=== PATIENT | female | born 1960 | race Caucasian/White ===

== ENCOUNTER 2022-04-24 13:48 | Outpatient (CLI) | payer MEDICARE, MEDICAID, SELFPAY | END 2022-04-24 13:49 | disposition home or self-care (01) | LOC: CARDOPNVT 13:48 | PROVIDERS: Visit Provider Nurse Practitioner Family | DX: R00.2 Palpitations (principal) | CPT/HCPCS: 93246 ==

== ENCOUNTER → 2022-05-08 01:17 | Outpatient (CLI) | payer MEDICARE, MEDICAID, SELFPAY ==
--- NOTE | 2022-05-08 | DI.CTLCSR_ITS ---
Exam(s) CT CHEST LUNG CANCER SCREEN EXAM: CT CHEST LUNG CANCER SCREEN CLINICAL HISTORY: RT LUNG NODULE R91.8 EMPHYSEMA J43.9 SMOKER F17.210, SCREENING LUNG CANCER TECHNIQUE: Imaging Protocol: Axial computed tomography images with coronal and sagittal reformatted images were created and reviewed. Low dose screening protocol. COMPARISON: CR CHEST 2 VIEWS PA,LAT from 11/10/[address] CHEST LOW DOSE CA SCREENING from 04/12/[address] CHEST WO CONTRAST from 07/19/2020 FINDINGS: Tracheobronchial tree: No bronchiectasis or mucus plugging.. Mediastinum and Sandra: No dominant adenopathy or fluid collection. Pulmonary parenchyma: No consolidation or dominant measurable mass. 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 Lung Nodules: Marked interval increase in size of previously noted spiculated mass in the right lower lobe now measuring 3 cm by 2.5 cm by 2.1 cm. New 6 millimeter nodule in the superior segment of the left lower lobe. Pleura: No effusion. No pneumothorax. Heart: The heart is not dilated. Mild coronary artery calcifications are seen. Aorta: Thoracic aorta non-dilated.Atherosclerotic changes. Upper abdomen: Moderate size hiatal hernia. Liver cysts. Left renal cyst. Bones: Scoliosis and degenerative changes. Soft Tissues: Unremarkable. IMPRESSION: Significant interval increase in size previously noted spiculated mass in the right lower lobe now me asuring 3 cm. New 6 millimeter left lower lobe nodule is also suspicious. Lung RADS Cat 4X - Findings with additional features which require additional testing and tissue [facility]. Lung-RADS 1.0 CATEGORIES: Category 0 - Prior chest CT exam(s) being located for comparison. Category 1 - Annual screening in 12 months. No nodules or definitely benign nodules. Category 2 - Annual screening in 12 months. Benign appearance. Nodules with low likelihood of becomin g active cancer. Category 3 - 6-month follow-up. Probably benign. Short-term follow-up suggested. Nodules with low lik elihood of becoming active cancer. Category 4A - 3-month follow-up and CT/PET if >8 mm in size. Suspicious finding. Findings which requi re additional testing. Category 4B - Findings which require additional testing and tissue sampling. Category 4X - Category 3 or 4 nodules with additional features or imaging findings that increases the suspicion of malignancy. Modifier S- Potentially clinically significant findings (non lung cancer) RADIATION DOSE DELIVERED: 81.39mGy.cm Total DLP 1.84mGy!Error CTDIvol DATA REPOSITORY: All CT scans at this facility are submitted to the National Radiology Data Registry (NRDR) Dose Index Registry (DIR) with the [employer] (ACR). RADIATION OPTIMIZATION: All CT scans at this facility use at least one of these dose optimization te chniques: automated exposure control; mA and/or kV adjustment per patient size (includes targeted exa ms where dose is matched to clinical indication); or iterative reconstruction.
--- OUTSIDE RECORDS SUMMARY | 2022-05-08 01:19 | XMS_ITS | Encounter Summary ---
:1960 Author Organization [facility] Address [address] [place] [address] Care Team Providers Name Role Phone Unknown, Provider Primary Care Provider Encounter Details Date Type Department Care Team Description 03/14/2010 Results Only [facility] Gurvinder Gonzalez MD Laboratory Services - [address] [place] [address] [address] [facility] [place] [address] [phone] Social History Tobacco Use Types Packs/Day Years Used Date Smoking Tobacco: Never Assessed Sex Assigned at Date Recorded Not on file documented as of this encounter Plan of Treatment Not on filedocumented as of this encounter Procedures Procedure Name Priority Date/Time Associated Diagnosis Comme nts CYTOPATHOLOGY Routine 03/14/2010 0:00 EDT Results for this procedure are i n the results section . documented in this encounter Results CYTOPATHOLOGY (03/14/2010 0:00 EDT) Component Value Ref Test Analysis Performed At [facility] Pathology CYTOPATHOLOGY REPORT ? AYANNA Report: ? [facility] Reports generated via electr onic interface contain original data; ? however they are lacking the format of the original report. ? Caution should be taken when reading/interpreting unformatted reports. ? Name: ? REIL, TERESA L ? Accession #: ? [id number] ? : ? 1960 (Age: 49) ??F ?Collect Date: ? 03/14/2010 ? Location: ? [facility] ? R eceive Date: ? 03/18/2010 ? Provider: BROOKE GONZALEZ MD ? Copy to: ? Final Report ? SPECIMEN ADEQUACY ? Satisfactory for Eval uation ? - transformation zone compon ent present ? GENERAL CATEGORIZATION ? Negative for Intraepi thelial Lesion or Malignancy ? Last Menstural Period: 05/10 ? Previous Gynecologic Patholo gy: LSIL ? Other: HPVDX - HPV testing r equested regardless of diagnosis on current ThinPrep Pap test. ? Specimen/Source: ??Pap Test, Cervix/Endocervix, ThinPrep Imaging System with ? manual evaluation ? Document reviewed and electr onically signed by: ? Alyse Conrad, CT(ASCP) ? Report ??Date: 10/15/ 2010 15:36 ? HPV with Pap Test ? Date Ordered: ? 1 ? Status: ?? Signed Out ?Date Complete: ? 03/26/2010 ? By: ??System Interface ? Date Reported: ? 03/26/2010 ? Interpretation ? RESULT: Negative for HPV typ es 16, 18, 31, 33, 35, 39, 45, 51, 52, ? 56, 58, 59, and 68. ? Comments ? Document reviewed and electr onically signed by: ? System Interface ? Report date: 10/20/20 10 ? By the signature above, the attending physician certifies that he/she has ? personally conducted a gross and/or microscopic examination of the described ? specimens and rendered or co nfirmed the above diagnosis. ? End of Report ? Specimen (Source) Anatomical Location Collection Method / Collectio n Time Received Time / Laterality Volume 03/14/2010 03/18/2010 Brooke Gonzalez MD PATHOLOGY ORDERABLES Performing Organization Address City/State/ZIP Code Phon e Number [facility] [address] [place] [address] SERVICES [facility] [address] [place] [address] documented in this encounter Visit Diagnoses Not on filedocumented in this encounter Care Teams Unbundler Relationship Specialty Start Date End Date Unknown, Provider, PCP - General 04/04/09 documented as of this encounter
--- OUTSIDE RECORDS SUMMARY | 2022-05-08 01:19 | XMS_ITS | Encounter Summary ---
:1960 Author Organization [facility] [place] [address] [place] [address] Care Team Providers Name Role Phone Stewart Tracey MD Primary Care Provider Encounter Details Date Type Department Care Team Description 08/06/2017 Hospital Encounter XRay at [facility] Morgan Garcia Scoliosis, [address] Mikel MD unspecified [place], [place] [facility] scoliosis type, [id number] CENTER unspecified spinal [phone] [place] [address] Social History Tobacco Use Types Packs/Day Years Used Date Smoking Tobacco: Every Day Cigarettes 1 Smokeless Tobacco: Never Sex Assigned at Date Recorded Not on file documented as of this encounter Medications at Time of Discharge Medication Sig Dispensed Refills Start Date End Date traMADol (ULTRAM) 50 mg Take 50 mg by mouth 0 Tablet every 6 hours as needed for Pain. cyanocobalamin 1,000 mcg Take 1,000 mcg by 0 Tablet mouth daily. cholecalciferol, Vitamin D3, Take by mouth. 0 (CHOLECALCIFEROL, VITAMIN D3,) 2,000 unit Capsule multivitamin (THERAGRAN) Take 1 tablet by 0 Tablet mouth daily. cyclobenzaprine (FLEXERIL) Take 10 mg by mouth 0 10 mg Tablet nightly. albuterol 90 mcg/actuation Inhale 2 puffs into 0 HFA Aerosol Inhaler the lungs every 4 hours as needed for Wheezing. Use with spacer EPINEPHrine 0.3 mg/0.3 mL Inject 0.3 mg into 0 Auto-Injector the muscle once. fluticasone (FLONASE) 50 1 spray daily. 0 mcg/actuation [place], Suspension documented as of this encounter Plan of Treatment Not on filedocumented as of this encounter Procedures Procedure Name Priority Date/Time Associated Diagnosis Comme nts XR SCOLIOSIS OR Routine 08/06/2017 1:20 PM Scoliosis, Result s for this TOTAL SPINE 2 VIEW EST unspecified procedure are in scoliosis type, the results unspecified spinal section. region documented in this encounter Results XR Scoliosis or Total Spine 2 view (08/06/2017 1:20 PM EST) Anatomical Region Laterality Modality C-spine, T-spine, L-spine N/A Digital Radiog lupe Specimen (Source) Anatomical Location Collection Method / Collectio n Time Received Time / Laterality Volume Impressions 08/06/2017 2:29 PM EST Marked dextroscoliosis of the lower thoracic and lumbar spine, with its apex at the thoracolumbar junction, measured at approximately 46 degrees. Narrative 08/06/2017 2:29 PM EST EXAMINATION: XR SCOLIOSIS OR TOTAL SPINE 2 VIEW CLINICAL HISTORY: Scoliosis TECHNIQUE: Frontal and lateral radiographs of the t otal spine were obtained COMPARISON: Lumbar spine radiographs dated 03/04/2016 and 08/06/2016. Attention is also directed to the lumbar spine MRI dated 06/16/2016. FINDINGS: There is a marked dextroscoliosis of the lower thoracic and lumbar spine, with its apex at the thoracolumbar junction, which, when measured between the T10 superior endplate and the L3 inferior en dplate, is measured at 46 degrees. There are 12 pairs of ribs and 5 lumbar- type vertebral bodies. No vertebral anomaly is visualized. No significant pe lvic tilt is appreciated. Subjectively, there is diffuse demineral ization of the bones. Dense atherosclerotic calcification of t he abdominal aorta is seen. Procedure Note Arlene Galan MD - 08/06/2017Formatting o f this note might be different from the original. EXAMINATION: XR SCOLIOSIS OR TOTAL SPINE 2 VIEW CLINICAL HISTORY: Scoliosis TECHNIQUE: Frontal and lateral radiographs of the t otal spine were obtained COMPARISON: Lumbar spine radiographs dated 03/04/2016 and 08/06/2016. Attention is also directed to the lumbar spine MRI dated 06/16/2016. FINDINGS: There is a marked dextroscoliosis of the lower thoracic and lumbar spine, with its apex at the thoracolumbar junction, which, when measured between the T10 superior endplate and the L3 inferior en dplate, is measured at 46 degrees. There are 12 pairs of ribs and 5 lumbar- type vertebral bodies. No vertebral anomaly is visualized. No significant pe lvic tilt is appreciated. Subjectively, there is diffuse demineral ization of the bones. Dense atherosclerotic calcification of t he abdominal aorta is seen. IMPRESSION Marked dextroscoliosis of the lower thor acic and lumbar spine, with its apex at the thoracolumbar junction, measured at approximately 46 degrees. Morgan Garcia MD IMG DX ORDERABLES documented in this encounter Visit Diagnoses Diagnosis Scoliosis, unspecified scoliosis type, u nspecified spinal region documented in this encounter Care Teams B Operator Relationship Specialty Start Date End Date Stewart Tracey MD PCP - General Family Medicine 08/06/[address] [place] [phone] documented as of this encounter
--- OUTSIDE RECORDS SUMMARY | 2022-05-08 01:19 | XMS_ITS | Encounter Summary ---
:1960 Author Organization [facility] [place] [address] Care Team Providers Name Role Phone Stewart Tracey MD Primary Care Provider Encounter Details Date Type Department Care Team Description 08/06/2017 Hospital Encounter XRay at [facility] Morgan Garcia Scoliosis, [address] Mikel MD unspecified [place], [place] [facility] scoliosis type, [address] CENTER unspecified spinal [phone] [place] [address] Social History Tobacco Use Types Packs/Day Years Used Date Smoking Tobacco: Every Day Cigarettes 1 Smokeless Tobacco: Never Sex Assigned at Date Recorded Not on file documented as of this encounter Plan of Treatment Not on filedocumented as of this encounter Procedures Procedure Name Priority Date/Time Associated Diagnosis Comme nts XR LUMBAR SPINE 2 Routine 08/06/2017 1:24 PM Scoliosis, Resu lts for this OR 3 VIEWS EST unspecified procedure are i n scoliosis type, the results unspecified spinal section. region documented in this encounter Results XR Lumbar Spine 2 Or 3 Views (Generic) (08/06/2017 1:24 PM EST) Anatomical Region Laterality Modality L-spine N/A Digital Radiography Specimen (Source) Anatomical Location Collection Method / Collectio n Time Received Time / Laterality Volume Impressions 08/06/2017 1:53 PM EST 1. ??Slight scoliosis 2. ??No dynamic instability. Narrative 08/06/2017 1:53 PM EST EXAMINATION: XR LUMBAR SPINE 2 OR 3 VIEWS (GENERIC) CLINICAL HISTORY: Lateral flex/ ext 2 vi ews to eval scoliosis; looking for instability/motion TECHNIQUE: 2 views COMPARISON: February 2016 FINDINGS: Number of non-rib bearing lumbar-type ve rtebrae: 5 Vertebral bodies: Normal vertebral heigh t. No vertebral fracture. Evaluation of bone detail is limited by decreased mine ralization and scoliosis. There is facet arthropathy. Disk spaces: Disc space narrowing at all levels. Soft tissues: ??heavy atherosclerotic ao rtic wall calcifications. there is focal increased diameter the aorta at L2 measu ring 40 mm. Alignment: Scoliosis seen on the previou s examination. No subluxation on the lateral view. Unchanged alignment upon f lexion and extension. Procedure Note Delmy Parsons MD - 08/06/2017Formatt ing of this note might be different from the original. EXAMINATION: XR LUMBAR SPINE 2 OR 3 VIEW S (GENERIC) CLINICAL HISTORY: Lateral flex/ ext 2 vi ews to eval scoliosis; looking for instability/motion TECHNIQUE: 2 views COMPARISON: February 2016 FINDINGS: Number of non-rib bearing lumbar-type ve rtebrae: 5 Vertebral bodies: Normal vertebral heigh t. No vertebral fracture. Evaluation of bone detail is limited by decreased mine ralization and scoliosis. There is facet arthropathy. Disk spaces: Disc space narrowing at all levels. Soft tissues: heavy atherosclerotic aort ic wall calcifications. there is focal increased diameter the aorta at L2 measu ring 40 mm. Alignment: Scoliosis seen on the previou s examination. No subluxation on the lateral view. Unchanged alignment upon f lexion and extension. IMPRESSION 1. Slight scoliosis 2. No dynamic instability. Morgan Garcia MD IMG DX ORDERABLES documented in this encounter Visit Diagnoses Diagnosis Scoliosis, unspecified scoliosis type, u nspecified spinal region documented in this encounter Care Teams Child Development Associate Teacher Relationship Specialty Start Date End Date Stewart Tracey MD PCP - General Family Medicine 08/06/[address] [place] [phone] documented as of this encounter
--- OUTSIDE RECORDS SUMMARY | 2022-05-08 01:19 | XMS_ITS | Encounter Summary ---
:1960 Author Organization [facility] Address [address] [place] [address] Care Team Providers Name Role Phone Unavailable Primary Care Provider Unavailable Encounter Details Date Type Department Care Team Description 03/22/2009 Orders Only [facility] Gurvinder Wiley MD Laboratory Services - [address] [facility] [place] [address] [address] [facility] [place] [address] [phone] Social History Tobacco Use Types Packs/Day Years Used Date Smoking Tobacco: Never Assessed Sex Assigned at Date Recorded Not on file documented as of this encounter Plan of Treatment Not on filedocumented as of this encounter Procedures Procedure Name Priority Date/Time Associated Comments Diagnosis HPV DETECTION, HIGH Routine 03/22/2009 11:10 Resu lts for this RISK TYPES EDT procedure are i n the results section. CYTOPATHOLOGY Routine 03/22/2009 0:00 Results for this EDT procedure are i n the results section. documented in this encounter Results HUMAN PAPILLOMA VIRUS DNA TEST (03/22/2009 11:10 EDT) [facility] Method Time Signature Specimen Cervix, URENA Description ThinPrep [facility] vial Result Negative for URENA HPV types RA [facility] 16, 18, 31, 33, 35, 39, 45, 51, 52, 56, 58, 59, and 68. Report Status Final [place] 04/05/2009 [facility] Specimen Anatomical Collection Method Collection Time Receive d Time (Source) Location / / Volume Laterality 03/22/2009 11:10 04/04/2009 EDT 11:10 EDT Brooke Wiley MD MICROBIOLOGY - GENERAL ORDER TEETEE Performing Organization Address City/State/ZIP Code Phon e Number [facility] [address] [place] [address] SERVICES [facility] [address] [place] [address] CYTOPATHOLOGY (03/22/2009 0:00 EDT) Component Value Ref Test Analysis Performed At [facility] Range Method Time Signature Pathology CYTOPATHOLOGY REPORT ? URENA Report: ? [facility] Reports generated via [employer] interface contain original data; ? however they are lacking the format of the original report. ? Caution should be taken when reading/interpreting unformatted reports. ? Name: ? TERESA DOMÍNGUEZ ? Accession #: ? [id number] ? : ? 1960 (Age: 48) ??F ?Collect Date: ? 03/22/2009 ? Location: ? [facility] ? Receive Date: ? 03/25/2009 ? Provider: ?BROOKE VADIM MAN MD ? Copy to: ? Specimen/Source: ? Pap Test, Endocervix, ThinPrep Imaging System with ? manual evaluation ? Last Menstrual Period: ? 8/13/09 ? Other: ? HPVDX - HPV testing requeste d regardless of diagnosis on current ThinPrep Pap ?? test. ? SPECIMEN ADEQUACY ? Satisfactory for Eval uation ? - transformation zone compon ent present ? GENERAL CATEGORIZATION ? Epithelial Cell Abnor mality ? INTERPRETATION ? Squamous Cell Abnorma lity - Low grade squamous intraepithelial lesion ? (LSIL). ? Shift in nir present sugge stive of bacterial vaginosis. ? EDUCATIONAL NOTES/RECOMMENDA TIONS ? FA recommends john wing the 2006 Consensus Guidelines for the Management of Women with Abnormal Cervi abhishek Cancer Screening Tests (JLGTD, ? 2007;11(4):201-222). ??Conse nsus guidelines are available online at ? www.ASCCP.org. ? Document reviewed and electr onically signed by: ? ABDELMONEM ELHOSSEINY MD ? Report Date: ??10/28/ 2009 13:23 ? End of Report ? Specimen (Source) Anatomical Location Collection Method / Collectio n Time Received Time / Laterality Volume 03/22/2009 03/25/2009 Brooke Wiley MD PATHOLOGY ORDERABLES Performing Organization Address City/State/ZIP Code Phon e Number [facility] [address] [place] [address] SERVICES [facility] [address] [place] [phone] documented in this encounter Visit Diagnoses Not on filedocumented in this encounter
--- OUTSIDE RECORDS SUMMARY | 2022-05-08 01:19 | XMS_ITS | Encounter Summary ---
:1960 Author Organization [facility] Address [address] [place] [address] Care Team Providers Name Role Phone Unknown, Provider Primary Care Provider Encounter Details Date Type Department Care Team Description 10/07/2012 Results Only [facility] Gurvinder Gonzalez MD Laboratory Services - [address] [place] [address] [address] [facility] [place] [address] [phone] Social History Tobacco Use Types Packs/Day Years Used Date Smoking Tobacco: Never Assessed Sex Assigned at Date Recorded Not on file documented as of this encounter Plan of Treatment Not on filedocumented as of this encounter Procedures Procedure Name Priority Date/Time Associated Diagnosis Comme nts PAP TEST- RESULT Routine 10/07/2012 0:00 EDT Resu lts for this ONLY procedure are i n the results section. documented in this encounter Results PAP TEST- RESULT ONLY (10/07/2012 0:00 EDT) Component Value Ref Test Analysis Performed At [facility] Method Time Signature Pathology CYTOPATHOLOGY REPORT AYANNA Report: [facility] Reports generated via electronic interface contain original data; however they are lacking the format of the original report. Caution should be taken when reading/interpreting unformatte d reports. Name: ? TERESA DOMÍNGUEZ ? Accession #: ? [id number] ? : ? 1960 (Age: 52) ??F ?Collect Da te: ? 10/07/2012 ? Location: ? [facility] ? Receive Date: ? 10/10/2012 ? Provider: IDANIA GONZALEZ MD Copy to: ? Final Report SPECIMEN ADEQUACY ? Satisfactory for Evaluation - transformation zone component present - scant squamous epithelial component secondary to excessive inflammation GENERAL CATEGORIZATION ? Negative for Intraepithelial Lesion or Malignancy ?? Last Menstrual Period: 2009 Previous Gynecologic Pathology: LSIL: 2009 Other: Additional clinical information: Repeat pap from 2011. Pap specimen not adequate for evaluation. No Charge pap. Specimen/Source: ??Pap Test, Cervix/Endocervix, ThinPr ep Imaging System with manual evaluation Document reviewed and electronically signed by: ? MEGAN Agrawal(ASCP) ? Report ??Date: 10/14/2012 10:46 HPV with Pap Test ? Date Ordered: ? 10/14/2012 ? Status: ?? Cheryl d Out ?Date Complete: ? 10/18/2012 ? By: ??System Interface ? Date Reported: ? 10/18/2012 ? Interpretation RESULT: Negative for HPV. No E6 or E7 mRNA is detected from HPV types 16,18,31,33,35, 39,45,51,52,56,58,59,66, and 68 by caustic loader mediated amplification. Comments Document reviewed and electronically signed by: ? System Interface ? Report date: 10/18/2012 By the signature above, the attending physician certifies th at he/she has personally conducted a gross and/or microscopic examin ation of the described specimens and rendered or confirmed the above diagnosis. End of Report Specimen (Source) Anatomical Location Collection Method / Collectio n Time Received Time / Laterality Volume 10/07/2012 10/10/2012 Idania Gonzalez MD PATHOLOGY ORDERABLES Performing Organization Address City/State/ZIP Code Phon e Number [facility] [address] [place] [address] SERVICES [facility] [address] [place] [address] documented in this encounter Visit Diagnoses Not on filedocumented in this encounter Care Teams Real Estate Investment Analyst Relationship Specialty Start Date End Date Unknown, Provider, PCP - General 04/04/09 documented as of this encounter
--- OUTSIDE RECORDS SUMMARY | 2022-05-08 01:19 | XMS_ITS | Encounter Summary ---
:1960 Author Organization [facility] Address [address] [place] [address] Care Team Providers Name Role Phone Stewart Tracey MD Primary Care Provider Reason for Visit Reason Comments Low Back Pain left side pain Left Hip Pain Left Leg Pain Consultation (Routine) - Closed Specialty Diagnoses / Procedures Referred By Contact Refer red To Contact Orthopaedics Diagnoses pt declined pain clinic for trial of injections. 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-archachnoid Marcela Burrows, Aakash Houston MD space, C2-3 thinning of thecal sac [address] [place] [address] [place] [address] Phone: Fax: Referral ID Status Reason Start Date Expiration Date Visits V isits Requested Authorized [id number] Closed Consult, 05/19/2017 05/19/2018 1 1 [facility] Encounter Details Date Type Department Care Team Description 08/06/2017 Office Visit [facility] Kya Calvillo is, unspecified Cornell CARO scoliosis type, [facility] uns pecified spinal [address] [place] [facility] [facility] [address] [place] [address] [phone] Social History Tobacco Use Types Packs/Day Years Used Date Smoking Tobacco: Every Day Cigarettes 1 Smokeless Tobacco: Never Sex Assigned at Date Recorded Not on file documented as of this encounter Last Filed Vital Signs Vital Sign Reading Time Taken Comments Blood Pressure 128/56 08/06/2017 1:41 PM EST Pulse - - Temperature - - Respiratory Rate - - Oxygen Saturation - - Inhaled Oxygen Concentration - - Weight 60.8 kg (134 lb) 08/06/2017 1:41 PM EST Height 157.5 cm (5' 2) 08/06/2017 1:41 PM EST Body Mass Index 24.51 08/06/2017 1:41 PM EST documented in this encounter Progress Notes Alexys Goode T - 08/06/2017 1:40 PM EST HPI: Patient is a pleasant 57-year-old female with complex medical history including history of scoliosisas well as long-standing back pain. Patient was referred here by her primary care provider Marcela LEACH. Patient reports that she has had pain in her back and neck for several decades. She believes that this began when she had a accident on a horse when she was a child. She did not find out abouther scoliosis until her adult life, she believes at some point in the mid 90s. She did not undergo any treatment specifically for her scoliosis in the form of bracing and/or surgery. With regards to her back pain she has pursued several different treatment modalities in the past including chiropractors, physical therapy, and medication. She reports that these have provided her temporary relief at times however her pain has overall been consistent and progressive. She reports at this time that the pain is most bothersome in her mid thoracic spine as well as in her neck. Moreover she reports pain andnumbness in the neck with elevation of the bilateral upper extremities left worse than right. Furthermore she reports intermittent numbness/tingling in her feet as well as in her bilateral hands. She reports that her symptoms are worse with activity (including walking and lifting heavy objects). She reports that they do resolve somewhat with rest. She reports her symptoms do awaken her sometimes at night. She does feel that the pain has affected her gait and balance. She denies any other recent changes in her health or constitutional symptoms. She denies any unexplained weight loss. She denies any bowel or bladder symptoms. She has had no prior spine surgery. She has had no injections for her backpain. She reports that the pain is currently keeping her from activities that she would like to engage in work around her house. She is not currently employed, she is on disability and a widows pension. Medications: Tramadol Medical history: pernicious anemia, hyperlipidemia, venous stasis, allergic rhinitis, skin lesions, arthralgia, hip pain, chronic SI joint pain, fibromyalgia Medications: Tramadol,Vitamin B12, cyclobenzaprine, fluticasone, ProAir air Allergies: Gabapentin, doxycycline, meloxicam, pain thinner, shellfish, amoxicillin, Augmentin, simvastatin, niacin, detergent, sulfamethoxazole, mometasone Physical exam: Patient walks with an antalgic gait. She is able to perform normal toe walk and heel walk. She is able to perform straight leg raise with some difficulty (she does not develop balance). She stands with notable pelvic tilt and tilt of her shoulders. Her spine has noted curvature on examand a palpable prominence of the right side posterior ribs. She is able to flex to 60?? and extend to 15?? and lumbar spine she is a reformed cervical flexion 30??, cervical extension 50??, cervical rotation 35?? bilaterally, cervical side bend 15?? bilaterally, (she has diffuse pain with movement of her neck and lumbar spine). Motor examination reveals 4 out of 5 strength diffusely in the left lower extremity 4 out of 5 strength with quality process engineer flexion and extension of the elbow with the left upper extremity. 5 out of 5 strength diffusely in the right lower extremity and right upper extremity. Reflexes are 2+ and symmetric in theupper extremities and lower extremities bilaterally. Straight leg raise is negative in bilateral lower extremities. Spurling's test is negative. Musa's test is negative. Clonus is negative. Babinski is negative. Bilateral DP pulses are 2+. Bilateral radial pulses are 2+. Patient has positive Tinel's bilateral wrist with median nerve distribution numbness, and bilateral elbows with ulnar distribution numbness she is noted to have diffuse. Point tenderness in her back and extremities. Imaging: x-ray demonstrates a right-sided thoracic curvature of 39??, and left sided lumbar curvature 43??. Also noted are diffuse degenerative changes throughout the lumbar and thoracic spine. MRI: demonstrates multilevel degenerative changes in the cervical and lumbar spine, without substantial nerve compression in the lumbar thoracic or cervical spine. Assessment plan: Patient is a 57-year-old female with scoliosis and chronic back pain. Treatment options for her symptoms were discussed with her. Would we discussed with her that surgery for her scoliosis potentially be helpful to limit curve progression, however it would not reliably provide pain relief, and may actually exacerbate pain. Furthermore we advised that this would be a large surgery with a long recoveryperiod. We discussed with her management of back and neck pain it is very often an ongoing issue, they can be addressed with multiple modalities. We recommended that she engage in pool/aquatic therapy for strengthening and conditioning. She should continue to follow-up with her primary care provider. W ith regard to numbness and tingling in her hands, it is felt this was likely related to possible carpal and/or cubital tunnel. The patient reports she has been told in the past that she does have carpal tunnel syndrome, and has undergone injections in her carpal tunnels. We would recommend referral bo upper extremity surgeon for evaluation and treatment of this. It was noted on her current imagingthat her curve does appear to possibly have progressed somewhat from prior imaging. Because of this we would recommend having the patient follow-up again in this clinic in approximately 6 months, with repeat scoliosis x-rays obtained at that time to evaluate for curve progression. If there is progression of the curve, we would revisit discussion of surgery, again with the goal of preventing further curve progression. However, there is no progression of the curve we would continue to recommend nonoperative management. The patient expressed understanding all questions were answered satisfactorily. Morgan Garcia MD - 08/06/2017 1:40 PM EST Images from the original note were not included. Spine Center @ [facility] Morgan Garcia MD, MS. Director HANY Y[address] [place] [address] Stewart Tracey MD [address] [facility] [address] Dear Colleagues, I had the pleasure of seeing this patient at the [facility] for surgical evaluation. Chief complaint: Diffuse pain. Diagnosis: 1. Possible progressive scoliosis. 39?? right-sided thoracic, 42?? left-sided lumbar. Prior imaging showed 26?? on lumbar films. 2. Diffuse pain secondary to multiple diagnoses including SI joint pain arthralgias hip pain fibromyalgia chest wall pain muscle strain. 3. Neurologically intact. Prognostic factors BMI 24.51, every day smoker one pack per day. Nondiabetic. Multiple allergies on tramadol. Imaging:X-rays March 04, 2016 right lumbar curve 26?? approximately. Scoliosis films done 08/06/2017 show 46?? curve from the top of the L4 to the top of T11. Physical examination: Neurologically intact. Obvious scoliosis with a right lumbar thoracolumbar ribhump. Asymmetry of the shoulders. Otherwise coronal and sagittal alignment appears to be within normal limits. Summary and plan: Is a patient with possible progressive scoliosis. For that I like to see her back in 6 months with full length scoliosis films. If there is significant progression surgical intervention should be considered. The extent of the surgical intervention is quite large. I discussed with with her. The goal that surgery would be to prevent further progression and would not necessarily alleviate her pain. Considering her back pain this is to be managed. Aquatic therapy injections comfort care acupuncture physical activity. I do think aquatic therapy would be the best thing for her. We discussed finding her place to do this. They will look into it. Patient was seen in conjunction with chief resident on the service. Please see his clinical notes for details. More than 50% of more than 60 minutes were utilized in counseling around diagnosis, review of films,generator of the pain which is unclear, indications for surgical intervention and importance of follow-up. Films are reviewed together and discussed. Sincerely, Morgan Garcia MD MS Tank Pumper - Orthopedic Spine Surgery / Spine Center Remote Sensing Scientist - Department of Orthopedic Surgery / Academics [employer] [facility] - [facility] Division of Medicine 08/10/2017 Spine Center Response Trends Patient-reported scores: myD-H Spine Questionnaire responses 08/06/2017 Oswestry Disability Index (Range: 0-100) 62.22 (Crippled) Neck Disability Index (Range: 0-100) 64 (Severe disability) PROMIS-10 Physical Health Score 23.5 PROMIS-10 Mental Health Score 28.4 documented in this encounter Plan of Treatment Not on filedocumented as of this encounter Visit Diagnoses Diagnosis Scoliosis, unspecified scoliosis type, u nspecified spinal region documented in this encounter Care Teams Resawyer Relationship Specialty Start Date End Date Stewart Tracey MD PCP - General Family Medicine 08/06/17 [address] [place] [phone] documented as of this encounter
--- OUTSIDE RECORDS SUMMARY | 2022-05-08 01:19 | XMS_ITS | Encounter Summary ---
:1960 Author Organization [facility] Address [address] [place] [address] Care Team Providers Name Role Phone Unknown, Provider Primary Care Provider Encounter Details Date Type Department Care Team Description 03/24/2011 Results Only [facility] Gurvinder Gonzalez MD Laboratory Services - [address] [place] [address] [address] [facility] [place] [address] [phone] Social History Tobacco Use Types Packs/Day Years Used Date Smoking Tobacco: Never Assessed Sex Assigned at Date Recorded Not on file documented as of this encounter Plan of Treatment Not on filedocumented as of this encounter Procedures Procedure Name Priority Date/Time Associated Diagnosis Comme nts PAP TEST- RESULT Routine 03/24/2011 0:00 EDT Resu lts for this ONLY procedure are i n the results section. documented in this encounter Results PAP TEST- RESULT ONLY (03/24/2011 0:00 EDT) Component Value Ref Test Analysis Performed At [facility] Method Time Signature Pathology CYTOPATHOLOGY REPORT AYANNA Report: RA LAB Reports generated via electronic interface contain original data; however they are lacking the format of the original report. Caution should be taken when reading/interpreting unformatte d reports. Name: ? TERESA DOMÍNGUEZ ? Accession #: ? [id number] : ? 1960 (Age: 50) ??F ?Collect Date: ? 03/24/2011 Location: ? [facility] ? Receive Date: ? 03/25/2011 Provider: ?IDANIA GONZALEZ MD Copy to: ? Specimen/Source: ? Pap Test, Cervix/Endocervix, ThinPrep Imaging System with manual evaluation Last Menstrual Period: ? 05/16 Previous Gynecologic Pathology: ? LSIL: 2009 ? SPECIMEN ADEQUACY ? Satisfactory for Evaluation - transformation zone component present GENERAL CATEGORIZATION ? Negative for Intraepithelial Lesion or Malignancy ? Document reviewed and electronically signed by: ? MEGAN Elizalde(ASCP) ? Report Date: ??04/02/2011 10:51 End of Report Specimen (Source) Anatomical Location Collection Method / Collectio n Time Received Time / Laterality Volume 03/24/2011 03/25/2011 Idania Gonzalez MD PATHOLOGY ORDERABLES Performing Organization Address City/State/ZIP Code Phon e Number [facility] [address] [place] [address] SERVICES [facility] [address] [place] [address] documented in this encounter Visit Diagnoses Not on filedocumented in this encounter Care Teams Nitroglycerin Separator Operator Relationship Specialty Start Date End Date Unknown, Provider, PCP - General 04/04/09 documented as of this encounter
--- OUTSIDE RECORDS SUMMARY | 2022-05-08 01:19 | XMS_ITS | Encounter Summary ---
:1960 [place] [address] Care Team Providers Name Role Phone Brooke Wiley MD Primary Care Provider Encounter Details Date Type Department Care Team Description 04/16/2017 Hospital Encounter Radiology Library at [facility] Morgan Morin MD [facility] [place] [address] [place] [address] [phone] (Wo rk) Social History Tobacco Use Types Packs/Day Years Used Date Smoking Tobacco: Never Assessed Sex Assigned at Date Recorded Not on file documented as of this encounter Medications at Time of Discharge Medication Sig Dispensed Refills Start Date End Date rosuvastatin (CRESTOR) 5 mg 0 05/07/20 06 08/06/2017 tablet venlafaxine (EFFEXOR XR) 75 mg 0 05/0208/06/2017 24 hr capsule epiNEPHrine (EPIPEN) 0.3 1 IM, IM, PRN 0 05/02/20 06 08/06/2017 mg/0.3 mL injection Mometasone (NASONEX) 50 0 05/02/2006 0 08/06/2017 mcg/Actuation Somers ibuprofen (ADVIL;MOTRIN) 800 800MG, PO, PRN 0 08/06/2017 mg tablet triamcinolone (KENALOG) 0.1 % 0 200508/06/2017 ointment Cyanocobalamin (VITAMIN B-12) 0 200508/06/2017 1,500 mcg TbSR documented as of this encounter Plan of Treatment Not on filedocumented as of this encounter Procedures Procedure Name Priority Date/Time Associated Diagnosis Comme nts FILM LIBRARY Routine 04/16/2017 12:00 AM Pain Results for this STORAGE ONLY MR EST procedure ar e in SPINE the results section. documented in this encounter Results Film Library- Storage Only MR Spine (04/16/2017 12:00 AM EST) Specimen (Source) Anatomical Location Collection Method / Collectio n Time Received Time / Laterality Volume Narrative RAD - 08/05/2017 7:54 AM EST This result has an attachment that is no t available. This exam is for storage only and is aut o-finalizing. Morgan Garcia MD IMG FILM LIBRARY ORDERABLES Performing Organization Address City/State/ZIP Code Phon e Number [place], [place] documented in this encounter Visit Diagnoses Diagnosis Pain Generalized pain documented in this encounter Care Teams Director Of Event Management Relationship Specialty Start Date End Date Brooke Wiley MD PCP - General 04/29/10 05/17/17 [address] [place] [address] documented as of this encounter
--- OUTSIDE RECORDS SUMMARY | 2022-05-08 01:19 | XMS_ITS | Encounter Summary ---
:1960 Author Organization [facility] Address [address] [place] [address] Care Team Providers Name Role Phone Unknown, Provider Primary Care Provider Encounter Details Date Type Department Care Team Description 07/31/2009 Results Only [facility] Devora Jones MD [phone] [place] [address] Social History Tobacco Use Types Packs/Day Years Used Date Smoking Tobacco: Never Assessed Sex Assigned at Date Recorded Not on file documented as of this encounter Plan of Treatment Not on filedocumented as of this encounter Procedures Procedure Name Priority Date/Time Associated Diagnosis Comme nts SURGICAL PATHOLOGY Routine 07/31/2009 0:00 EST Re sults for this procedure are i n the results section. documented in this encounter Results SURGICAL PATHOLOGY (07/31/2009 0:00 EST) Component Value Ref Test Analysis Performed Pathologis t Range Method Time At [facility] Pathology SURGICAL PATHOLOGY REPORT ? THELMA HER Report: Reports generated via electr [facility] interface contain original data; ? [facility] however they are lacking the format of the original report. ? Caution should be taken when reading/interpreting unformatted reports. ? Name: ? REIL, TERESA L ? Accession #: ? [id number] ? : ? 1960 (Age: 49) ??F ? Collec t Date: ? 07/31/2009 ? Location: ? [facility] ? R eceive Date: ? 07/31/2009 ? Provider: DEVORA S MARTY MD ? Copy to: IDANIA GONZALEZ MD ? Final Pathologic Diagnosis: ? Endometrium, curettag e: ? 1. ?Fragments o f hyperplastic endometrial polyp. ? 2. ? Inactive endometriu m with cystic change and pseudodecidualized stroma, ?? consistent with exogenous ho rmonal effect. ??See comment. ? 3. ?Fragments o f benign endocervix with focal microglandular ? hyperplasia. ? Comment: ? The histologic featur es of the endometrial fragments are suggestive of ? treated disordered prolifera tive endometrium. Selected slides were reviewed at ?? the intradepartmental consul tation conference. ? Document reviewed and electr onically signed by: ? WILMER BATEMAN MD ? Report ??Date: 08/02/2009 15 :07 ? By the signature above, the attending physician certifies that he/she has ? personally conducted a gross and/or microscopic examination of the described ? specimens and rendered or co nfirmed the above diagnosis. ? Specimen(s) Received: ? Endometrial curetting s + EM polyp ? Clinical History: ? EM polyp ? Gross Description: ? Received in formalin labelled Reil, Teresa and endometrial curettings is a 4.0 x 4.0 x 1.5 cm aggrega te of pink-cueto tissue fragments admixed with clotted blood and a small amount of mucus. ??The specimen is filtered and entirely ? submitted in (A1) ??(A5). ?? (Curly Burris)/melania ? End of Report ? Specimen (Source) Anatomical Collection Method Collection Time Re ceived Time Location / / Volume Laterality 07/31/2009 07/31/2009 20:1 4 EST Devora Jones MD PATHOLOGY ORDERABLES Performing Organization Address City/State/ZIP Code Phon e Number [facility] [address] [place] [address] SERVICES [facility] [address] [place] [address] documented in this encounter Visit Diagnoses Not on filedocumented in this encounter Care Teams Film Casting Operator Relationship Specialty Start Date End Date Unknown, Provider, PCP - General 04/04/09 documented as of this encounter
--- OUTSIDE RECORDS SUMMARY | 2022-05-08 01:19 | XMS_ITS | Encounter Summary ---
:1960 Author Organization [facility] Address [address] [place] [address] Care Team Providers Name Role Phone Unknown, Provider Primary Care Provider Encounter Details Date Type Department Care Team Description 03/25/2012 Results Only [facility] Gurvinder Gonzalez MD Laboratory Services - [address] [place] [place] [address] [address] [facility] [place] [address] [phone] Social History Tobacco Use Types Packs/Day Years Used Date Smoking Tobacco: Never Assessed Sex Assigned at Date Recorded Not on file documented as of this encounter Plan of Treatment Not on filedocumented as of this encounter Procedures Procedure Name Priority Date/Time Associated Diagnosis Comme nts PAP TEST- RESULT Routine 03/25/2012 0:00 EDT Resu lts for this ONLY procedure are i n the results section. documented in this encounter Results PAP TEST- RESULT ONLY (03/25/2012 0:00 EDT) Component Value Ref Test Analysis Performed At [facility] Method Time Signature Pathology CYTOPATHOLOGY REPORT AYANNA Report: [facility] LAB Reports generated via electronic interface contain original data; however they are lacking the format of the original report. Caution should be taken when reading/interpreting unformatte d reports. Name: ? TERESA DOMÍNGUEZ ? Accession #: ? [id number] ? : ? 1960 (Age: 51) ??F ?Collect Da te: ? 03/25/2012 ? Location: ? [facility] ? Receive Date: ? 03/29/2012 ? Provider: IDANIA GONZALEZ MD Copy to: ? Final Report SPECIMEN ADEQUACY ? Unsatisfactory for Evaluation, - insufficient numbers of squamous epith elial cells (less than 10% of expected cellularity) - sample preparation compromised by excessive inflammation GENERAL CATEGORIZATION ? Specimen processed and examined, but unsatisfac tory for evaluation of epithelial abnormality. Recommend repeat Pap test or further follow up, as clinicall y indicated. ?? Last Menstural Period: 05/16 Previous Gynecologic Pathology: LSIL: 2009 Specimen/Source: ??Pap Test, Cervix/Endocervix, ThinPr ep Imaging System with manual evaluation Document reviewed and electronically signed by: ? MEGAN Garcia(ASCP) ? Report ??Date: 04/04/2012 11:25 HPV with Pap Test ? Date Ordered: ? 04/01/2012 ? Status: ?? Cheryl d Out ?Date Complete: ? 04/06/2012 ? By: ??System Interface ? Date Reported: ? 04/06/2012 ? Interpretation RESULT: Negative for HPV. No E6 or E7 mRNA is detected from HPV types 16,18,31,33,35, 39,45,51,52,56,58,59,66, and 68 by java spring developer mediated amplification. This specimen had inadequate cells for cytologic interpretation. Negative results of HPV testing should be interpreted with caution. If clinically indicated, please consider submission of an additional specimen. Comments Document reviewed and electronically signed by: ? System Interface ? Report date: 04/06/2012 By the signature above, the attending physician certifies th at he/she has personally conducted a gross and/or microscopic examin ation of the described specimens and rendered or confirmed the above diagnosis. End of Report Specimen (Source) Anatomical Location Collection Method / Collectio n Time Received Time / Laterality Volume 03/25/2012 03/29/2012 Idania Gonzalez MD PATHOLOGY ORDERABLES Performing Organization Address City/State/ZIP Code Phon e Number [facility] [address] [place] [address] SERVICES [facility] [address] [place] [phone] documented in this encounter Visit Diagnoses Not on filedocumented in this encounter Care Teams Grease Maker Relationship Specialty Start Date End Date Unknown, Provider, PCP - General 04/04/09 documented as of this encounter
--- OUTSIDE RECORDS SUMMARY | 2022-05-08 01:19 | XMS_ITS | Encounter Summary ---
:1960 Author Organization [facility] [place] [address] Care Team Providers Name Role Phone Brooke Wiley MD Primary Care Provider Encounter Details Date Type Department Care Team Description 05/17/2017 Hospital Encounter Radiology Library at Tae Loco MD [facility] [place] [address] [place] [address] [phone] (Wo rk) Social History Tobacco Use Types [...] (NASONEX) 50 0 05/02/2006 0 08/06/2017 mcg/Actuation [place] ibuprofen (ADVIL;MOTRIN) 800 800MG, PO, PRN 0 08/06/2017 mg tablet triamcinolone (KENALOG) 0.1 % 0 200508/06/2017 ointment Cyanocobalamin (VITAMIN B-12) 0 200508/06/2017 1,500 mcg TbSR documented as of this encounter Plan of Treatment Not on filedocumented as of this encounter Procedures Procedure Name Priority Date/Time Associated Diagnosis Comme nts FILM LIBRARY Routine 05/17/2017 12:00 AM Results for this STORAGE ONLY MR EST procedure ar e in SPINE the results section. documented in this encounter Results Film Library- Storage Only MR Spine (05/17/2017 12:00 AM EST) Specimen (Source) Anatomical Location Collection Method / Collectio n Time Received Time / Laterality Volume Narrative [facility] - 05/26/2017 2:46 PM EST This exam is for storage only and is aut o-finalizing. Aakash Loco MD IMG FILM LIBRARY ORDERABLES Performing Organization Address City/State/ZIP Code Phon e Number [place], [place] documented in this encounter Visit Diagnoses Not on filedocumented in this encounter Care Teams Imaging Scheduler Relationship Specialty Start Date End Date Brooke Wiley MD PCP - General 04/29/10 05/17/17 [address] [place] [address] documented as of this encounter
--- OUTSIDE RECORDS SUMMARY | 2022-05-08 01:19 | XMS_ITS | Encounter Summary ---
:1960 Author Organization [facility] Address [address] [place] [address] Care Team Providers Name Role Phone Unknown, Provider Primary Care Provider Encounter Details Date Type Department Care Team Description 07/12/2020 Lab Requisition [facility] Mary Kay Russell Encounter for other Pathology & J, CARDBOARD INSERTER general examination Laboratory Medicine [address] [place] [address] [address] [facility] [phone] [place] [address] (Work) [phone] Social History Tobacco Use Types Packs/Day Years Used Date Smoking Tobacco: Never Assessed Sex Assigned at Date Recorded Not on file documented as of this encounter Plan of Treatment Not on filedocumented as of this encounter Procedures Procedure Name Priority Date/Time Associated Comments Diagnosis PAP TEST Today 07/12/2020 16:29 Results for this EST procedure are i n the results section. HUMAN PAPILLOMAVIRUS Today 07/12/2020 16:29 Res ults for this (HPV) DETECTION-HIGH EST procedu re are in RISK TYPES the results section. documented in this encounter Results HUMAN PAPILLOMAVIRUS (HPV) DETECTION-HIGH RISK TYPES (07/12/2020 16:29 EST) [facility] Method Time Signature Human Negative Negative 07/22/2020 [facility] MEDICAL Papillomavirus 15:33 EST CENTER (HPV) LABORATORY Detection-High SERVICES Types Comment: No E6 or E7 mRNA is detected fr om HPV types 16,18,31,33,35,39,45,51,52,56,58,59,66, and 68 by casino floorperson mediated amplification. Specimen Anatomical Collection Method Collection Time Receive d Time (Source) Location / / Volume Laterality Pap Test (Cervix 07/12/2020 16:29 021 and/or EST 11:39 EST Endocervix) Mar yKay [facility]ILLAGOMEZ MICROBIOLOGY - GENERAL ORDER TEETEE Performing Organization Address City/State/ZIP Code Phon e Number [facility] [address] [place] [address] SERVICES PAP TEST (07/12/2020 16:29 EST) Component Value Ref Test Analysis Performed At [facility] Range Method Time Signature Specimens A. Cervix and/or 07/22/2020 [facility] MEDICAL Endocervix , 15:33 [facility] ThinPrep Imaging LABORATORY System with SERVICES Manual Evaluation Specimen Satisfactory for 07/22/2020 [facility] Adequacy Evaluation - 15:33 [facility] assessment of LABORATORY transformation SERVICES zone component not applicable ( e.g. atrophy, vaginal sample, hysterectomy) General Negative for 07/22/2020 [facility] Categorization intraepithelial 15:33 [facility] lesion or LABORATORY malignancy SERVICES Attestation . 07/22/2020 [facility] Elect ronically 15:33 [facility] signed by LABORATORY YUNG Peralta CT(ASCP) o n 07/22/2020 at 1533 Clinical History Clinical History, Signs, Sym ptoms, Chief Complaint, Pertaining to This Order: See below 07/22/2020 [facility] Prior Gynecologic Pathology?: Yes 15:33 [facility] LABORATORY SERVICES HPV The result for the Human Pap illomavirus (HPV) Detection-High Risk Types is Negative. No E6 or E7 mRNA is detected from HPV types 16,18,31,33,35,39,45,51,52,56,58,59,66, and 68 by casino floorperson mediated 07/22/2020 [facility] amplification.Testing was pe rformed on specimen [id number] and was resulted on 07/22/2020 1526 EST by DENISE, LAB INSTRUMENT RESULTS IN 15:33 [facility] LABORATORY SERVICES Performing Lab [facility] 07/22/2020 [facility] MEDIC AL LAB 15:33 [facility] LABORATORY SERVICES Scanned Images 07/22/2020 [facility] MEDICAL 15:33 [facility] LABORATORY SERVICES Specimen Anatomical Collection Method Collection Time Receive d Time (Source) Location / / Volume Laterality Pap Test (Cervix 07/12/2020 16:29 021 and/or EST 11:21 EST Endocervix) Mary Kay J Drew CARDBOARD INSERTER PATHOLOGY ORDERABLES Performing Organization Address City/State/ZIP Code Phon e Number [facility] [address] [place] [address] SERVICES documented in this encounter Visit Diagnoses Diagnosis Encounter for other general examination documented in this encounter Care Teams Report Checker Relationship Specialty Start Date End Date Unknown, Provider, PCP - General 04/04/09 documented as of this encounter
--- OUTSIDE RECORDS SUMMARY | 2022-05-08 01:19 | XMS_ITS | Clinical Summary ---
:1960 Author Organization [facility] [place] [address] Care Team Providers Name Role Phone Stewart Tracey MD Primary Care Provider Allergies Active Allergy Reactions Severity Noted Date Comments Amoxicillin Trihydrate High CIS - Rash Amoxicillin-Pot Clavulanate 08/06/2017 Cis Free Text Allergy Hymeno ptera (Bee) Stings. Doxycycline 08/06/2017 Gabapentin 08/06/2017 Meloxicam 08/06/2017 Mometasone 08/06/2017 Nabumetone 08/06/2017 Niacin Medium CIS - Rash Unclassified Drug Anaphylaxis High 08/06/2017 Chemicals, insect stings, honey bees, ins ect repellent cream , detergent (Tide), orange soda, orange citrus Potassium Clavulanate High CIS - Rash Shellfish Containing Anaphylaxis High 08/06/2017 Products Simvastatin Medium CIS - Nausea/Vo miting Sulfa (Sulfonamide 08/06/2017 Blisters on Feet Antibiotics) Medications Medication Sig Dispensed Refills Start Date End Date Status traMADol (ULTRAM) 50 mg Take 50 mg by 0 Active Tablet mouth every 6 hours as needed for Pain. cyanocobalamin 1,000 mcg Take 1,000 mcg 0 Active Tablet by mouth daily. cholecalciferol, Vitamin Take by mouth. 0 Active D3, (CHOLECALCIFEROL, VITAMIN D3,) 2,000 unit Capsule multivitamin (THERAGRAN) Take 1 tablet 0 Active Tablet by mouth daily. cyclobenzaprine Take 10 mg by 0 Active (FLEXERIL) 10 mg Tablet mouth nightly. albuterol 90 Inhale 2 puffs 0 Ac tive mcg/actuation HFA Aerosol into the lungs Inhaler every 4 hours as needed for Wheezing. Use with spacer EPINEPHrine 0.3 mg/0.3 mL Inject 0.3 mg 0 Active Auto-Injector into the muscle once. fluticasone (FLONASE) 50 1 spray daily. 0 Active mcg/actuation [place], Suspension Immunizations Name Administration Dates Next Due Pneumococcal Polyvalent 23 05/26/2005 Td, adult 06/07/1996 Family History Medical History Relation Comments Coronary Artery Disease Early Onset Father Relation Status Comments Brother 1 Alive Brother 2 Alive Brother 3 Alive Father Mother Alive Sister Alive Son 1 Alive Son 2 Alive Son 3 Alive Social History Tobacco Use Types Packs/Day Years Used Date Smoking Tobacco: Every Day Cigarettes 1 Smokeless Tobacco: Never Sex Assigned at Date Recorded Not on file Last Filed Vital Signs Vital Sign Reading Time Taken Comments Blood Pressure 128/56 08/06/2017 1:41 PM EST Pulse - - Temperature - - Respiratory Rate - - Oxygen Saturation - - Inhaled Oxygen Concentration - - Weight 60.8 kg (134 lb) 08/06/2017 1:41 PM EST Height 157.5 cm (5' 2) 08/06/2017 1:41 PM EST Body Mass Index 24.51 08/06/2017 1:41 PM EST Plan of Treatment Health Maintenance Due Date Last Done Comments Covid-19 Vaccine (#1) 1960 HIV screen 1976 Hepatitis C Screening 1976 Lipid Screening 1976 Tdap adult 1977 HPV test 1988 PAP Smear 1988 Breast Cancer Share Decision Needed 1998 Colonoscopy 2003 Tetanus vaccine 06/07/2006 06/07/1996 Breast Cancer screening 2008 Zoster vaccine (1 of 2) 2008 Advance Directive 2013 Influenza (Flu) vaccine (1 of 1 - Influenza standard 02/05/2022 series) Insurance Payer Benefit Plan / Subscriber ID Effective Dates Phone Addre ss Type Group [place] [id number] 2019-Pressteve [phone] [address] [place] [address] MEDICARE MEDICARE PART [id number] 2017-Elvi [phone] [facility] [place] [address] (Home) [place] [address] Care Teams Pneumatic Tube Fitter Relationship Specialty Start Date End Date Stewart Tracey MD PCP - General Family Medicine 08/06/[address] [place] [phone]
--- OUTSIDE RECORDS SUMMARY | 2022-05-08 01:19 | XMS_ITS | Encounter Summary ---
:1960 [place] [address] Care Team Providers Name Role Phone Brooke Wiley MD Primary Care Provider Encounter Details Date Type Department Care Team Description 03/04/2016 Hospital Encounter Radiology Library at [facility], Morgan Morin MD [facility] [place] [address] [place] [address] [phone] (Wo rk) Social History Tobacco Use Types [...] (NASONEX) 50 0 05/02/2006 0 08/06/2017 mcg/Actuation [place] ibuprofen (ADVIL;MOTRIN) 800 800MG, PO, PRN 0 08/06/2017 mg tablet triamcinolone (KENALOG) 0.1 % 0 200508/06/2017 ointment Cyanocobalamin (VITAMIN B-12) 0 200508/06/2017 1,500 mcg TbSR documented as of this encounter Plan of Treatment Not on filedocumented as of this encounter Procedures Procedure Name Priority Date/Time Associated Diagnosis Comme nts FILM LIBRARY Routine 03/04/2016 12:00 AM Pain Results for this STORAGE ONLY DX EDT procedure ar e in SPINE the results section. documented in this encounter Results Film Library- Storage Only DX Spine (03/04/2016 12:00 AM EDT) Specimen (Source) Anatomical Location Collection Method / Collectio n Time Received Time / Laterality Volume Narrative [facility] - 08/05/2017 7:56 AM EST This result has an attachment that is no t available. This exam is for storage only and is aut o-finalizing. Morgan Garcia MD IMG FILM LIBRARY ORDERABLES Performing Organization Address City/State/ZIP Code Phon e Number [place], [place] documented in this encounter Visit Diagnoses Diagnosis Pain Generalized pain documented in this encounter Care Teams Boiler Coverer Relationship Specialty Start Date End Date Brooke Wiley MD PCP - General 04/29/10 05/17/17 [address] [place] [address] documented as of this encounter
--- OUTSIDE RECORDS SUMMARY | 2022-05-08 01:19 | XMS_ITS | Encounter Summary ---
:1960 Author Organization [facility] Address [address] [place] [address] Care Team Providers Name Role Phone Unknown, Provider Primary Care Provider Encounter Details Date Type Department Care Team Description 05/14/2009 Orders Only [facility] Devora Jones MD [phone] [place] [address] Social History Tobacco Use Types Packs/Day Years Used Date Smoking Tobacco: Never Assessed Sex Assigned at Date Recorded Not on file documented as of this encounter Plan of Treatment Not on filedocumented as of this encounter Procedures Procedure Name Priority Date/Time Associated Diagnosis Comme nts SURGICAL PATHOLOGY Routine 05/14/2009 0:00 EST Re sults for this procedure are i n the results section. documented in this encounter Results SURGICAL PATHOLOGY (05/14/2009 0:00 EST) Component Value Ref Test Analysis Performed At [facility] Range Method Time Signature Pathology SURGICAL PATHOLOGY REPORT ? THELMA HER Report: Reports generated via electr LearnSprout interface contain original data; ? [facility] however they are lacking the format of the original report. ? Caution should be taken when reading/interpreting unformatted reports. ? Name: ? REIL, TERESA L ? Accession #: ? [id number] ? : ? 1960 (Age: 49) ??F ? Collec t Date: ? 05/14/2009 ? Location: ? [facility] ? R eceive Date: ? 05/15/2009 ? Provider: DEVORA S MARTY MD ? Copy to: IDANIA GONZALEZ MD ? Final Pathologic Diagnosis: ? A. ?Cervix, 5 o 'clock, biopsy: ? 1. ?No specific pathologic features. ??See comment. ? 2. ? No transformation z one identified. ? B. ?Endocervix, curettings: ? 1. ?Fragments o f unremarkable endocervical epithelium. ? Comment: ? Deeper levels have be en examined on specimens (A) and (B). ??The previous ?? 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 ??The dysplastic cells seen on the ?? Pap test are not identified in the current case. (Dr. Wei)/harley ? Document reviewed and electr onically signed by: ? Hank Wei MD ? Report ??Date: 05/16/2009 16 :20 ? By the signature above, the attending physician certifies that he/she has ? personally conducted a gross and/or microscopic examination of the described ? specimens and rendered or co nfirmed the above diagnosis. ? Specimen(s) Received: ? A. ?5 o'clock e ctocervical bx ? B. ? ECC ? Clinical History: ? Colposcopy; 03/22/09 Pap LSIL, (-) HPV; LMP: 05/07/09 ? Gross Description: ? Received in formalin labelled Reil, Teresa and ectocervical bx 5 o'clock is a cueto-pink biopsy measuri ng 0.4 x 0.2 x 0.2 cm. ??The specimen is submitted ?? intact as (A). ? Received in formalin osorio d Reil, Teresa and endocervical curettage are ? approximately 3 cc of blood tinged mucus admixed with fragments of cueto-pink ? tissue. ??The specimen is edwards bmitted entirely as (B). ??(BASSEM Fonseca)/tmg ? End of Report ? Specimen (Source) Anatomical Collection Method Collection Time Re ceived Time Location / / Volume Laterality 05/14/2009 05/15/2009 9:10 EST Devora Jones MD PATHOLOGY ORDERABLES Performing Organization Address City/State/[facility] Code Phon e Number [facility] [address] [place] [address] SERVICES [facility] [address] [place] [address] documented in this encounter Visit Diagnoses Not on filedocumented in this encounter Care Teams Wood Sash And Frame Carpenter Relationship Specialty Start Date End Date Unknown, Provider, PCP - General 04/04/09 documented as of this encounter
--- OUTSIDE RECORDS SUMMARY | 2022-05-08 01:19 | XMS_ITS | Encounter Summary ---
:[address] [facility] Address [address] [place] [address] Care Team Providers Name Role Phone Unknown, Provider Primary Care Provider Encounter Details Date Type Department Care Team Description 02/29/2020 Lab Requisition [facility] Outr Resulting Lab, Pathology & Laboratory Provider [facility] [address] [place] [address] Social History Tobacco Use Types Packs/Day Years Used Date Smoking Tobacco: Never Assessed Sex Assigned at Date Recorded Not on file documented as of this encounter Plan of Treatment Not on filedocumented as of this encounter Procedures Procedure Name Priority Date/Time Associated Comments Diagnosis ALPHA 1 ANTITRYPSIN Routine 02/29/2020 15:03 Resu lts for this EDT procedure are i n the results section. documented in this encounter Results ALPHA 1 ANTITRYPSIN (02/29/2020 15:03 EDT) P athologist Signature Alpha 1 157 90 - 200 03/01/2020 [facility] MEDICAL Antitrypsin mg/dL 10:58 EDT CENTER LABORATORY SERVICES Specimen Anatomical Collection Method Collection Time Receive d Time (Source) Location / / Volume Laterality Blood VENOUS BLOOD / 02/29/2020 15:03 0 Unknown EDT 22:25 EDT Provider Outr Resulting Lab CHEMISTRY & BLOOD GAS TRANG ALAS Performing Organization Address City/State/ZIP Code Phon e Number [facility] [address] [place] [address] SERVICES documented in this encounter Visit Diagnoses Not on filedocumented in this encounter Care Teams Purchasing Specialist Relationship Specialty Start Date End Date Unknown, Provider, PCP - General 04/04/09 documented as of this encounter
--- OUTSIDE RECORDS SUMMARY | 2022-05-08 01:19 | XMS_ITS | Clinical Summary ---
:1960 Author Organization [facility] Address [address] [place] [address] Care Team Providers Name Role Phone Unknown, Provider Primary Care Provider Social History Tobacco Use Types Packs/Day Years Used Date Smoking Tobacco: Never Assessed Sex Assigned at Date Recorded Not on file Plan of Treatment Health Maintenance Due Date Last Done Comments Hepatitis C Screen 1960 COVID-19 Vaccine (#1) 1960 Care Teams School Boat Driver Relationship Specialty Start Date End Date Unknown, Provider, PCP - General 04/04/09
--- OUTSIDE RECORDS SUMMARY | 2022-05-08 01:19 | XMS_ITS | Encounter Summary ---
:1960 Author Organization [facility] Address [address] [place] [address] Care Team Providers Name Role Phone Unknown, Provider Primary Care Provider Encounter Details Date Type Department Care Team Description 11/10/2013 Results Only [facility] Gurvinder Gonzalez MD Laboratory Services - [address] [place] [address] [address] [facility] [place] [address] [phone] Social History Tobacco Use Types Packs/Day Years Used Date Smoking Tobacco: Never Assessed Sex Assigned at Date Recorded Not on file documented as of this encounter Plan of Treatment Not on filedocumented as of this encounter Procedures Procedure Name Priority Date/Time Associated Diagnosis Comme nts PAP TEST- RESULT Routine 11/10/2013 0:00 EDT Resu lts for this ONLY procedure are i n the results section. documented in this encounter Results PAP TEST- RESULT ONLY (11/10/2013 0:00 EDT) Component Value Ref Test Analysis Performed At [facility] Method Time Signature Pathology CYTOPATHOLOGY REPORT AYANNA Report: [facility] Reports generated via electronic interface contain original data; however they are lacking the format of the original report. Caution should be taken when reading/interpreting unformatte d reports. Name: ? TERESA DOMÍNGUEZ ? Accession #: ? [id number] ? : ? 1960 (Age: 53) ??F ?Collect Da te: ? 11/10/2013 ? Location: ? [facility] ? Receive Date: ? 11/13/2013 ? Provider: BROOKE GONZALEZ MD Copy to: ? Final Report SPECIMEN ADEQUACY ? Satisfactory for Evaluation - transformation zone component present GENERAL CATEGORIZATION ? Negative for Intraepithelial Lesion or Malignancy INTERPRETATION ? Reactive cellular ata nges associated with inflammation present (includes repair). Last Menstrual Period: 2009 Previous Gynecologic Pathology: SONJA: H/O Specimen/Source: ??Pap Test, Cervix/Endocervix, ThinPr ep Imaging System with manual evaluation Document reviewed and electronically signed by: ? JENNIFER WYNN MD ? Report ??Date: 11/21/2013 10:41 HPV with Pap Test ? Date Ordered: ? 11/21/2013 ? Status: ?? Cheryl d Out ?Date Complete: ? 11/23/2013 ? By: ??System Interface ? Date Reported: ? 11/23/2013 ? Interpretation RESULT: Negative for HPV. No E6 or E7 mRNA is detected from HPV types 16,18,31,33,35, 39,45,51,52,56,58,59,66, and 68 by talent management specialist mediated amplification. Comments Document reviewed and electronically signed by: ? System Interface ? Report date: 11/23/2013 By the signature above, the attending physician certifies th at he/she has personally conducted a gross and/or microscopic examin ation of the described specimens and rendered or confirmed the above diagnosis. End of Report Specimen (Source) Anatomical Location Collection Method / Collectio n Time Received Time / Laterality Volume 11/10/2013 11/13/2013 Brooke Gonzalez MD PATHOLOGY ORDERABLES Performing Organization Address City/State/ZIP Code Phon e Number [facility] [address] [place] [address] SERVICES [facility] [address] [place] [address] documented in this encounter Visit Diagnoses Not on filedocumented in this encounter Care Teams Manager Cable Relationship Specialty Start Date End Date Unknown, Provider, PCP - General 04/04/09 documented as of this encounter
--- OUTSIDE RECORDS SUMMARY | 2022-05-08 01:19 | XMS_ITS | Encounter Summary ---
:1960 Author Organization [facility] Address [address] [place] [address] Care Team Providers Name Role Phone Unknown, Provider Primary Care Provider Encounter Details Date Type Department Care Team Description 11/24/2007 Results Only [facility] - Brooke Omer MD [address] [place] [address] [place], [place] [id number] [phone] Social History Tobacco Use Types Packs/Day Years Used Date Smoking Tobacco: Never Assessed Sex Assigned at Date Recorded Not on file documented as of this encounter Plan of Treatment Not on filedocumented as of this encounter Procedures Procedure Name Priority Date/Time Associated Diagnosis Comme nts CYTOPATHOLOGY Routine 11/24/2007 0:00 EDT Results for this procedure are i n the results section . documented in this encounter Results CYTOPATHOLOGY (11/24/2007 0:00 EDT) Component Value Ref Test Analysis Performed At [facility] Method Time Signature Pathology CYTOPATHOLOGY REPORT AYANNA Report: [facility] Reports generated via electronic interface contain original data; however they are lacking the format of the original report. Caution should be taken when reading/interpreting unformatte d reports. Name: ? TERESA DOMÍNGUEZ ? Accession #: ? [id number] : ? 1960 (Age: 47) ??F ?Collect Date: ? 11/24/2007 Location: ? [facility] ? Receive Date: ? 11/25/2007 Provider: ?BROOKE GONZALEZ MD Copy to: ? Specimen/Source: ? ThinPrep Pap Test, Cervix/Endocervix, processed on [employer] ThinPrep Imaging System, with manual evaluation Last Menstrual Period: ? 11/06/07 Other: ? HPVA - HPV testing requested if ASC-US on the current ThinPr ep Pap test. ? SPECIMEN ADEQUACY ? Satisfactory for Evaluation - transformation zone component present GENERAL CATEGORIZATION ? Negative for Intraepithelial Lesion or Malignancy ? Document reviewed and electronically signed by: ? MEGAN Elizalde(ASCP) ? Report Date: ??11/29/2007 13:20 End of Report Specimen (Source) Anatomical Location Collection Method / Collectio n Time Received Time / Laterality Volume 11/24/2007 11/25/2007 Brooke Gonzalez MD PATHOLOGY ORDERABLES Performing Organization Address City/State/ZIP Code Phon e Number [facility] [address] [place] [address] SERVICES [facility] [address] [place] [address] documented in this encounter Visit Diagnoses Not on filedocumented in this encounter Care Teams Slicing Machine Feeder Relationship Specialty Start Date End Date Unknown, Provider, PCP - General 04/04/09 documented as of this encounter
--- OUTSIDE RECORDS SUMMARY | 2022-05-08 01:19 | XMS_ITS | Encounter Summary ---
:1960 Author Organization [facility] Address [address] [place] [address] Care Team Providers Name Role Phone Unknown, Provider Primary Care Provider Encounter Details Date Type Department Care Team Description 05/03/2009 Orders Only [facility] Erika Macias MD Laboratory Services - [address] [place] [address] [place] [address] [place] [address] [phone] Social History Tobacco Use Types Packs/Day Years Used Date Smoking Tobacco: Never Assessed Sex Assigned at Date Recorded Not on file documented as of this encounter Plan of Treatment Not on filedocumented as of this encounter Procedures Procedure Name Priority Date/Time Associated Diagnosis Comme [facility] SURGICAL PATHOLOGY Routine 05/03/2009 0:00 EST Re sults for this procedure are i n the results section. documented in this encounter Results SURGICAL PATHOLOGY (05/03/2009 0:00 EST) Component Value Ref Test Analysis Performed At [facility] Method Time Signature Pathology SURGICAL PATHOLOGY REPORT ? THELMA HER Report: Reports generated via electr Personal Style Finder interface contain original data; ? RA STOCK however they are lacking the format of the original report. ? Caution should be taken when reading/interpreting unformatted reports. ? Name: ? REIL, TERESA L ? Accession #: ? [id number] ? : ? 1960 (Age: 49) ??F ? Collec t Date: ? 05/03/2009 ? Location: ? [facility] ? R eceive Date: ? 05/06/2009 ? Provider: ERIKA GENE MD ? Copy to: IDANIA GONZALEZ MD ? Final Pathologic Diagnosis: ? Endometrium, biopsy: ? - Disordered proliferative e ndometrium. ??See comment. ? Comment: ? [employer] Fab[employer] Supervisor sectio ns of this case have been reviewed at ? intradepartmental consultati on conference. ??(Dr. Woodson)/kmm ? Document reviewed and electr onically signed by: ? ERMIAS COBIAN MD ? Report ??Date: 05/09/2009 17 :23 ? By the signature above, the attending physician certifies that he/she has ? personally conducted a gross and/or microscopic examination of the described ? specimens and rendered or co nfirmed the above diagnosis. ? Specimen(s) Received: ? Endometrial bx ? Clinical History: ? C/O heavy irregular p eriods; LMP: 11/1/09 ? Gross Description: ? Received in formalin labelled Reil, Teresa and endometrial bx are ? approximately 4 cc of red-br own and light cueto tissue fragments admixed with ? clotted blood and blood ting ed mucus. ??The specimen is submitted entirely as ? (A1) and (A2). ??(BASSEM Tessito re)/ljn ? End of Report ? Specimen (Source) Anatomical Collection Method Collection Time Re ceived Time Location / / Volume Laterality 05/03/2009 05/06/2009 18:0 1 EST Erika Macias MD PATHOLOGY ORDERABLES Performing Organization Address City/State/ZIP Code Phon e Number [facility] [address] [place] [address] SERVICES [facility] [address] [place] [address] documented in this encounter Visit Diagnoses Not on filedocumented in this encounter Care Teams Business Services Officer Relationship Specialty Start Date End Date Unknown, Provider, PCP - General 04/04/09 documented as of this encounter
--- OUTSIDE RECORDS SUMMARY | 2022-05-08 01:19 | XMS_ITS | Encounter Summary ---
:1960 Author Organization [facility] Address [address] [place] [address] Care Team Providers Name Role Phone Unknown, Provider Primary Care Provider Encounter Details Date Type Department Care Team Description 09/15/2005 Results Only [facility] - Mary Ann Macias MD [employer] [address] [place] [address] [place] [address] [phone] Social History Tobacco Use Types Packs/Day Years Used Date Smoking Tobacco: Never Assessed Sex Assigned at Date Recorded Not on file documented as of this encounter Plan of Treatment Not on filedocumented as of this encounter Procedures Procedure Name Priority Date/Time Associated Diagnosis Comme [facility] SURGICAL PATHOLOGY Routine 09/15/2005 0:00 EDT Re sults for this procedure are i n the results section. documented in this encounter Results SURGICAL PATHOLOGY (09/15/2005 0:00 EDT) Component Value Ref Test Analysis Performed At [facility] Method Time Signature Pathology SURGICAL PATHOLOGY REPORT JACKIE MEZA Report: Reports generated via electronic interface contain origina l data; RA STOCK however they are lacking the format of the original report. Caution should be taken when reading/interpreting unformatte d reports. Name: ? TERESA DOMÍNGUEZ ? Accession #: ? [id number] ? : ? 1960 (Age: 45) ??F ? Collect Date: ? 09/15/2005 ? Location: ? [facility] ? Receive Date: ? 09/16/2005 ? Provider: ERIKA MACIAS MD Copy to: IDANIA GONZALEZ MD ? Final Pathologic Diagnosis: ? Endometrium, biopsy: - Disordered weakly proliferative endometrium wi th tubal metaplasia and focal breakdown. Document reviewed and electronically signed by: Quintin Robles MD Report ??Date: 09/17/2005 16:57 By the signature above, the attending physician certifies th at he/she has personally conducted a gross and/or microscopic examin ation of the described specimens and rendered or confirmed the above diagnosis. Specimen(s) Received: ? Endometrial bx Clinical History: ? A.U.B. LMP: 09/08/05 Gross Description: ? Received in formalin labelled Reil and endometrial bx are multiple fragments of cueto-brown soft tissue which measures in aggregate 2.0 x 2.0 x 0.4 cm. ??The specimen is entirely submitted in one cassette aft er filtration. (Dr. Naylor-)/mpl End of Report Specimen (Source) Anatomical Collection Method Collection Time Re ceived Time Location / / Volume Laterality 09/15/2005 09/16/2005 10:1 9 EDT Erika Macias MD PATHOLOGY ORDERABLES Performing Organization Address City/State/ZIP Code Phon e Number [facility] [address] [place] [address] SERVICES [facility] [address] [place] [address] documented in this encounter Visit Diagnoses Not on filedocumented in this encounter Care Teams Finishing Range Supervisor Relationship Specialty Start Date End Date Unknown, Provider, PCP - General 04/04/09 documented as of this encounter
--- OUTSIDE RECORDS SUMMARY | 2022-05-08 01:19 | XMS_ITS | Encounter Summary ---
:1960 Author Organization Address [address] [place] [address] Care Team Providers Name Role Phone Unknown, Provider Primary Care Provider Encounter Details Date Type Department Care Team Description 01/18/2020 Lab Requisition [facility] Outr Resulting Lab, Pathology & Laboratory Provider [facility] [address] [place] [address] Social History Tobacco Use Types Packs/Day Years Used Date Smoking Tobacco: Never Assessed Sex Assigned at Date Recorded Not on file documented as of this encounter Plan of Treatment Not on filedocumented as of this encounter Procedures Procedure Name Priority Date/Time Associated Comments Diagnosis DO NOT ORDER Today 01/18/2020 14:11 Results for this STANDALONE - BROAD EDT procedure are in COVID TEST the results section. COVID-19 TESTING Routine 01/18/2020 14:11 Results for this EDT procedure are i n the results section. documented in this encounter Results DO NOT ORDER STANDALONE - BROAD COVID TEST (01/18/2020 14:11 EDT) [facility] Time Signature COVID-19 NEGATIVE Negative 01/20/2020 BROAD rt-PCR Result 1:27 EDT [facility] Comment: 2019-novel Coronavirus (2019-nCoV) not d etected by the qRT-PCR assay. Consider testing for other respiratory viruses or re-collecting for 2019-nCoV testing. Note: Optimum timing for peak viral levels du ring infections caused by 2019-nCoV have not been determined. Collection of multiple specimens from the same patient may be necessary to detect the virus. Limitations Positive results are indicative of activ e infection with SARS-CoV-2 but do not rule out bacterial infection or co-infection with other viruses. The agent detected may not be the definite cause of diseas e. In addition, detection of viral RNA m ay not indicate the presence of infectious virus or that SARS-CoV-2 is the causative agent for clinical symptoms. Negative results do not preclude SARS-Co V-2 infection and should not be used as the sole basis for patient management decisions. Negative results must be combined with clinical observations, patient his tory, and epidemiological information. F alse negative results may also occur if amplification inhibitors are present in the specimen or if inadequate numbers of organisms are present in the specimen. Op timum specimen types and timing for peak viral levels during infections caused by SARS-CoV-2 have not been fully determined. Collection of multiple specimens (types and time points) from the same patient may be necessary to detect the virus. The test was validated for use with uppe r respiratory specimens obtained via nasopharyngeal or oropharyngeal swabs in VTM, UTM, M4, M5, M6, saline, and MTM media. The performance of this test has not be en established for other specimens. Spec imens collected using other FDA recommended Specimen Collection Materials listed in the FDA COVID-19 [employer] communication (August 31, 2019) are pr ocessed with the caveat that they were n ot all validated for use with this test and the result must be interpreted in this context. Furthermore, a false negative results may occur if a specimen is improperly collected, transported or handled. If the virus mutates in the RT-PCR targe t region, SARS-CoV-2 may not be detected or may be detected less predictably. Inhibitors or other types of interferenc e may produce a false negative result. An interference study evaluating the effect of common cold medications was not performed. This test is not FDA-cleared but its per formance characteristics were established by our CLIA-certified, CAP-accredited, high complexity laboratory in accordance with CLIA regulations, College of [employer] an Pathologists (CAP) guidelines (Aug), and FDA guidance (Aug 05, 2019). This test is only for use under the Food and Drug Administration's Emergency Use Authorization. Specimen Anatomical Location Collection Method Collection Time Received Time (Source) / Laterality / Volume Swab ENTIRE NASOPHARYNX 01/18/2020 14:11 01/17 / Unknown EDT 21:58 EDT Provider Outr Resulting Lab MICROBIOLOGY - GENERAL ORD ERABLES Performing Organization Address City/State/ZIP Code Phon e Number [facility] [place], [place] COVID-19 TESTING (01/18/2020 14:11 EDT) Analysis Performed At [facility] Time Signature COVID-19 NEGATIVE Negative 01/20/2020 BROAD rt-PCR Result 2:35 EDT [facility] Comment: 2019-novel Coronavirus (2019-nCoV) not d etected by the qRT-PCR assay. Consider testing for other respiratory viruses or re-collecting for 2019-nCoV testing. Note: Optimum timing for peak viral levels du ring infections caused by 2019-nCoV have not been determined. Collection of multiple specimens from the same patient may be necessary to detect the virus. Limitations Positive results are indicative of activ e infection with SARS-CoV-2 but do not rule out bacterial infection or co-infection with other viruses. The agent detected may not be the definite cause of diseas e. In addition, detection of viral RNA m ay not indicate the presence of infectious virus or that SARS-CoV-2 is the causative agent for clinical symptoms. Negative results do not preclude SARS-Co V-2 infection and should not be used as the sole basis for patient management decisions. Negative results must be combined with clinical observations, patient his tory, and epidemiological information. F alse negative results may also occur if amplification inhibitors are present in the specimen or if inadequate numbers of organisms are present in the specimen. Op timum specimen types and timing for peak viral levels during infections caused by SARS-CoV-2 have not been fully determined. Collection of multiple specimens (types and time points) from the same patient may be necessary to detect the virus. The test was validated for use with uppe r respiratory specimens obtained via nasopharyngeal or oropharyngeal swabs in VTM, UTM, M4, M5, M6, saline, and MTM media. The performance of this test has not be en established for other specimens. Spec imens collected using other FDA recommended Specimen Collection Materials listed in the FDA COVID-19 [employer] communication (August 31, 2019) are pr ocessed with the caveat that they were n ot all validated for use with this test and the result must be interpreted in this context. Furthermore, a false negative results may occur if a specimen is improperly collected, transported or handled. If the virus mutates in the RT-PCR targe t region, SARS-CoV-2 may not be detected or may be detected less predictably. Inhibitors or other types of interferenc e may produce a false negative result. An interference study evaluating the effect of common cold medications was not performed. This test is not FDA-cleared but its per formance characteristics were established by our CLIA-certified, CAP-accredited, high complexity laboratory in accordance with CLIA regulations, College of [employer] an Pathologists (CAP) guidelines (Aug), and FDA guidance (Aug 05, 2019). This test is only for use under the Food and Drug Administration's Emergency Use Authorization. Performing Lab [employer] 01/20/2020 2:35 EDT [facility] SERVICES Specimen Anatomical Collection Method Collection Time Receive d Time (Source) Location / / Volume Laterality Swab 01/18/2020 14:11 01/18/2020 EDT 21:58 EDT Provider Outr Resulting Lab MICROBIOLOGY - GENERAL ORD ERABLES Performing Organization Address City/State/ZIP Code Phon e Number [facility] [address] [place] [address] SERVICES [facility] [place], [place] documented in this encounter Visit Diagnoses Not on filedocumented in this encounter Care Teams Mash Tub Cooker Relationship Specialty Start Date End Date Unknown, Provider, PCP - General 04/04/09 documented as of this encounter
--- OUTSIDE RECORDS SUMMARY | 2022-05-08 01:19 | XMS_ITS | Encounter Summary ---
:1960 Author Organization [facility] Address [address] [place] [address] Care Team Providers Name Role Phone Unknown, Provider Primary Care Provider Encounter Details Date Type Department Care Team Description 11/17/2006 Results Only [facility] - Brooke Omer MD [address] [place] [address] [place], [place] [id number] [phone] Social History Tobacco Use Types Packs/Day Years Used Date Smoking Tobacco: Never Assessed Sex Assigned at Date Recorded Not on file documented as of this encounter Plan of Treatment Not on filedocumented as of this encounter Procedures Procedure Name Priority Date/Time Associated Diagnosis Comme nts CYTOPATHOLOGY Routine 11/17/2006 0:00 EDT Results for this procedure are i n the results section . documented in this encounter Results CYTOPATHOLOGY (11/17/2006 0:00 EDT) Component Value Ref Test Analysis Performed At [facility] Method Time Signature Pathology CYTOPATHOLOGY REPORT AYANNA Report: [facility] Reports generated via electronic interface contain original data; however they are lacking the format of the original report. Caution should be taken when reading/interpreting unformatte d reports. Name: ? TERESA DOMÍNGUEZ ? Accession #: ? [id number] : ? 1960 (Age: 46) ??F ?Collect Date: ? 11/17/2006 Location: ? [facility] ? Receive Date: ? 11/19/2006 Provider: ?BROOKE GONZALEZ MD Copy to: ? Specimen/Source: ? ThinPrep Pap Test, Cervix/Endocervix, processed on [employer] ThinPrep Imaging System, with manual evaluation Last Menstrual Period: ? 11/05/06 Other: ? HPVA - HPV testing requested if ASC-US on the current ThinPr ep Pap test. ? SPECIMEN ADEQUACY ? Satisfactory for Evaluation - transformation zone component absent GENERAL CATEGORIZATION ? Negative for Intraepithelial Lesion or Malignancy ? Document reviewed and electronically signed by: ? Leonora Su, [facility](ASCP) ? Report Date: ??11/25/2006 10:23 End of Report Specimen (Source) Anatomical Location Collection Method / Collectio n Time Received Time / Laterality Volume 11/17/2006 11/19/2006 Brooke Gonzalez MD PATHOLOGY ORDERABLES Performing Organization Address City/State/ZIP Code Phon e Number [facility] [address] [place] [address] SERVICES [facility] [address] [place] [address] documented in this encounter Visit Diagnoses Not on filedocumented in this encounter Care Teams General Freight Agent Relationship Specialty Start Date End Date Unknown, Provider, PCP - General 04/04/09 documented as of this encounter
== END ==
PROVIDERS: Visit Provider Nurse Practitioner Family
DX: F17.210 Nicotine dependence, cigarettes, uncomplicated (principal); Z12.2 Encounter for screening for malignant neoplasm of respiratory organs; R91.8 Other nonspecific abnormal finding of lung field
CPT/HCPCS: 71271

== ENCOUNTER 2022-05-25 07:42 | Outpatient (CLI) | payer MEDICARE, MEDICAID, SELFPAY ==
--- NOTE | 2022-05-25 13:58 | W.CARDEVENT ---
Date of service: 05/25/22 Time of Service: 13:58 Cardiac Event Recorder Referring Provider:: Rylee Olmos Indications:: Palpitations Cardiac Event Note: This is a 14-day cardiac event monitor reportedly ordered for palpitations Predominant rhythm was sinus with an average heart rate overall of 98. Minimum was 70, maximum 142 There were occasional ventricular ectopic beats There were rare atrial premature beats a total of 6 self-limited atrial runs occurred There was no atrial fibrillation, no high-grade AV block, no pauses greater than 3 seconds Patient symptoms were reported. These generally corresponded to sinus tachycardia, very rarely to isolated PVCs
== END 2022-05-25 07:43 | disposition home or self-care (01) ==
LOC: CARDOPNVT 07:42
PROVIDERS: Visit Provider Internal Medicine Cardiovascular Disease
DX: I49.1 Atrial premature depolarization (principal); R00.0 Tachycardia, unspecified
CPT/HCPCS: 93248

== ENCOUNTER 2022-06-12 03:14 | Outpatient (CLI) | payer MEDICARE, MEDICAID, SELFPAY ==
[2022-06-12] MEDS: Albuterol HFA 18 GM 200 PUFF INH IH (11:37)
[2022-06-12] MEDS: Inhaler, Assist Device 1 EACH MC (11:37)
--- NOTE | 2022-06-12 11:38 | W.PFT ---
Date of service: 06/12/22 Time of Service: 10:10 Pulmonary Function Test Result Requesting Provider Cameron Backer Indications: Lung Mass Interpretation Spirometry: There is no airflow limitation. There is no significant bronchodilator response. Lung Volumes: Normal lung volumes. Diffusion Capacity: Normal diffusion (not corrected for Hb) Airway Pressure: Normal airways resistance. Impression Normal pulmonary function testing. Clinical Correlation therefore is recommended.
== END 2022-06-12 03:15 | disposition home or self-care (01) ==
LOC: RT 03:14
PROVIDERS: Visit Provider Internal Medicine Pulmonary Disease
DX: R91.8 Other nonspecific abnormal finding of lung field (principal); J44.9 Chronic obstructive pulmonary disease, unspecified; R06.09 Other forms of dyspnea; F17.210 Nicotine dependence, cigarettes, uncomplicated
CPT/HCPCS: 94060; 94726; 94729

== ENCOUNTER 2022-07-27 01:35 | Outpatient (CLI) | payer MEDICARE, MEDICAID, SELFPAY ==
--- NOTE | 2022-07-27 08:04 | DI.MRI_ITS ---
Exam(s) MR BRAIN WO/W EXAM: MR BRAIN WO/W CLINICAL HISTORY: Probable lung ca, mass >3cm, mets?,r91.8. TECHNIQUE: Multiplanar multisequence MRI of the brain was performed. CONTRAST MATERIAL: IV Contrast: 11 ML of Dotarem contrast administered. COMPARISON: CT CT CHEST LOW DOSE CA SCREENING from 04/12/[address] CHEST WO CONTRAST from 07/19/2020 FINDINGS: VENTRICLES AND EXTRA AXIAL SPACES: Normal in size and morphology for the patient's age. HEMORRHAGE: None. CEREBRAL PARENCHYMA: Moderate atrophy. White matter changes of microvascular disease. No focus of r estricted diffusion to suggest acute infarct. No space-occupying lesion identified. MIDLINE SHIFT: None. BRAINSTEM/CEREBELLUM: Normal. CALVARIUM: Normal. ENHANCEMENT: No suspicious enhancement identified. VISUALIZED PARANASAL SINUSES/MASTOIDS: Clear. OTHER FINDINGS: None. IMPRESSION: No evidence of metastatic disease. DATA REPOSITORY:
[2022-07-27 14:09] LABS: CREATININE 0.8 mg/dL (0.55-1.02); Estimated GFR 82.23 (mL/min/1.73m2)
[2022-07-27] MEDS: Normal Saline Flush 10 ML SYR IVP (14:44)
[2022-07-27] MEDS: Gadoterate meglumine 20 ML VIAL 11 ML IVP (14:44)
[2022-07-28 14:53] LABS: Albumin, Urine % 36.9 %; Albumin, Urine mg/dL 4 mg/dL; Globulins, Urine % 63.1 %; Globulins, Urine mg/dL 7 mg/dL; Immunotyping, Urine (See Note); Total Protein Urine 11 mg/dL (See Note)
[2022-07-28 17:33] LABS: Rheumatoid Factor <8.6 IU/mL (<12.0)
[2022-07-29 09:37] LABS: Cyclic Citrullinated Peptide <2.5 U/mL (<5.0)
[2022-07-29 12:40] LABS: ANA Interpretation Negative (Negative)
[2022-07-29 12:44] LABS: Albumin 63.3 % (55.8-66.1); Albumin g/dL 4.2 g/dL (3.6-5.2); Total Protein 6.6 g/dL (6.3-8.2)
[2022-07-31 14:11] LABS: SS-A Antibody 0.8 Units (<20.0); SS-B (La) Ab, IgG 2.5 Units (<20.0)
== END 2022-07-27 01:55 ==
LOC: DI 01:35
PROVIDERS: Visit Provider Student in an Organized Health Care Education/Training Program
DX: J84.81 Lymphangioleiomyomatosis (principal); R91.8 Other nonspecific abnormal finding of lung field
CPT/HCPCS: 36415; 70553; 83520; 84156; 84166; 86200; 86335; 82565; 84165; 86038; 86235; 86431

== ENCOUNTER 2022-08-12 02:06 | Outpatient (CLI) | payer MEDICARE, MEDICAID, SELFPAY ==
--- NOTE | 2022-08-12 | DI.RAD_ITS ---
Exam(s) XR SCOLIOSIS T-L SPINE EXAM: XR SCOLIOSIS T-L SPINE CLINICAL HISTORY: Scoliosis evaluation. TECHNIQUE: 2D digital imaging was performed. Standing AP and lateral views. COMPARISON: CR SACRUM COCCYX from 01/14/2010 MR MR LS SPINE W/O CONTRAST from 04/16/[address] CHEST LOW DOSE CA SCREENING from 04/12/[address] CHEST LUNG CANCER SCREEN from 05/08/2022 FINDINGS: Scoliosis: Levo rotoscoliosis, moderate in the thoracic region. Severe scoliosis at the thoracolumba r junction convex toward the right. No significant overall leg length discrepancy. Vertebrae: No compression fractures identified. Remainder of the visualized osseous and soft tissue structures: Right lung mass again noted, present on prior chest CT.. Small hiatal hernia. IMPRESSION: Severe scoliosis. Roughly stable appearance of right lung mass. DATA REPOSITORY: RADIATION DOSE DELIVERED:
== END 2022-08-12 02:26 ==
LOC: DI 02:06
PROVIDERS: PCP Nurse Practitioner Family; Visit Provider Nurse Practitioner Family
DX: M41.9 Scoliosis, unspecified (principal); R91.8 Other nonspecific abnormal finding of lung field
CPT/HCPCS: 72081

== ENCOUNTER 2022-09-09 14:40 | Emergency (ER) | payer MEDICARE, MEDICAID, SELFPAY ==
[2022-09-09 14:45] VITALS: BP 145/99; PULSE 100; RESP 18; TEMP 36.2; O2SAT 98
--- NOTE | 2022-09-09 15:32 | W.ED.GENAD ---
Discharge Plan Disposition Patient Disposition: Home Condition: Stable Discharge Details Clinical Impression: Visual changes Primary Care Provider: JULIANNE REID ED Provider: Yash Figueredo Home Meds and New Rx's Prescriptions: Continued (DME) Aerochamber MV Spacer See Rx Instructions .Route Rx Instructions: As directed epinephrine [EpiPen 2-Shay] 0.3 MG/0.3 ML auto-injector 1 syringe IM PRN Qty: 2 cyclobenzaprine 10 mg tablet 10 mg PO TID albuterol sulfate [Ventolin HFA] 90 mcg/actuation HFA aerosol inhaler 2 puff inhalation Q6H PRN acetaminophen 500 mg tablet 1,000 mg PO BID PRN cyanocobalamin (vitamin B-12) [Vitamin B-12] 1,000 mcg tablet 1,000 mcg PO DAILY Rx Instructions: and 5000mcg twice per week on and Wed cholecalciferol (vitamin D3) 25 mcg (1,000 unit) capsule 25 mcg PO DAILY Theragran-M Premier 50 Plus 400-250-375 mcg tablet 1 tab PO DAILY oxycodone 5 mg Capsule 5 mg PO Q6H PRN Discharge Instructions Additional Instructions: Your ultrasound appears to have a retinal detachment or a vitreous hemorrhage you will need further care with an auto tester. I discussed your case with the [facility] and they want to see you in their clinic tomorrow at 8am. if you develop severe pain, fevers or feel more ill return to the emergency department Medical Decision Making 62 yo female with hx of lung cancer undergoing chemo who comes in with blurringess and sensation of floaters in her right eye since Wednesday. She said on the right side of her vision she's had what is described as a vision of a wave going over her peripheral vision and floaters. Denies any pain. She does have 20/70 vision in the right eye and 20/40 in the left eye. Perrl, eomi, conjunctiva is not red and appears normal as does the pupil. No papilledema on fundoscopic exam. On bedside u/s there is what appears to be a small retinal detachment vs vitreous hemorrhage. iop 18 in both eyes. Will consult optho for further recs. discussed case with Dr. Peterson at [facility] and given symptoms for several days and clinic is closing now will plan to see her in their office in the morning. Discussed with her and her son and they will go to the clinic at 8am at [facility] Differential Diagnosis Differential Diagnosis: vitreous hemorrhage, retinal detachment, optic neuritis HPI General Mode of arrival: ambulatory. Date/Time Provider Initiated Documentation: 09/09/22 14:50. Limitations to Documentation: no limitations. Information obtained by: patient. History of Present Illness 62 year old F presents to the emergency department with the chief complaint of right eye flashes, described as moderate, and it has been constant. No relieving factors improve symptom(s), No exacerbating factors reported . Patient notes no other symptoms.; denies fever/chills. Patient did receive the following treatments prior to arrival, none Related Data Home Medications Medication Instructions Recorded Confirmed epinephrine 0.3 mg/0.3 mL 1 syringe IM PRN #2 SYRGS 10/15/14 09/09/22 injection, auto-injector (EpiPen 2-Shay) albuterol sulfate 90 mcg/actuation 2 puff inhalation Q6H PRN 04/16/22 09/09/22 aerosol inhaler (Ventolin HFA) cyclobenzaprine 10 mg tablet 10 mg PO TID 04/16/22 09/09/22 acetaminophen 500 mg tablet 1,000 mg PO BID PRN 06/15/22 09/09/22 inhalational spacing device 06/24/22 09/09/22 (Aerochamber MV spacer) cholecalciferol (vitamin D3) 25 25 mcg PO DAILY 08/26/22 09/09/22 mcg (1,000 unit) capsule cyanocobalamin (vitamin B-12) 1,000 mcg PO DAILY 08/26/22 09/09/22 1,000 mcg tablet (Vitamin B-12) hvcojywj-jud-zcdst acid 400 1 tab PO DAILY 08/26/22 09/09/22 mcg-coQ10 250 mcg-lycop 375 mcg-lut tablet (Theragran-M Premier 50 Plus) oxycodone 5 mg capsule 5 mg PO Q6H PRN 09/09/22 09/09/22 Allergies Allergy/AdvReac Type Severity Reaction Status Date / Time amoxicillin Allergy Severe RASH Unverified 09/09/22 14:48 naproxen Allergy Severe RASH; Unverified 09/09/22 14:48 STOMACH PAIN venom-honey bee Allergy Severe Anaphylaxsi Unverified 09/09/22 14:48 [bee venom (honey bee)] s doxycycline Allergy Intermediate RASH Unverified 09/09/22 14:48 meloxicam Allergy Intermediate Verified 09/09/22 14:48 atorvastatin calcium Allergy Mild ?rash Unverified 09/09/22 14:48 [From Lipitor] gabapentin Allergy Mild Unverified 09/09/22 14:48 nabumetone Allergy Mild HIVES Unverified 09/09/22 14:48 niacin Allergy Mild SKIN RASH Unverified 09/09/22 14:48 barley Allergy Unknown EXTREME Unverified 09/09/22 14:48 WEAKNESS azithromycin Allergy Unverified 09/09/22 14:48 cefdinir Allergy Verified 09/09/22 14:48 celecoxib [From Celebrex] Allergy Verified 09/09/22 14:48 clavulanic acid Allergy Verified 09/09/22 14:48 [From Augmentin] ethinyl estradiol Allergy Verified 09/09/22 14:48 [From Seasonale ()] levonorgestrel Allergy Verified 09/09/22 14:48 [From Seasonale ()] mometasone furoate Allergy Unverified 09/09/22 14:48 NSAIDS (Non-Steroidal Allergy Verified 09/09/22 14:48 Anti-Inflamma Penicillins Allergy Verified 09/09/22 14:48 Sulfa (Sulfonamide Allergy Unverified 09/09/22 14:48 Antibiotics) pravastatin AdvReac Severe H/, Unverified 09/09/22 14:48 MUSCLE PAIN simvastatin AdvReac Intermediate NAUSEA; Unverified 09/09/22 14:48 VOMITING DUST Allergy Mild ITCHY Uncoded 09/09/22 14:48 EYES; SNEEZING seafood Allergy Uncoded 09/09/22 14:48 General Stated Complaint: EyeProblem ARLET: 3 Review of Systems All systems reviewed & are unremarkable except as noted in HPI and below Constitutional Constitutional: Denies chills, Denies fever(s) and Denies weakness Cardiovascular Cardiovascular: Denies chest pain and Denies dyspnea Respiratory Respiratory: Denies cough and Denies dyspnea Gastrointestinal Gastrointestinal: Denies abdominal pain, Denies nausea and Denies vomiting Integumentary/Breasts Skin/Breast: Denies rash Neurologic Neurologic: Denies weakness PFSH All Active Problems (Updated 09/09/22 @ 15:53 by Yash Figueredo MD) Visual changes (Acute) Large cell carcinoma of right lung (Acute) Nicotine dependence, cigarettes, uncomplicated (Acute) Lymphangioleiomyomatosis (Acute) Lung mass (Acute) Multiple nodules of lung (Acute) Cyst of nasopharynx (Acute) Chest pain (Acute) Acquired chest and rib deformity (Acute) Scoliosis deformity of spine (Acute) Fibromyalgia (Acute) Pain in the coccyx (Acute) Lumbosacral radiculopathy (Acute) Lower back pain (Acute) Cervical radiculopathy (Acute) Joint pain (Acute) Idiopathic osteoarthritis (Acute) GERD (gastroesophageal reflux disease) (Chronic) Allergic rhinitis (Acute) Acute bronchitis (Acute) Phlebosclerosis (Acute) Carpal tunnel syndrome (Acute) Nicotine dependence (Acute) Anxiety (Chronic) Megaloblastic anemia due to B12 deficiency (Acute) Hyperlipidemia (Acute) Medical History (Updated 09/09/22 @ 15:53 by Yash Figueredo MD) COPD (chronic obstructive pulmonary disease) Dermatitis Dizziness Emphysema of lung Endometriosis Palpitations Tachycardia Surgical History (Updated 03/23/18 @ 14:36 by [employer] [place]) Dilation and curettage (~2009) [facility] Ligation of fallopian tube (03/22/91) Family History (Updated 06/16/22 @ 08:33 by Margaret Grimaldo) Father Diabetes Heart disease Hyperlipidemia Myocardial infarction Sister Hyperlipidemia Brother Heart disease Brother Hyperlipidemia Brother Diabetes Grandfather Personal history of malignant neoplasm COLON Pulmonary emphysema Colon cancer Grandfather Heart disease Hyperlipidemia Myocardial infarction Social History (Updated 06/16/22 @ 08:32 by Margaret Grimaldo) Smoking/Tobacco Use Status: Current every day Tobacco Type: cigarettes Smoking packs per day: 0.5 Smoking cigarettes per day: 10.0 Smoking risk assessment performed?: Yes Alcohol Intake: never Substance use type: does not use Do you feel safe at home: Yes Do you feel safe in your relationship?: Yes Exam Const General: no acute distress Orientation: alert [facility] Head: normal to inspection Ears: external ears normal General nose exam: external nose normal Mouth: moist mucous membranes Eyes General: appearance normal, both eyes and all related structures Periorbital: periorbital findings normal Conjunctivae: conjunctivae normal Pupils: PERRL EOM: EOM intact bilaterally Direct ophthalmoscopy: no papilledema Neck Neck: normal visual inspection Resp Effort & Inspection: normal respiratory effort and able to speak in complete sentences Cardio Rate: regular rate Skin General skin exam: no rashes or lesions noted Neuro General: patient alert and patient oriented x3 Extrem General: normal to inspection Psych Mental Status: mental status grossly normal Course Vital Signs Vital signs: Vital Signs Temperature 36.2 C L 09/09/22 14:45 Pulse 100 H 09/09/22 14:45 Respiratory Rate 18 09/09/22 14:45 Blood Pressure 145/99 H 09/09/22 14:45 Pulse Oximetry 98 09/09/22 14:45 Temperature 36.2 C L 09/09/22 14:45 Temperature Source Tympanic 09/09/22 14:45 Pulse 100 H 09/09/22 14:45 Respiratory Rate 18 09/09/22 14:45 Respiratory Effort Normal, Non-Labored 09/09/22 14:47 Blood Pressure 145/99 H 09/09/22 14:45 Pulse Oximetry 98 09/09/22 14:45 Oxygen Delivery Method Room Air 09/09/22 14:45 Oxygen Flow Rate 0 09/09/22 14:45
[2022-09-09 16:03] VITALS: BP 126/80; PULSE 72; RESP 20; TEMP 36.8; O2SAT 98
== END 2022-09-09 16:06 | disposition home or self-care (01) ==
PROVIDERS: Emergency Provider Emergency Medicine; PCP Nurse Practitioner Family
DX: H53.8 Other visual disturbances (principal); J43.9 Emphysema, unspecified
CPT/HCPCS: 99284; 99283

== ENCOUNTER 2022-12-22 13:37 | Emergency (ER) | payer MEDICARE, MEDICAID, SELFPAY ==
[2022-12-22 13:40] VITALS: BP 108/78; PULSE 82; RESP 18; TEMP 36.8; O2SAT 98
--- NOTE | 2022-12-22 13:52 | DI.US_ITS ---
Exam(s) US SOFT TISS EXTREMITY/GROIN EXAM: US SOFT TISS EXTREMITY/GROIN CLINICAL HISTORY: concern for pseudoaneurysm post cath. TECHNIQUE: Ultrasound was performed using standard protocol. COMPARISON: No exams were available for comparison FINDINGS: Sonographic assessment utilizing grayscale and color Doppler imaging was performed and targeted to th e area of clinical concern. There is a hypoechoic 2.6 x 0.9 x 1.8 cm lesion adjacent to the right femoral artery. There does jessenia ear to be a communication with the femoral artery. No internal blood flow is seen. The findings may represent a thrombosed pseudoaneurysm. There are 2 benign-appearing lymph nodes in the right inguinal region. The largest measures 1 x 1.1 x 0.7 cm. There is a normal waveform to the right femoral vein. IMPRESSION: 1. Findings suspicious for thrombosed right femoral artery pseudoaneurysm. 2. Findings were discussed with Susy Dorman at 3:50 p.m. on 12/22/2022. DATA REPOSITORY:
[2022-12-22] MEDS: Acetaminophen 325 MG TAB 1000 MG PO (14:13)
[2022-12-22 14:14] VITALS: RESP 16
--- NOTE | 2022-12-22 15:17 | ED.GENADUL_ITS ---
Discharge Plan Disposition Patient Disposition: Home Discharge Details Clinical Impression: Complication of artery following procedure, not elsewhere classified, Pseudoaneurysm following procedure Primary Care Provider: Rylee Olmos ED Provider: Ronen Campos Home Meds and New Rx's Prescriptions: No Action (DME) Aerochamber MV Spacer See Rx Instructions .Route Rx Instructions: As directed epinephrine [EpiPen 2-Shay] 0.3 MG/0.3 ML auto-injector 1 syringe IM PRN Qty: 2 cyclobenzaprine 10 mg tablet 10 mg PO TID albuterol sulfate [Ventolin HFA] 90 mcg/actuation HFA aerosol inhaler 2 puff inhalation Q6H PRN acetaminophen 500 mg tablet 1,000 mg PO BID PRN cyanocobalamin (vitamin B-12) [Vitamin B-12] 1,000 mcg tablet 1,000 mcg PO DAILY Rx Instructions: and 5000mcg twice per week on and Wed cholecalciferol (vitamin D3) 25 mcg (1,000 unit) capsule 25 mcg PO DAILY Theragran-M Premier 50 Plus 400-250-375 mcg tablet 1 tab PO DAILY oxycodone 5 mg Capsule 5 mg PO Q6H PRN Discharge Instructions Instructions: Pseudoaneurysm (ED) Additional Instructions: At this time we have discussed the case with the [facility] vascular team as well as the interventional radiology team. They feel that the complication has taken care of itself with the thrombosis. They do not have an indication for emergent or urgent follow-up at this time. Please follow-up closely with your primary care provider. If you do have any pain, do not hesitate to reach out to your [facility] vascular and interventional radiology team for follow-up as needed. If you notice any worsening of your symptoms, or any new symptoms such as swelling at the site of injury, change in color for your leg, vomiting, diarrhea, fever, chills, shortness of breath, chest pain, numbness, weakness, or fainting , please return immediately to the emergency department for reevaluation. Please follow up with your primary care provider as soon as possible for reassessment and reevaluation. As always, it was a pleasure participating in your medical care today. Referrals: Rylee Olmos [Primary Care Provider] - Discharge Data Discharge Date/Time-TO BE ENTERED AT DEPARTURE: 12/22/22 17:28 Medical Decision Making 62-year-old female with history of lung carcinoma presenting with concern for pseudoaneurysm right groin, ultrasound ordered to evaluate for pseudoaneurysm Pending ultrasound interpretation at this time Case discussed with Dr. Trejo, ultrasound positive for small pseudoaneurysm, 2.6 cm, thrombosed, [facility] called at 1607, pending vascular consultation Care transition to Dr. Charly Campos pending vascular consultation HPI General Date/Time Provider Initiated Documentation: 12/22/22 13:52 . HPI Narrative: 62-year-old female with history of large cell carcinoma of right lung status post bronchial artery embolization to her right groin secondary to hemoptysis presents with report of pain and swelling to her right groin region which she noticed 2 days ago. Patient denies any current chemotherapy or radiation, completed radiation in September, denies any fever or chills. Denies any abdominal pain. Denies any recurrent hemoptysis. Denies current anticoagulation. Related Data Home Medications Medication Instructions Recorded Confirmed epinephrine 0.3 mg/0.3 mL 1 syringe IM PRN #2 SYRGS 10/15/14 09/09/22 injection, auto-injector (EpiPen 2-Shay) albuterol sulfate 90 mcg/actuation 2 puff inhalation Q6H PRN 04/16/22 09/09/22 aerosol inhaler (Ventolin HFA) cyclobenzaprine 10 mg tablet 10 mg PO TID 04/16/22 09/09/22 acetaminophen 500 mg tablet 1,000 mg PO BID PRN 06/15/22 09/09/22 inhalational spacing device 06/24/22 09/09/22 (Aerochamber MV spacer) cholecalciferol (vitamin D3) 25 25 mcg PO DAILY 08/26/22 09/09/22 mcg (1,000 unit) capsule cyanocobalamin (vitamin B-12) 1,000 mcg PO DAILY 08/26/22 09/09/22 1,000 mcg tablet (Vitamin B-12) hkkrsmlt-gee-gieui acid 400 1 tab PO DAILY 08/26/22 09/09/22 mcg-coQ10 250 mcg-lycop 375 mcg-lut tablet (Theragran-M Premier 50 Plus) oxycodone 5 mg capsule 5 mg PO Q6H PRN 09/09/22 09/09/22 Allergies Allergy/AdvReac Type Severity Reaction Status Date / Time amoxicillin Allergy Severe RASH Unverified 09/09/22 14:48 naproxen Allergy Severe RASH; Unverified 09/09/22 14:48 STOMACH PAIN venom-honey bee Allergy Severe Anaphylaxsi Unverified 09/09/22 14:48 [bee venom (honey bee)] s doxycycline Allergy Intermediate RASH Unverified 09/09/22 14:48 meloxicam Allergy Intermediate Verified 09/09/22 14:48 atorvastatin calcium Allergy Mild ?rash Unverified 09/09/22 14:48 [From Lipitor] gabapentin Allergy Mild Unverified 09/09/22 14:48 nabumetone Allergy Mild HIVES Unverified 09/09/22 14:48 niacin Allergy Mild SKIN RASH Unverified 09/09/22 14:48 barley Allergy Unknown EXTREME Unverified 09/09/22 14:48 WEAKNESS azithromycin Allergy Unverified 09/09/22 14:48 cefdinir Allergy Verified 09/09/22 14:48 celecoxib [From Celebrex] Allergy Verified 09/09/22 14:48 clavulanic acid Allergy Verified 09/09/22 14:48 [From Augmentin] ethinyl estradiol Allergy Verified 09/09/22 14:48 [From Seasonale ()] levonorgestrel Allergy Verified 09/09/22 14:48 [From Seasonal ()] mometasone furoate Allergy Unverified 09/09/22 14:48 NSAIDS (Non-Steroidal Allergy Verified 09/09/22 14:48 Anti-Inflamma Penicillins Allergy Verified 09/09/22 14:48 Sulfa (Sulfonamide Allergy Unverified 09/09/22 14:48 Antibiotics) pravastatin AdvReac Severe H/, Unverified 09/09/22 14:48 MUSCLE PAIN simvastatin AdvReac Intermediate NAUSEA; Unverified 09/09/22 14:48 VOMITING DUST Allergy Mild ITCHY Uncoded 09/09/22 14:48 EYES; SNEEZING seafood Allergy Uncoded 09/09/22 14:48 General Stated Complaint: Vascular ARLET: 3 PFSH All Active Problems (Updated 12/22/22 @ 17:15 by Ronen Campos DO) Complication of artery following procedure, not elsewhere classified (Acute) Pseudoaneurysm following procedure (Acute) Large cell carcinoma of right lung (Acute) Nicotine dependence, cigarettes, uncomplicated (Acute) Lymphangioleiomyomatosis (Acute) Lung mass (Acute) Multiple nodules of lung (Acute) Cyst of nasopharynx (Acute) Chest pain (Acute) Acquired chest and rib deformity (Acute) Scoliosis deformity of spine (Acute) Fibromyalgia (Acute) Pain in the coccyx (Acute) Lumbosacral radiculopathy (Acute) Lower back pain (Acute) Cervical radiculopathy (Acute) Joint pain (Acute) Idiopathic osteoarthritis (Acute) GERD (gastroesophageal reflux disease) (Chronic) Allergic rhinitis (Acute) Acute bronchitis (Acute) Phlebosclerosis (Acute) Carpal tunnel syndrome (Acute) Nicotine dependence (Acute) Anxiety (Chronic) Megaloblastic anemia due to B12 deficiency (Acute) Hyperlipidemia (Acute) Medical History (Updated 12/22/22 @ 17:15 by Ronen Campos DO) COPD (chronic obstructive pulmonary disease) Dermatitis Dizziness Emphysema of lung Endometriosis Palpitations Tachycardia Surgical History (Updated 03/23/18 @ 14:36 by [employer] [place]) Dilation and curettage (~2009) [facility] Ligation of fallopian tube (03/22/91) Family History (Updated 06/16/22 @ 08:33 by Margaret Grimaldo) Father Diabetes Heart disease Hyperlipidemia Myocardial infarction Sister Hyperlipidemia Brother Heart disease Brother Hyperlipidemia Brother Diabetes Grandfather Personal history of malignant neoplasm COLON Pulmonary emphysema Colon cancer Grandfather Heart disease Hyperlipidemia Myocardial infarction Social History (Updated 06/16/22 @ 08:32 by Margaret Grimaldo) Smoking/Tobacco Use Status: Current every day Tobacco Type: cigarettes Smoking packs per day: 0.5 Smoking cigarettes per day: 10.0 Smoking risk assessment performed?: Yes Alcohol Intake: never Substance use type: does not use Do you feel safe at home: Yes Do you feel safe in your relationship?: Yes Exam Narrative Exam Narrative: Alert and oriented 62-year-old female, right groin with small 1.5 cm mass palpated in right catheterization site, no abdominal tenderness, neurovascularly intact distally, no overlying erythema, ecchymosis noted on inner thigh Course Vital Signs Vital signs: Vital Signs Temperature 36.8 C 12/22/22 13:40 Pulse 82 12/22/22 13:40 Respiratory Rate 18 12/22/22 13:40 Blood Pressure 108/78 12/22/22 13:40 Pulse Oximetry 98 12/22/22 13:40 Temperature 36.8 C 12/22/22 13:40 Temperature Source Oral 12/22/22 13:40 Pulse 82 12/22/22 13:40 Respiratory Rate 16 12/22/22 14:14 Respiratory Effort Normal 12/22/22 14:14 Blood Pressure 108/78 12/22/22 13:40 Pulse Oximetry 98 12/22/22 13:40 Oxygen Delivery Method Room Air 12/22/22 13:40 Oxygen Flow Rate 0 12/22/22 13:40 Pain Level 4 12/22/22 13:40 Sign Out Sign Out Data: Sign Out Comment: pending vascular consultation, pseudoaneurysm/thrombosed Last updated by Susy Dorman PA at 12/22/22 16:08
--- NOTE | 2022-12-22 17:13 | W.EDPROG ---
Date of service: 12/22/22 Time of Service: 17:16 Medical Decision Making Patient was signed out to me by my colleague Susy Dorman, please refer to HPI, physical exam, assessment and plan. At time of signout we are waiting on callback from [facility]. Ultrasound showed evidence of a thrombosed pseudoaneurysm that was a postprocedural complication. Patient otherwise looks well. No significant pain. No rapidly swelling lesion in the groin, no evidence of vascular compromise on the distal exam of the extremity. Patient otherwise looks well. Good pulses. Patient stable for discharge. Discussed the case with Dr. Ramirez of vascular surgery and she states that there is no need for further intervention or follow-up. Discussed the case with the interventional radiology team, and they do not see the need for follow-up at this time either. Patient otherwise feels stable. Discussed red flags for which to return. I have extensively reviewed the treatment plan and discharge instructions with the patient. I have addressed all patient concerns at this time. The patient was made aware of what symptoms to monitor for that would warrant a return to the emergency department. Discussed the plan with the patient, they demonstrate verbal understanding and agreement with our assessment and plan at this time. The documentation in this chart was dictated using [employer] dictation software. Please excuse any dictation errors. Sign Out Sign Out Data: Sign Out Comment: pending vascular consultation, pseudoaneurysm/thrombosed Last updated by Susy Dorman PA at 12/22/22 16:08 Discharge Plan Disposition Patient Disposition: Home Discharge Details Chief Complaint: Vascular Clinical Impression: Complication of artery following procedure, not elsewhere classified, Pseudoaneurysm following procedure Primary Care Provider: Rylee Olmos ED Provider: Ronen Campos Home Meds and New Rx's Prescriptions: No Action (DME) Aerochamber MV Spacer See Rx Instructions .Route Rx Instructions: As directed epinephrine [EpiPen 2-Shay] 0.3 MG/0.3 ML auto-injector 1 syringe IM PRN Qty: 2 cyclobenzaprine 10 mg tablet 10 mg PO TID albuterol sulfate [Ventolin HFA] 90 mcg/actuation HFA aerosol inhaler 2 puff inhalation Q6H PRN acetaminophen 500 mg tablet 1,000 mg PO BID PRN cyanocobalamin (vitamin B-12) [Vitamin B-12] 1,000 mcg tablet 1,000 mcg PO DAILY Rx Instructions: and 5000mcg twice per week on and Wed cholecalciferol (vitamin D3) 25 mcg (1,000 unit) capsule 25 mcg PO DAILY Theragran-M Premier 50 Plus 400-250-375 mcg tablet 1 tab PO DAILY oxycodone 5 mg Capsule 5 mg PO Q6H PRN Discharge Instructions Instructions: Pseudoaneurysm (ED) Additional Instructions: At this time we have discussed the case with the [facility] vascular team as well as the interventional radiology team. They feel that the complication has taken care of itself with the thrombosis. They do not have an indication for emergent or urgent follow-up at this time. Please follow-up closely with your primary care provider. If you do have any pain, do not hesitate to reach out to your [facility] vascular and interventional radiology team for follow-up as needed. If you notice any worsening of your symptoms, or any new symptoms such as swelling at the site of injury, change in color for your leg, vomiting, diarrhea, fever, chills, shortness of breath, chest pain, numbness, weakness, or fainting , please return immediately to the emergency department for reevaluation. Please follow up with your primary care provider as soon as possible for reassessment and reevaluation. As always, it was a pleasure participating in your medical care today. Referrals: Rylee Olmos [Primary Care Provider] -
== END 2022-12-22 17:28 | disposition home or self-care (01) ==
PROVIDERS: Emergency Provider Student in an Organized Health Care Education/Training Program; PCP Nurse Practitioner Family
DX: T81.718A Complication of other artery following a procedure, not elsewhere classified, initial encounter (principal); I72.4 Aneurysm of artery of lower extremity; C34.90 Malignant neoplasm of unspecified part of unspecified bronchus or lung; X58.XXXA Exposure to other specified factors, initial encounter
CPT/HCPCS: 76882; 99284; 99283

== ENCOUNTER → 2023-04-14 00:32 | Outpatient (CLI) | payer MEDICARE, MEDICAID, SELFPAY ==
--- NOTE | 2023-04-14 | DI.CT_ITS ---
Exam(s) CT CHEST W EXAM: CT CHEST W CLINICAL HISTORY: F/U SMALL CELL LUNG CA,ASSESS TREATMENT RESPONSE,C34.31 TECHNIQUE: Imaging Protocol: Axial computed tomography images with coronal and sagittal reformatted images were created and reviewed CONTRAST MATERIAL: Intravenous: Omnipaque 350Contrast volume:70 mL. COMPARISON: CT CT CHEST WO CONTRAST from 07/19/[address] CHEST LUNG CANCER SCREEN from 05/08/2022 FINDINGS: Tracheobronchial tree: Patent where visualized. Pulmonary parenchyma: Moderate centrilobular emphysema. The spiculated nodule in the right lower lob e left lower lobe measures 4 mm compared to 6 mm on the prior examination. (Series 5, image 206). T here is a decrease in size of the mass in the right lower lobe which now measures 2.4 cm transverse, compared to 3.2 cm on the prior examination. (Series 5, image 295). No new nodules are seen. Areas of scarring are seen in the lung apices which appears stable. No focal consolidating infiltrates ar e present. Mediastinum and Sandra: No dominant adenopathy or fluid collection. The esophagus is unremarkable. The re is a small hiatal hernia. Thyroid gland: Unremarkable. Pleura: No effusion or pneumothorax. Heart: The heart is not dilated. Coronary artery calcifications are present. No pericardial effusion . Aorta: Thoracic aorta non-dilated. Atherosclerosis. No evidence of dissection. Pulmonary arteries: No large central pulmonary embolus is present. Due to the timing of the bolus, t he peripheral pulmonary arteries are not adequately opacified for evaluation of pulmonary emboli. Upper abdomen: There is a hepatic cyst. Lymph nodes: Within normal limits. Bones: Within normal limits for the patient's age. Soft tissues: Unremarkable. IMPRESSION: 1. Interval decrease in size of both right lower lobe nodule/masses since 05/08/2022. 2. No new pulmonary nodules. RADIATION DOSE DELIVERED: Total DLP DATA REPOSITORY: All CT scans at this facility are submitted to the National Radiology Data Registry (NRDR) Dose Index Registry (DIR) with the [employer] (ACR). RADIATION OPTIMIZATION: All CT scans at this facility use at least one of these dose optimization te chniques: automated exposure control; mA and/or kV adjustment per patient size (includes targeted exa ms where dose is matched to clinical indication); or iterative reconstruction.
[2023-04-14 10:39] LABS: Estimated GFR 62.91 (mL/min/1.73m2)
[2023-04-14] MEDS: Normal Saline Flush 10 ML SYR IVP (10:57)
[2023-04-14] MEDS: Normal Saline - Diluent 50 ML VIAL IJ (10:58)
[2023-04-14] MEDS: Omnipaque 350 MG/ML 500 ML BTL-Imaging package IJ (11:01)
== END ==
PROVIDERS: PCP Nurse Practitioner Family; Visit Provider Preventive Medicine Undersea and Hyperbaric Medicine
DX: C34.31 Malignant neoplasm of lower lobe, right bronchus or lung (principal)
CPT/HCPCS: 71260; 82565

== ENCOUNTER 2023-06-18 15:58 | Outpatient (REF) | payer MEDICARE, MEDICAID, SELFPAY ==
--- OUTSIDE RECORDS SUMMARY | 2023-06-18 16:01 | XMS_ITS | Continuity of Care Document ---
Author Name Unknown Organization [facility] Address [address] [place] [address] Encounter NCTY_[place] Date(s): 12/03/22 - 12/03/[address] [address] Encounter Diagnosis Hemoptysis(Discharge Diagnosis) - 12/04/22 Discharge Disposition: Left Against Medical Advice Attending Physician: Ada Howe MD Admitting Physician: Ada Howe MD Allergies, Adverse Reactions, Alerts Substance Reaction Severity Status BEE VENOM PROTEIN (HONEY BEE) Unknown Active HOUSE DUST Unknown Active BARLEY Unknown Active SHELLFISH DERIVED Urticaria Unknown Active naproxen Unknown Active doxycycline Unknown Active amoxicillin Unknown Active amoxicillin-clavulanate Unknown Acti ve azithromycin Unknown Active nabumetone Unknown Active niacin Unknown Active pravastatin Unknown Active simvastatin Unknown Active gabapentin Unknown Active atorvastatin Unknown Active cefdinir Unknown Active celecoxib Unknown Active meloxicam Red eye Unknown Active penicillins Unknown Active sulfa drugs Unknown Active Mometasone Furoate Unknown Unknown Active Seasonale Unknown Active NSAIDs Unknown Active Assessment and Plan Diagnostic Tests Pending * Urine Culture 12/03/22 Functional Status 12/03/22 Family Member Travel History No recent t ravel Recent Travel History No recent travel Other exposure to Infectious Disease Non e Immunizations Given and Recorded Vaccine Date Status Refusal Reason influenza virus vaccine, live 1 03/08/20 Recorded pneumococcal 23-polyvalent vaccine 11/04/16 Record ed 1Result Comment: verified with AL RN Medications acetaminophen 325 mg oral tablet 650 mg = 2 tab, Oral, BID, PRN other (see comment), as needed Start Date: 02/24/22 Status: Ordered cyclobenzaprine 10 mg oral tablet 10 mg = 1 tab, Oral, TID Start Date: 02/24/22 Status: Ordered EPINEPHrine 0.3 mg injectable kit IM, PRN other (see comment), USE 1 AUTO INJECTOR NEEDED DIRECTED Start Date: 02/24/22 Status: Ordered One A Day Women's Complete 1 tab, Oral, Daily Start Date: 02/24/22 Status: Ordered Tylenol 325 mg oral capsule 650 mg = 2 cap, Oral, BID, PRN other (see comment), as needed for 90 days. Start Date: 02/24/22 Status: Ordered Ventolin HFA 90 mcg/inh inhalation aerosol Start Date: 02/24/22 Status: Ordered Vitamin B12 1000 mcg oral tablet 1,000 mcg = 1 tab, Oral, Daily, for 90 days Start Date: 02/24/22 Status: Ordered Mental Status 12/03/22 Eye Opening Response Dylon Spontaneous ly Best Verbal Response Dylon Oriented Best Motor Response Dylon Obeys comman ds Dylon Coma Score 15 Problem List Condition Confirmation Course Effective Dates Status H ealth Status Informant Acquired chest and rib deformity Confirmed Active Acute bronchitis Confirmed Active Allergic rhinitis Confirmed Active Allergy Confirmed Active Allergy to bee venom Confirmed 03/08/20 Active Anxiety Confirmed 05/27/20 Active Carpal tunnel syndrome Confirmed 05/27/20 Active Cervical radiculopathy Confirmed Active Chest pain Confirmed Active Chronic obstructive lung disease Confirmed 01/26/20 Active Fibromyalgia Confirmed Active Gastroesophageal reflux disease Confirmed 05/27/20 Active History of endometriosis Confirmed 05/27/20 Active History of gynecological disorder Confirmed Active Hyperlipidemia Confirmed Active Idiopathic osteoarthritis Confirmed Active Inflammatory dermatosis Confirmed Active Joint pain Confirmed Active Long-term current use of drug therapy Confirmed Active Low back pain Confirmed Active Lumbosacral radiculopathy Confirmed Active Megaloblastic anemia due to vitamin B>12< deficiency Confirmed Active Nicotine dependence Confirmed Active Pain in coccyx Confirmed Active Pain in right foot Confirmed Active Pain of left hip joint Confirmed Active Phlebosclerosis Confirmed Active Scoliosis deformity of spine Confirmed Active Therapeutic drug monitoring assay Confirmed Active Traumatic dislocation of hip joint Confirmed Active Traumatic or non-traumatic injury Confirmed Active Procedures Procedure Date Related Diagnosis Body Site Status D &C hysteroscopy and polypectomy 1 07/29/09 Completed Tubal ligation 03/21/91 Completed [facility] Results Laboratory List Name Date Urinalysis with Micro if Indicated and C ulture if Indicated 12/03/22 Urinalysis Microscopic 12/03/22 Troponin-I 12/03/22 D-Dimer 12/03/22 CBC w/ Diff 12/03/22 Comprehensive Metabolic Panel (CMP) 12/03 Automated Diff 12/03/22 Most recent to oldest [Reference Range]: 1 WBC [5.0-10.0 x10^3/mcL] 5.4 x10^3/mcL (12/03/22 1:03 PM) RBC [4.1-5.3 x10^6/mcL] 4.4 x10^6/mcL (12/03/22 1:03 PM) Neutro Auto [40.0-75.0 %] 57.1 % (12/03/22 1:03 PM) Lymph Auto [20.0-50.0 %] 32.5 % (12/03/22 1:03 PM) Mower Auto [2.0-15.0 %] 7.7 % (12/03/22 1:03 PM) Basophil Auto [0.0-1.0 %] 0.6 % (12/03/22 1:03 PM) BUN [7-18 mg/dL] 7 mg/dL (12/03/22 1:03 PM) UA Color Yellow (12/03/22 1:35 PM) UA WBC [0-3] 0-3 (12/03/22 1:35 PM) Glucose Level [74-106 mg/dL] 151 mg/dL *HI* (12/03/22 1:03 PM) Potassium Level [3.5-5.1 mmol/L] 3.3 mmo l/L *LOW* (12/03/22 1:03 PM) MCV [80.0-96.0 fL] 92.0 fL (12/03/22 1:03 PM) UA Urobilinogen Normal (12/03/22 1:35 PM) UA Bili [Negative] Negative (12/03/22 1:35 PM) UA Ketones Negative (12/03/22 1:35 PM) AST [15-37 unit/L] 15 unit/L (12/03/22 1:03 PM) ALT [14-59 unit/L] 19 unit/L (12/03/22 1:03 PM) MCHC [31.0-35.0 g/dL] 34.1 g/dL (12/03/22 1:03 PM) Troponin-I [0.0-51.4 pg/mL] <5.0 pg/mL (12/03/22 1:07 PM) Sodium Level [136-145 mmol/L] 137 mmol/L (12/03/22 1:03 PM) UA RBC [0-2] 0-2 (12/03/22 1:35 PM) UA Leuk Est Negative (12/03/22 1:35 PM) UA Nitrite Positive *ABN* (12/03/22 1:35 PM) UA Glucose [Negative] Negative (12/03/22 1:35 PM) Hct [37.0-47.0 %] 40.5 % (12/03/22 1:03 PM) UA Bacteria Moderate /HPF *ABN* (12/03/22 1:35 PM) Calcium Level [8.5-10.1 mg/dL] 8.7 mg/dL (12/03/22 1:03 PM) Albumin Level [3.4-5.0 g/dL] 3.6 g/dL (12/03/22 1:03 PM) Protein Total [6.4-8.2 g/dL] 6.6 g/dL (12/03/22 1:03 PM) UA Protein Negative (12/03/22 1:35 PM) MCH [26.0-32.0 pg] 31.4 pg (12/03/22 1:03 PM) Neutro Absolute 3.1 x10^3/mcL *NA* (12/03/22 1:03 PM) Bilirubin Total [0.2-1.0 mg/dL] 0.5 mg/d L (12/03/22 1:03 PM) Hgb [12.0-16.0 g/dL] 13.8 g/dL (12/03/22 1:03 PM) Alk Phos [46-146 unit/L] 89 unit/L (12/03/22 1:03 PM) UA Blood Trace *ABN* (12/03/22 1:35 PM) UA Mucous None Seen /HPF (12/03/22 1:35 PM) UA Spec Grav <=1.005 *NA* (12/03/22 1:35 PM) Platelets [130-450 x10^3/mcL] 238 x10^3/ mcL (12/03/22 1:03 PM) CO2 [21-32 mmol/L] 26 mmol/L (12/03/22 1:03 PM) UA Squam Epithelial [None Seen] Few *ABN* (12/03/22 1:35 PM) UA pH 7.0 *NA* (12/03/22 1:35 PM) eGFR Non-AA [>=60] 83 (12/03/22 1:03 PM) eGFR AA [>=60] 83 (12/03/22 1:03 PM) UA Appear Clear (12/03/22 1:35 PM) Chloride Level [98-107 mmol/L] 102 mmol/ L (12/03/22 1:03 PM) RDW-CV [11.5-14.5 %] 13.0 % (12/03/22 1:03 PM) Imm Gran Auto [0.0-0.9 %] 0.4 % (12/03/22 1:03 PM) UA Culture Ind?. Indicated (12/03/22 1:35 PM) UA Clue Cells Present (12/03/22 1:35 PM) Creatinine Level [0.55-1.02 mg/dL] 0.79 mg/dL (12/03/22 1:03 PM) D Dimer, (Quant.) [0.00-0.50 mg/L] 0.46 mg/L 1 (12/03/22 1:06 PM) Eos, Auto [1.0-6.0 %] 1.7 % (12/03/22 1:03 PM) 1Interpretive Data: Exclusion of PE: Effective February 24, 2012 a new D-Dimer assay [Restore Flow AllograftsANCE] is being implemented, this test has a new reference range <0.50 mg/L FEU. This assay was evaluated in a multi-center study to validate the exclusion of PE using fresh specimens collected from 701 consecutive patients presenting in the ED with suspected PE. Study patients were evaluated using the Wells' rules to estimate high, moderate or low probability of PE, a D-Dimer result of <0.50 mg/L FEU was considered negative and a D-Dimer result >/= 0.50 was considered positive for PE. Vital Signs Most recent to oldest [Reference Range]: 1 2 3 Temperature Temporal Artery [36-38 Deg C] 36.5 Deg C (12/03/22 12:53 PM) Temperature Temporal Artery (DegF) [97.3-100 Deg F] 97.7 Deg F (12/03/22 12:53 PM) Peripheral Pulse Rate [60-100 bpm] 88 bpm (12/03/22 7:47 PM) 90 bpm (12/03/22 5:51 PM) 98 bpm (12/03/22 3:10 PM) Heart Rate Monitored [60-100 bpm] 100 bpm (12/03/22 1:30 PM) 98 bpm (12/03/22 12:53 PM) 101 bpm *HI* (12/03/22 12:52 PM) Respiratory Rate [12-24 br/min] 18 br/min (12/03/22 7:47 PM) 16 br/min (12/03/22 5:51 PM) 17 br/min (12/03/22 3:10 PM) Blood Pressure [90-140/60-90 mmHg] 160/70mmHg *HI* (12/03/22 5:51 PM) 178/74mmHg *HI* (12/03/22 12:53 PM) 178/74mmHg *HI* (12/03/22 12:52 PM) Weight Dosing 58.79 kg (12/03/22 12:50 PM) Weight Estimated 58.79 kg (12/03/22 12:46 PM) Height/Length Dosing 158.000 cm (12/03/22 12:50 PM) Height/Length Estimated 158.000 cm (12/03/22 12:46 PM) Social History Social History Type Response Tobacco Current everyday tob acco user Tobacco Use:. 1/2 pdd per day. Sex Female Physician Emergency department Note * Carlos Castro MD: PERFORM Event Display: ED Note Physician Authored Date: [id number] GLENN DOMÍNGUEZ :1960 Age:62 years Sex:Female Visit Date:12/03/2022 Basic Information Time Seen: Carlos Castro MD / 12/03/2022 12:59 Chief Complaint PT started coughing up blood on Wednesday. 1 tbsp. Then was okay all week and now has coughed up bloodmultiple times this morning. Bright red blood. Hx of cyst in throat, PT has scoliosis. PT finished lung CA radiation in September. History Of Present Illness: Presenting concern is hemoptysis.?? Patient has had 2 episodes of hemoptysis. ??Context is patient with??lung CA??with prior treatment.?? This had occurred on Wednesday.?? Second??episode occurred today??with approximately 1 cup.?? No other significant new??pulmonary symptoms. Review of Systems: Review of systems??positive for??episodic left lower quadrant pain. Physical Exam Vitals & Measurements T:??36.5?C ??(Temporal Artery)?? HR:??88??(Peripheral)?? RR:??18?? BP:??160/70?? SpO2:??97%?? HT:??158.000??cm?? WT:??58.79??kg??(Estimated)?? O2 Therapy:??Room air?? Patient is in no acute distress. ??She converses normally.?? Respirations are normal. ??Chest??auscultation shows scattered adventitial sounds. ??Heart sounds??demonstrated tachycardia. Medical Decision Making: Discussed with radiation oncology at [facility]. ??Discussed with pulmonary at [facility] [place].?? Problem complexityis life-threatening. ??Data complexity is complex.?? Management risk are??high. ??MDM coding???43623.?? Patient chose to sign out AMA. Procedure No Qualifying Data Assessment/Plan Ordered: Urine Culture, Urine, Stat collect, ST - Stat, 12/03/22 13:35:08 EDT, Once, Nurse collect, Collected, 12/03/22 13:35:08 EDT, Print Label, [id number] Discharge diagnosis is hemoptysis. Medication Reconciliation Unchanged acetaminophen (acetaminophen 325 mg oral tablet)2 tab Oral (given by mouth) 2 times a day as neededother (see comment). as needed. ?? acetaminophen (Tylenol 325 mg oral capsule)2 Capsules Oral (given by mouth) 2 times a day as neededother (see comment). as needed for 90 days.. ?? albuterol (Ventolin HFA 90 mcg/inh inhalation aerosol) ?? cyanocobalamin (Vitamin B12 1000 mcg oral tablet)1 tab Oral (given by mouth) every day. for 90 days. ?? cyclobenzaprine (cyclobenzaprine 10 mg oral tablet)1 tab Oral (given by mouth) 3 times a day. ?? EPINEPHrine (EPINEPHrine 0.3 mg injectable kit)Intramuscular (in a muscle) as needed other (see comment). USE 1 AUTO INJECTOR NEEDED DIRECTED. ?? multivitamin with minerals (One A Day Women's Complete)1 tab Oral (given by mouth) every day. Problem List/Past Medical History Ongoing Acquired chest and rib deformity Acute bronchitis Allergic rhinitis Allergy Allergy to bee venom Anxiety Carpal tunnel syndrome Cervical radiculopathy Chest pain Chronic obstructive lung disease Fibromyalgia Gastroesophageal reflux disease History of endometriosis History of gynecological disorder Hyperlipidemia Idiopathic osteoarthritis Inflammatory dermatosis Joint pain Long-term current use of drug therapy Low back pain Lumbosacral radiculopathy Megaloblastic anemia due to vitamin B>12< deficiency Nicotine dependence Pain in coccyx Pain in right foot Pain of left hip joint Phlebosclerosis Scoliosis deformity of spine Therapeutic drug monitoring assay Traumatic dislocation of hip joint Traumatic or non-traumatic injury Historical No qualifying data Procedure/Surgical History ? ?D &C hysteroscopy and polypectomy (07/30/2009)? ?Tubal ligation (03/22/1991) Allergies BARLEY BEE VENOM PROTEIN (HONEY BEE) HOUSE DUST Mometasone Furoate??(Unknown) NSAIDs SHELLFISH DERIVED??(Urticaria) Seasonale amoxicillin amoxicillin-clavulanate atorvastatin azithromycin cefdinir celecoxib doxycycline gabapentin meloxicam??(Red eye) nabumetone naproxen niacin penicillins pravastatin simvastatin sulfa drugs Social History Alcohol Never Electronic Cigarette/Vaping Electronic Cigarette Use: Never. Substance Use Never Tobacco Current everyday tobacco user Tobacco Use:. 1/2 pdd per day. Family History Dementia: Mother. Diabetes mellitus: Father. Heart disease: Father. Hyperlipidemia: Father and Sister. Osteoarthritis: Mother. Lab Results CBC and Differential?? LATEST RESULTS?? WBC?? 12/03/22 13:03?? 5.4?? RBC?? 12/03/22 13:03?? 4.4?? Hgb?? 12/03/22 13:03?? 13.8?? Hct?? 12/03/22 13:03?? 40.5?? MCV?? 12/03/22 13:03?? 92.0?? MCH?? 12/03/22 13:03?? 31.4?? MCHC?? 12/03/22 13:03?? 34.1?? RDW-CV?? 12/03/22 13:03?? 13.0?? Platelets?? 12/03/22 13:03?? 238?? Neutro Auto?? 12/03/22 13:03?? 57.1?? Lymph Auto?? 12/03/22 13:03?? 32.5?? Mower Auto?? 12/03/22 13:03?? 7.7?? Eos, Auto?? 12/03/22 13:03?? 1.7?? Basophil Auto?? 12/03/22 13:03?? 0.6?? Imm Gran Auto?? 12/03/22 13:03?? 0.4?? Neutro Absolute?? 12/03/22 13:03?? 3.1? Coagulation?? LATEST RESULTS?? D Dimer, (Quant.)?? 12/03/22 13:06?? 0.46? Routine Chemistry?? LATEST RESULTS?? Sodium Level?? 12/03/22 13:03?? 137?? Potassium Level?? 12/03/22 13:03?? 3.3 ??Low?? Chloride Level?? 12/03/22 13:03?? 102?? CO2?? 12/03/22 13:03?? 26?? Alk Phos?? 12/03/22 13:03?? 89?? AST?? 12/03/22 13:03?? 15?? ALT?? 12/03/22 13:03?? 19?? BUN?? 12/03/22 13:03?? 7?? Glucose Level?? 12/03/22 13:03?? 151 ??High?? Creatinine Level?? 12/03/22 13:03?? 0.79?? eGFR AA?? 12/03/22 13:03?? 83?? eGFR Non-AA?? 12/03/22 13:03?? 83?? Calcium Level?? 12/03/22 13:03?? 8.7?? Protein Total?? 12/03/22 13:03?? 6.6?? Albumin Level?? 12/03/22 13:03?? 3.6?? Bilirubin Total?? 12/03/22 13:03?? 0.5? Cardiac Isoenzymes?? LATEST RESULTS?? Troponin-I?? 12/03/22 13:07?? <5.0? UA Macroscopic?? LATEST RESULTS?? UA Color?? 12/03/22 13:35?? Yellow?? UA Appear?? 12/03/22 13:35?? Clear?? UA Glucose?? 12/03/22 13:35?? Negative?? UA Bili?? 12/03/22 13:35?? Negative?? UA Ketones?? 12/03/22 13:35?? Negative?? UA Spec Grav?? 12/03/22 13:35?? <=1.005?? UA Blood?? 12/03/22 13:35?? Trace Abnormal?? UA pH?? 12/03/22 13:35?? 7.0?? UA Protein?? 12/03/22 13:35?? Negative?? UA Urobilinogen?? 12/03/22 13:35?? Normal?? UA Nitrite?? 12/03/22 13:35?? Positive Abnormal?? UA Leuk Est?? 12/03/22 13:35?? Negative?? UA Culture Ind?.?? 12/03/22 13:35?? Indicated? UA Microscopic?? LATEST RESULTS?? UA WBC?? 12/03/22 13:35?? 0-3?? UA RBC?? 12/03/22 13:35?? 0-2?? UA Squam Epithelial?? 12/03/22 13:35?? Few Abnormal?? UA Mucous?? 12/03/22 13:35?? None Seen?? UA Bacteria?? 12/03/22 13:35?? Moderate Abnormal?? UA Clue Cells?? 12/03/22 13:35?? Present? Electronically Signed on 12/03/22 10:48 PM Carlos Castro MD Emergency department Note * Primo Berrios: PERFORM Event Display: ED Notes Authored Date: * Primo Berrios: PERFORM Event Display: ED Notes Authored Date: [id number] Patient Care team information Care Team Personnel Name: Ronen Leonard RN Position: Nurse Member Role: ED Nurse Name: Carlos Castro MD Position: Physician Member Role: ED Physician Address: Address: [address] [place] [id number] [place] Care Team Related Persons Name: CINDY DOMÍNGUEZ Name: SONIA DOMÍNGUEZ Name: TRA GUTIERREZ
--- OUTSIDE RECORDS SUMMARY | 2023-06-18 16:01 | XMS_ITS | Continuity of Care Document ---
Author Name Unknown Organization [facility] Address [address] [place] [address] Encounter NCTY_[place] Date(s): 07/17/22 - 07/17/22 [facility] [address] [place] [address] Discharge Disposition: Home or Self Care Attending Physician: Amber Mcelroy MD Admitting Physician: Amber Mcelroy MD Referring Physician: Amber Mcelroy MD Allergies, Adverse Reactions, Alerts Substance Reaction [...] Active Seasonale Unknown Active NSAIDs Unknown Active Immunizations Given and Recorded Vaccine Date Status [...] 90 days Start Date: 02/24/22 Status: Ordered Problem List Condition Confirmation Course Effective Dates [...] Completed [facility] Results Laboratory List Name Date Glucose POCT 07/17/22 Most recent to oldest [Reference Range]: 1 Glucose POC [74-106 mg/dL] 99 mg/dL (07/17/22 10:12 AM) Social History Social History Type Response Sex Female
[2023-06-18 18:22] LABS: Abs Immature Grans 0.01 10^3/uL (0.0-0.06); Absolute Basophil Count 0.05 10^3/uL (0.0-0.2); Absolute Eosinophil Count 0.06 10^3/uL (0.0-0.7); Absolute Lymphocyte Count 2.26 10^3/uL (1.2-3.4); Absolute Monocyte Count 0.49 10^3/uL (0.1-0.8); Absolute Neutrophil Count 4.21 10^3/uL (1.2-6.7); Basophils % 0.7; Eosinophils % 0.8; HCT 39.4 % (36.0-46.0); HGB 13.6 g/dL (11.2-15.7); Immature Grans % 0.1; Lymphocytes % 31.9; MCH 31.2 pg (27.0-33.0); MCHC 34.5 % (32.0-36.0); MCV 90 fL (80-95); MPV 10.3 fL (8.0-11.0); Monocytes % 6.9; Neutrophils % 59.6; Platelet Count 281 10^3/uL (130-400); RBC 4.36 10^6/uL (3.93-5.22); RDW 13.1 % (11.7-14.6); RDW-SD 43.5 fL; WBC 7.08 10^3/uL (4.4-10.8)
[2023-06-18 18:46] LABS: ALT 19 U/L (14-59); AST 20 U/L (15-37); Albumin 3.9 g/dL (3.4-5.0); Alkaline Phosphatase 88 U/L (46-116); Anion Gap 8.5 mmol/L (3-11); BUN 7 mg/dL (7-18); Bilirubin, Total 0.5 mg/dL (0.2-1.0); CO2 26.5 mmol/L (21.0-32.0); CREATININE 0.7 mg/dL (0.55-1.02); Calcium 9.5 mg/dL (8.5-10.1); Chloride 102 mmol/L (98-107); Estimated GFR 95.92 (mL/min/1.73m2); FREE T4 1.16 ng/dL (0.76-1.46); Glucose 111 mg/dL (74-106); Potassium 3.5 mmol/L (3.5-5.1); Sodium 137 mmol/L (136-145); TSH 0.85 uIU/mL (0.36-3.74); Total Protein 7.1 g/dL (6.4-8.2)
== END 2023-06-18 15:59 | disposition home or self-care (01) ==
LOC: NCHCN 15:58
PROVIDERS: PCP Nurse Practitioner Family; Visit Provider Nurse Practitioner Family
DX: I10 Essential (primary) hypertension (principal); R00.8 Other abnormalities of heart beat; R05.3 Chronic cough
CPT/HCPCS: 80053; 84439; 84443; 85025

== ENCOUNTER → 2023-06-18 17:55 | Outpatient (CLI) | payer MEDICARE, MEDICAID, SELFPAY ==
--- NOTE | 2023-06-18 15:25 | DI.RAD_ITS ---
Exam(s) XR CHEST 2V PA LATERAL EXAM: XR CHEST 2V PA LATERAL CLINICAL HISTORY: COUGH,H/O LUNG CA,?PNEUMONIA TECHNIQUE: 2D digital imaging was performed of the chest. Two images were obtained. PA and lateral views were obtained. COMPARISON: CT CT CHEST W from 04/14/2023 FINDINGS: MEDIASTINUM: Small hiatal hernia. HEART: Normal. PULMONARY VASCULATURE: Normal. LUNGS: There is a persistent area of linear scarring in the right mid lung. No new infiltrates are s een to suggest pneumonia. No findings are seen to suggest congestive heart failure. The lungs are h yperinflated suggesting underlying COPD. PLEURAL SPACE: No pleural effusion or pneumothorax. BONE:Within normal limits for the patient's age. There is a reverse S-type thoracolumbar scoliosis. OTHER FINDINGS:Normal. IMPRESSION: 1. No acute pulmonary findings. 2. Stable area of scarring in the right mid lung. DATA REPOSITORY: RADIATION DOSE DELIVERED:
== END ==
PROVIDERS: PCP Nurse Practitioner Family; Visit Provider Nurse Practitioner Family
DX: R05.3 Chronic cough (principal)
CPT/HCPCS: 71046

== ENCOUNTER 2023-07-09 14:07 | Outpatient (RCR) | payer MEDICARE, MEDICAID, SELFPAY ==
--- NOTE | 2023-07-09 15:30 | HOLTER_ITS ---
APPROVED REPORT Exam Type: HOLTER MONITOR APPLICATION Reason for Test: PALPITATIONS Patient Location: O Conclusion 1. The underlying rhythm is sinus, rate range 74-148 (average 105) bpm 2. Frequent PVCs constituting a 4% burden, no VTACH 3. Few PACs, no SVT 4. No pauces 5. No atrial fibrillation.
== END 2023-08-05 23:59 | disposition home or self-care (01) ==
LOC: CARDOPNVT 14:07
PROVIDERS: PCP Nurse Practitioner Family; Visit Provider Internal Medicine Cardiovascular Disease
DX: R00.8 Other abnormalities of heart beat (principal)
CPT/HCPCS: 93227; 93225; 93226

== ENCOUNTER → 2023-08-06 00:30 | Outpatient (CLI) | payer MEDICARE, MEDICAID, SELFPAY ==
--- NOTE | 2023-08-06 14:45 | DI.CT_ITS ---
Exam(s) CT CHEST WO EXAM: CT CHEST WO CLINICAL HISTORY: PRIMARY LUNG CA,C34.31,S/P TREATMENT,ASSESS FOR RECURRENCE. TECHNIQUE: Imaging protocol: Axial computed tomography images were obtained and coronal and sagittal reformatted images were created and reviewed. COMPARISON: CT CT CHEST LUNG CANCER SCREEN from 05/08/[address] CHEST W from 04/14/2023 FINDINGS: Tracheobronchial tree: Patent where visualized. Pulmonary parenchyma: Moderate centrilobular emphysematous changes are present. There is a stable 7 mm nodule in the left lower lobe (series 3, image 173). There is stable pleural scarring in the late ral aspect of the left upper lobe. Stable small areas of ground-glass nodularity predominantly in th e right upper lobe. The spiculated mass in the right lower lobe measures 2.4 x 2.1 cm. (Series 3, i mage 237). This is unchanged. There has been increased parenchymal thickening in the lateral aspect of the right lower lobe. No new pulmonary nodules. Mediastinum and Sandra: No dominant adenopathy or fluid collection. The esophagus is unremarkable.There is a large hiatal hernia. Thyroid gland: Unremarkable. Pleura: No effusion or pneumothorax. Heart: The heart is not dilated. Coronary artery calcifications are present. No pericardial effusion . Aorta: Thoracic aorta non-dilated. Atherosclerotic calcification of the thoracic aorta is present. Upper abdomen: Unremarkable. Hepatic and renal cysts are present. Lymph nodes: Within normal limits. Soft tissues: Unremarkable. Bones:Within normal limits for the patient's age. Thoracolumbar scoliosis. IMPRESSION: 1. Stable right lower lobe pulmonary mass. 2. Stable right upper and left upper lobe scarring and left lower lobe pulmonary nodule. 3. Mild increased scarring in the right lower lobe. RADIATION DOSE DELIVERED: 371.64mGy.cm Total DLP 371.64mGy.cm Total DLP DATA REPOSITORY: All CT scans at this facility are submitted to the National Radiology Data Registry (NRDR) Dose Index Registry (DIR) with the [employer] (A[employer]). RADIATION OPTIMIZATION: All CT scans at this facility use at least one of these dose optimization te chniques: automated exposure control; mA and/or kV adjustment per patient size (includes targeted exa ms where dose is matched to clinical indication); or iterative reconstruction.
== END ==
PROVIDERS: PCP Nurse Practitioner Family; Visit Provider Preventive Medicine Undersea and Hyperbaric Medicine
DX: C34.31 Malignant neoplasm of lower lobe, right bronchus or lung (principal)
CPT/HCPCS: 71250

== ENCOUNTER 2023-09-24 12:48 | Outpatient (REF) | payer MEDICARE, MEDICAID, SELFPAY ==
[2023-09-24 16:01] LABS: Abs Immature Grans 0.03 10^3/uL (0.0-0.06); Absolute Basophil Count 0.05 10^3/uL (0.0-0.2); Absolute Eosinophil Count 0.07 10^3/uL (0.0-0.7); Absolute Lymphocyte Count 2.07 10^3/uL (1.2-3.4); Absolute Monocyte Count 0.62 10^3/uL (0.1-0.8); Absolute Neutrophil Count 5.04 10^3/uL (1.2-6.7); Basophils % 0.6; Eosinophils % 0.9; HCT 40.1 % (36.0-46.0); HGB 13.5 g/dL (11.2-15.7); Immature Grans % 0.4; Lymphocytes % 26.3; MCH 30.5 pg (27.0-33.0); MCHC 33.7 % (32.0-36.0); MCV 91 fL (80-95); MPV 11.3 fL (8.0-11.0); Monocytes % 7.9; Neutrophils % 63.9; Platelet Count 270 10^3/uL (130-400); RBC 4.43 10^6/uL (3.93-5.22); WBC 7.88 10^3/uL (4.4-10.8)
[2023-09-24 16:32] LABS: ALT 19 U/L (14-59); AST 17 U/L (15-37); Alkaline Phosphatase 95 U/L (46-116); Anion Gap 11.2 mmol/L (3-11); BUN 8 mg/dL (7-18); Bilirubin, Total 0.5 mg/dL (0.2-1.0); CO2 25.8 mmol/L (21.0-32.0); CREATININE 0.8 mg/dL (0.55-1.02); Calcium 9.5 mg/dL (8.5-10.1); Chloride 106 mmol/L (98-107); Estimated GFR 81.72 (mL/min/1.73m2); Glucose 102 mg/dL (74-106); Sodium 143 mmol/L (136-145); Total Protein 6.9 g/dL (6.4-8.2)
== END 2023-09-24 12:49 | disposition home or self-care (01) ==
LOC: NCHCN 12:48
PROVIDERS: PCP Nurse Practitioner Family; Visit Provider Student in an Organized Health Care Education/Training Program
DX: R10.10 Upper abdominal pain, unspecified (principal); R50.9 Fever, unspecified
CPT/HCPCS: 80053; 85025

== ENCOUNTER 2024-04-20 13:22 | Emergency (ER) | payer MEDICARE, MEDICAID, SELFPAY ==
--- NOTE | 2024-04-20 13:15 | RT.EKG_ITS ---
APPROVED REPORT Exam: Resting ECG Reason for Exam: dizziness Patient Location: E HR:101 bpm ECG Measurements Heart Rate 101 AXIS NE 125 P 67 QRSd 75 QRS 71 QT 351 T 62 QTc 456 Conclusion Sinus tachycardia, rate 101 PVCs No interval abnormalities No STEMI
[2024-04-20 13:26] VITALS: BP 163/75; PULSE 112; RESP 20; TEMP 37; O2SAT 98
--- OUTSIDE RECORDS SUMMARY | 2024-04-20 14:25 | XMS_ITS | Encounter Summary ---
Author Organization [facility] [place] [address] Care Team Providers Care Enterprise Software Developer Name Role Phone Rylee Olmos Krystyna FLAHERTY Primary Care Provider [phone] Reason for Referral * Diagnostic Test (Routine) - Authorized Specialty Diagnoses / Procedures Referred By oNa bullock Referred To Contact Radiology Diagnoses Primary malignant neoplasm of right lower lobe of lung Procedures CT Chest wo Contrast (Generic) Johnny Rollins MD [facility] [place] [address] [facility] [place] [address] Referral ID Status Reason Start Date Expiration Date Visits Requested Visits Authorized [id number] Authorized Specialty Service Requested 4 10/17/2025 1 1 Encounter Details Date Type Department Care Team (Latest Contact Info) Description 04/19/2024 1:00 PM EST TH Visit (TeleHealth) Radiation Oncology at [address] [phone] Johnny Rollins MD [facility] [place] [address] Primary malignant neoplasm of right lower lobe of lung Social History Tobacco Use Types Packs/Day Years Used Date Smoking Tobacco: Every Day Cigarettes 0.5 45 Smokeless Tobacco: Never Alcohol Use Standard Drinks/Week Comments Not Currently 0 (1 standard drink = 0.6 oz pur e alcohol) Overall Financial Resource Strain (CARDIA) Answe r Date Recorded How hard is it for you to pa y for the very basics like food, housing, medical care, and heating? Not hard at all 08/12/2022 Hunger Vital Sign Answer Date Recorded Within the past 12 months, y ou worried that your food would run out before you got the money to buy more. Never true 08/13/19 23 Within the past 12 months, t he food you bought just didn't last and you didn't have money to get more. Never true 08/12/2022 PRAPARE - Transportation Answer Date Re corded In the past 12 months, has l ack of transportation kept you from medical appointments or from getting medications? No 01/2023 In the past 12 months, has l ack of transportation kept you from meetings, work, or from getting things needed for daily living? No 08/12/2022 Housing Stability Vital Sign Answer Merrick e Recorded In the last 12 months, was t here a time when you were not able to pay the mortgage or rent on time? No 08/12/2022 In the last 12 months, how many places have you lived? 1 08/12/2022 In the last 12 months, was t here a time when you did not have a steady place to sleep or slept in a jail (including now)? No 08/12/2022 DH IPV Inpatient Questions Answer Date Recorded Does Anyone Try to Keep You From Having Contact with Others or Doing Things Outside Your Home? unable to answer (comment required) 12/14/2022 Feels Threatened by Someone unable to an swer (comment required) 12/14/2022 Feels Unsafe at Home or Work/School unab le to answer (comment required) 12/14/2022 Physical Signs of Abuse Present no 12/14/2022 Sex and Gender Information Value Date Recorded Sex Assigned at Not on file Gender Identity Not on file Sexual Orientation Not on file documented as of this encounter Progress Notes * Johnny Rollins MD - 04/19/2024 1:00 PM EST Images from the original note were not included. 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 female who underwent lung cancer screening at [facility] on 05/08/22. Imaging was compared to CT chest imaging from 2020 and 2020, and interpreted as a LungRADS 4X with reports of significant increase in size of a spiculated RLL mass. A new 6 mm nodule in the LLL was also noted. She was referred to the pulmonary nodule clinic, and an evaluation was performed as noted below. Staging & Therapy PFTs 06/12/22: FEV1 2.08 100%, DLCO 80% CT Chest without contrast 07/07/22: 1. Unchanged 3.4 cm spiculated mass in the superior aspect of the right lower lobe, which remains highly suggestive of primary lung malignancy. 2. Mixed opacities within the right upper and lower lobes and 7 mm lobulated pulmonary nodule in the left upper lobe are unchanged, but remain indeterminate. 3. Diffuse lung cysts are nonspecific but can be seen with lymphangiomyoliomatosis. Flexible bronchoscopy, EBUS-TBNA, Robotic-Assisted Bronchoscopy, Transbronchial forcep biopsies, Transbronchial fine needle aspiration 07/07/22: -Findings: normal bronchial anatomy and no endobronchial lesions. Station 7 with 3 passes obtained with LIANNE absent. Station 11Ri(inferior) with 3 passes obtained with LIANNE absent. Note, Station 11L was not identified, Station 4L was <5 mm, Station 4R was not identified and Station 11Rs(superior) was <5 mm. -Pathology: 1) Lung: right lower lobe (navigation-guided FNA). Non-small cell carcinoma, compatible with an adenocarcinoma of lung origin. Tumor Proportion Score (TPS): % Expression: 50-60% 2) Lymph node: station 7 (EBUS-guided FNA) - Lymphoid tissue present; compatible with lymph node sampling. Negative for metastatic carcinoma. 3) Lymph node: station 11Ri (EBUS-guided FNA) - Lymphoid tissue present; compatible with lymph nodesampling. Negative for metastatic carcinoma. 4) Tissue: Lung, right lower lobe, biopsy: Positive for high grade carcinoma with neuroendocrine IHC, favor Large Cell neuroendocrine carcinoma, (LCNEC). Tumor Proportion Score (TPS): % Expression: 60% PET-CT 07/17/22: MRI Brain +/- contrast 07/27/22: ZEUS TREATMENT DETAILS Treatment Intent Curative Site Treated Primary malignancy Technique VMAT, SBRT Adaptive Plan Required No Concurrent Chemo No Clinical Trial No TECHNICAL DETAILS Total Dose: 50 Gy in 5 fractions @ 10 Gy per fraction PLAN IMAGES Time since completion: ~1 year, 6 months Post Tx Presented to [facility] ED on 12/03/22 with complaints of hemoptysis x 2, described as bright red blood, approximately 1 cup. She had not other symptoms. CT imaging as below, with no clear concerning findings. Bronchoscopy recommended, but unable to be transferred due to absence of beds. She elected discharge with outpatient follow up with Dr. Muñoz. CT Chest, 12/03/2022: Bronchoscopy 12/14/22 No visible source of hemoptysis IR embolization 12/18/22 right 8th intercostal artery and abnormal collateral branches CT Chest 04/14/23 Interval decrease in size of both RLL nodule/masses since 05/08/2022 No new pulmonary nodules. CT Chest 08/06/23: CT Chest 12/15/23: Right 8th rib fracture CT Chest 04/12/24: Other Concerns: Interval History: she has been struggling with a head cold, which she describes as intermittent fevers, upper respiratory symptoms. She notes that her granddaughter, who is in day care, has been bringing home infections that have been afflicting the family. She was seen today as a telehealth visit. Currently, she has the following symptoms: Symptom Description Intervention Pain She notes soreness of the ribs on her right, most in the back, radiating anteriorly. Worse with bending or lifting. Stable. 650 mg tylenol 2-3x per day; Dyspnea Recent URIs, using inhaler regularly. No dyspnea at rest. Dyspnea with exertion. Stable. Pulm Mild cough, productive of mucous. No hemoptysis. Chest wall Denies Cough Occasional cough, improved over last few days Dysphagia Trouble with large pills Voice Changes No recent voice changes Nutrition / Weight Loss No significant changes. Actively Smoking Smoking ~ 1/4 - 1/2 ppd Pack Years Started at age 14, ~ 1/ 2 ppd or less. Distance from [facility] ~ 45 minutes Other I have personally reviewed the imaging studies referenced above. Review of Systems: I reviewed and agree with the nursing review of systems accompanying this encounter. The remainder of the comprehensive review of systems was negative with the exception of the pertinent positives and negatives noted above. Medications and Allergies: Current Outpatient Medications: lj-dfdtlqm-jif-iron fm-FA-vitK (One-A-Day Women's Complete) 18 mg-400 mcg- 25 mcg Tablet, Take 1 tablet by mouth daily., Disp: , Rfl: oxyCODONE (Roxicodone) 5 mg tablet, Take 1 tablet by mouth as needed for Pain (Use a 1/2 hour priorto radiation therapy and as needed)., Disp: 30 tablet, Rfl: 0 cyanocobalamin, vitamin B-12, (VITAMIN B12 ORAL), Take 6,000 Units by mouth twice a week. WEDNESDAY/WEDNESDAY, Disp: , Rfl: acetaminophen (TYLENOL) 650 mg Tablet Sustained Release, Take 650 mg by mouth every 8 hours as needed for Pain. Do not exceed 6 tabs in 24 hours, Disp: , Rfl: cyanocobalamin 1,000 mcg Tablet, Take 1,000 mcg by mouth daily. 6000mcg on Tuesdays and Fridays, 1000mcg the rest of the week, Disp: , Rfl: CHOLECALCIFEROL, VITAMIN D3, ORAL, Take 1,000 Units by mouth daily., Disp: , Rfl: cyclobenzaprine (FLEXERIL) 10 mg Tablet, Take 10 mg by mouth 3 times daily as needed for Muscle spasms., Disp: , Rfl: albuterol 90 mcg/actuation HFA Aerosol Inhaler, Inhale 2 puffs into the lungs every 4 hours as needed for Wheezing. Use with spacer, Disp: , Rfl: EPINEPHrine 0.3 mg/0.3 mL Auto-Injector, Inject 0.3 mg into the muscle once., Disp: , Rfl: Allergies Allergen Reactions Amoxicillin Trihydrate CIS - Rash Other [Unclassified Drug] Anaphylaxis Chemicals, insect stings, honey bees, insect repellent cream, detergent (Tide), orange soda, orangecitrus Potassium Clavulanate CIS - Rash Shellfish Containing Products Anaphylaxis CLAMS CRABS Atorvastatin All statins Celebrex [Celecoxib] House Dust Naproxen Niacin CIS - Rash Nsaids (Non-Steroidal Anti-Inflammatory Drug) Penicillins Seasonale (91) [Levonorgestrel-Ethinyl Estrad] Simvastatin CIS - Nausea/Vomiting Augmentin [Amoxicillin-Pot Clavulanate] Azithromycin Barley Cefdinir Cis Free Text Allergy Hymenoptera (Bee) Stings. Doxycycline Gabapentin Meloxicam Metoprolol Succinate Caused diarrhea Mometasone Nabumetone Sulfa (Sulfonamide Antibiotics) Blisters on Feet Tramadol Exam: Performance Status: KPS 50-60% ECOG 2 Ambulatory and capable of all selfcare but unable to carry out any work activities; up and about more than 50% of waking hours Cancer Staging Primary malignant neoplasm of right lower lobe of lung Staging form: Lung, AJCC 8th Edition - Clinical: Stage IB (cT2a, cN0, cM0) - Signed by Johnny Rollins MD on 08/12/2022 Impression/Plan: -ZEUS on imaging and clinically -No concerning toxicity Follow-up: [address] without contrast. She prefers [place]. Thank you for allowing me to participate in the care of Teresa Guzman. -Johnny Rollins MD, PhD Patient verbally consents to this telephone visit and understands that this visit may be billed, similar to a clinic office visit. I provided care to the patient today via telephone call. The total time associated with this visit was 10 minutes. No orders of the defined types were placed in this encounter. The following information is automatically imported from [facility]. It has been reviewed, and pertinent information is noted above in HPI: PAST HISTORY Patient Active Problem List Diagnosis Date Noted Hemoptysis 12/18/2022 Primary malignant neoplasm of right lower lobe of lung 08/12/2022 Social History Socioeconomic History Marital status: Single Spouse name: Not on file Number of children: Not on file Years of education: Not on file Highest education level: Not on file Occupational History Not on file Tobacco Use Smoking status: Every Day Current packs/day: 0.50 Average packs/day: 0.5 packs/day for 45.0 years (22.5 ttl pk-yrs) Types: Cigarettes Smokeless tobacco: Never Vaping Use Vaping status: Never Used Substance and Sexual Activity Alcohol use: Not Currently Drug use: Not Currently Sexual activity: Not on file Other Topics Concern Not on file Social History Narrative Not on file Social Determinants of Health Financial Resource Strain: Low Risk (08/12/2022) Overall Financial Resource Strain (CARDIA) Difficulty of Paying Living Expenses: Not hard at all Food Insecurity: No Food Insecurity (08/12/2022) Hunger Vital Sign Worried About Running Out of Food in the Last Year: Never true Ran Out of Food in the Last Year: Never true Transportation Needs: No Transportation Needs (08/12/2022) PRAPARE - Transportation Lack of Transportation (Medical): No Lack of Transportation (Non-Medical): No Physical Activity: Not on file Intimate Partner Violence: Patient Unable To Answer (12/14/2022) IPV Inpatient Questions Prevent Contact with Others: unable to answer (comment required) Feels Threatened by Someone: unable to answer (comment required) Feels Unsafe at Home: unable to answer (comment required) Physical Signs of Abuse Present: no Housing Stability: Low Risk (08/12/2022) Housing Stability Vital Sign Unable to Pay for Housing in the Last Year: No Number of Places Lived in the Last Year: 1 Unstable Housing in the Last Year: No Family History Problem Relation Age of Onset Coronary Artery Disease Early Onset Father Amblyopia Sister Strabismus Neg Hx Glaucoma Neg Hx Macular Degeneration Neg Hx [employer] (NCI) Comprehensive Cancer Center [employer] Commission on Cancer (ACS [place]) Accredited Cancer Program [employer] (A[employer]) Accredited Radiation Oncology Program documented in this encounter Plan of Treatment Upcoming Encounters Date Type Department Care Team (Late st Contact Info) Description 08/16/2024 11:30 AM EDT Office Visit Radiation Oncology at [address] [phone] Johnny Rollins MD [facility] [place] [address] Scheduled Orders Name Type Priority Associated Diagnoses Orde r Schedule CT Chest wo Contrast (Generic) Imaging Routine Primary malignant neoplasm of right lower lobe of lung Expected: 08/17/2024 (Approximate), Expires: 02/16/2025 documented as of this encounter Visit Diagnoses Diagnosis Primary malignant neoplasm of right lower lobe of lung Malignant neoplasm of lower lobe, bronchus, or lung documented in this encounter Care Teams Enterprise Software Developer Relationship Specialty Start Date End Date Rylee Olmos, CELLULAR BIOLOGIST [address] [place] [address] PCP - General Family Medicine 05/18/22 documented as of this encounter
--- OUTSIDE RECORDS SUMMARY | 2024-04-20 14:25 | XMS_ITS | Clinical Summary ---
Author Organization [facility] [place] [address] Care Team Providers Care Supervisor Furnace Room Name Role Phone Rylee Olmos APRN Primary Care Provider Allergies Active Allergy Reactions Criticality Noted Date Comments Amoxicillin Trihydrate High CIS - Rash Atorvastatin Medium 06/03/2022 All statins Amoxicillin-Pot Clavulanate 08/07/19 18 Azithromycin 06/03/2022 Barley 08/19/2022 Cefdinir 08/19/2022 Celecoxib Medium 06/03/2022 Cis Free Text Allergy Hymenoptera (Bee) Stings. Doxycycline 08/06/2017 Gabapentin 08/06/2017 House Dust Medium 06/03/2022 Meloxicam 08/06/2017 Metoprolol Succinate 08/18/2023 Caused diarrhea Mometasone 08/06/2017 Nabumetone 08/06/2017 Naproxen Medium 06/03/2022 Niacin Medium CIS - Rash Nsaids (Non-Steroidal Anti-Inflammatory Drug) Medium 06/03/2022 Unclassified Drug Anaphylaxis High 08/06/2017 Chemicals, insect stings, honey bees, insect repellent cream, detergent (Tide), orange soda, orange citrus Penicillins Medium 06/03/2022 Potassium Clavulanate High CIS - Rash Levonorgestrel-Ethinyl Estrad Medium 06/03/2022 Shellfish Containing Products Anaphylaxis High 08/06/2017 CLAMS CRABS Simvastatin Medium CIS - Nausea/Vomiting Sulfa (Sulfonamide Antibiotics) 08/06/2017 Blisters on Feet Tramadol 08/19/2022 Medications Medication Sig Dispensed Refills Start Date End Date Status cyanocobalamin 1,000 mcg Tablet Take 1,000 mcg by mouth daily. 6000mcg on Tuesdays and Fridays, 1000mcg the rest of the week Active CHOLECALCIFEROL, VITAMIN D3, ORAL Take 1,000 Units by mouth daily. Active cyclobenzaprine (FLEXERIL) 10 mg Tablet Take 10 mg by mouth 3 times daily as needed for Muscle spasms. Active albuterol 90 mcg/actuation HFA Aerosol Inhaler Inhale 2 puffs into the lungs every 4 hours as needed for Wheezing. Use with spacer Active EPINEPHrine 0.3 mg/0.3 mL Auto-Injector Inject 0.3 mg into the muscle once. Active acetaminophen (TYLENOL) 650 mg Tablet Sustained Release Take 650 mg by mouth every 8 hours as needed for Pain. Do not exceed 6 tabs in 24 hours Active cyanocobalamin, vitamin B-12, (VITAMIN B12 ORAL) Take 6,000 Units by mouth twice a week. WEDNESDAY/WEDNESDAY Active oxyCODONE (Roxicodone) 5 mg tablet Take 1 tablet by mouth as needed for Pain (Use a 1/2 hour prior to radiation therapy and as needed). 30 tablet 08/19/2022 Active gr-lyhwktz-ryq-iron fm-FA-vitK (One-A-Day Women's Complete) 18 mg-400 mcg- 25 mcg Tablet Take 1 tablet by mouth daily. 02/24/2022 Active Active Problems Problem Noted Date Diagnosed Date Hemoptysis 12/18/2022 Primary malignant neoplasm of right lower lobe o f lung 08/12/2022 Cancer Staging:Clinical:Stage IB(cT2a, cN0, cM0) - Signed by Johnny Rollins MD on 08/12/2022 Encounters Date Type Department Care Team Description 04/19/2024 1:00 PM EST TH Visit (TeleHealth) Radiation Oncology at [address] [phone] Johnny Rollins MD Primary malignant neoplasm of right lower lobe of lung 04/12/2024 11:00 AM EST Ancillary Procedure Radiology Library at [facility] [place] [id number] Unknown 04/12/2024 Interpretation Only Radiology Library at [facility] [place] [phone] Unknown from Last 3 Months Immunizations Name Administration Dates Next Due Pneumococcal 23-Valent Polysaccharide (Pneumovax 23) 05/26/2005 Td Adult (not absorbed) 06/07/1996 Family History Medical History Relation Comments Coronary Artery Disease Early Onset Father Amblyopia Sister Glaucoma Neg Hx Macular Degeneration Neg Hx Strabismus Neg Hx Relation Status Comments Brother 1 Alive Brother 2 Alive Brother 3 Alive Father Mother Alive Sister Alive Son 1 Alive Son 2 Alive Son 3 Alive Social History Tobacco Use Types Packs/Day Years Used Date Smoking Tobacco: Every Day Cigarettes 0.5 45 Smokeless Tobacco: Never Tobacco Cessation:Ready to Q uit: Not Asked; Counseling Given: Not Answered Alcohol Use Standard Drinks/Week Comments Not Currently [...] money to buy more. Never true 08/13/19 Within the past 12 months, t he [...] place to sleep or slept in a correction (including now)? No 08/12/2022 DH IPV Inpatient [...] on file Sexual Orientation Not on file Last Filed Vital Signs Vital Sign Reading Time Taken Comments Blood Pressure 129/92 12/22/2023 1:11 PM EDT Pulse 92 12/22/2023 1:11 PM EDT Temperature 36.9 ??C (98.4 ??F) 12/22/2023 1:11 PM ED T Respiratory Rate 20 12/22/2023 1:11 PM EDT Oxygen Saturation 97% 12/22/2023 1:11 PM EDT Inhaled Oxygen Concentration - - Weight 55.3 kg (122 lb) 12/22/2023 1:11 PM EDT Height 152.4 cm (5') 04/14/2023 1:01 PM EST Body Mass Index 23.83 04/14/2023 1:01 PM EST Plan of Treatment Upcoming Encounters Date Type Department Care Team (Late st Contact Info) Description 08/16/2024 11:30 AM EDT Office Visit Radiation Oncology at [address] [phone] Johnny Rollins MD [facility] [place] [address] Health Maintenance Due Date Last Done Comments CT Colonography 1960 Colonoscopy 1960 Colorectal Cancer Screening 1960 FIT DNA 1960 FIT 1960 Sigmoidoscopy (10 year) with FIT yearly 1960 Sigmoidoscopy 1960 HIV screen 1976 Hepatitis C Screening 1976 Lipid Screening 1976 HPV test 1988 PAP Smear 1988 Tetanus/Diphtheria/Pertussis Vaccines (1 - Tdap) 06/0806/07/1996 Breast Cancer Share Decision Needed 1998 Breast Cancer screening 1998 Pneumoccocal Vaccine: 65+ (2 of 2 - PCV) 05/26/2006 05/26/2005 Zoster vaccine (1 of 2) 2008 Advance Directive 2013 Bone Density Scan 2023 Covid-19 Vaccine (1 - season) 2024 Influenza (Flu) vaccine (1 o f 1 - Influenza standard series) 02/06/2024 Procedures Procedure Name Priority Date/Time Associated Diagnosis Comments FILM LIBRARY STORAGE ONLY CT CHEST Routine 04/12/2024 11:[address] SCAN (SCAN) 04/12/2024 12:00 AM EST from Last 3 Months Results * Film Library- Storage Only CT Chest (04/12/2024 11:00 AM EST) 04/12/2024 1:39 PM EST Narrative [facility] - 04/12/2024 1:39 PM EST This exam is auto-finalizing. It's purpose is for storage only. Unknown IMG FILM LIBRARY ORD ERABLES Performing Organization Address City/State/[facility] Co de Phone Number [place], [place] * Scan Doc: CT Scan (04/12/2024 12:00 AM EST) Anatomical Region Laterality Modality Other Narrative 04/12/2024 12:00 AM EST Ordered by an unspecified provider. Scanning Provider MEDIA MGR SCAN EXT O RDR/RSLT from Last 3 Months Advance Directives * Attempt Cardiopulmonary Resuscitation - Inpatient (Latest Code Status on File) Date Activated Date Inactivated Comments 12/18/2022 2:11 PM 12/19/2022 2:06 PM Question Answer Comments Code Status decision made by: Patient * Attempt Cardiopulmonary Resuscitation - Inpatient Date Activated Date Inactivated Comments 12/18/2022 11:11 AM 12/18/2022 2:11 PM Question Answer Comments Code Status decision made by: Patient Healthcare Agents on File Name Relationship Healthcare Agent Relationship Communication Mike Mckenna Son/Wibcoihl-sj-ymz Health Care Agent Rachel Mckenna Son/Vennxsjy-pm-ndp First Altern ate Health Care Agent Care Teams Supervisor Furnace Room Relationship Specialty Start Date End Date Rylee Olmos, PRINCIPAL ARCHITECT [facility] [place] [address] PCP - General Family Medicine 05/18/22
--- OUTSIDE RECORDS SUMMARY | 2024-04-20 14:25 | XMS_ITS | Encounter Summary ---
Author Organization [facility] Address [facility] [place] [address] Care Team Providers Care Pocket Grinder Operator Name Role Phone Rylee Olmos APRN Primary Care Provider [phone] Encounter Details Date Type Department Care Team (Late st Contact Info) Description 04/12/2024 11:00 AM EST Ancillary Procedure Radiology Library [place] [address] Unknown None Social History Tobacco Use Types Packs/Day Years [...] place to sleep or slept in a longterm (including now)? No 08/12/2022 IPV Inpatient Questions Answer Date Recorded Does [...] as of this encounter Plan of Treatment Upcoming Encounters Date Type Department Care Team (Late st Contact Info) Description 08/16/2024 11:30 AM EDT Office Visit Radiation Oncology at [address] [phone] Johnny Rollins MD [facility] RADIATION [place] [address] documented as of this encounter Procedures Procedure Name Priority Date/Time Associated Diagnosis Comments FILM LIBRARY STORAGE ONLY CT CHEST Routine 04/12/2024 11:00 AM EST documented in this encounter Results * Film Library- Storage Only CT Chest (04/12/2024 11:00 AM EST) 04/12/2024 1:39 PM EST Narrative [facility] - 04/12/2024 1:39 PM EST This exam is auto-finalizing. It's purpose is for storage only. Unknown IMG FILM LIBRARY ORD ERABLES [place], [place] documented in this encounter Visit Diagnoses Not on filedocumented in this encounter Care Teams Pocket Grinder Operator Relationship Specialty Start Date End Date Rylee Olmos, LOSS PREVENTION [place] [address] [place] [address] PCP - General Family Medicine 05/18/22 documented as of this encounter
--- OUTSIDE RECORDS SUMMARY | 2024-04-20 14:25 | XMS_ITS | Continuity of Care Document ---
Author Organization [facility] Address [address] [place] [address] Care Team Providers Care Design Drafter Chief Name Role Phone Sina Cabrera Primary Care Physician [phone] Encounter [place] Date(s): 04/12/24 - 04/12/[address] [address] Discharge Disposition: Home or Self Care Attending Physician: Johnny Rollins MD Admitting Physician: Johnny Rollins MD Referring Physician: Johnny Rollins MD Allergies, Adverse Reactions, Alerts Substance Criticality Severity Reaction Reaction Severity Status BEE VENOM PROTEIN (HONEY BEE) Unable to assess criticality Unknown Active HOUSE DUST Unable to assess criticality Unknown Active BARLEY Unable to assess criticality Unknown Active SHELLFISH DERIVED Unable to assess criticality Unknown Urticaria Active naproxen Unable to assess criticality Unknown Active doxycycline Unable to assess criticality Unknown Active amoxicillin Unable to assess criticality Unknown Active amoxicillin-clavulanat e Unable to assess criticality Unknown Active azithromycin Unable to assess criticality Unknown Active nabumetone Unable to assess criticality Unknown Active niacin Unable to assess criticality Unknown Active pravastatin Unable to assess criticality Unknown Active simvastatin Unable to assess criticality Unknown Active gabapentin Unable to assess criticality Unknown Active atorvastatin Unable to assess criticality Unknown Active cefdinir Unable to assess criticality Unknown Active celecoxib Unable to assess criticality Unknown Active meloxicam Unable to assess criticality Unknown Red eye Active sulfa drugs Unable to assess criticality Unknown Active penicillins Unable to assess criticality Unknown Active NSAIDs Unable to assess criticality Unknown Active Mometasone Furoate Unable to assess criticality Unknown Unknown Active Seasonale Unable to assess criticality Unknown Active Immunizations Given and Recorded Vaccine [...] 07/29/09 Completed Tubal ligation 03/21/91 Completed [facility] Social History Social History Type Response Tobacco Current everyday tob acco user Tobacco Use:. 1/2 pdd per day. Sex Female Sex Representation Female (finding) Patient Care team information Care Team Personnel Name: Sina Cabrera Position: No Access Member Role: Primary Care Physician Address: [address] Care Team Related Persons Name: CINDY DOMÍNGUEZ Name: SONIA DOMÍNGUEZ Name: TRA GUTIERREZ Insurance Providers Guarantor name: GLENN DOMÍNGUEZ Health Plan Information #: 1 Payer: MEDICARE B [employer] Member Number: [id number] Policy Number: NA Health Plan Information #: [address] [facility] MEDICAID Member Number: [id number] Policy Number: NA Health Plan Information #: 3 Payer: SELF EMPLOYED Member Number: NA Policy Number: NA
--- OUTSIDE RECORDS SUMMARY | 2024-04-20 14:25 | XMS_ITS | Continuity of Care Document ---
Author Organization [facility] Address [address] [place] [address] Care Team Providers Care Recep Name Role Phone Rylee Olmos Primary Care Physician Encounter [place] Date(s): 12/15/23 - 12/15/[address] [address] Discharge Disposition: Home or Self Care Attending Physician: Johnny Rollins MD Admitting Physician: Johnny Rollins MD Referring Physician: Johnny Rollins MD Allergies, Adverse Reactions, Alerts Substance Reaction [...] Use:. 1/2 pdd per day. Sex Female Patient Care team information Care Team Personnel Name: Rylee Olmos NP Position: No Access Member Role: Primary Care Physician Address: Address: [address] [place] [address]- [place] Care Team Related Persons Name: CINDY DOMÍNGUEZ Name: CATRACHITA WOODKimberlee Name: TRA GUTIERREZ
--- OUTSIDE RECORDS SUMMARY | 2024-04-20 14:25 | XMS_ITS | Encounter Summary ---
Author Organization [facility] Address [facility] [place] [address] Care Team Providers Care Sign Builder Name Role Phone Rylee Olmos APRN Primary Care Provider Encounter Details Date Type Department Care Team (Late st Contact Info) Description 04/12/2024 Interpretation Only Radiology Library at [facility] [place] [id number] Unknown None Social History Tobacco Use Types [...] place to sleep or slept in a halfway (including now)? No 08/12/2022 IPV Inpatient Questions [...] AM EDT Office Visit Radiation Oncology at [address] [address] Johnny Rollins MD [facility] [place] [address] documented as of this encounter Procedures Procedure [...] only. Unknown IMG FILM LIBRARY ORD ERABLES [place], [place] documented in this encounter Visit Diagnoses Not on filedocumented in this encounter Care Teams Sign Builder Relationship Specialty Start Date End Date Rylee Olmos, TANNERY GUMMER [address] [place] [address] PCP - General Family Medicine 05/18/22 documented as of this encounter
--- OUTSIDE RECORDS SUMMARY | 2024-04-20 14:25 | XMS_ITS | Continuity of Care Document ---
Author Organization [facility] Address [address] [place] [address] Care Team Providers Care Certified Registered Locksmith Name Role Phone Rylee Olmos Primary Care Physician Encounter [place] Date(s): 02/16/24 - 02/16/[address] [address] Discharge Disposition: Home or Self Care Attending Physician: Sina Cabrera Admitting Physician: Sina Cabrera Referring Physician: Sina Cabrera Allergies, Adverse Reactions, Alerts Substance Criticality Severity [...] to assess criticality Unknown Red eye Active penicillins Unable to assess criticality Unknown Active sulfa drugs Unable to assess criticality Unknown Active Mometasone Furoate Unable to assess criticality Unknown Unknown Active Seasonale Unable to assess criticality Unknown Active NSAIDs Unable to assess criticality Unknown Active Immunizations [...] information Care Team Personnel Name: Rylee Olmos HEALTH LEAD Position: No Access Member Role: Primary Care Physician Address: [address] Care Team Related Persons Name: CINDY DOMÍNGUEZ Name: SONIA DOMÍNGUEZ Name: TRA GUTIERREZ Insurance Providers Guarantor name: GLENN DOMÍNGUEZ Health Plan Information #: 1 Payer: MEDICARE B [employer] Member Number: [id number] Policy Number: NA Health Plan Information #: [address] [facility] MEDICAID Member Number: [id number] Policy Number: NA Health Plan Information #: 3 Payer: SELF EMPLOYED Member Number: NA Policy Number: NA
--- OUTSIDE RECORDS SUMMARY | 2024-04-20 14:25 | XMS_ITS | Encounter Summary ---
Author Organization [facility] [place] [address] Care Team Providers Care Gun Striper Name Role Phone Rylee Olmos Krystyna FLAHERTY Primary Care Provider Reason for Referral * Diagnostic Test (Routine) - Authorized Specialty Diagnoses / Procedures Referred By Noa bullock Referred To Contact Radiology Diagnoses Primary malignant neoplasm of right lower lobe of lung Procedures CT Chest wo Contrast (Generic) Johnny Rollins MD [facility] [place] [address] Referral ID Status Reason Start Date Expiration Date Visits Requested Visits Authorized [id number] Authorized Specialty Service Requested 12/22/2023 06/23/2025 1 1 Encounter Details Date Type Department Care Team (Late st Contact Info) Description 12/22/2023 1:00 PM EDT Office Visit Radiation Oncology at [address] [address] Johnny Rollins MD [facility] [place] [address] Primary malignant neoplasm of right lower lobe [...] place to sleep or slept in a chcf (including now)? No 08/12/2022 DH IPV Inpatient [...] (122 lb) 12/22/2023 1:11 PM EDT Height - - Body Mass Index 23.83 04/14/2023 1:01 PM EST documented in this encounter Progress Notes * Johnny Rollins MD - 12/22/2023 1:00 PM EDT Images from the original note were not included. 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 female who underwent lung cancer screening at [facility] on 05/08/22. Imaging was compared to CT [...] per fraction PLAN IMAGES Time since completion: ~11 months Post Tx Presented to [facility] ED on 12/03/22 with complaints of hemoptysis [...] CT Chest 12/15/23: Right 8th rib fracture Other Concerns: Currently, she has the following symptoms: Symptom Description Intervention Pain She notes soreness of the ribs on her right, most in the back, radiating anteriorly. Worse with bending or lifting. 650mg tylenol 2-3x per day; Dyspnea Recent URI, using inhaler regularly. No dyspnea at rest. [...] 1/ 2 ppd or less. Distance from [facility] ~ 45 minutes Other I have personally reviewed the imaging studies referenced above. Review of Systems: I reviewed and agree with the nursing review of systems accompanying this encounter. The remainder of the comprehensive review of systems was negative with the exception of the pertinent positives and negatives noted above. Medications and Allergies: Current Outpatient Medications: aa-[id number]-osy-iron fm-[id number]-[id number] (One-A-Day Women's Complete) 18 mg-400 mcg- [...] (Sulfonamide Antibiotics) Blisters on Feet Tramadol Exam: No data found. Physical Exam Constitutional: Appearance: She is well-developed. Eyes: Extraocular Movements: Extraocular movements intact. Pupils: Pupils are equal, round, and reactive to light. Pulmonary: Effort: Pulmonary effort is normal. No respiratory distress. Breath sounds: No stridor. No wheezing or rales. Skin: Findings: No erythema. Neurological: Mental Status: She is alert and oriented to person, place, and time. Cranial Nerves: No cranial nerve deficit. Psychiatric: Behavior: Behavior normal. Performance Status: KPS 50-60% ECOG 2 Ambulatory and capable of all selfcare but unable to carry out any work activities; up and about more than 50% of waking hours Cancer Staging Primary malignant neoplasm of right lower lobe of lung Staging form: Lung, AJCC 8th Edition - Clinical: Stage IB (cT2a, cN0, cM0) - Signed by Johnny Rollins MD on 08/12/2022 Impression: ZEUS. Her CT scan demonstrates continued response and no new nodules/masses. 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 We discussed supportive measures and expectation of improvement. Otherwise no concerning toxicities. Follow-up: [address] without contrast. She prefers [place]. Thank you for allowing me to participate in the care of Teresa Guzman. -Johnny Rollins MD, PhD No orders of the defined types were placed in this encounter. The following information is automatically imported from [facility]. It has been reviewed, and pertinent information [...] Partner Violence: Patient Unable To Answer (12/14/2022) DH IPV Inpatient Questions Prevent Contact with Others: [...] Hx Macular Degeneration Neg Hx National Cancer [place] (NCI) Comprehensive Cancer [facility] [employer] Commission on Cancer (ACS [place]) Accredited Cancer Program [employer] (ACR) Accredited Radiation Oncology Program documented in this encounter Plan of Treatment Upcoming Encounters Date Type Department Care Team (Late st Contact Info) Description 08/16/2024 11:30 AM EDT Office Visit Radiation Oncology at [address] [address] Johnny Rollins MD [facility] [place] [address] Scheduled Orders Name Type Priority Associated Diagnoses Orde r Schedule CT Chest wo Contrast (Generic) Imaging Routine Primary malignant 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
--- OUTSIDE RECORDS SUMMARY | 2024-04-20 14:25 | XMS_ITS | Encounter Summary ---
Author Organization [facility] [place] [address] Care Team Providers Care Ramp And Cargo Supervisor Name Role Phone Rylee Olmos Krystyna FLAHERTY Primary Care Provider [phone] Encounter Details Date Type Department Care Team (Latest Contact Info) Description 12/22/2023 Travel Social History Tobacco Use Types Packs/Day Years [...] place to sleep or slept in a mcc (including now)? No 08/12/2022 DH IPV Inpatient [...] AM EDT Office Visit Radiation Oncology at [address] [address] Johnny Rollins MD [facility] DR [place] [address] documented as of this encounter Visit Diagnoses Not on filedocumented in this encounter Care Teams Ramp And Cargo Supervisor Relationship Specialty Start Date End Date Rylee [place] [address] [address] PCP - General Family Medicine 05/18/22 documented as of this encounter
--- OUTSIDE RECORDS SUMMARY | 2024-04-20 14:26 | XMS_ITS | Encounter Summary ---
Author Organization [facility] [place] [address] Care Team Providers Care Plastic Parts Designer Name Role Phone NickolasRylee Krystyna FLAHERTY Primary Care Provider [phone] Encounter Details Date Type Department Care Team (Late st Contact Info) Description 12/17/2022 [place] [phone] Zach Graham, RN Social History Tobacco Use Types Packs/Day Years [...] place to sleep or slept in a care home (including now)? No 08/12/2022 DH IPV Inpatient [...] as of this encounter Progress Notes * Zach Graham RN - 12/17/2022 4:26 PM EDT Pt still has open orders for CT Head and CT Abd/Pelvis ordered 06/03/[address] Muñoz, asked provider if orders could be cancelled as pt has had numerous other imaging completed and ordered since, provider response, Sounds good/agree. Orders cancelled. documented in this encounter Plan of Treatment Upcoming Encounters Date Type Department Care Team (Late st Contact Info) Description 08/16/2024 11:30 AM EDT Office Visit Radiation Oncology at [address] [address] Johnny Rollins MD [facility] [place] [address] documented as of this encounter Visit Diagnoses Not on filedocumented in this encounter Care Teams Plastic Parts Designer Relationship Specialty Start Date End Date Rylee Olmos APRN [place] [address] PCP - General Family Medicine 05/18/22 documented as of this encounter
--- OUTSIDE RECORDS SUMMARY | 2024-04-20 14:26 | XMS_ITS | Encounter Summary ---
[place] [address] Care Team Providers Care Medical Technologist Chemistry Name Role Phone Rylee Olmos Krystyna FLAHERTY Primary Care Provider Reason for Referral * Diagnostic Test (Routine) - Closed Specialty Diagnoses / Procedures Referred By Noa bullock Referred To Contact Radiology Diagnoses Primary malignant neoplasm of right lower lobe of lung Procedures CT Chest w Contrast Johnny Rollins MD [facility] [place] [address] [place] [address] Referral ID Status Reason Start Date Expiration Date V isits Requested Visits Authorized [id number] Closed Specialty Service Requested 12/03/2023 06/03/2025 1 1 Encounter Details Date Type Department Care Team (Late st Contact Info) Description 12/03/2023 Orders [place] [address] Johnny Rollins MD [facility] [place] [address] Primary malignant neoplasm of right [...] place to sleep or slept in a fdc (including now)? No 08/12/2022 DH IPV Inpatient [...] AM EDT Office Visit Radiation Oncology at [address] [address] Johnny Rollins MD [facility] [place] [address] Scheduled Orders Name Type Priority Associated Diagnoses Orde r Schedule CT Chest w Contrast Imaging Routine Primary malignant neoplasm of right lower lobe of lung Expected: 01/02/2024 (Approximate), Expires: 07/03/2024 Creatinine Lab Routine Primary malignant neoplasm of right lower lobe of lung Expected: 01/02/2024 (Approximate), Expires: 07/03/2024 documented as of this encounter Visit Diagnoses Diagnosis Primary malignant 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
--- OUTSIDE RECORDS SUMMARY | 2024-04-20 14:26 | XMS_ITS | Encounter Summary ---
Author Organization [facility] Address [facility] [address] [place] [address] Care Team Providers Care Quality Assurance Coordinator Name Role Phone Rylee Olmos Krystyna FLAHERTY Primary Care Provider Encounter Details Date Type Department Care Team (Late st Contact Info) Description 08/06/2023 Ancillary Procedure Radiology Library at [facility] [place] [address] Johnny Rollins MD [facility] [place] [address] Social History Tobacco Use Types Packs/Day Years [...] place to sleep or slept in a skilled nursing (including now)? No 08/12/2022 DH IPV Inpatient [...] AM EDT Office Visit Radiation Oncology at [address] [phone] Johnny Rollins MD [facility] [place] [address] documented as of this encounter Procedures Procedure Name Priority Date/Time Associated Diagnosis Comments FILM LIBRARY STORAGE ONLY CT CHEST Routine 08/06/2023 12:00 AM EST documented in this encounter Results * Film Library- Storage Only CT Chest (08/06/2023 12:00 AM EST) Narrative RAD - 08/11/2023 10:51 AM EST This exam is auto-finalizing. It's purpose is for storage only. Johnny Rollins MD IMG FILM LIBRARY ORD ERABLES [place], [place] documented in this encounter Visit Diagnoses Not on filedocumented in this encounter Care Teams Quality Assurance Coordinator Relationship Specialty Start Date End Date Rylee Olmos, MANAGER OF PHOTOGRAPHY [address] [place] [place] [address] PCP - General Family Medicine 05/18/22 documented as of this encounter
--- OUTSIDE RECORDS SUMMARY | 2024-04-20 14:26 | XMS_ITS | Encounter Summary ---
[place] [address] Care Team Providers Care Director Regulatory Agency Name Role Phone Rylee Olmos APRN Primary Care Provider [phone] Encounter Details Date Type Department Care Team (Late st Contact Info) Description 12/04/2022 [place] [phone] Betsy Saldana RN Social History Tobacco Use Types Packs/Day [...] place to sleep or slept in a fpc (including now)? No 08/12/2022 Sex and Gender Information Value Date Recorded Sex Assigned at Not on file Gender Identity Not on file Sexual Orientation Not on file documented as of this encounter Miscellaneous Notes * Telephone Encounter - Betsy Saldana RN - 12/04/2022 12:54 PM EDT Copied from CRM #[id number]. Topic: Specialty Dept CRMs - Generic Call >> Dec 04, 2022 8:06 AM Dorothy Galvan wrote: Specialist: Cameron Muñoz MD Relationship (if other than patient-full name): Allan. Patients son and emergency contact. Reason for Call: Patients son and emergency contact Allan called this morning and stated that patient was seen in the ER last night. Allan states that the ER advised to call first thing in the morning to reach out to Dr. Muñoz and his team. Please call patients son and emergency contact to discussand advise proper next steps after patients ER visit yesterday. Thank you. documented in this encounter Plan of Treatment Upcoming Encounters Date Type Department Care Team (Late st Contact Info) Description 08/16/2024 11:30 AM EDT Office Visit Radiation Oncology at [address] [phone] Johnny Rollins MD [facility] [address] documented as of this encounter Visit Diagnoses Not on filedocumented in this encounter Care Teams Director Regulatory Agency Relationship Specialty Start Date End Date Rylee Olmos, KRYSTINA [address] [place] [address] PCP - General Family Medicine 05/18/22 documented as of this encounter
--- OUTSIDE RECORDS SUMMARY | 2024-04-20 14:26 | XMS_ITS | Encounter Summary ---
[place] [address] Care Team Providers Care Airfield Manager Name Role Phone Rylee Olmos Krystyna FLAHERTY Primary Care Provider Reason for Referral * Diagnostic Test (Routine) - Authorized Specialty Diagnoses / Procedures Referred By Noa bullock Referred To Contact Radiology Diagnoses Primary malignant neoplasm of right lower lobe of lung Procedures CT Chest wo Contrast (Generic) Johnny Rollins MD [facility] [place] [address] Referral ID Status Reason Start Date Expiration Date Visits Requested Visits Authorized [id number] Authorized Specialty Service Requested 12/06/2023 06/07/2025 1 1 Encounter Details Date Type Department Care Team (Late st Contact Info) Description 12/06/2023 Orders Only [place] [address] Johnny Rollins MD [facility] [place] [address] Primary malignant neoplasm of right [...] place to sleep or slept in a fci (including now)? 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
--- OUTSIDE RECORDS SUMMARY | 2024-04-20 14:26 | XMS_ITS | Encounter Summary ---
Author Organization [facility] [place] [address] Care Team Providers Care Occupational Medicine Officer Name Role Phone Rylee Olmos Krystyna FLAHERTY Primary Care Provider [phone] Encounter Details Date Type Department Care Team (Latest Contact Info) Description 08/18/2023 Travel Social History Tobacco Use Types Packs/Day [...] AM EDT Office Visit Radiation Oncology at [address] [address] Johnny Rollins MD [facility] [place] [address] documented as of this encounter Visit Diagnoses Not on filedocumented in this encounter Care Teams Occupational Medicine Officer Relationship Specialty Start Date End Date Rylee Olmos APR[place] [address] PCP - General Family Medicine 05/18/22 documented as of this encounter
--- OUTSIDE RECORDS SUMMARY | 2024-04-20 14:26 | XMS_ITS | Encounter Summary ---
Author Organization [facility] [place] [address] Care Team Providers Care Central Scheduler Name Role Phone Rylee Olmos APRN Primary Care Provider Encounter Details Date Type Department Care Team (Late st Contact Info) Description 04/14/2023 1:15 PM EST Ancillary Procedure Radiology Library at [facility] [place] [address] Rylee Olmos APRN [address] [place] [address] [id number] Social History Tobacco Use Types Packs/Day Years [...] in a halfway (including now)? No 08/12/2022 DH IPV Inpatient [...] AM EDT Office Visit Radiation Oncology at [address] [phone] Johnny Rollins MD [facility] [place] [address] documented as of this encounter Procedures Procedure Name Priority Date/Time Associated Diagnosis Comments FILM LIBRARY STORAGE ONLY CT CHEST Routine 04/14/2023 1:12 PM EST documented in this encounter Results * Film Library- Storage Only CT Chest (04/14/2023 1:12 PM EST) Narrative [facility]RA[facility]A RAD - 04/14/2023 1:12 PM EST This exam is auto-finalizing. It's purpose is for storage only. Rylee Olmos APRN IMG FILM LIBRARY ORD ERABLES [place], [place] documented in this encounter Visit Diagnoses Not on filedocumented in this encounter Care Teams Central Scheduler Relationship Specialty Start Date End Date Rylee Olmos APRN [address] [place] [address] PCP - General Family Medicine 05/18/22 documented as of this encounter
--- OUTSIDE RECORDS SUMMARY | 2024-04-20 14:26 | XMS_ITS | Encounter Summary ---
Author Organization [facility] Address [facility] [place] [address] Care Team Providers Care Rental Sales Representative Name Role Phone Rylee Olmos Krystyna FLAHERTY Primary Care Provider Encounter Details Date Type Department Care Team (Late st Contact Info) Description 04/14/2023 1:00 PM EST Office Visit Radiation Oncology at [address] [phone] Johnny Rollins MD [facility] [place] [address] Primary malignant neoplasm of right lower lobe [...] Sign Reading Time Taken Comments Blood Pressure 133/76 04/14/2023 1:01 PM EST Pulse 98 04/14/2023 1:01 PM EST Temperature 37.1 ??C (98.8 ??F) 04/14/2023 1:01 PM ES T Respiratory Rate 18 04/14/2023 1:01 PM EST Oxygen Saturation 98% 04/14/2023 1:01 PM EST Inhaled Oxygen Concentration - - Weight 55.2 kg (121 lb 12.8 oz) 04/14/2023 1:01 PM EST Height 152.4 cm (5') 04/14/2023 1:01 PM EST Body Mass Index 23.79 04/14/2023 1:01 PM EST documented in this encounter Progress Notes * Nii Moreno MD - 04/14/2023 1:00 PM EST Images from the original note were not included. 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 female who underwent lung cancer screening at [facility] on 05/08/22. Imaging was compared to CT [...] per fraction PLAN IMAGES Time since completion: ~ 7 months Post Tx Presented to [facility] ED on 12/03/22 with complaints of hemoptysis [...] nodule/masses since 05/08/2022 No new pulmonary nodules. Other Concerns: Currently, she has the following symptoms: Symptom Description Intervention Pain Extreme sharp sternal pain extending along right ribs. Every day multiple times. 650mg tylenol2-3x per day; Dyspnea Not requiring inhaler regularly Pulm Hemoptysis resolved Chest wall Denies Cough Occasional cough, improved over last few days Dysphagia Trouble with large pills Voice Changes No recent voice changes Nutrition / Weight Loss No significant changes. Actively Smoking Smoking ~ 1/2 ppd Pack Years Started at age 14, ~ 1/ 2 ppd or less. Distance from [facility] ~ 45 minutes Other I have personally reviewed the imaging studies referenced above. Review of Systems: I reviewed and agree with the nursing review of systems accompanying this encounter. The remainder of the comprehensive review of systems was negative with the exception of the pertinent positives and negatives noted above. Medications and Allergies: Current Outpatient Medications: sz-zauclrx-spi-iron fm-FA-vitK (One-A-Day Women's Complete) 18 mg-400 mcg- [...] Allergy Hymenoptera (Bee) Stings. Doxycycline Gabapentin Meloxicam Mometasone Nabumetone Sulfa (Sulfonamide Antibiotics) Blisters on Feet Tramadol Exam: Patient Vitals for the past 24 hrs: Temp Pulse Resp BP SpO2 04/14/23 1301 37.1 ??C (98.8 ??F) 98 18 133/76 98 % Physical Exam Constitutional: Appearance: She is well-developed. HENT: Mouth/Throat: Comments: Visual inspection of OC and OP revealed no evidence of suspicious masses or lesions. Moisture good. Pt edentulous. Eyes: Extraocular Movements: Extraocular movements intact. Pupils: Pupils are equal, round, and reactive to light. Neck: Comments: Palpation reveals no adenopathy in cervical, SCLV, ICLV sohan basins. Pulmonary: Effort: Pulmonary effort is normal. No [...] continued response and no new nodules/masses. She may have some nervepain after the IR embolization. Rec Tylenol and additional medical management per PCP (Rylee Olmos) Follow-up: [address] without contrast. She prefers [place]. Thank you for allowing me to participate in the care of Teresa Guzman. Nii Moreno [facility] Radiation oncology [phone] Attending Statement: I saw the patient with Dr. Moreno and agree with the history, physical, assessment, and plan as stated. -Johnny Rollins MD, PhD No orders of the defined types were placed in this encounter. The following information is automatically imported from [facility]. It has been reviewed, and pertinent information is noted above in HPI: PAST HISTORY Patient Active Problem List Diagnosis Date Noted Hemoptysis 12/18/2022 Primary malignant neoplasm of right lower lobe of lung 08/12/2022 Social History Socioeconomic History Marital status: Single Spouse name: None Number of children: None Years of education: None Highest education level: None Occupational History None Tobacco Use Smoking status: Every Day Packs/day: 0.50 Years: 45.00 Additional pack years: 0.00 Total pack years: 22.50 Types: Cigarettes Smokeless tobacco: Never Vaping Use Vaping Use: Never used Substance and Sexual Activity Alcohol use: Not Currently Drug use: Not Currently Sexual activity: None Other Topics Concern None Social History Narrative None Social Determinants of Health Financial Resource Strain: [...] Activity: Not on file Intimate Partner Violence: Not on file Housing Stability: Low Risk (08/12/2022) Housing Stability Vital Sign Unable to Pay for Housing in the Last Year: No Number of Places Lived in the Last Year: 1 Unstable Housing in the Last Year: No Family History Problem Relation Age of Onset Coronary Artery Disease Early Onset Father Amblyopia Sister Strabismus Neg Hx Glaucoma Neg Hx Macular Degeneration Neg Hx National Cancer [place] (NCI) [facility] [employer] Commission on Cancer (ACS Mohit) Accredited Cancer Program [employer] (ACR) Accredited Radiation Oncology Program documented in this encounter Plan of Treatment Upcoming Encounters Date Type Department Care Team (Late st Contact Info) Description 08/16/2024 11:30 AM EDT Office Visit Radiation Oncology at [address] [phone] Johnny Rollins MD [facility] [place] [address] documented as of this encounter Visit Diagnoses Diagnosis Primary malignant neoplasm of right lower lobe of lung Malignant neoplasm of lower lobe, bronchus, or lung documented in this encounter Care Teams Rental Sales Representative Relationship Specialty Start Date End Date Rylee Olmos, KRYSTINA [place] [address] PCP - General Family Medicine 05/18/22 documented as of this encounter
--- OUTSIDE RECORDS SUMMARY | 2024-04-20 14:26 | XMS_ITS | Encounter Summary ---
Author Organization [facility] Address [facility] [place] [address] Care Team Providers Care Customer Servicer Name Role Phone NickolasRylee Krystyna FLAHERTY Primary Care Provider Encounter Details Date Type Department Care Team (Late st Contact Info) Description 12/04/2022 Telephone [place] [phone] Cameron Muñoz MD [facility] [place] [address] Social History Tobacco Use Types Packs/Day Years [...] the money to buy more. Never true 03/08/20 23 Within the past 12 months, t [...] place to sleep or slept in a penitentiary (including now)? No 08/12/2022 Sex and Gender Information Value Date Recorded Sex Assigned at Not on file Gender Identity Not on file Sexual Orientation Not on file documented as of this encounter Miscellaneous Notes * Telephone Encounter - BackerCameron MD - 12/04/2022 9:42 AM EDT Interventional Pulmonology Telephone Encounter: I called Ms. Teresa Guzman on 12/04/2022 at 8:00 AM. I was notified yesterday by the on-call hat model at that he was contacted by the [facility] ED re: this patient who presented with non-life threatening hemoptysis but left AMA by the time we were contacted. She is known to me with a history of cT2aN0 large cell. I called Teresa this morning to discuss her symptoms. Last weekend she developed hemoptysis described as dark red without clots, sometimes admixed with white/yellow sputum as streaks, perhaps several tablespoons through the weekend. This stopped over the course of this week (Wednesday - Wed) and on she had a few more teaspoons to tablespoons of blood tinged sputum. Her breathing has not otherwise changed. No infectious symptoms reported although later wonders if she has a cold. A CT chest was performed which is not substantially different from prior - some ill-defined ground glass changes adjacent to her RLL malignancy. She is stable at this time and does not require urgent evaluation in our ED. We discussed how hemoptysis can quickly become life threatening and to either call us immediately or present to our ED if frequency/volume increases at any time/bleeding resumes. If significant hemoptysis develops then she would require bronchial artery embolization of her peripheral lesion from which I suspect bleeding may originate. For now we agreed upon an empiric course of antibiotics (prescribed) and she declined steroids. She will call immediately if bleeding resumes. Home Phone [phone] Cameron Muñoz MD, 12/04/2022, 9:42 AM Interventional Pulmonology Section of Pulmonary & Critical Care Pager: [phone] documented in this encounter Plan of Treatment Upcoming Encounters Date Type Department Care Team (Late st Contact Info) Description 08/16/2024 11:30 AM EDT Office Visit Radiation Oncology at [address] [address] Johnny Rollins MD [facility] DR [place] [address] documented as of this encounter Visit Diagnoses Not on filedocumented in this encounter Care Teams Customer Servicer Relationship Specialty Start Date End Date Rylee Olmos APRN [address] [place] [address] PCP - General Family Medicine 05/18/22 documented as of this encounter
--- OUTSIDE RECORDS SUMMARY | 2024-04-20 14:26 | XMS_ITS | Encounter Summary ---
[place] [address] Care Team Providers Care Aerologist Name Role Phone NickolasRylee Krystyna FLAHERTY Primary Care Provider [phone] Encounter Details Date Type Department Care Team (Late st Contact Info) Description 12/18/2022 [place] [phone] Sherie Gardiner, RN Social History Tobacco Use Types Packs/Day [...] place to sleep or slept in a [place] (including now)? No 08/12/2022 IPV Inpatient Questions [...] encounter Miscellaneous Notes * Telephone Encounter - Sherie Gardiner RN - 12/18/2022 8:47 AM EDT Copied from [facility] #[id number]. Topic: Specialty Dept CRMs - Generic Call >> Dec 18, 2022 8:25 AM Pita Taylor wrote: Specialist: Cameron Muñoz Relationship (if other than patient-full name): Allan, patient's son Reason for Call: Allan, patient's son calling today to inform that patient is currently at ED today due to coughing up blood. Benji has been having a lot of bleeding after radiation. documented in this encounter Plan of Treatment Upcoming Encounters Date Type Department Care Team (Late st Contact Info) Description 08/16/2024 11:30 AM EDT Office Visit Radiation Oncology at [address] [phone] Johnny Rollins MD [facility] [place] [address] documented as of this encounter Visit Diagnoses Not on filedocumented in this encounter Care Teams Aerologist Relationship Specialty Start Date End Date Rylee Olmos, DINING ROOM [place] [address] [place] [address] PCP - General Family Medicine 05/18/22 documented as of this encounter
--- OUTSIDE RECORDS SUMMARY | 2024-04-20 14:26 | XMS_ITS | Encounter Summary ---
Author Organization [facility] [place] [address] Care Team Providers Care Nursery Worker Name Role Phone Rylee Olmos Krystyna FLAHERTY Primary Care Provider [phone] Encounter Details Date Type Department Care Team (Latest Contact Info) Description 12/09/2022 Travel Social History Tobacco Use Types Packs/Day [...] in a mcc (including now)? No 08/12/2022 Sex and Gender Information Value Date Recorded Sex Assigned at Not on file Gender Identity Not on file Sexual Orientation Not on file documented as of this encounter Plan of Treatment Upcoming Encounters Date Type Department Care Team (Late st Contact Info) Description 08/16/2024 11:30 AM EDT Office Visit Radiation Oncology at [address] [phone] Johnny Rollins MD [facility] [place] [address] documented as of this encounter Visit Diagnoses Not on filedocumented in this encounter Care Teams Nursery Worker Relationship Specialty Start Date End Date Rylee Olmos APR[place] [address] PCP - General Family Medicine 05/18/22 documented as of this encounter
--- OUTSIDE RECORDS SUMMARY | 2024-04-20 14:26 | XMS_ITS | Encounter Summary ---
Author Organization [facility] Address [facility] [place] [address] Care Team Providers Care Bulb Grader Name Role Phone Rylee Olmos Krystyna FLAHERTY Primary Care Provider [phone] Encounter Details Date Type Department Care Team (Late st Contact Info) Description 12/09/2022 1:00 PM EDT Office Visit Radiation Oncology at [address] [phone] Johnny Rollins MD [facility] [place] [address] Primary malignant neoplasm of right lower lobe [...] place to sleep or slept in a retirement (including now)? No 08/12/2022 Sex and Gender Information Value Date Recorded Sex Assigned at Not on file Gender Identity Not on file Sexual Orientation Not on file documented as of this encounter Last Filed Vital Signs Vital Sign Reading Time Taken Comments Blood Pressure 159/78 12/09/2022 1:19 PM EDT Pulse 97 12/09/2022 1:19 PM EDT Temperature 36.8 ??C (98.2 ??F) 12/09/2022 1 :19 PM EDT Respiratory Rate 20 12/09/2022 1:19 PM EDT Oxygen Saturation 99% 12/09/2022 1:1 9 PM EDT Inhaled Oxygen Concentration - - Weight 54.5 kg (120 lb 3.2 oz) 12/10/19 1:19 PM EDT with shoes Height - - Body Mass Index 23.28 07/07/2022 9:13 AM EST documented in this encounter Progress Notes * Ada Echevarria MD - 12/09/2022 1:00 PM EDT Images from the original note were not included. 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 female who underwent lung cancer screening at [facility] on 05/08/22. Imaging was compared to [...] fraction PLAN IMAGES Time since completion: ~ 3 months Post Tx Presented to [facility] ED on 12/03/22 with complaints of hemoptysis x 2, described as bright red blood, approximately 1 cup. She had not other symptoms. CT imaging as below, with no clear concerning findings. Bronchoscopy recommended, but unable to be transferred due to absence of beds. She elected discharge with outpatient follow up with Dr. Muñoz. CT Chest, 12/03/2022: Other Concerns: Currently, she has the following symptoms: Symptom Description Intervention Pain Denies Dyspnea Not requiring inhaler regularly Pulm Hemoptysis Chest wall No issues Cough Occasional cough, improved over last few days Dysphagia Trouble with large pills Voice Changes No recent voice changes Nutrition / Weight Loss No significant changes. Actively Smoking Smoking ~ 1/2 ppd Pack Years Started at age 14, ~ 1/ 2 ppd or less. Distance from [facility] ~ 45 minutes Other She notes continued hemoptysis, smaller volume, last episode yesterday. I have personally reviewed the imaging studies referenced above. Review of Systems: I reviewed and agree with the nursing review of systems accompanying this encounter. The remainder of the comprehensive review of systems was negative with the exception of the pertinent positives and negatives noted above. Medications and Allergies: Current Outpatient Medications: levoFLOXacin (Levaquin) 750 mg tablet, Take 1 tablet by mouth daily for 7 days., Disp: 7 tablet, Rfl: 0 oh-eabhkih-iac-iron fm-FA-vitK (One-A-Day Women's Complete) 18 mg-400 mcg- 25 mcg Tablet, Take by mouth., Disp: , Rfl: emollient combination no.111 (REMEDY PHYTOPLEX MOISTURIZER TOP), Apply topically. Apply to area of radiation twice a day but no less than 2 hours before a treatment., Disp: , Rfl: oxyCODONE (Roxicodone) 5 mg tablet, Take 1 tablet by mouth as needed for Pain (Use a 1/2 hour priorto radiation therapy and as needed)., Disp: 30 tablet, Rfl: 0 cyanocobalamin, vitamin B-12, (VITAMIN B12 ORAL), Take 5,000 mcg by mouth twice a week. WEDNESDAY/WEDNESDAY, Disp: , Rfl: acetaminophen (TYLENOL) 650 mg Tablet Sustained Release, Take 650 mg by mouth every 8 hours as needed for Pain. Do not exceed 6 tabs in 24 hours, Disp: , Rfl: cyanocobalamin 1,000 mcg Tablet, Take 1,000 mcg by mouth daily. 6,000 units two times a week, Disp:, Rfl: CHOLECALCIFEROL, VITAMIN D3, ORAL, Take 1,000 Units by mouth., Disp: , Rfl: multivitamin (THERAGRAN) Tablet, Take 1 tablet by mouth daily., Disp: , Rfl: cyclobenzaprine (FLEXERIL) 10 mg Tablet, Take 10 mg by mouth 3 times daily as needed., Disp: , Rfl: albuterol 90 mcg/actuation HFA [...] by Johnny Rollins MD on 08/12/2022 Impression: Recurrent hemoptysis in the absence of other symptoms, and no concerning findings for progression on CT imaging. We discussed concerns that bleeding could be related to either the cancer or SBRT, andthat seek medical attention urgently for a return of large volume hemoptysis. Bronch scheduled for 12/24 as an outpatient. Further plan pending results of bronch, will discuss with Dr. Muñoz regarding expediting bronchoscopy given potential for serious morbidity. Follow-up: [address] She prefers [place]. Further plans pending bronchoscopy. Thank you for allowing me to participate in the care of Teresa Guzman. Johnny Rollins MD, PhD [facility] Radiation oncology [phone] Attending Statement: I saw the patient with Dr. Echevarria and agree with the history, physical, assessment, and plan as stated. -Johnny Rollins MD, PhD No orders of the defined types were placed in this encounter. The following information is automatically imported from [facility]. It has been reviewed, and pertinent information is noted above in HPI: PAST HISTORY Patient Active Problem List Diagnosis Date Noted Primary malignant neoplasm of right lower lobe of lung 08/12/2022 Social History Socioeconomic History Marital status: Single Spouse name: Not on file Number of children: Not on file Years of education: Not on file Highest education level: Not on file Occupational History Not on file Tobacco Use Smoking status: Every Day Packs/day: 0.50 Years: 45.00 Pack years: 22.50 Types: Cigarettes Smokeless tobacco: Never Vaping Use Vaping Use: Never used Substance and Sexual Activity Alcohol use: Not Currently Drug use: Not Currently Sexual activity: Not on file Other Topics Concern Not on file Social History Narrative Not on file Social Determinants of Health Financial Resource Strain: Low Risk Difficulty of Paying Living Expenses: Not hard at all Food Insecurity: No Food Insecurity Worried About Running Out of Food in the Last Year: Never true Ran Out of Food in the Last Year: Never true Transportation Needs: No Transportation Needs Lack of Transportation (Medical): No Lack of Transportation (Non-Medical): No Physical Activity: Not on file Housing Stability: Low Risk Unable to Pay for Housing in the Last Year: No Number of Places Lived in the Last Year: 1 Unstable Housing in the Last Year: No Family History Problem Relation Age of Onset Coronary Artery Disease Early Onset Father Amblyopia Sister Strabismus Neg Hx Glaucoma Neg Hx Macular Degeneration Neg Hx National Cancer [place] (NCI) Comprehensive Cancer Center [employer] Commission on Cancer (ACS [employer]) Accredited Cancer Program [employer] (ACR) Accredited Radiation Oncology Program documented in this encounter Plan of Treatment Upcoming Encounters Date Type Department Care Team (Late st Contact Info) Description 08/16/2024 11:30 AM EDT Office Visit Radiation Oncology at [address] [phone] Johnny Rollins MD [facility] [place] [address] documented as of this encounter Visit Diagnoses Diagnosis Primary malignant neoplasm of right lower lobe of lung Malignant neoplasm of lower lobe, bronchus, or lung documented in this encounter Care Teams Bulb Grader Relationship Specialty Start Date End Date Rylee Olmos APRN [place] [address] PCP - General Family Medicine 05/18/22 documented as of this encounter
--- OUTSIDE RECORDS SUMMARY | 2024-04-20 14:26 | XMS_ITS | Encounter Summary ---
Author Organization [facility] [place] [address] Care Team Providers Care Webmaster Name Role Phone Rylee Olmos APRN Primary Care Provider [phone] Encounter Details Date Type Department Care Team (Late st Contact Info) Description 12/09/2022 [place] [phone] [place] Social History Tobacco Use Types Packs/Day Years [...] in a jail (including now)? No 08/12/2022 Sex and Gender Information Value Date Recorded Sex Assigned at Not on file Gender Identity Not on file Sexual Orientation Not on file documented as of this encounter Plan of Treatment Upcoming Encounters Date Type Department Care Team (Late st Contact Info) Description 08/16/2024 11:30 AM EDT Office Visit Radiation Oncology at [address] [phone] Johnny Rollins MD [facility] [place] [address] documented as of this encounter Visit Diagnoses Not on filedocumented in this encounter Care Teams Webmaster Relationship Specialty Start Date End Date Rylee Olmos APRN [place] [address] PCP - General Family Medicine 05/18/22 documented as of this encounter
--- OUTSIDE RECORDS SUMMARY | 2024-04-20 14:26 | XMS_ITS | Encounter Summary ---
Author Organization [facility] [place] [address] Care Team Providers Care Hair Colorist Name Role Phone NickolasRylee Krystyna FLAHERTY Primary Care Provider [phone] Encounter Details Date Type Department Care Team (Latest Contact Info) Description 04/14/2023 Travel Social History Tobacco Use Types Packs/Day [...] place to sleep or slept in a snf (including now)? No 08/12/2022 DH IPV Inpatient [...] AM EDT Office Visit Radiation Oncology at [address] [address] Johnny Rollins MD [facility] [place] [address] documented as of this encounter Visit Diagnoses Not on filedocumented in this encounter Care Teams Hair Colorist Relationship Specialty Start Date End Date Rylee Olmos APRN [place] [address] PCP - General Family Medicine 05/18/22 documented as of this encounter
--- OUTSIDE RECORDS SUMMARY | 2024-04-20 14:26 | XMS_ITS | Encounter Summary ---
[place] [address] Care Team Providers Care Tufting Creeler Name Role Phone NickolasRylee Krystyna FLAHERTY Primary Care Provider [phone] Encounter Details Date Type Department Care Team (Late st Contact Info) Description 12/31/2022 Telephone [place] [phone] Sherie Gardiner, RN Social History Tobacco Use [...] place to sleep or slept in a usp (including now)? No 08/12/2022 DH IPV Inpatient [...] Telephone Encounter - Sherie Gardiner RN - 12/31/2022 8:45 AM EDT I have called pt's son, Allan back to further assess. I spoke with Allan and we reviewed that pt was hospitalized here last 12/18/2022 for hemoptysis of about 3- 4 tablespoons, on 12/19 pt underwent bronchial artery embolization. Allan states that right after the procedure, pt still coughed some old blood, then after that the hemoptysis has resolved for about a week. Then few days ago, hemoptysis has recurred but not that much. Between 5 PM yesterday to 6 AM this morning, the pt has coughed up 3x, about a tablespoon each time, of fresh bright red, with some clots. Pt denies increased SOB/ dyspnea, chest pain, fever and chills. Pt not on any blood thinners. S/p radiation-last day was in September 2022; s/p bronch 12/14/2022 I have told pt I will send this message to Dr. Muñoz for plan moving forward. Pt's son aware that if pt's hemoptysis get worse and accompanied by increased SOB/ dyspnea, chest pain, fever and chills to go to their local Ed for further evaluation. Pt's son verbalized understanding and will await RN/ MD callback. SHERIF Rodriguez, RN Department of Pulmonary 5C, [facility] [place] Pager: [phone] Copied from [facility] #[id number]. Topic: Specialty Dept CRMs - Triage >> Dec 31, 2022 8:04 AM Anne Abebe wrote: Triage Message Specialist: Cameron Muñoz Relationship (if other than patient-full name): patricia Lemus Symptom: Patient is coughing up blood still after surgery to stop the bleeding about a week and a half ago. Please call to discuss Has patient experienced symptom before yes If patient has experienced symptom before, when was the last time this occurred after bronchoscopy on 12/14/22 Is patient currently having symptom yes When did symptom begin about the last week Additional Comments: Today the amount of blood increased to about a tablespoon full, please call. documented in this encounter Plan of Treatment Upcoming Encounters Date Type Department Care Team (Late st Contact Info) Description 08/16/2024 11:30 AM EDT Office Visit Radiation Oncology at [address] [phone] Johnny Rollins MD [facility] [place] [address] documented as of this encounter Visit Diagnoses Not on filedocumented in this encounter Care Teams Tufting Creeler Relationship Specialty Start Date End Date Rylee Olmos [place] [address] PCP - General Family Medicine 05/18/22 documented as of this encounter
--- OUTSIDE RECORDS SUMMARY | 2024-04-20 14:26 | XMS_ITS | Encounter Summary ---
Author Organization [facility] [place] [address] Care Team Providers Care Graduate Student Name Role Phone Rylee Olmos APRN Primary Care Provider [phone] Encounter Details Date Type Department Care Team (Late st Contact Info) Description 12/15/2023 10:20 AM EDT Ancillary Procedure Radiology Library [place] [address] Rylee Olmos APRN [address] [place] [id number] Social History Tobacco Use Types Packs/Day Years [...] in a longterm (including now)? No 08/12/2022 DH IPV Inpatient [...] AM EDT Office Visit Radiation Oncology at [address] [phone] Johnny Rollins MD [facility] [place] [address] documented as of this encounter Procedures Procedure Name Priority Date/Time Associated Diagnosis Comments FILM LIBRARY STORAGE ONLY CT CHEST Routine 12/15/2023 10:20 AM EDT documented in this encounter Results * Film Library- Storage Only CT Chest (12/15/2023 10:20 AM EDT) 12/16/2023 3:08 PM EDT Narrative [facility] - 12/16/2023 3:08 PM EDT This exam is auto-finalizing. It's purpose is for storage only. Rylee Olmos APRN IMG FILM LIBRARY ORD ERABLES [place], [place] documented in this encounter Visit Diagnoses Not on filedocumented in this encounter Care Teams Graduate Student Relationship Specialty Start Date End Date Rylee Olmos APRN [facility] [place] [address] PCP - General Family Medicine 05/18/22 documented as of this encounter
--- OUTSIDE RECORDS SUMMARY | 2024-04-20 14:26 | XMS_ITS | Encounter Summary ---
Author Organization [facility] [place] [address] Care Team Providers Care Supervisor Polishing Name Role Phone Nickolas Rylee Greenwood APRN Primary Care Provider Encounter Details Date Type Department Care Team (Late st Contact Info) Description 12/17/2022 Telephone [place] [phone] Alona Munoz, RN Social History Tobacco Use Types Packs/Day [...] encounter Miscellaneous Notes * Telephone Encounter - Alona Munoz RN - 12/17/2022 4:36 PM EDT ----- Message from Cameron Muñoz MD sent at 12/17/2022 4:11 PM EDT ----- Regarding: RE: CT Head and CT Abd/Pelvis ordered 06/03/22 Sounds good/agree ----- Message ----- From: Zach Graham RN Sent: 12/17/2022 3:38 PM EDT To: Cameron Muñoz MD Subject: CT Head and CT Abd/Pelvis ordered 06/03/22 Benjamin Barnes, These orders remain open orders, pt has had many other imaging exams completed and ordered since. Leonard thinking these are no longer needed. If not, just reply back and we can cancel them for you. Thanks, Zach documented in this encounter Plan of Treatment Upcoming Encounters Date Type Department Care Team (Late st Contact Info) Description 08/16/2024 11:30 AM EDT Office Visit Radiation Oncology at [address] [phone] Johnny Rollins MD [facility] [place] [address] documented as of this encounter Visit Diagnoses Not on filedocumented in this encounter Care Teams Supervisor Polishing Relationship Specialty Start Date End Date Rylee Olmos [place] [address] PCP - General Family Medicine 05/18/22 documented as of this encounter
--- OUTSIDE RECORDS SUMMARY | 2024-04-20 14:26 | XMS_ITS | Encounter Summary ---
[place] [address] Care Team Providers Care Water Quality Manager Name Role Phone NickolasRylee Krystyna FLAHERTY Primary Care Provider [phone] Encounter Details Date Type Department Care Team (Late st Contact Info) Description 12/10/2022 Telephone [place] [phone] Sherie Gardiner, RN Social History Tobacco Use [...] in a fci (including now)? No 08/12/2022 Sex and Gender Information Value Date Recorded Sex Assigned at Not on file Gender Identity Not on file Sexual Orientation Not on file documented as of this encounter Miscellaneous Notes * Telephone Encounter - Sherie Gardiner RN - 12/10/2022 1:12 PM EDT I have called pt to review meds prior to bronch on 12/14. Pt confirmed she is not taking any blood thinners. I have also let pt know of Dr. Muñoz's response about her refusing to take the Levaquin. Per Dr. Muñoz, Z - I'm not prescribing additional abx at this time if she doesn't want to take the Levaquin (unless new infectious symptoms developed) Pt also tells me that she was prescribed with Nitrofurantoin at the ED at [facility] for UTI, but due to the side effects, she's also not taking them. I have recommended pt reach out to the prescribing provider for the abx and/or her PCP to let them know and to see if there's any alternative abx they canprescribe for UTI. I have also recommended pt monitor for worsening s/sx of UTI such as fever, pain/burning sensation when urinating, confusion, N/V, dehydration. Recommended pt increase fluid intakeand may try cranberry juice for UTI. I have also asked pt if she is currently using home oxygen. Pt states she is currently NOT on home oxygen. Pt verbalized understanding of our above conversation. I have notified pt that Same Day Program Nurse will call her back on 12/11/2022 for a more detailed instructions on her Bronchoscopy. No other questions/ concerns from pt at this time. SHERIF Rodriguez, RN Department of [place]monary 5[place], [facility] [place]ager: [phone] documented in this encounter Plan of Treatment Upcoming Encounters Date Type Department Care Team (Late st Contact Info) Description 08/16/2024 11:30 AM EDT Office Visit Radiation Oncology at [address] [phone] Johnny Rollins MD [facility] [place] [address] documented as of this encounter Visit Diagnoses Not on filedocumented in this encounter Care Teams Water Quality Manager Relationship Specialty Start Date End Date Rylee Olmos, [place]RY[place] [place] [address] PCP - General Family Medicine 05/18/22 documented as of this encounter
--- OUTSIDE RECORDS SUMMARY | 2024-04-20 14:26 | XMS_ITS | Encounter Summary ---
Author Organization [facility] [place] [address] Care Team Providers Care Certified Marine Mechanic Name Role Phone Rylee Olmos Krystyna FLAHERTY Primary Care Provider Reason for Visit * Reason Onset Date Comments Triage 12/03/2022 Transfer center call Encounter Details Date Type Department Care Team (Late st Contact Info) Description 12/03/2022 [place] [address] Perez Ocampo MD [facility] [address] Triage (Transfer center call) Social History Tobacco Use Types Packs/Day Years [...] in a halfway (including now)? 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 Background of daily ongoing productive cough, no change in usual sputum, continues to smoke. She is getting XRT and chest CT performed this eveningshows spiculated mass similar to study 6 months ago, with increased bronchiectasis around and proximal to the tumor. Large hiatal hernia as well. Discussed with ED physician possible dispositions, noting that she had already left the ED AMA, Edson advised that she be called, prescribed an antibiotic (such as Augmentin), and to call Dr. Muñoz's office in the morning. Communicated with Dr. Muñoz who recalls her as someone who initially refused all recommendations for work-up, eventually acquiesced to bronchoscopic biopsy, and who may opt to decline any intervention (which would likely involve IR embolization for continued episodes of bleeding). Dr. Muñoz will have his nurse contact her in the morning if she does not call in. Poonam Ocampo MD 2273 documented in this encounter Plan of Treatment Upcoming Encounters Date Type Department Care Team (Late st Contact Info) Description 08/16/2024 11:30 AM EDT Office Visit Radiation Oncology at [address] [phone] oJhnny Rollins MD [facility] [place] [address] documented as of this encounter Visit Diagnoses Not on filedocumented in this encounter Care Teams Certified Marine Mechanic Relationship Specialty Start Date End Date Rylee Olmos APR[place] [address] PCP - General Family Medicine 05/18/22 documented as of this encounter
--- OUTSIDE RECORDS SUMMARY | 2024-04-20 14:26 | XMS_ITS | Encounter Summary ---
[place] [address] Care Team Providers Care Filter Operator Name Role Phone NickolasRylee Krystyna FLAHERTY Primary Care Provider [phone] Encounter Details Date Type Department Care Team (Late st Contact Info) Description 12/07/2022 Telephone [place] [phone] Sherie Gardiner, RN Social History Tobacco Use [...] a skilled nursing (including now)? No 08/12/2022 Sex and Gender Information Value Date Recorded Sex Assigned at Not on file Gender Identity Not on file Sexual Orientation Not on file documented as of this encounter Miscellaneous Notes * Telephone Encounter - Sherie Gardiner RN - 12/07/2022 2:23 PM EDT Pls see other phone note. SHERIF Rodriguez, RN Department of Pulmonary 5C, [facility] [place] Pager: [phone] Copied from [facility] #[id number]. Topic: Specialty Dept CRMs - Medication Issues >> Dec 07, 2022 1:24 PM Gilberto Jackson wrote: Medication Issues Specialist BackerCameron MD Relationship (if other than patient-full name): Patient Reason for call: Medication Issue (if symptom based used Triage Subtopic) Message/information for the nurse: Patient states they should not be taking the medication Name of Medication: levoFLOXacin (Levaquin) 750 mg tablet Issue with the medication: Patient states that due to their hardening of arteries, tendonitis, fastheartbeat, high blood pressure, and fibromyalgia, they should not be taking this medication. Pleasecall to advise. documented in this encounter Plan of Treatment Upcoming Encounters Date Type Department Care Team (Late st Contact Info) Description 08/16/2024 11:30 AM EDT Office Visit Radiation Oncology at [address] [phone] Johnny Rollins MD [facility] [place] [address] documented as of this encounter Visit Diagnoses Not on filedocumented in this encounter Care Teams Filter Operator Relationship Specialty Start Date End Date Rylee Olmos, BRANCH SERVICES [place] [address] PCP - General Family Medicine 05/18/22 documented as of this encounter
--- OUTSIDE RECORDS SUMMARY | 2024-04-20 14:26 | XMS_ITS | Encounter Summary ---
Author Organization [place] [address] Care Team Providers Care Lead Systems Analyst Name Role Phone NickolasRylee Krystyna FLAHERTY Primary Care Provider Encounter Details Date Type Department Care Team (Latest Contact Info) Description 12/14/2022 1:01 PM EDT - 12/14/2022 4:14 PM EDT Hospital [place] [address] Cameron Muñoz MD [facility] [place] [address] Discharge Disposition: Home Social History Tobacco Use Types Packs/Day Years [...] place to sleep or slept in a assisted (including now)? No 08/12/2022 DH IPV Inpatient [...] Sign Reading Time Taken Comments Blood Pressure 149/94 12/14/2022 3:30 PM EDT Pulse 94 12/14/2022 2:20 PM EDT Temperature 36.5 ??C (97.7 ??F) 12/14/2022 3:07 PM ED T Respiratory Rate 18 12/14/2022 3:30 PM EDT Oxygen Saturation 97% 12/14/2022 3:30 PM EDT Inhaled Oxygen Concentration - - Weight 54.4 kg (120 lb) 12/14/2022 2:20 PM EDT Height 152.4 cm (5') 12/14/2022 2:20 PM EDT Body Mass Index 23.44 12/14/2022 2:20 PM EDT documented in this encounter Discharge Instructions * Patient Instructions* Cameron Muñoz MD - 12/14/2022 3:28 PM EDT Post-bronchoscopy patient instruction: Your procedure ( bronchoscopy with airway inspection and lavage ) was completed successfully today (12/14/2022) by Dr. Cameron Muñoz. A saline lavage was performed in your right lower lobe to test for any infection - I will call withresults in the next 3-5 business days if any infection is identified warranting antibiotics . You may experience low grade fevers over the next 48 hours. You may have a sore throat, chest discomfort, hoarse voice, or a tickle in your throat or a dry cough for a day or two. This is normal and usually gets better quickly. Using cough drops, gargling with warm salt water, or drinking warm beverages may help. Call our office immediately or present to the nearest emergency room if you develop shortness of breath, pain in your chest, coughing up larger amounts of blood (over 1-2 tablespoons), or fever/chills last longer than [address], operate machinery, or sign legal documents until anesthesia wear off. If you have any questions, please call our office at . There is someone on-call to speak with you 28/12. Cameron Muñoz MD Interventional Pulmonology Section of Pulmonary & Critical Care documented in this encounter Medications at Time of Discharge Medication Sig Dispensed Refills Start Date End Date bn-rxtthfj-wag-iron fm-FA-vitK (One-A-Day Women's Complete) 18 mg-400 mcg- 25 mcg Tablet Take 1 tablet by mouth daily. 02/24/2022 oxyCODONE (Roxicodone) 5 mg tablet Take 1 tablet by mouth as needed for Pain (Use a 1/2 hour prior to radiation therapy and as needed). 30 tablet 08/19/2022 cyanocobalamin, vitamin B-12, (VITAMIN B12 ORAL) Take 6,000 Units by mouth twice a week. WEDNESDAY/WEDNESDAY acetaminophen (TYLENOL) 650 mg Tablet Sustained Release Take 650 mg by mouth every 8 hours as needed for Pain. Do not exceed 6 tabs in 24 hours cyanocobalamin 1,000 mcg Tablet Take 1,000 mcg by mouth daily. 6000mcg on Tuesdays and Fridays, 1000mcg the rest of the week CHOLECALCIFEROL, VITAMIN D3, ORAL Take 1,000 Units by mouth daily. cyclobenzaprine (FLEXERIL) 10 mg Tablet Take 10 mg by mouth 3 times daily as needed for Muscle spasms. albuterol 90 mcg/actuation HFA Aerosol Inhaler Inhale 2 puffs into the lungs every 4 hours as needed for Wheezing. Use with spacer EPINEPHrine 0.3 mg/0.3 mL Auto-Injector Inject 0.3 mg into the muscle once. documented as of this encounter Progress Notes * Lucila Nickerson RN - 12/14/2022 3:59 PM EDT Patient discharge to home. IV removed, site benign. RN discussed pain management with patient, paintolerable. Patient has all belongings and supplies needed. Patient received After Visit Summary andany prescriptions, or was directed to pick them up at pharmacy if applicable. These were reviewed, patient verbalizes understanding of AVS. All questions answered. Patient encouraged to call with questions or concerns. Patient discharged to home with family via wheelchair to east entrance. documented in this encounter H&P Notes * Cameron Muñoz MD - 12/13/2022 5:51 PM EDT Interventional Pulmonology Pre-Procedure History & Physical SECTION OF PULMONARY/CRITICAL CARE MEDICIE Procedure: Bronchoscopy with airway inspection, possible tissue/tumor debulking, localization of bleeding Reason for procedure: Hemoptysis See last note from Dr. Muñoz PHYSICAL EXAM: To be reassessed day of procedure Assessment & Plan: Consent to be signed Proceed with procedure as stated Cameron Muñoz MD, 12/13/2022, 5:51 PM Interventional Pulmonology Section of Pulmonary & Critical Care Pager: [phone] documented in this encounter Miscellaneous Notes * Op Note - Cameron Muñoz MD - 12/14/2022 2:48 PM EDT Images from the original note were not included. INTERVENTIONAL PULMONOLOGY PROCEDURE NOTE SECTION OF PULMONARY & CRITICAL CARE MEDICINE Patient Name: Teresa Guzman Patient Patient : 1960 Procedure Date: 12/14/2022 Procedure(s): A flexible bronchoscopy Airway examination Bronchoalveolar lavage Procedure Location: Operating room Indication: Hemoptysis Attending(s) of Record: Cameron Muñoz MD Others Present: None Medications: General Anesthesia - See anesthesia flowsheet for details Sedation Time: Per anesthesia care provider Time Out: Performed The patient's medical record has been reviewed. The indication for the procedure was reviewed. The necessary history and physical examination was performed and reviewed. The risks, benefits and alternatives of the procedure were discussed with the patient in detail and she had the opportunity to ask questions. I discussed in particular the potential minor and major complications. All questions were answered to the best of my ability. Informed consent was obtained. The proposed procedure and thepatient's identification were verified prior to the procedure by the physician and the nurse. Afterclinical evaluation and reviewing the indication, risks, alternatives, and benefits of the procedure the patient was deemed to be in satisfactory condition to undergo the procedure. Procedure Descriptions: Airway Examination: During intubation with the [facility] scope by anesthesia (see separate note), no stigmata of bleeding was identified in the upper airway. An Olympus P190 and [id number] flexible bronchoscope was used for the procedure. The bronchoscope was inserted through the endotracheal tube and inspection undertaken. A complete airway examination was performed from the distal trachea to the subsegmental level in each lobe of both lungs. Pertinent findings include normal bronchial anatomy and no endobronchial lesions. There is no active bleeding identified, however there is a small streak of blood eminating from the anterior basilar segment of the right lower lobe (RB8). Iced saline lavage meliza BAL was performed in this segment (see below) without any return of blood during creation of a saline window to indicate active hemorrhage. The superior segment of the right lower lobe (RB6) was then interrogated to the sub-segmental level of the P190 bronchoscope and no stigmata of bleeding or endobronchial disease identified. Following this, the bronchoscope was removed from the endotracheal t ube and placed orally. No stigmata of bleeding was identified within the upper airway, at the glottis, or within the proximal trachea adjacent to the endotracheal tube. Bronchoalveolar Lavage ([id number]): The bronchoscope was wedged into the anterior segment of the right lower lobe (RB8). A total of 80 mL of saline was instilled and a total of 20 mL of cloudy/non-bloodyfluid was aspirated (see picture). This was sent for analysis. Any disposable equipment was visually inspected and deemed to be intact immediately post procedure. Estimated Blood Loss: None Complications: None Relevant Pictures Distal BI, RML (left), RLL basilar segments (center), superior segment of RLL (right) Small blood eminating from the anterior basilar segment of the RLL (blue tanacross) No stigmata of bleeding from superior segment of RLL BAL return from RLL Recommendations: Successful flexible bronchoscopy and BAL Await pending results in the next 3-5 business days If bleeding persists/increases, will move forward with bronchial artery embolization with attentionto the anterior basilar distribution of the right lower lobe where small blood was identified (corresponding to the more caudal margins of the tumor) Follow-up with referring provider as previously arranged Cameron Muñoz MD, 12/14/2022, 2:56 PM Interventional Pulmonology Section of Pulmonary & Critical Care Pager: [phone] documented in this encounter Plan of Treatment Upcoming Encounters Date Type Department Care Team (Late st Contact Info) Description 08/16/2024 11:30 AM EDT Office Visit Radiation Oncology at [address] [phone] Johnny Rollins MD [facility] [place] [address] documented as of this encounter Procedures Procedure Name Priority Date/Time Associated Diagnosis Comments LOWER RESPIRATORY CULTURE Routine 12/14/2022 2:45 PM EDT Bronchoscopy, Diagnostic W Lavage (30089) Yes 12/14/2022 2:32 PM EDT Hemoptysis documented in this encounter Results * Lower Respiratory Culture Bronchial Alveolar Lavage (12/14/2022 2:45 PM EDT) Lower Respiratory Culture Rare normal upper respiratory nir [facility] Gram Stain Many Neutrophils seen No squamous epithelial cells seen No microorganisms seen. [facility] Bronchial Alveolar Lavage 12/14/2022 2:45 PM EDT 12/14/2022 3:45 PM EDT Narrative Resulting Agency Comment Spec In Lab Cameron Muñoz MD MICROBIOLOGY - GENER AL ORDERABLES [facility] [place] [address] documented in this encounter Visit Diagnoses Not on filedocumented in this encounter Administered Medications Inactive Administered Medications - up to 3 most recent administrations Medication Order MAR Action Action Date Dose Rate Site ipratropium-albuteroL (Duoneb) 0.5 mg-3 mg(2.5 mg base)/3 mL nebulizer solution 1 dose, Starting on Wed12/14/22 at 1514, Until Wed12/14/22 at 1515, DEX LUND: cabinet override Given 12/14/2022 3:15 PM EDT 3 mLs documented in this encounter Active and Recently Administered Medications Times are shown in EDT. No Frequency Medication Order 12/12/2022 12/13/2022 12/14/2022 ipratropium-albuteroL (Duoneb) 0.5 mg-3 mg(2.5 mg base)/3 mL nebulizer solution (COMPLETED) 1 dose, Starting on Wed12/14/22 at 1514, Until Wed12/14/22 at 1515, DEX LUND: cabinet override 1515 (Given - Provid er: Lucila Nickerson RN) documented in this encounter Care Teams Lead Systems Analyst Relationship Specialty Start Date End Date Rylee Olmos APRN [facility] [place] [address] PCP - General Family Medicine 05/18/22 documented as of this encounter
--- OUTSIDE RECORDS SUMMARY | 2024-04-20 14:26 | XMS_ITS | Encounter Summary ---
[place] [address] Care Team Providers Care Septic Tank Cleaner Name Role Phone NickolasRylee Krystyna FLAHERTY Primary Care Provider [phone] Encounter Details Date Type Department Care Team (Late st Contact Info) Description 12/07/2022 Telephone [place] [phone] Sherie Gardiner, RN Social History Tobacco Use [...] Encounter - Sherie Gardiner RN - 12/07/2022 1:49 PM EDT I have called pt back to get more information. Pt reports that she would like to get scheduled for the bronchoscopy that she and Dr. Muñoz had talked about last Wednesday. Pt states she did not go to [facility] like what Dr. Muñoz had recommended because she wanted to see first if the bleeding will slow down. Pt states at around 11:15 pm on Sat 12/05 she had a bad episode of the hemoptysis, she had coughed up about 5-8 tablespoons of bright red blood with small globs in it, mixed with clear sputum/ bubbles. Then early Wednesday morning, it slowed down to dime size, then eventually this morning she can only notice some small dots or pencil streaks of blood. Pt reports some SOB/ shallow breathing since the episodes of hemoptysis. She also states that she has not taken the Levaquin that Dr. Muñoz had prescribed because due to her hardening of arteries, tendonitis, fast heartbeat, high blood pressure, and fibromyalgia, which can worsen with the Levaquin. I have told pt I will send this message to Dr. Muñoz to see if there is an alternative abx that hecan prescribe and to let him know that she would like to proceed with the bronch. Pt verbalized understanding and will await RN/ MD callback with the plan. SHERIF Rodriguez, RN Department of Pulmonary 5C, [facility] Pager: [phone] Copied from CRM #[id number]. Topic: Specialty Dept CRMs - Triage >> Dec 07, 2022 1:35 PM Gilberto Jackson wrote: Triage Message Specialist: Cameron Muñoz MD Relationship (if other than patient-full name): Patient Symptom: Coughing up blood Has patient experienced symptom before Yes If patient has experienced symptom before, when was the last time this occurred ongoing issue Is patient currently having symptom Yes When did symptom begin 12/05/22 Additional Comments: Patient states that Wednesday they had an issue with coughing up a lot of blood. Patient states the blood slowed down Wednesday night, and is only a few specks today. Patient states they would like to do a bronchoscopy per previous conversation with Dr Muñoz. Please call to advise. documented in this encounter Plan of Treatment Upcoming Encounters Date Type Department Care Team (Late st Contact Info) Description 08/16/2024 11:30 AM EDT Office Visit Radiation Oncology at [address] [phone] Johnny Rollins MD [facility] [place] [address] documented as of this encounter Visit Diagnoses Not on filedocumented in this encounter Care Teams Septic Tank Cleaner Relationship Specialty Start Date End Date Rylee Olmos, ASSISTANT PLANT CONTROLLER [place] [place] [address] PCP - General Family Medicine 05/18/22 documented as of this encounter
--- OUTSIDE RECORDS SUMMARY | 2024-04-20 14:26 | XMS_ITS | Encounter Summary ---
Author Organization [facility] [place] [address] Care Team Providers Care Parking Meter Attendant Name Role Phone Rylee Olmos Krystyna FLAHERTY Primary Care Provider Encounter Details Date Type Department Care Team (Late st Contact Info) Description 12/15/2022 Telephone [place] [address] Johnny Rollins MD [facility] [place] [address] Social History Tobacco Use Types Packs/Day Years [...] encounter Miscellaneous Notes * Telephone Encounter - Johnny Rollins MD - 12/15/2022 1:27 PM EDT I called Ms. Guzman regarding her bronchoscopy, after discussing her case with Dr. Muñoz. Her bronchoscopy revealed no source of bleeding. She note very small volume, streaky blood in her sputum afterthe procedure, but nothing over the past week. She know that if the hemoptysis is increasing in volume/is occurring daily or more regularly then she should call us. Otherwise we will follow per routine. documented in this encounter Plan of Treatment Upcoming Encounters Date Type Department Care Team (Late st Contact Info) Description 08/16/2024 11:30 AM EDT Office Visit Radiation Oncology at [address] [phone] Johnny Rollins MD [facility] [place] [address] documented as of this encounter Visit Diagnoses Not on filedocumented in this encounter Care Teams Parking Meter Attendant Relationship Specialty Start Date End Date Rylee Olmos, KRYSTINA Ar[address] [place] [address] PCP - General Family Medicine 05/18/22 documented as of this encounter
--- OUTSIDE RECORDS SUMMARY | 2024-04-20 14:26 | XMS_ITS | Encounter Summary ---
Author Organization [facility] Address [facility] [place] [address] Care Team Providers Care Territory Account Executive Name Role Phone NickolasRylee Krystyna FLAHERTY Primary Care Provider Encounter Details Date Type Department Care Team (Late st Contact Info) Description 12/04/2022 Tele[place] [phone] Cameron Muñoz MD [facility] [place] [address] Social History Tobacco Use Types Packs/Day Years [...] AM EDT Office Visit Radiation Oncology at [address] [phone] Johnny Rollins MD [facility] [place] [address] documented as of this encounter Visit Diagnoses Not on filedocumented in this encounter Care Teams Territory Account Executive Relationship Specialty Start Date End Date Rylee Olmos APRN [address] [place] [address] PCP - General Family Medicine 05/18/22 documented as of this encounter
--- OUTSIDE RECORDS SUMMARY | 2024-04-20 14:26 | XMS_ITS | Encounter Summary ---
Author Organization [place] [address] Care Team Providers Care Baker Operator Automatic Name Role Phone Rylee Olmos Krystyna FLAHERTY Primary Care Provider [phone] Encounter Details Date Type Department Care Team (Late st Contact Info) Description 12/14/2022 2:45 PM EDT - 12/14/2022 4:30 PM EDT Surgery [place] [phone] BackerCameron MD [facility] [place] [address] BRONCHOSCOPY, RIGID OR FLEXIBLE, WITH BRONCHIAL ALVEOLAR LAVAGE (WRVU 2.63) Social History Tobacco Use Types Packs/Day Years [...] Sig Dispensed Refills Start Date End Date sk-jxtsxsa-dvg-iron fm-FA-vitK (One-A-Day Women's Complete) 18 mg-400 mcg- [...] Section of Pulmonary & Critical Care Pager: [phone] documented in this encounter Miscellaneous Notes * [...] Descriptions: Airway Examination: During intubation with the [facility] scope by anesthesia (see separate note), no stigmata of bleeding was identified in the upper airway. An Olympus P190 and [id number] flexible bronchoscope was used for the procedure. [...] adjacent to the endotracheal tube. Bronchoalveolar Lavage (45808): The bronchoscope was wedged into the anterior [...] anterior basilar segment of the RLL (blue torres martinez) No stigmata of bleeding from superior segment [...] Section of Pulmonary & Critical Care Pager: [phone] documented in this encounter Plan of Treatment Upcoming Encounters Date Type Department Care Team (Late st Contact Info) Description 08/16/2024 11:30 AM EDT Office Visit Radiation Oncology at [address] [phone] Johnny Rollins MD [facility] [place] [address] documented as of this encounter Procedures Procedure Name Priority Date/Time Associated Diagnosis Comments LOWER RESPIRATORY CULTURE Routine 12/14/2022 2:45 PM EDT Bronchoscopy, Diagnostic W Lavage ([id number]) Yes 12/14/2022 2:32 PM EDT Hemoptysis documented in this encounter Results * Lower Respiratory Culture Bronchial Alveolar Lavage (12/14/2022 2:45 PM EDT) Lower Respiratory Culture Rare normal upper respiratory nir [facility] Gram Stain Many Neutrophils seen No squamous epithelial cells seen No microorganisms seen. [facility] Bronchial Alveolar Lavage 12/14/2022 2:45 PM EDT 12/14/2022 3:45 PM EDT Narrative Resulting Agency Comment Spec In Lab Cameron Muñoz MD MICROBIOLOGY - GENER AL ORDERABLES [facility] [place] [address] documented in this encounter Visit Diagnoses Diagnosis Hemoptysis Hemoptysis, unspecified documented in this encounter Administered Medications Inactive Administered [...] RN) documented in this encounter Care Teams Baker Operator Automatic Relationship Specialty Start Date End Date Rylee Olmos APRN [facility] [place] [address] PCP - General Family Medicine 05/18/22 documented as of this encounter
--- OUTSIDE RECORDS SUMMARY | 2024-04-20 14:26 | XMS_ITS | Encounter Summary ---
Author Organization [facility] [address] Care Team Providers Care Disability Counselor Name Role Phone Rylee Olmos APRN Primary Care Provider [phone] Encounter Details Date Type Department Care Team (Late st Contact Info) Description 07/14/2023 Telephone Radiation Oncology at [address] [phone] Jessica Mckay Social History Tobacco Use Types Packs/Day Years [...] place to sleep or slept in a residential (including now)? No 08/12/2022 DH IPV Inpatient [...] encounter Miscellaneous Notes * Telephone Encounter - Jessica Mckay - 07/14/2023 10:48 AM EST Called [facility] to go over the ct questions before I can schedule documented in this encounter Plan of Treatment Upcoming Encounters Date Type Department Care Team (Late st Contact Info) Description 08/16/2024 11:30 AM EDT Office Visit Radiation Oncology at [address] [phone] [facility] [place] [address] documented as of this encounter Visit Diagnoses Not on filedocumented in this encounter Care Teams Disability Counselor Relationship Specialty Start Date End Date Rylee Olmos, KRYSTINA [facility] [place] [address] PCP - General Family Medicine 05/18/22 documented as of this encounter
--- OUTSIDE RECORDS SUMMARY | 2024-04-20 14:26 | XMS_ITS | Encounter Summary ---
Author Organization [facility] Address [facility] [place] [address] Care Team Providers Care Corsage Maker Name Role Phone Rylee Olmos Krystyna FLAHERTY Primary Care Provider Encounter Details Date Type Department Care Team (Late st Contact Info) Description 12/22/2022 4:25 PM EDT Ancillary Procedure Radiology Library at [facility] [place] [phone] Paul Chan MD [facility] [address] Social History Tobacco Use Types Packs/Day Years [...] place to sleep or slept in a nursing home (including now)? No 08/12/2022 DH IPV [...] EDT Office Visit Radiation Oncology at [address] [phone] Johnny Rollins MD [facility] [address] documented as of this encounter Procedures Procedure Name Priority Date/Time Associated Diagnosis Comments FILM LIBRARY STORAGE ONLY ULTRASOUND STUDY Routine 12/22/2022 4:24 PM EDT documented in this encounter Results * Film Library- Storage Only Ultrasound Study (12/22/2022 4:24 PM EDT) Narrative IBRAHIMA NOEL - 12/22/2022 4:24 PM EDT This exam is auto-finalizing. It's purpose is for storage only. Paul Chan MD IMG FILM LIBRARY ORD ERABLES [place], [place] documented in this encounter Visit Diagnoses Not on filedocumented in this encounter Care Teams Corsage Maker Relationship Specialty Start Date End Date Rylee Olmos, DRIED FRUIT WASHER [place] [place] [address] PCP - General Family Medicine 05/18/22 documented as of this encounter
--- OUTSIDE RECORDS SUMMARY | 2024-04-20 14:26 | XMS_ITS | Encounter Summary ---
Author Organization [facility] [place] [address] Care Team Providers Care Marble Cleaner Name Role Phone Rylee Olmos APRN Primary Care Provider Reason for Visit * Reason Comments Hematemesis * Auth/Cert (Routine) Specialty Diagnoses / Procedures Referred By Noa bullock Referred To Contact Diagnoses Hemoptysis [place] [address] [facility] Referral ID Status Reason Start Date Expiration Date Visits Re quested Visits Authorized [id number] 1 1 Encounter Details Date Type Department Care Team (Late st Contact Info) Description 12/18/2022 8:49 AM EDT - 12/19/2022 12:05 PM EDT Hospital Encounter Medical Specialites Unit Level 1 [place] [id number] Primo Guzman MD [facility] [place] [address] [place] [address] [place] [address] Cough with hemoptysis Discharge Disposition: Home Social History Tobacco Use [...] place to sleep or slept in a alf (including now)? No 08/12/2022 DH IPV Inpatient [...] Sign Reading Time Taken Comments Blood Pressure 130/61 12/19/2022 8:59 AM EDT Pulse 81 12/18/2022 1:35 PM EDT Temperature 36.8 ??C (98.2 ??F) 12/19/2022 8:59 AM ED T Respiratory Rate 16 12/19/2022 6:52 AM EDT Oxygen Saturation 98% 12/19/2022 11:00 AM EDT Inhaled Oxygen Concentration - - Weight 54.4 kg (120 lb) 12/18/2022 8:39 AM EDT Height - - Body Mass Index 23.44 12/14/2022 2:20 PM EDT documented in this encounter Discharge Summaries * Shirin Hill MD - 12/19/2022 11:02 AM EDT Images from the original note were not included. Discharge Summary Patient Name: Teresa Guzman Patient Age: 62 y.o. Language: Gabonese Race: White Ethnicity: Not nor Admit date: 12/18/2022 Discharge date and time: 12/19/22 Attending Physician: Shirin Hill MD Discharge Physician: Shirin Hill MD Inpatient Provider Contact Information: For questions regarding this document or issues relating to this hospitalization on the Medical Service, please contact your inpatient physician through the [facility] . Issues afterhours and on weekends will be handled by the Hospitalist staff on-call. Discharge Diagnoses (Hospital Problems) and Secondary Diagnoses (Chronic Problems): Active Hospital Problems Diagnosis Hemoptysis Resolved Hospital Problems No resolved problems to display. Active Non-Hospital Problems Diagnosis Primary malignant neoplasm of right lower lobe of lung Operations/Major Procedures: Operations: Other Major Procedures: right intercostal artery embolization by IR on 12/18 History of Presentation: Teresa Guzman is a 62 y.o. female patient with pmhx of COPD, OA, large cell neuroendocrine carcinomaof RLL, who presents for evaluation of hemoptysis. Teresa states that she was diagnosed with lung cancer at the end of last year/earlier this year. Shereports that she did not really have any symptoms the last 2 years except occasional bouts of pneumonia. She reports that she underwent a bronchoscopy earlier this year and was formally diagnosed with lung cancer. She states that she was initially doing well but on 12/03, she had episode of hemoptysis in which she coughed up more than 1 tablespoon of blood. She has had 3 episodes of hemoptysis since then, endorses approximately 4-8 table spoons of blood at most. Endorses clots with largest size being similar to a golf ball. Teresa did undergo repeat bronchoscopy on 12/14 which did not reveal source of bleed. She denies sick contacts, fever, chills, dyspnea, chest pain. Endorses nausea due to swallowing of blood, endorses cough that is chronic and sometimes productive of clear mucus. Hospital Course: # Hemoptysis: secondary to right lung mass post xrt. Had an outpt bronch earlier this week which was negative. She was admitted after having several episodes of hemoptysis at home. IR was consulted and performed a right intercostal artery embolization. Afterwards she had one episode of scant hemoptysis but overall felt much improved. Her hemoglobin dropped to 12.3 and she did not require any prbc. Given the hemoptysis she was thought on admission require a greater than 2 night hospitalization but she improved more rapidly than anticipated and was able to be discharged home. She has f/u arranged with onc Vital Signs at Discharge: BP: 130/61, Heart Rate: 81, Temp: 36.8 ??C (98.2 ??F), Resp: 16, Weight: 54.4 kg (120 lb) (12/18/22 0839) Functional and Cognitive Status: stable Important Studies and Lab Data: Labs: Last wbc, hgb, hct plt Recent Labs 12/19/22 0312 WBC 7.3 HGB 12.3 HCT 36.3 Last 3 wbc, hgb, hct plt Recent Labs 12/19/2231112/18/22200712/18/22 0930 WBC 7.3 -- 7.0 HGB 12.3 12.8 13.0 HCT 36.3 36.7 37.7 PLATELET 237 -- 243 Last 3 Lytes Recent Labs 12/19/22 0312 12/18/22 0930 07/07/22 0849 NA 139 141 -- K 3.8 3.5 -- CL 103 105 -- CO2 28 26 -- BUN 11 12 -- CREATININE 0.80 0.67* 0.71 Discharge Conditions/Prognosis: stable Discharge to: home Updated Allergies/ADRs: Allergies Allergen Reactions Amoxicillin Trihydrate CIS - [...] Sulfa (Sulfonamide Antibiotics) Blisters on Feet Tramadol Immunizations Given this Hospitalization: Immunization History Administered Date(s) Administered Pneumococcal Polyvalent 23 05/26/2005 Td, adult 06/07/1996 Discharge Medications: Your Medications Continued medications, unchanged Dose Details acetaminophen 650 mg ER tablet Commonly known as: Tylenol Take 650 mg by mouth every 8 hours as needed for Pain. Do not exceed 6 tabs in 24 hours 650 mg Refills: 0 albuteroL 90 mcg/actuation HFA Aerosol Inhaler Inhale 2 puffs into the lungs every 4 hours as needed for Wheezing. Use with spacer 2 puff Refills: 0 CHOLECALCIFEROL (VITAMIN D3) ORAL Take 1,000 Units by mouth daily. 1,000 Units Refills: 0 * cyanocobalamin (Vitamin B-12) 1,000 mcg tablet Commonly known as: Vitamin B-12 Take 1,000 mcg by mouth daily. 6000mcg on Tuesdays and Fridays, 1000mcg the rest of the week 1,000 mcg Refills: 0 * VITAMIN B12 ORAL Take 6,000 Units by mouth twice a week. WEDNESDAY/WEDNESDAY 6,000 Units Refills: 0 cyclobenzaprine 10 mg tablet Commonly known as: Flexeril Take 10 mg by mouth 3 times daily as needed for Muscle spasms. 10 mg Refills: 0 EPINEPHrine 0.3 mg/0.3 mL Auto-Injector Inject 0.3 mg into the muscle once. 0.3 mg Refills: 0 One-A-Day Women's Complete(vK) 18 mg-400 mcg- 25 mcg Tablet Take 1 tablet by mouth daily. Generic drug: nd-abhoxdb-fhz-iron fm-FA-vitK 1 tablet Refills: 0 oxyCODONE 5 mg tablet Commonly known as: Roxicodone Take 1 tablet by mouth as needed for Pain (Use a 1/2 hour prior to radiation therapy and as needed). 5 mg Quantity: 30 tablet Refills: 0 * This list has 2 medication(s) that are the same as other medications prescribed for you. Read thedirections carefully, and ask your doctor or other care provider to review them with you. Smoking Status at Discharge: Social History Tobacco Use Smoking Status Every Day Packs/day: 0.50 Years: 45.00 Pack years: 22.50 Types: Cigarettes Smokeless Tobacco Never Instructions Given to Patient at Discharge: Patient Instructions Instruction after leaving the hospital Why you were hospitalized: coughing up blood Call your doctor or seek medical attention if you develop the following: coughing up more blood, blood in your stool, dizziness, fevers Activity level: as you can tolerate Diet: regular Driving: don't drive while taking narcotics Follow-Up Appointments Date and Time Provider and Specialty Location F/u with your oncologist as planned Your Inpatient Doctor(s) at [facility]: Shirin Hill MD General Instructions [facility] Interventional Radiology Post Angiography Instructions Procedure: Bronchial artery embolization Puncture Site: right groin (femoral artery) December 18, 2022 Physician: Dr Stewart Burk DO 1. At home we advise you to rest quietly in bed or on the couch with your hip straight until the next morning. Until the next morning you may get up only to go to the bathroom. 2. Resume your previous diet. Drink 6-8 ounces of fluid per hour for the next 8 hours. Avoid alcoholic or caffeinated beverages for 24 hours. 3. Avoid strenuous activity for the next 48 hours, particularly in the next 24 hours. Stair climbing should be kept to a minimum. Do not lift objects heavier than 10-15 pounds for the next 48 hours Avoid straining for bowel movements as you can pop open the clot that has formed on the artery. 4. If you develop bulging under the skin or bleeding at the puncture site, put direct pressure on the puncture site for 15 minutes and call your doctor. If the bleeding persists, reapply pressure, and go to your local Emergency Department. 5. If you notice a sudden change in the feeling (numbness, tingling and/or pain) of your leg on theside of the puncture call your doctor. 6. You may develop a bruise at the puncture site. This should go away within a week to 10 days. If a bulge develops after the first three days, call your doctor or the Radiology/Vascular Department here. Report signs of infection (redness, swelling, discharge, soreness, or fever) to your doctor. 7. Leave the bandage on for 24-48 hours. You may shower the following day after the procedure. You should NOT swim or tub bathe for [address] for 24 hours after the procedure. Do not sign any important documents or smoke unattended for 24 hours. You may return to work with the above restrictions on . 9. If you have any questions or concerns, please call Interventional Radiology Department at until 6pm. After 6pm, or on weekends or hoildays, call and ask for the vice president network admissions specialist. OR Vascular Department at until 4:45pm. After 4:45pm call and ask for the Vascular resident admissions specialist. 10. If you are a diabetic and take Metformin or Janumet, Do not take it for 2 days after the procedure. You have received medication during your procedure to help lesson anxiety and keep you comfortable and which affects judgement and reaction time. We recommend that you do not drive, operate equipment, sign any important documents, or smoke unattended for 24 hours following your procedure. Because of the sedation please be careful on stairs, as you may be unsteady on your feet. You may resume your regular diet as tolerated. IV site -- slight redness, or tenderness is normal, you can use a warm compress. If tenderness and redness increases or foul drainage occurs, please contact your M. D. Revised 03/23/19 Future Appointments and Orders Future Appointments and Orders Future Appointments Provider Department Dept Phone 04/14/2023 1:00 PM Johnny Rollins MD Radiation Oncology at [facility] Arrive at: [facility] door at end of hallway [phone] Discharge References/Attachments None documented in this encounter Discharge Instructions * Discharge Instructions* Roque Clemente RN - 12/18/2022 12:06 PM EDT [facility] Interventional Radiology Post Angiography Instructions Procedure: Bronchial artery embolization Puncture Site: right groin (femoral artery) December 18, 2022 Physician: Dr Stewart Burk, DO 1. At home we advise you to rest quietly in bed or on the couch with your hip straight until the next morning. Until the next morning you may get up only to go to the bathroom. 2. Resume your previous diet. Drink 6-8 ounces of fluid per hour for the next 8 hours. Avoid alcoholic or caffeinated beverages for 24 hours. 3. Avoid strenuous activity for the next 48 hours, particularly in the next 24 hours. Stair climbing should be kept to a minimum. Do not lift objects heavier than 10-15 pounds for the next 48 hours Avoid straining for bowel movements as you can pop open the clot that has formed on the artery. 4. If you develop bulging under the skin or bleeding at the puncture site, put direct pressure on the puncture site for 15 minutes and call your doctor. If the bleeding persists, reapply pressure, and go to your local Emergency Department. 5. If you notice a sudden change in the feeling (numbness, tingling and/or pain) of your leg on theside of the puncture call your doctor. 6. You may develop a bruise at the puncture site. This should go away within a week to 10 days. If a bulge develops after the first three days, call your doctor or the Radiology/Vascular Department here. Report signs of infection (redness, swelling, discharge, soreness, or fever) to your doctor. 7. Leave the bandage on for 24-48 hours. You may shower the following day after the procedure. You should NOT swim or tub bathe for [address] for 24 hours after the procedure. Do not sign any important documents or smoke unattended for 24 hours. You may return to work with the above restrictions on . 9. If you have any questions or concerns, please call Interventional Radiology Department at until 6pm. After 6pm, or on weekends or hoildays, call and ask for the vice president network admissions specialist. OR Vascular Department at until 4:45pm. After 4:45pm call [phone] and ask for the Vascular resident admissions specialist. 10. If you are a diabetic and take Metformin or Janumet, Do not take it for 2 days after the procedure. You have received medication during your procedure to help lesson anxiety and keep you comfortable and which affects judgement and reaction time. We recommend that you do not drive, operate equipment, sign any important documents, or smoke unattended for 24 hours following your procedure. Because of the sedation please be careful on stairs, as you may be unsteady on your feet. You may resume your regular diet as tolerated. IV site -- slight redness, or tenderness is normal, you can use a warm compress. If tenderness and redness increases or foul drainage occurs, please contact your M. D. Revised 03/23/19 * Patient Instructions* Shirin Hill MD - 12/19/2022 11:01 AM EDT Instruction after leaving the hospital Why you were hospitalized: coughing up blood Call your doctor or seek medical attention if you develop the following: coughing up more blood, blood in your stool, dizziness, fevers Activity level: as you can tolerate Diet: regular Driving: don't drive while taking narcotics Follow-Up Appointments Date and Time Provider and Specialty Location F/u with your oncologist as planned Your Inpatient Doctor(s) at [facility]: Shirin Hill MD documented in this encounter Medications at Time of Discharge Medication Sig Dispensed Refills Start Date End Date vw-lbcbawt-ves-iron fm-FA-vitK (One-A-Day Women's Complete) 18 mg-400 mcg- [...] as of this encounter Progress Notes * Jn Preciado RN - 12/19/2022 12:05 PM EDT Pt's director of career services called stating the Pt had and small bulge near arterial puncture. This morning the bulge is big 1.5 inch and the there is some bruising noted. Pt help pressure 15 minutes last night. Pt told to go to [facility] ED (MD Burk) or call 911 is the there is any sudden increase in pain or size of the bulge. Pt and family express understanding are headed to ED. * Betsy Reynoso MD - 12/19/2022 12:05 PM EDT INTERVENTIONAL RADIOLOGY TELEPHONE NOTE Patient: Teresa Guzman : 1960 Person Placing Call: Patient Person Receiving Call: Betsy Reynoso MD Call Back Telephone #: [phone] (home) Date of call: 12/23/2022 Time of call: 16:00 Recent Procedure: Bronchial artery embolization Date of Procedure: 12/18/2022 Reason for call: Pt's son called IR today reporting approximately a tablespoon of hemoptysis this afternoon. Pt states this is new since her procedure. Pt's son states this is similar to prior hemoptysis, although less volume. Pt also endorses dizziness. Pt denies shortness of breath or chest pain. Assessment: Teresa Guzman is a 62 y.o female with history of a RML/RLL neuroendocrine mass c/b hemoptysis s/p bronchial artery embolization now with recurrent hemoptysis. Plan/Instructions: - Given recurrent hemoptysis pt's son was advised to go to the local ED. He voiced understanding. Betsy Reynoso MD Diagnostic Radiology, PGY-4 Pager [phone] * Shirin Hill MD - 12/19/2022 11:09 AM EDT Hospital Medicine - Attending Day of Discharge Documentation Discharge diagnosis Active Hospital Problems Diagnosis Hemoptysis Resolved Hospital Problems No resolved problems to display. Secondary Issues Active Non-Hospital Problems Diagnosis Primary malignant neoplasm of right lower lobe of lung I have personally seen and examined the patient and they are ready for discharge. I spent >30 minutes (Day of Discharge Code 87256) involved in the final examination of the patient, discussion of the hospital stay, instructions for continuing care to all relevant caregivers, and preparation of discharge records, prescriptions and referral forms. Plans Discharge to home Follow-up scheduled with oncology Please see the Discharge Summary for complete details of any medication changes and additional plans. * Renay Villanueva MD - 12/19/2022 8:41 AM EDT INTERVENTIONAL RADIOLOGY Inpatient Progress Note Admitted 12/18/2022 Procedure(s): Right intercostal embolization Post-procedure day: #1 Time of patient encounter: 731 24 Hour Events: - Scant amount of blood streaking with cough per nursing note - Pt relays feeling well this morning. Last Value 24 Hour Range Temperature 36.8 ??C (98.2 ??F) Temp: [36 ??C (96.8 ??F)-36.9 ??C (98.4 ??F)] Heart Rate 81 Heart Rate: [79-109] Blood Pressure 131/63 BP: (94-179)/(53-94) Respiratory Rate 16 Resp: [10-19] SpO2 99 % SpO2: [94 %-100 %] Physical Exam GEN No distress, A&O. Standing up, combing her hair CARDS Regular rate LUNGS Breathing comfortably on RA ABD Non tender, nondistended Vasc ACCESS R groin access site C/D/I, soft, no hematoma, mildly tender to palpation Drains/Tubes: N/A Labs: Reviewed Micro: N/A Imaging: No new imaging Assessment: 62 y.o. female POD 1 s/p R intercostal artery embolization. Pt feeling well this am, looking forward to discharge from the hospital. Hgb 12.3 from 13, has not required any blood products. Plan: - IR will continue to follow - If hemoptysis were to recur would consider additional embolization which could be arranged on outpatient basis. Renay Villanueva MD Interventional Radiology, PGY3 IR team pager [phone] * Roque Clemente RN - 12/18/2022 10:34 AM EDT ANGIO NURSING DATABASE Name: Teresa Guzman Date of : 1960 AGE: 62 y.o. Address: [address] [place] [address] (home) Mobile: Telephone Information: Referring Provider: None REASON FOR VISIT: Order Questions Answers Reason for exam and clinical history: hemoptysys, RLL Eileen Ca Is the patient on anticoagulant / antiplatelet therapy ? No Planned procedure: IR Bronchial Arteriogram and Embolization Labs to be performed day of procedure: No labs Sedation: Moderate (Conscious sedation) Prophylactic antibiotic : None Contrast: Omnipaque Additional medications for procedure: Lidocaine Allergies Allergen Reactions Amoxicillin Trihydrate CIS - [...] Sulfa (Sulfonamide Antibiotics) Blisters on Feet Tramadol Pertinent PMH: Patient Active Problem List Diagnosis Code Primary malignant neoplasm of right lower lobe of lung C34.31 Date/Procedure Meds Given/Comments 12.18.22 Bronchial arterial embolization Fentanyl 150 mcg, IV. Midazolam 2.5 mg, IV. Some increased ectopy with midazolam. 1136 to procedure room IR 2 via stretcher. Onto table supine. All monitors, O2, safety strap in place. Meds per protocol. Arterial Puncture Post Procedure Time of Arterial Puncture: 1155 Site: R [employer]ES [employer]OUNT EXECUTIVE Closure device used: Mynx Device Time sheath removed: 1305 Time of hemostasis: Mynx Hematoma present?: Yes / decompressed by provider in IR rm 2 Anticipated up time: 1741 Laboratory Results: Lab Results Component Value Date INR 1.0 12/18/2022 Lab Results Component Value Date CREATININE 0.67 (L) 12/18/2022 Lab Results Component Value Date K 3.5 12/18/2022 Lab Results Component Value Date PLATELET 243 12/18/2022 documented in this encounter H&P Notes * Mehran Ojeda MD - 12/18/2022 2:11 PM EDT Inpatient Hospital Medicine Admission History and Physical Patient Name: TERESA GUZMAN Date of : 1960 Age: 62 y.o. Hospital Admit Date: 12/18/2022 Hospital Day: 0 Inpatient Attending: Hortensia Pavon MD PCP: Rylee Olmos APRN ([phone]) Chief Complaint Patient presents with Hematemesis ID: Teresa Guzman is a 62 y.o. female patient with pmhx of COPD, OA, large cell neuroendocrine carcinoma of RLL, who presents for evaluation of hemoptysis. SUBJECTIVE History of Present Illness: Teresa Guzman is a 62 y.o. female patient with pmhx of COPD, OA, large cell neuroendocrine carcinomaof RLL, who presents for evaluation of hemoptysis. Teresa states that she was diagnosed with lung cancer at the end of last year/earlier this year. Shereports that she did not really have any symptoms the last 2 years except occasional bouts of pneumonia. She reports that she underwent a bronchoscopy earlier this year and was formally diagnosed with lung cancer. She states that she was initially doing well but on 12/03, she had episode of hemoptysis in which she coughed up more than 1 tablespoon of blood. She has had 3 episodes of hemoptysis since then, endorses approximately 4-8 table spoons of blood at most. Endorses clots with largest size being similar to a golf ball. Teresa did undergo repeat bronchoscopy on 12/14 which did not reveal source of bleed. She denies sick contacts, fever, chills, dyspnea, chest pain. Endorses nausea due to swallowing of blood, endorses cough that is chronic and sometimes productive of clear mucus. Review of Systems (Positives in Bold): General: chills, fatigue, fever or night sweats Eye: blurry vision, double vision, loss of vision or photophobia HENT: headaches, sore throat or vertigo Heme/Lymph: Bleeding/bruising, blood clots, jaundice, pallor or swollen lymph nodes Resp: cough, hemoptysis, orthopnea, shortness of breath or wheezing Cardio: chest pain, dyspnea on exertion, edema, loss of consciousness, palpitations, paroxysmal nocturnal dyspnea or shortness of breath Gastro: abdominal pain, blood in stools, constipation, diarrhea, heartburn, hematemesis, melena or nausea/vomiting : dysuria, hematuria or urinary frequency/urgency MSK: joint pain, joint stiffness, joint swelling, muscle pain or muscular weakness Neuro: dizziness, gait disturbance, impaired coordination/balance, memory loss, numbness/tingling, seizures, speech problems, tremors or visual changes Derm: lumps or rash Past Medical History: Past Medical History: Diagnosis Date Allergy Bilateral knee pain Cancer Cataract COPD (chronic obstructive pulmonary disease) Left hip pain Hip slides Neck pain Osteoarthritis Scoliosis Trauma Patient Active Problem List Diagnosis Code Primary malignant neoplasm of right lower lobe of lung C34.31 Hemoptysis R04.2 Past Surgical History: Past Surgical History: Procedure Laterality Date [facility] EB[facility] GUIDED SAMPL 3/> NODE STATION/STRUX N/A 07/07/2022 BRONCH, W ENDOBRONCHIAL ULTRASOUND (EBUS) GUIDED SAMPLING, 3+ NODES (WRVU 5.21) performed by Cameron Muñoz MD at [facility] MAIN OR PRO BRONCHOSCOPY RIGID FLEX W COMPUTER ASSIST IMG NAVIGATION N/A 07/07/2022 BRONCHOSCOPY,RIGID OR FLEX,WITH IMAGE GUIDANCE ( ROBOT / MONARCH ) performed by Cameron Muñoz MD at [facility] MAIN OR PRO BRONCHOSCOPY, DIAGNOSTIC W LAVAGE N/A 12/14/2022 BRONCHOSCOPY, RIGID OR FLEXIBLE, WITH BRONCHIAL ALVEOLAR LAVAGE (WRVU 2.63) performed by Cameron Muñoz MD at [facility] MAIN OR TUBAL LIGATION Also had a DNC Social History: Social History Socioeconomic History Marital status: Single [...] Housing in the Last Year: No Family History: Family History Problem Relation Age of Onset Coronary Artery Disease Early Onset Father Amblyopia Sister Strabismus Neg Hx Glaucoma Neg Hx Macular Degeneration Neg Hx Allergies: Allergies Allergen Reactions Amoxicillin Trihydrate CIS - [...] Sulfa (Sulfonamide Antibiotics) Blisters on Feet Tramadol Prior To Admission Medications: (Not in a hospital admission) Immunizations: Immunization History Administered Date(s) Administered Pneumococcal Polyvalent 23 05/26/2005 Td, adult 06/07/1996 OBJECTIVE: Vitals: Last value Range last 24 hrs Temperature Temp: 36 ??C (96.8 ??F) Temp: [36 ??C (96.8 ??F)-36.1 ??C (97 ??F)] Heart Rate Heart Rate: 81 Heart Rate: [79-109] Blood Pressure BP: 146/89 BP: (133-179)/(53-94) Art Line BP BP (Arterial Line): -- MAP (NBP): [85 mmHg-110 mmHg] Respiratory Rate Resp: 19 Resp: [10-19] SpO2 SpO2: 97 % SpO2: [94 %-100 %] Oxygen Delivery Oxygen Therapy O2 Device: None (Room air) O2 Flow Rate (L/min): 1 L/min No intake or output data in the 24 hours ending 12/18/22 141 No intake/output data recorded. Body mass index is 23.44 kg/m??. Patient Vitals for the past 168 hrs: Weight 12/18/22 0839 54.4 kg (120 lb) Admit wt: 54.43 kg Physical Exam: GENERAL: Awake, alert, no acute distress HEENT: Anicteric, no conjunctival injection; oral mucosa moist but poor dentition CV: RRR, no murmurs/rubs/gallops, 2+ radial/DP pulses PULM: Normal respiratory effort, CTA with good air entry bilaterally in anterior and lateral lung sutton, no rales/rhonchi/wheezes ABDOMEN: Soft, non-tender, non-distended, no masses, no guarding EXTREMITIES: No lower extremity edema. No clubbing or cyanosis. R leg dressing C/D/I. PSYCH/NEURO: Appropriate affect and cognition SKIN: Warm, dry, no rashes LABS: CBC: Recent Labs 12/18/22 0930 WBC 7.0 HGB 13.0 HCT 37.7 PLATELET 243 NEUTROABS 4.79 Chemistry: Recent Labs 12/18/22 0930 07/07/22 0849 NA 141 -- K 3.5 -- CL 105 -- CO2 26 -- BUN 12 -- CREATININE 0.67* 0.71 GLUCOSE 101 -- ANIONGAP 10 -- Recent Labs 12/18/22 0930 CALCIUM 9.2 LFT's: Recent Labs 12/18/22929 BILITOT 0.5 ALBUMIN 4.1 ALKPHOS 77 ALT 10 AST 13 Coags: Recent Labs 12/18/22929 PT 11.1 INR 1.0 Recent Labs 12/18/22929 INR 1.0 Cardiac enzymes: No results for input(s): TROPONINT, CK, PROBNP in the last 7068 hours. Endocrine: No results for input(s): TSH, CORTISOL in the last 7068 hours. Invalid input(s): [id number] No results for input(s): HA1C in the last 7068 hours. Lipids: Heme: No results for input(s): LDH, HAPTOGLOBIN, URICACID in the last 168 hours. ABG (Arterial Blood Gas): No results found for: PHART, PO2ART, COW9RNB, SIN7JWQ VBG (Venous Blood Gas): No results for input(s): PHVEN, AJI1UPM, PO2VEN, TIT7TJQ, BEVEN, RLE8NVS in the last 72 hours. EKG: Lab Results Component Value Date/Time DIAGLINE 12/18/2022 0846 Sinus rhythm with frequent Premature ventricular complexes Otherwise normal ECG No previous ECGs available QTCCALC 440 12/18/2022 0846 Vascular: No results found for: VBTEXTRPT Microbiology: No results found for: URINECULTURE Lab Results Component Value Date/Time GRAMSTAIN 12/14/2022 1445 Many Neutrophils seen No squamous epithelial cells seen No microorganisms seen. LOWERRESPCX Rare normal upper respiratory nir 12/14/2022 1445 No results found for: BLOODCX Imaging/Diagnostics: No results found for this visit on 12/18/22 (from the past 48 hour(s)). Medications: Scheduled: sodium chloride 0.9 % (flush) 5 mL Intravenous BID sodium chloride 0.9 % (flush) 5 mL Intravenous BID Continuous: PRN: sodium chloride 0.9 % (flush), lidocaine, sodium chloride 0.9 % (flush), lidocaine, sodium chloride 0.9 % (flush), fentaNYL (PF), flumazeniL, naloxone, midazolam (PF) ASSESSMENT and PLAN: Teresa Guzman is a 62 y.o. female patient with pmhx of COPD, OA, large cell neuroendocrine carcinomaof RLL, who presents for evaluation of hemoptysis. By time of interview, Teresa was already s/p IR embolization of R eighth intercostal artery and its abnormal collateral branches supplying known tumor. Procedure was complicated by a small compressible R common femoral artery access site hematoma that did not require subsequent intervention. We willadmit Teresa today and monitor symptoms. # Hemoptysis s/p IR embolization (12/18) # large cell neuroendocrine carcinoma of RLL # R common - S/p IR embolization of R eighth intercostal artery - Complicated by small R common femoral artery access site hematoma with normal peripheral pulses - Trend HH this evening and hemoglobin daily - Zofran [id number] prn nausea - Tylenol 1 g q6 hours prn pain - Oxycodone 2.5 mg q6 hours prn pain uncontrolled with tylenol Patient staffed with Dr. Hortensia Pavon. #Housekeeping: DVT PPx: None GI PPx: None Diet: NPO diet (Give Meds) Lines: Peripheral IV Line - Single Lumen 12/18/22 0932 basilic vein (medial side of arm), left 18 gauge (Active) Number of days: 0 D/c planning: Pending medical stabilization Code status: Full code (Teresa would like to discuss intubation with her sons as she only want a short trial of intubation if necessary) Mehran Ojeda MD Internal Medicine PGY2 Medicine Team: [id number] Associated attestation - Hortensia Pavon MD - 12/18/2022 10:41 PM EDT Attending Attestation and Certification Please see Mehran Ojeda MD's note for details of the patient history of presentation and data. I havediscussed, reviewed and agree with the documented History, Physical findings, Assessment and Plan of care. I have examined the patient myself and personally reviewed all studies. In addition, I certify thatI am a [facility]-H credentialed attending provider with admitting privileges and that the patient meets or has met medical necessity to require an inpatient IPI level of care meeting a minimum of two midnights or is on the CMS inpatient only procedure list (status C) due to: concern for hemoptysis Hortensia Pavon MD Hospital Medicine 12/18/2022 10:41 PM * Zi Delgado MD - 12/18/2022 11:17 AM EDT INTERVENTIONAL RADIOLOGY FOCUSED H&P: Procedure: Planned procedure: IR Bronchial Arteriogram and Embolization The patient's history and physical exam have been reviewed and completed. There has been no interval change from that of the pre-operative history and physical exam done within the last 30 days. Physical Exam: Cardiovascular: Regular, Normal Pulmonary: Breath sounds clear to auscultation The planned procedure (and sedation plan if appropriate) , its benefits and risks, and alternativeswere discussed with the patient. The patient consented to the procedure. PRE-SEDATION ASSESSMENT: Sedation Plan: moderate (conscious sedation) ASA: 2: Patient with mild systemic disease Mallampati: II: tonsillar pillars are blocked by the tongue Confirm NPO status: Yes History of anesthetic complications: No Current medications reviewed: Yes Allergies reviewed: Yes Source Note - Zi Delgado MD - 12/18/2022 10:18 AM EDT Images from the original note were not included. INTERVENTIONAL RADIOLOGY FOCUSED H&P and PRE-PROCEDURE NOTE: PCP: Rylee Olmos APRN Referring Provider: Primo Guzman MD Planned Procedure: Planned procedure: IR Bronchial Arteriogram and Embolization Procedure Indication: Hemoptysis 2/2 RML lung mass post XRT and negative bronchoscopy Procedure Request: Interventional Radiology Service contacted by Emergency Department at 1015 regarding the procedure request below. Presenting Diagnosis/ Complaint: Teresa Guzman is a 62 y.o. female with history of large superior RLL/RML cT2aN0 (Stage IB) neuroendocrine mass s/p 5 sessions of XRT with new hemoptysis. Bronchoscopy on 12/14 was negative. Presented to the ED this AM with recurrent hemoptysis, and light headedness, dizziness. Currently HDS, AOx3. GRICELDA has been consulted for bronchial artery embolization. Past Medical/Surgical History: Patient Active Problem List Diagnosis Code Primary malignant neoplasm of right lower lobe of lung C34.31 Past Medical History: Diagnosis Date Allergy Bilateral knee pain Cancer Cataract COPD (chronic obstructive pulmonary disease) Left hip pain Hip slides Neck pain Osteoarthritis Scoliosis Trauma Past Surgical History: Procedure Laterality Date [facility] GUID[facility] SAMPL 3/> NODE STATION/STRUX N/A 07/07/2022 BRONCH, W ENDOBRONCHIAL ULTRASOUND (EBUS) GUIDED SAMPLING, 3+ NODES (WRVU 5.21) performed by Cameron Muñoz MD at [facility] MAIN OR PRO BRONCHOSCOPY RIGID FLEX W COMPUTER ASSIST IMG NAVIGATION N/A 07/07/2022 BRONCHOSCOPY,RIGID OR FLEX,WITH IMAGE GUIDANCE ( ROBOT / MONARCH ) performed by Cameron Muñoz MD at [facility] MAIN OR PRO BRONCHOSCOPY, DIAGNOSTIC W LAVAGE N/A 12/14/2022 BRONCHOSCOPY, RIGID OR FLEXIBLE, WITH BRONCHIAL ALVEOLAR LAVAGE (WRVU 2.63) performed by Cameron Muñoz MD at [facility] MAIN OR TUBAL LIGATION Also had a DNC Medications: No current facility-administered medications on file prior to encounter. Current Outpatient Medications on File Prior to Encounter Medication Sig Dispense Refill wc-lhfedpv-ctv-iron fm-FA-vitK (One-A-Day Women's Complete) 18 mg-400 mcg- 25 mcg Tablet Take by mouth. oxyCODONE (Roxicodone) 5 mg tablet Take 1 tablet by mouth as needed for Pain (Use a 1/2 hour prior to radiation therapy and as needed). 30 tablet 0 cyanocobalamin, vitamin B-12, (VITAMIN B12 ORAL) Take 6,000 Units by mouth twice a week. WEDNESDAY/WEDNESDAY acetaminophen (TYLENOL) 650 mg Tablet Sustained Release Take 650 mg by mouth every 8 hours as needed for Pain. Do not exceed 6 tabs in 24 hours cyanocobalamin 1,000 mcg Tablet Take 1,000 mcg by mouth daily. CHOLECALCIFEROL, VITAMIN D3, ORAL Take 1,000 Units by mouth daily. cyclobenzaprine (FLEXERIL) 10 mg Tablet Take 10 mg by mouth 3 times daily as needed for Muscle spasms. albuterol 90 mcg/actuation HFA Aerosol Inhaler Inhale 2 puffs into the lungs every 4 hours as needed for Wheezing. Use with spacer EPINEPHrine 0.3 mg/0.3 mL Auto-Injector Inject 0.3 mg into the muscle once. Allergies: Amoxicillin trihydrate, Other [unclassified drug], Potassium clavulanate, Shellfish containing products, Atorvastatin, Celebrex [celecoxib], House dust, Naproxen, Niacin, Nsaids (non-steroidal anti-inflammatory drug), Penicillins, Seasonale (91) [levonorgestrel-ethinyl estrad], Simvastatin, Augmentin [amoxicillin-pot clavulanate], Azithromycin, Barley, Cefdinir, Cis free text allergy, Doxycycline, Gabapentin, Meloxicam, Mometasone, Nabumetone, Sulfa (sulfonamide antibiotics), and Tramadol Social History and Habits: Social History Socioeconomic History Marital status: Single [...] Unstable Housing in the Last Year: No Significant Family History: Family History Problem Relation Age of Onset Coronary Artery Disease Early Onset Father Amblyopia Sister Strabismus Neg Hx Glaucoma Neg Hx Macular Degeneration Neg Hx Pertinent ROS: as per HPI Labs: Lab Results Component Value Date WBC 7.0 12/18/2022 HCT 37.7 12/18/2022 PLATELET 243 12/18/2022 INR 1.0 12/18/2022 BUN 12 12/18/2022 CREATININE 0.67 (L) 12/18/2022 ALKPHOS 77 12/18/2022 AST 13 12/18/2022 ALBUMIN 4.1 12/18/2022 BILITOT 0.5 12/18/2022 ALT 10 12/18/2022 PROT 6.3 12/18/2022 K 3.5 12/18/2022 Imagin12/03/22 CT Chest Physical Exam: Pending ASA: Pending Mallampati Class: Pending Assessment: 62 y.o. female with PMH of RLL neuroendocrine mass s/p XRT x5 with new hemoptysis and negative bronchoscopy on 12/14 now in the ED with recurrent hemoptysis presenting to [facility] for bronchial artery embolization. Reviewed with Attending: Dr. Dias Plan: Planned procedure: IR Bronchial Arteriogram and Embolization Labs to be performed day of procedure: No labs Sedation: Moderate (Conscious sedation) Prophylactic antibiotic : None Contrast: Omnipaque Additional medications for procedure: Lidocaine Planned access site: R SALES ACCOUNT EXECUTIVE Position: Supine Consent: Pending Medications to discontinue (and days held): None Case Urgency:: B- Intervention within 2 hrs 12/18/2022 * Zi Delgado MD - 12/18/2022 10:18 AM EDT Images from the original note were not included. INTERVENTIONAL RADIOLOGY FOCUSED H&P and PRE-PROCEDURE NOTE: PCP: Rylee Olmos APRN Referring Provider: Primo Guzman MD Planned Procedure: Planned procedure: IR Bronchial Arteriogram and Embolization Procedure Indication: Hemoptysis 2/2 RML lung mass post XRT and negative bronchoscopy Procedure Request: Interventional Radiology Service contacted by Emergency Department at 1015 regarding the procedure request below. Presenting Diagnosis/ Complaint: Teresa Guzman is a 62 y.o. female with history of large superior RLL/RML cT2aN0 (Stage IB) neuroendocrine mass s/p 5 sessions of XRT with new hemoptysis. Bronchoscopy on 12/14 was negative. Presented to the ED this AM with recurrent hemoptysis, and light headedness, dizziness. Currently HDS, AOx3. GRICELDA has been consulted for bronchial artery embolization. Past Medical/Surgical History: Patient Active Problem List Diagnosis Code Primary malignant neoplasm of right lower lobe of lung C34.31 Past Medical History: Diagnosis Date Allergy Bilateral knee pain Cancer Cataract COPD (chronic obstructive pulmonary disease) Left hip pain Hip slides Neck pain Osteoarthritis Scoliosis Trauma Past Surgical History: Procedure Laterality Date [facility] G[facility]ED SAMPL 3/> NODE STATION/STRUX N/A 07/07/2022 BRONCH, W ENDOBRONCHIAL ULTRASOUND (EBUS) GUIDED SAMPLING, 3+ NODES (WRVU 5.21) performed by Cameron Muñoz MD at [facility] MAIN OR PRO BRONCHOSCOPY RIGID FLEX W COMPUTER ASSIST IMG NAVIGATION N/A 07/07/2022 BRONCHOSCOPY,RIGID OR FLEX,WITH IMAGE GUIDANCE ( ROBOT / MONARCH ) performed by Cameron Muñoz MD at [facility] MAIN OR PRO BRONCHOSCOPY, DIAGNOSTIC W LAVAGE N/A 12/14/2022 BRONCHOSCOPY, RIGID OR FLEXIBLE, WITH BRONCHIAL ALVEOLAR LAVAGE (WRVU 2.63) performed by Cameron Muñoz MD at [facility] MAIN OR TUBAL LIGATION Also had a DNC Medications: No current facility-administered medications on file prior to encounter. Current Outpatient Medications on File Prior to Encounter Medication Sig Dispense Refill cs-qlrigni-swo-iron fm-FA-vitK (One-A-Day Women's Complete) 18 mg-400 mcg- 25 mcg Tablet Take by mouth. oxyCODONE (Roxicodone) 5 mg tablet Take 1 tablet by mouth as needed for Pain (Use a 1/2 hour prior to radiation therapy and as needed). 30 tablet 0 cyanocobalamin, vitamin B-12, (VITAMIN B12 ORAL) Take 6,000 Units by mouth twice a week. WEDNESDAY/WEDNESDAY acetaminophen (TYLENOL) 650 mg Tablet Sustained Release Take 650 mg by mouth every 8 hours as needed for Pain. Do not exceed 6 tabs in 24 hours cyanocobalamin 1,000 mcg Tablet Take 1,000 mcg by mouth daily. CHOLECALCIFEROL, VITAMIN D3, ORAL Take 1,000 Units by mouth daily. cyclobenzaprine (FLEXERIL) 10 mg Tablet Take 10 mg by mouth 3 times daily as needed for Muscle spasms. albuterol 90 mcg/actuation HFA Aerosol Inhaler Inhale 2 puffs into the lungs every 4 hours as needed for Wheezing. Use with spacer EPINEPHrine 0.3 mg/0.3 mL Auto-Injector Inject 0.3 mg into the muscle once. Allergies: Amoxicillin trihydrate, Other [unclassified drug], Potassium clavulanate, Shellfish containing products, Atorvastatin, Celebrex [celecoxib], House dust, Naproxen, Niacin, Nsaids (non-steroidal anti-inflammatory drug), Penicillins, Seasonale (91) [levonorgestrel-ethinyl estrad], Simvastatin, Augmentin [amoxicillin-pot clavulanate], Azithromycin, Barley, Cefdinir, Cis free text allergy, Doxycycline, Gabapentin, Meloxicam, Mometasone, Nabumetone, Sulfa (sulfonamide antibiotics), and Tramadol Social History and Habits: Social History Socioeconomic History Marital status: Single [...] Unstable Housing in the Last Year: No Significant Family History: Family History Problem Relation Age of Onset Coronary Artery Disease Early Onset Father Amblyopia Sister Strabismus Neg Hx Glaucoma Neg Hx Macular Degeneration Neg Hx Pertinent ROS: as per HPI Labs: Lab Results Component Value Date WBC 7.0 12/18/2022 HCT 37.7 12/18/2022 PLATELET 243 12/18/2022 INR 1.0 12/18/2022 BUN 12 12/18/2022 CREATININE 0.67 (L) 12/18/2022 ALKPHOS 77 12/18/2022 AST 13 12/18/2022 ALBUMIN 4.1 12/18/2022 BILITOT 0.5 12/18/2022 ALT 10 12/18/2022 PROT 6.3 12/18/2022 K 3.5 12/18/2022 Imagin12/03/22 CT Chest Physical Exam: Pending ASA: Pending Mallampati Class: Pending Assessment: 62 y.o. female with PMH of RLL neuroendocrine mass s/p XRT x5 with new hemoptysis and negative bronchoscopy on 12/14 now in the ED with recurrent hemoptysis presenting to [facility] for bronchial artery embolization. Reviewed with Attending: Dr. Dias Plan: Planned procedure: IR Bronchial Arteriogram and Embolization Labs to be performed day of procedure: No labs Sedation: Moderate (Conscious sedation) Prophylactic antibiotic : None Contrast: Omnipaque Additional medications for procedure: Lidocaine Planned access site: R SALES ACCOUNT EXECUTIVE Position: Supine Consent: Pending Medications to discontinue (and days held): None Case Urgency:: B- Intervention within 2 hrs 12/18/2022 documented in this encounter ED Notes * Primo Guzman MD - 12/18/2022 9:07 AM EDT ED Attending Note HPI: Teresa Guzman is a 62 y.o. female who presents to the Emergency Department with hemoptysis. Had a bronch last week and no bleeding source could be identified. No blood thinners. Hx Ca and radiation. Per pt pulm believes bleeding coming from R lung. Bronch Wednesday. No bleeding . Scant wed and . 5+ tbsp upon awakening this am. No other bleeding. No SOB or CP No Plap Drank some water this am. Barely smoking at this point Bronch 12/14/22: Recommendations: Successful flexible bronchoscopy and BAL Await pending results in the next 3-5 business days If bleeding persists/increases, will move forward with bronchial artery embolization with attentionto the anterior basilar distribution of the right lower lobe where small blood was identified (corresponding to the more caudal margins of the tumor) Follow-up with referring provider as previously arranged Hx from pt and family ROS as per HPI Vitals: ED Triage Vitals [12/18/22 0839] BP: 134/69 Heart Rate: 90 Resp: 18 Temp: 36.1 ??C (97 ??F) Temp src: Temporal SpO2: 96 % O2 Device: RA O2 Flow Rate (L/min): n/a Physical Exam Vitals and nursing note reviewed. Constitutional: General: She is not in acute distress. Appearance: She is not ill-appearing, toxic-appearing or diaphoretic. Comments: Thin female in NAD No increased WOB HENT: Mouth/Throat: Mouth: Mucous membranes are moist. Pharynx: Oropharynx is clear. Eyes: Extraocular Movements: Extraocular movements intact. Pupils: Pupils are equal, round, and reactive to light. Cardiovascular: Rate and Rhythm: Normal rate and regular rhythm. Pulmonary: Effort: Pulmonary effort is normal. No respiratory distress. Breath sounds: Normal breath sounds. No wheezing. Abdominal: General: Abdomen is flat. Palpations: Abdomen is soft. Musculoskeletal: General: Normal range of motion. Cervical back: Normal range of motion and neck supple. Right lower leg: No edema. Left lower leg: No edema. Skin: General: Skin is warm and dry. Capillary Refill: Capillary refill takes less than 2 seconds. Neurological: General: No focal deficit present. Mental Status: She is alert and oriented to person, place, and time. Psychiatric: Mood and Affect: Mood normal. ED Course: I have reviewed labs and imaging, images and available reports, and they are significant for: Results for orders placed or performed during the hospital encounter of 12/18/22 Comprehensive metabolic panel (non-fasting) Result Value Ref Range Glucose Lvl 101 65 - 199 mg/dL BUN 12 8 - 18 mg/dL Creatinine 0.67 (L) 0.70 - 1.20 mg/dL Sodium 141 135 - 145 mmol/L Potassium 3.5 3.5 - 5.0 mmol/L Chloride 105 98 - 107 mmol/L CO2 26 22 - 31 mmol/L Anion Gap 10 5 - 15 mmol/L Calcium 9.2 8.5 - 10.5 mg/dL Total Protein 6.3 6.1 - 8.0 g/dL Albumin 4.1 3.2 - 5.2 g/dL AST 13 0 - 30 unit/L ALT 10 0 - 30 unit/L Alk Phos 77 35 - 105 unit/L Total Bilirubin 0.5 0.2 - 1.3 mg/dL Estimated GFR 98 >=60 mL/min/1.73 m?? Prothrombin Time Result Value Ref Range PT 11.1 9.4 - 12.5 sec INR 1.0 ABO/Rh Typing Result Value Ref Range ABORh Type O Neg Antibody screen Result Value Ref Range Ab Screen Interp Negative Expires at 2359 on: 12/21/2022 Hemogram Result Value Ref Range WBC 7.0 4.0 - 9.5 x10(3)/mcL RBC 4.16 4.00 - 5.21 x10(6)/mcL Hemoglobin 13.0 11.7 - 15.5 g/dL Hematocrit 37.7 35.7 - 45.8 % MCV 90.6 82.6 - 94.4 fL MCH 31.3 27.1 - 32.0 pg MCHC 34.5 31.7 - 35.0 g/dL Platelets 243 145 - 357 x10(3)/mcL RDWSD 43.1 37.0 - 46.0 fL RDWCV 12.9 11.5 - 14.1 % MPV 9.9 7.6 - 12.9 fL nRBC % Auto 0.0 % nRBC Abs Auto 0.000 0.000 - 0.000 x10(3)/mcL Differential, Automated Result Value Ref Range Neutrophils % 68.3 % Neutr Abs (ANC) 4.79 1.70 - 6.10 x10(3)/mcL Lymphocytes % 22.6 % Lymphocytes Abs 1.6 0.9 - 3.2 x10(3)/mcL Monocytes % 6.7 % Monocyte Abs 0.5 0.3 - 0.9 x10(3)/mcL Eosinophils % 1.7 % Eosinophils Abs 0.1 0.0 - 0.4 x10(3)/mcL Basophils % 0.4 % Basophils Abs 0.0 0.0 - 0.1 x10(3)/mcL Immature Gran % 0.30 % Mary Gran Abs 0.02 0.00 - 0.04 x10(3)/mcL EKG 12 Lead Result Value Ref Range Ventricular rate 79 BPM Atrial Rate 79 BPM P-R Interval 130 ms QRS Duration 72 ms Q-T Interval 384 ms QTC Calculated (Bezet) 440 ms Calculated P Grampian 79 degrees Calculated R Grampian 65 degrees Calculated T Grampian 77 degrees INTERPRETATION Sinus rhythm with frequent Premature ventricular complexes Otherwise normal ECG No previous ECGs available ABORH Recheck Status Result Value Ref Range ABORH Recheck Order Order Placed ABORH Type Recheck Complete Type and Screen Validity Result Value Ref Range T&S only valid at [facility] No orders to display Assessment and Plan: 62 y.o. female with with RLL lung Ca, s/p radiation, now w/ hemoptysis. Bronch Wednesday. HD stable. Comfortable. Discussed w/ Dr. Muñoz. No further pulm bronch intervention indicated. Needs IR to attempt embolization. D/w IR and they april see this am with likely embol today. Update: Pt to IR for embol and then admit to [facility] to follow. Did this case involve critical care? No The visit findings, diagnosis, and care plan were discussed with the patient. Primo Guzman MD 12/18/22 1720 documented in this encounter Miscellaneous Notes * Plan of Care - Melissa Pollard RN - 12/19/2022 11:13 AM EDT OUTCOME EVALUATION NOTE: OUTCOME SUMMARY: Assumed care of pt @ 0700. VSS on RA. Pt w/ chronic back pain that is tolerable this AM. Verbalized3/10 pain. Ambulating in room w/ family presence and FWW. R groin site C/D/I. CSMT's intact. Due for DC this afternoon. IV removed. Education and careplan completed. Family at bedside and reviewed AVS. Pt safely discharged to [facility] with al belongings. PLAN MOVING FORWARD: DC today Pain control INDIVIDUALIZED FALL PREVENTION INTERVENTIONS: Patient-specific fall risk factors per assessment: [current deficits]: Walker, hospital environment, intermittent lines/tubes Assistance [level of assistance required for transfers and ambulation]: Standby with FWW Supervision [direct monitoring required during toileting and ADLs]: Independent Surveillance [continuous indirect monitoring]: Masimo, frequent rounding, refused alarms Patient-specific fall prevention interventions for sensory deficits provided, if applicable: [X] N/A CPG GOAL OUTCOME EVALUATION: Problem: Pain Acute Goal: Acceptable Pain Control and Functional Ability Outcome: Outcome (s) achieved * Plan of Care - Adithya De Jesus RN - 12/19/2022 2:26 AM EDT OUTCOME EVALUATION NOTE: OUTCOME SUMMARY: Pt A&O x4. VSS within baseline on RA except BP. Pt's Bp was 94/55, MD notified and 500 ml bolusof LR administered with good result. Pt c/o pain in her back and leg, PRN oxycodone and tylenol given with good results. Pt refused to have SCDs on. No c/o nausea, chest pain, and SOB. VS done Q4h with pulse checks. Bed alarms on. Safety maintained. 06:30- pt coughed up scant amount of blood streak. notified. PLAN MOVING FORWARD: VS q4h Pulse check Q4h Pain management DC planning INDIVIDUALIZED FALL PREVENTION INTERVENTIONS: Patient-specific fall risk factors per assessment: [current deficits]: weakness, pain Assistance [level of assistance required for transfers and ambulation]: 1 assist with walker Supervision [direct monitoring required during toileting and ADLs]: eyes on Surveillance [continuous indirect monitoring]: [place] Patient-specific fall prevention interventions for sensory deficits provided, if applicable: [X] N/A CPG GOAL OUTCOME EVALUATION: Goal ongoing. * Consult Note - Agustin Harman, [facility] - 12/18/2022 8:24 PM EDT [facility] Home Medication List Update for Medication Reconciliation 12/18/22 8:24 PM Teresa Krystyna Reil 1960 Allergies Allergen Reactions Amoxicillin Trihydrate CIS - [...] Sulfa (Sulfonamide Antibiotics) Blisters on Feet Tramadol Person Interviewed: son Quality of Interview/accuracy of medication list: good Sources used to compile medication list: [x] Epic medication list [x] SureScripts [] PCP/Specialist list [] Retail pharmacy [] Patient list [] MAR [] Other Changes made to home medication list: Additions: none Deletions: none Changes: none Additional Notes: none Recommended changes: none The home medication list is now updated to the best of my knowledge and is ready to be reconciled by the provider. Please contact the TelePharmacy Medication Reconciliation Pharmacist at for any questions. Agustin Harman [facility] ; * Plan of Care - Maren Perez RN - 12/18/2022 6:54 PM EDT Pt admitted to [facility] from IR. Pt admitted for hemoptysis. A&Ox4. Pt had bronch done outpt on Wednesday, 12/14, unable to find bleeding. Pt had bronchial artery embolization via right groin today in IR. Right groin has gauze and tegaderm, clean/dry/intact. No signs of bleeding. Puncture site soft, marked pulses +2. Pt off bed rest at 1800. Pt ambulated to bathroom 1 assist with walker. Pt had been NPO all day. 0 - pt dry heaving. Provider notified, Zofran ordered. Regular diet ordered, pt yet to eat. * ED Triage - Magdalena Mcneil RN - 12/18/2022 8:40 AM EDT Pt brought in for coughing up blood that has been going on. Pt had bronchoscopy last week and they were unable to find where bleed was coming from but believe it is from patients right lung. PT has hx of CA and is done with radiation. Pt MD told her to come in if she were to cough up more than a tbsp. Pt states this AM she threw up a palm size amount of bright red blood with little clots in it. Pt states that was the time, no thinners. PT states is dizzy lightheaded documented in this encounter Plan of Treatment Upcoming Encounters Date Type Department Care Team (Late st Contact Info) Description 08/16/2024 11:30 AM EDT Office Visit Radiation Oncology at [address] [phone] Johnny Rollins MD [facility] [place] [address] documented as of this encounter Procedures Procedure Name Priority Date/Time Associated Diagnosis Comments HEMOGRAM Routine 12/19/2022 3:12 AM EDT DIFFERENTIAL, AUTOMATED Routine 12/19/2022 3:12 AM EDT CBC (WITH DIFF) Routine 12/19/2022 3:12 AM EDT PHOSPHORUS Routine 12/19/2022 3:12 AM EDT MAGNESIUM Routine 12/19/2022 3:12 AM EDT BASIC METABOLIC PANEL Routine 12/19/2022 3:12 AM EDT HEMOGLOBIN AND HEMATOCRIT, BLOOD Routine 12/18/2022 8:08 PM EDT IR ARTERIOGRAM/EMBOLIZATI ON - BRONCHIAL STAT 12/18/2022 1:06 PM EDT TYPE AND SCREEN VALIDITY STAT 12/18/2022 9:38 AM EDT ABORH RECHECK STATUS STAT 12/18/2022 9:38 AM EDT ABO/RH TYPING STAT 12/18/2022 9:38 AM EDT ANTIBODY SCREEN STAT 12/18/2022 9:38 AM EDT TYPE AND SCREEN ([facility]) STAT 12/18/2022 9:38 AM EDT HEMOGRAM STAT 12/18/2022 9:30 AM EDT DIFFERENTIAL, AUTOMATED STAT 12/18/2022 9:30 AM EDT PROTHROMBIN TIME STAT 12/18/2022 9:30 AM EDT CBC (WITH DIFF) STAT 12/18/2022 9:30 AM EDT COMPREHENSIVE METABOLIC PANEL STAT 12/18/2022 9:30 AM EDT EKG 12-LEAD STAT 12/18/2022 8:46 AM EDT documented in this encounter Results * Differential, Automated (12/19/2022 3:12 AM EDT) Neutrophil % 64.9 % [facility] Neutrophil Absolute 4.75 1.70 - 6.10 x10(3)/[facility] Lymph % 25.8 % [facility] Lymphocytes Abs 1.9 0.9 - 3.2 x10(3)/[facility] Monocyte % 7.5 % [facility] Monocyte Abs 0.6 0.3 - 0.9 x10(3)/[facility] Eos % 1.2 % [facility] Eosinophils Abs 0.1 0.0 - 0.4 x10(3)/[facility] Basophil % 0.3 % [facility] Baso Absolute 0.0 0.0 - 0.1 x10(3)/[facility] Immature Gran % 0.30 % [facility] Comment: Immature granulocytes(IG's)percentage and absolute count will include metamyelocytes, myelocytes, and promyelocytes. Blood smears from CBCs yielding IG's will be scanned manually for concordance. If this scan disagrees with the automated IG or if promyelocytes are noted, a manual differential will be performed. Immature Gran Absolute 0.02 0.00 - 0.04 x10(3)/[facility] Blood 12/19/2022 3:12 AM EDT 12/19/2022 3:21 AM EDT Narrative Resulting Agency Comment Spec In Lab Mehran Ojeda MD HEMATOLOGY ORDERABLE S [facility] [place] [address] * (ABNORMAL) Hemogram (12/19/2022 3:12 AM EDT) White Blood Cell 7.3 4.0 - 9.5 x10(3)/mc L [facility] Red Blood Cell 3.97(L) 4.00 - 5.21 x10(6)/mc L [facility] Hemoglobin 12.3 11.7 - 15.5 g/dL [facility] Hematocrit 36.3 35.7 - 45.8 % [facility] Mean Cell Volume 91.4 82.6 - 94.4 fL [facility] Mean Cell Hemoglobin 31.0 27.1 - 32.0 pg [facility] Mean Cell Hemoglobin Concentration 33.9 31.7 - 35.0 g/dL [facility] Platelet 237 145 - 357 x10(3)/mc L [facility] RDW Standard Deviation 43.3 37.0 - 46.0 fL [facility] RDW coefficient of variation 12.8 11.5 - 14.1 % [facility] Mean Platelet Volume 9.7 7.6 - 12.9 fL [facility] NRBC% auto 0.0 % [facility] NRBC Absolute 0.000 0.000 - 0.000 x10(3)/mc L [facility] Blood 12/19/2022 3:12 AM EDT 12/19/2022 3:21 AM EDT Narrative Resulting Agency Comment Spec In Lab Mehran Ojeda MD HEMATOLOGY ORDERABLE S Performing Organization Address City/[facility]/ZIP Co de Phone Number [facility] [place] [address] * Phosphorus (12/19/2022 3:12 AM EDT) Phosphorus 4.0 2.5 - 4.5 mg/dL [facility] Blood 12/19/2022 3:12 AM EDT 12/19/2022 3:21 AM EDT Narrative Resulting Agency Comment Spec In Lab Hortensia Pavon MD CHEMISTRY ORDERABLES [facility] [place] [address] * Magnesium (12/19/2022 3:12 AM EDT) Magnesium 0.89 0.69 - 1.07 mmol/L [facility] Blood 12/19/2022 3:12 AM EDT 12/19/2022 3:21 AM EDT Narrative Resulting Agency Comment Spec In Lab Hortensia Pavon MD CHEMISTRY ORDERABLES [facility] [place] [address] * Basic Metabolic Panel (non-fasting) (12/19/2022 3:12 AM EDT) Glucose 115 65 - 199 mg/dL [facility] Comment:Diabetes: >=200 mg/d L plus symptoms Blood Urea Nitrogen 11 8 - 18 mg/dL [facility] Creatinine 0.80 0.70 - 1.20 mg/dL [facility] Sodium 139 135 - 145 mmol/L [facility] Potassium 3.8 3.5 - 5.0 mmol/L [facility] Comment: Please note: ??Patients with WBC >100,000 may have falsely elevated Potassium levels. ??For accurate Potassium quantification in these patients send serum separator tube (gold top) for subsequent determinations. ??Contact the Clinical Chemistry Laboratory if there are any questions. Chloride 103 98 - 107 mmol/L [facility] Carbon Dioxide 28 22 - 31 mmol/L [facility] Anion Gap 8 5 - 15 mmol/L [facility] Calcium 9.1 8.5 - 10.5 mg/dL [facility] Est Glomerular Filtration Rate 82 >=60 mL/min/1. 73 m?? [facility] Comment: This patient's estimated GFR was calculated using the 2020 CKD-EPI equation. The estimated GFR can vary from the measured GFR by up to 30% in the absence of rapidly changing kidney function. Assessment of the estimated GFR is not appropriate when creatinine concentrations are rapidly changing. For clinical situations in which a more precise estimate of GFR is necessary, consider alternative methods of GFR estimation such as a 24-hour urine creatinine clearance. Assignment of CKD stage 1-5 for patients with an eGFR near the transition point between stages may be based on clinical assessment of muscle mass and symptoms in addition to eGFR. Blood 12/19/2022 3:12 AM EDT 12/19/2022 3:21 AM EDT Narrative Resulting Agency Comment Spec In Lab Hortensia Pavon MD CHEMISTRY ORDERABLES [facility] [place] [address] * Hemoglobin and Hematocrit, blood (12/18/2022 8:08 PM EDT) Hemoglobin 12.8 11.7 - 15.5 g/dL [facility] Hematocrit 36.7 35.7 - 45.8 % [facility] Blood 12/18/2022 8:08 PM EDT 12/18/2022 8:17 PM EDT Narrative Resulting Agency Comment Spec In Lab Hortensia Pavon MD HEMATOLOGY ORDERABLE S Performing Organization Address City/[facility] Co de Phone Number [facility] [place] [address] * IR Arteriogram/Embolization - Bronchial (12/18/2022 1:06 PM EDT) Anatomical Region Laterality Modality X-Ray Angiograph y Narrative 12/18/2022 3:14 PM EDT INTERVENTIONAL RADIOLOGY PROCEDURE NOTE Procedure: Right Intercostal Embolization Indication for Procedure: Hemoptysis. ??Right Lung Mass. ?? Informed Consent: After discussing risks (including infection, trauma / damage to surrounding structures, hemorrhage, non-success, amongst others), and benefits of the procedure, the patient consented to the procedure. Monitoring and Sedation Details: Due to the painful nature of the procedure, patient received split doses of intravenous fentanyl and versed from the IR nurse while pulse, pressure, end tidal CO2 parameters and oxygen saturation were continuously monitored. Procedure Events and Technique: A standard time-out was conducted just before the start of the procedure to verify all rios aspects; including the correct patient and planned procedure, procedure location, informed consent, and all relevant critical information, all of which were correct. The patient was positioned supine on the procedure table. ??The right groin was cleaned and prepped in typical sterile fashion; maximal sterile barrier technique was used throughout. ?? After sterile preparation, localization with ultrasound and fluoroscopy, and 7 cc 1% lidocaine SQ anesthesia, a 21 ga needle was advanced into the right common femoral artery. ??An .018 inch guidewire was placed, and over this a 4 Fr introducer advanced. ??The remainder of the procedure was performed under fluoroscopic guidance. Wire and inner dilator were removed and through this a .035 inch guidewire was advanced. ??A long 5 Fr sheath was placed. ??A 5 Fr Deana catheter was advanced, and fifth, sixth and seventh right intercostal arteries were selected and contrast studies performed. The left bronchial artery was selected ??and a contrast study was performed. A 5 Fr Omni flush catheter was exchanged and advanced over a guidewire to the aortic arch. During contrast injection digital subtraction angiography was performed. The 8th right intercostal artery was selected, and a contrast study was performed. ??Coaxially, a 3 Fr catheter was advanced over a .018 inch guidewire into the mid segment of the eighth right intercostal artery and a contrast study was performed. Embolization was performed to stasis with 500 micron Embozene particles. ??Microcatheter and wire were removed. Contrast study was performed. The 5-Fr catheter was removed. ??A guide wire was advanced into the abdominal aorta. The long 5 Fr sheath was exchanged for a short 5Fr sheath. Roadmap study of the right external iliac and common femoral artery was performed. ??Wire and sheath were removed and hemostasis obtained with twelve minutes of manual compression after failed deployment of a Mynx device. ??There was a small hematoma just distal to the access site which was soft and compressible. Medications: Fentanyl 150 mcg IV, Versed 2.5 mg IV, 1% Lidocaine <10 cc subcutaneous. Antibiotic Prophylaxis: None Contrast: 100 cc Omnipaque 350, intra-arterial. Fluoroscopic Time: 24 minutes, 131 mGray. Estimated Blood Loss: 50 cc. Complications: ??Small compressible right common femoral artery access site hematoma, without need for subsequent intervention. Normal peripheral pulses. No other immediate complications. Findings: Widely patent right [employer] No evidence of active extravasation. Patent and normal appearing left bronchial artery and right fifth, sixth, and seventh intercostal arteries. No right bronchial artery present. Tortuous tumor vascular collaterals arising from the mid-right eighth intercostal artery supplying the known lung tumor. Post-embolization selective right eighth intercostal arteriogram demonstrates no residual flow in the mid and distal artery or abnormal collaterals Impression: Embolization of right eighth intercostal artery and its abnormal collateral branches supplying known tumor. ?? No right bronchial artery. Resident/Fellow: Zi Delgado MD Attending: Dr. Burk I, Dr. Burk, was present throughout the procedure. I was present during the intraservice time as documented by the IR Nurse. ?? Primo Guzman MD IMG IR ORDERABLES * Type and Screen Validity (12/18/2022 9:38 AM EDT) [facility] T&S only valid at [facility] LABORATORY Comment:This Type and Screen result is only valid at the [facility] Blood 12/18/2022 9:38 AM EDT 12/18/2022 9:38 AM EDT Narrative Resulting Agency Comment Spec In Lab Primo Guzman MD BLOOD BANK LAB ORDER TEETEE [facility] [place] [id number] * ABORH Recheck Status (12/18/2022 9:38 AM EDT) [facility] ABORH Recheck Order Order Placed [facility] ABORH Type Recheck Complete [facility] Blood 12/18/2022 9:38 AM EDT 12/18/2022 9:38 AM EDT Narrative Resulting Agency Comment Spec In Lab Primo Guzman MD BLOOD BANK LAB ORDER TEETEE [facility] [place] [address] * Antibody screen (12/18/2022 9:38 AM EDT) [facility] Ab Screen Interp Negative [facility] Expires at [id number] on: 12/21/2022 [facility] Blood 12/18/2022 9:38 AM EDT 12/18/2022 9:38 AM EDT Narrative Resulting Agency Comment Spec In Lab Primo Guzman MD BLOOD BANK LAB ORDER TEETEE Performing Organization Address City/[facility]/ZIP Co de Phone Number [facility] [place] [address] * ABO/Rh Typing (12/18/2022 9:38 AM EDT) ABORH Type O Neg [facility] Blood 12/18/2022 9:38 AM EDT 12/18/2022 9:38 AM EDT Narrative Resulting Agency Comment Spec In Lab Primo Guzman MD BLOOD BANK LAB ORDER TEETEE Performing Organization Address City/[facility] Co de Phone Number [facility] [place] [address] * Differential, Automated (12/18/2022 9:30 AM EDT) Neutrophil % 68.3 % [facility] Neutrophil Absolute 4.79 1.70 - 6.10 x10(3)/[facility] LABORAT[facility] Lymph % 22.6 % [facility] Lymphocytes Abs 1.6 0.9 - 3.2 x10(3)/[facility] Monocyte % 6.7 % [facility] Monocyte Abs 0.5 0.3 - 0.9 x10(3)/[facility] Eos % 1.7 % [facility] Eosinophils Abs 0.1 0.0 - 0.4 x10(3)/[facility] Basophil % 0.4 % [facility] Baso Absolute 0.0 0.0 - 0.1 x10(3)/[facility] Immature Gran % 0.30 % [facility] Comment: Immature granulocytes(IG's)percentage and absolute count will include metamyelocytes, myelocytes, and promyelocytes. Blood smears from CBCs yielding IG's will be scanned manually for concordance. If this scan disagrees with the automated IG or if promyelocytes are noted, a manual differential will be performed. Immature Gran Absolute 0.02 0.00 - 0.04 x10(3)/[facility] Blood 12/18/2022 9:30 AM EDT 12/18/2022 9:39 AM EDT Narrative Resulting Agency Comment Spec In Lab Primo uGzman MD HEMATOLOGY ORDERABLE S Performing Organization Address City/[facility] Co de Phone Number [facility] [place] [address] * Hemogram (12/18/2022 9:30 AM EDT) White Blood Cell 7.0 4.0 - 9.5 x10(3)/[facility] Red Blood Cell 4.16 4.00 - 5.21 x10(6)/[facility] Hemoglobin 13.0 11.7 - 15.5 g/dL [facility] Hematocrit 37.7 35.7 - 45.8 % [facility] Mean Cell Volume 90.6 82.6 - 94.4 fL [facility] Mean Cell Hemoglobin 31.3 27.1 - 32.0 pg [facility] Mean Cell Hemoglobin Concentration 34.5 31.7 - 35.0 g/dL [facility] Platelet 243 145 - 357 x10(3)/[facility] RDW Standard Deviation 43.1 37.0 - 46.0 fL [facility] RDW coefficient of variation 12.9 11.5 - 14.1 % [facility] Mean Platelet Volume 9.9 7.6 - 12.9 fL [facility] NRBC% auto 0.0 % [facility] NRBC Absolute 0.000 0.000 - 0.000 x10(3)/[facility] Blood 12/18/2022 9:30 AM EDT 12/18/2022 9:39 AM EDT Narrative Resulting Agency Comment Spec In Lab Primo Guzman MD HEMATOLOGY ORDERABLE S Performing Organization Address City/[facility]/ZIP Co de Phone Number [facility] [place] [address] * Prothrombin Time (12/18/2022 9:30 AM EDT) Prothrombin Time 11.1 9.4 - 12.5 sec [facility] International Normalization Ratio 1.0 [facility] Comment: An INR <2.0 indicates adequate procoagulant activity for hemostasis in most patients without underlying bleeding disorders, though the INR may not adequately reflect hemostatic capacity in patients with liver disease and synthetic impairment. The recommended target INR range for therapeutic anticoagulation is 2.0 ? 3.0 for most applications, though lower and higher ranges may be appropriate depending on clinical circumstances. Blood 12/18/2022 9:30 AM EDT 12/18/2022 9:39 AM EDT Narrative Resulting Agency Comment Spec In Lab Primo Guzman MD HEMATOLOGY ORDERABLE S [facility] [place] [address] * (ABNORMAL) Comprehensive metabolic panel (non-fasting) (12/18/2022 9:30 AM EDT) Glucose 101 65 - 199 mg/dL [facility] Comment:Diabetes: >=200 mg/d L plus symptoms Blood Urea Nitrogen 12 8 - 18 mg/dL [facility] Creatinine 0.67(L) 0.70 - 1.20 mg/dL [facility] Sodium 141 135 - 145 mmol/L [facility] Potassium 3.5 3.5 - 5.0 mmol/L [facility] Comment: Please note: ??Patients with WBC >100,000 may have falsely elevated Potassium levels. ??For accurate Potassium quantification in these patients send serum separator tube (gold top) for subsequent determinations. ??Contact the Clinical Chemistry Laboratory if there are any questions. Chloride 105 98 - 107 mmol/L [facility] Carbon Dioxide 26 22 - 31 mmol/L [facility] Anion Gap 10 5 - 15 mmol/L [facility] Calcium 9.2 8.5 - 10.5 mg/dL [facility] Protein, Total 6.3 6.1 - 8.0 g/dL [facility] Albumin 4.1 3.2 - 5.2 g/dL [facility] Aspartate Aminotransferase 13 0 - 30 unit/L [facility] Alanine Aminotransferase 10 0 - 30 unit/L [facility] Alkaline Phosphatase 77 35 - 105 unit/L [facility] Bilirubin, Total 0.5 0.2 - 1.3 mg/dL [facility] Est Glomerular Filtration Rate 98 >=60 mL/min/1. 73 m?? [facility] Comment: This patient's estimated GFR was calculated using the 2020 CKD-EPI equation. The estimated GFR can vary from the measured GFR by up to 30% in the absence of rapidly changing kidney function. Assessment of the estimated GFR is not appropriate when creatinine concentrations are rapidly changing. For clinical situations in which a more precise estimate of GFR is necessary, consider alternative methods of GFR estimation such as a 24-hour urine creatinine clearance. Assignment of CKD stage 1-5 for patients with an eGFR near the transition point between stages may be based on clinical assessment of muscle mass and symptoms in addition to eGFR. Blood 12/18/2022 9:30 AM EDT 12/18/2022 9:39 AM EDT Narrative Resulting Agency Comment Spec In Lab Primo Guzman MD CHEMISTRY ORDERABLES Performing Organization Address City/[facility] Co de Phone Number [facility] [place] [address] * EKG 12 Lead (12/18/2022 8:46 AM EDT) Ventricular rate 79 BPM MUSE SYSTEM Atrial Rate 79 BPM MUSE SYSTEM P-R Interval 130 ms MUSE SYSTEM QRS Duration 72 ms MUSE SYSTEM Q-T Interval 384 ms MUSE SYSTEM QTC Calculated (Bezet) 440 ms MUSE SYSTEM Calculated P Grampian 79 degrees MUSE SYSTEM Calculated R Grampian 65 degrees MUSE SYSTEM Calculated T Grampian 77 degrees MUSE SYSTEM INTERPRETATION Sinus rhythm with frequent Premature ventricular complexes Otherwise normal ECG No previous ECGs available Confirmed by fellow Hany Feilz ([id number]) on 12/18/2022 5:06:26 PM Confirmed by MD Rian, Stewart ([id number]) on 12/21/2022 6:31:51 AM MUSE SYSTEM 12/18/2022 8:46 AM EDT 12/21/2022 6:31 AM EDT Primo Guzman MD ECG ORDERABLES Performing Organization Address City/[facility]/ZIP Co de Phone Number MUSE SYSTEM documented in this encounter Visit Diagnoses Diagnosis Hemoptysis- Primary Hemoptysis, unspecified Cough with hemoptysis Other hemoptysis documented in this encounter Admitting Diagnoses Diagnosis Hemoptysis Hemoptysis, unspecified documented in this encounter Administered Medications Inactive Administered Medications - up to 3 most recent administrations Medication Order MAR Action Action Date Dose Rate Site acetaminophen (Tylenol) tablet 975 mg 975 mg, Oral, EVERY 6 HOURS PRN, Starting on Wed12/18/22 at 1453, Until Wed12/19/22 at 1406, Pain, Maximum dose of acetaminophen is 4,000 mg from all sources in 24 hours. When ordered for pain, acetaminophen should be given even when other ordered pain medications are indicated. , Routine Given 12/19/2022 11:25 AM EDT 975 mg Given 12/18/2022 10:55 PM EDT 975 mg fentaNYL (pf) (50 mcg/mL) multi-dose injection 25-50 mcg 25-50 mcg, Intravenous, EVERY 3 MIN PRN, Starting on Wed12/18/22 at 1100, Until Wed12/18/22 at 1532, Pain, per unit protocol, For use in Interventional Radiology (IR) only for procedural sedation with direct provider supervision and verbal order. - Start dose: 50 mcg (reduce dose to 25 mcg if history of sedation sensitivity). - Titration dose: 25-50 mcg IV, (based on patient response) every 3 minutes PRN to maintain procedural pain less than 2 per Pain Scale. Maximum dose: 50 mcg/dose, 250 mcg/hour, Angio/IR (Intra-Procedure), Routine Given 12/18/2022 1:06 PM EDT 25 mcg Given 12/18/2022 12:46 PM EDT 25 mcg Given 12/18/2022 12:30 PM EDT 25 mcg iohexoL (Omnipaque) (350 mg/mL) solution 150 mL 150 mL, Intra-arterial, ONCE PRN, 1 dose, Starting on Wed12/18/22 at 1301, Until Wed12/18/22 at 1301, Per Protocol, Warning Vesicant/Irritant Medication , Angio/IR (Intra-Procedure), Routine Given 12/18/2022 1:01 PM EDT 100 mLs ipratropium-albuteroL (Duoneb) 0.5 mg-3 mg(2.5 mg base)/3 mL nebulizer solution 3 mL 3 mL, Nebulization, EVERY 4 HOURS PRN, Starting on Wed12/18/22 at 2015, Until 12/19/22 at 1406, Wheezing, Routine lactated Ringers 500 mL IV bolus at 500 mL/hr, Intravenous, ONCE, 1 dose, On 12/19/22 at 0045 New Bag 12/19/2022 12:02 AM EDT 5 00 mL/hr lidocaine (Xylocaine) 1% (10 mg/mL) injection 10 mg 10 mg, Subcutaneous, ONCE, 1 dose, On Wed12/18/22 at 1102, For use in Interventional Radiology (IR) only for procedure with direct provider supervision and verbal order., Angio/IR (Intra-Procedure), Routine Given 12/18/2022 11:49 AM EDT 10 mg lidocaine (Xylocaine) 1% (10 mg/mL) injection 3 mg 3 mg (0.3 mL), Subcutaneous, ONCE PRN, 1 dose, Starting on Wed12/18/22 at 0913, Until 12/19/22 at 1406, for discomfort with PIV insertion, Routine midazolam (pf) (Versed) (1 mg/mL) multi-dose injection 0.5-1 mg 0.5-1 mg, Intravenous, EVERY 3 MIN PRN, Starting on Wed12/18/22 at 1100, Until Wed12/18/22 at 1532, Sedation, For use in Interventional Radiology (IR) only for procedural sedation with direct provider supervision and verbal order. - Start dose: 1 mg (Reduce dose to 0.5 mg if history of sedation sensitivity). - Titration dose: 0.5 mg - 1 mg (based on patient response) every 3 minutes PRN to obtain RASS score of -3. Maximum dose: 1 mg/dose, 5 mg/hour., Angio/IR (Intra-Procedure), Routine Given 12/18/2022 12:47 PM EDT 0.5 mg Given 12/18/2022 12:07 PM EDT 0.5 mg Given 12/18/2022 11:58 AM EDT 0.5 mg ondansetron (pf) (Zofran) (2 mg/mL) injection 4 mg 4 mg, Intravenous, EVERY 8 HOURS PRN, Starting on Wed12/18/22 at 1851, Until 12/19/22 at 1406, Nausea, Vomiting, If she can't tolerate PO Given 12/18/2022 7:01 PM EDT 4 mg ondansetron ODT (Zofran-ODT) disintegrating tablet 4 mg 4 mg, Oral, EVERY 8 HOURS PRN, Starting on Wed12/18/22 at 1851, Until 12/19/22 at 1406, Nausea, Routine oxyCODONE (Roxicodone) tablet 2.5 mg 2.5 mg, Oral, EVERY 6 HOURS PRN, Starting on Wed12/18/22 at 1453, Until 12/19/22 at 1406, Pain, for pain uncontrolledc by tylenol, Routine Given 12/18/2022 7:33 PM EDT 2.5 mg sodium chloride 0.9 % (flush) (BD PosiFlush Normal Saline 0.9) flush 5 mL 5 mL, Intravenous, 2 TIMES DAILY, First dose on Wed12/18/22 at 0915, Until Discontinued, Routine Given 12/19/2022 9:08 AM EDT 5 mLs Given 12/18/2022 9:32 AM EDT 5 mLs sodium chloride 0.9 % (flush) (BD PosiFlush Normal Saline 0.9) flush 5 mL 5 mL, Intravenous, 2 TIMES DAILY, First dose on Wed12/18/22 at 2100, Until Discontinued, Routine Given 12/19/2022 9:08 AM EDT 5 mLs Given 12/18/2022 9:18 PM EDT 5 mLs sodium chloride 0.9 % (flush) (BD PosiFlush Normal Saline 0.9) flush 5-20 mL 5-20 mL, Intravenous, EVERY 1 MIN PRN, Starting on Wed12/18/22 at 0913, Until 12/19/22 at 1406, flush, Flush pertains to all indwelling lines. Flush per protocol found in the job aid using the link provided on this medication record., Routine documented in this encounter Active and Recently Administered Medications Times are shown in EDT. Scheduled Medication Order 12/17/2022 12/18/2022 12/19/2022 lactated Ringers 500 mL IV bolus (COMPLETED) at 500 mL/hr, Intravenous, ONCE, 1 dose, On 12/19/22 at 0045 0002 (New Bag - Provider: Adithya De Jesus RN)0102 (Stopped - Provider: Adithya De Jesus RN) lidocaine (Xylocaine) 1% (10 mg/mL) injection 10 mg (COMPLETED) 10 mg, Subcutaneous, ONCE, 1 dose, On Wed12/18/22 at 1102, For use in Interventional Radiology (IR) only for procedure with direct provider supervision and verbal order., Angio/IR (Intra-Procedure), Routine 1149 (Given - Provider: Zi Delgado MD - Comment: right groin 10cc on sterile field for MD ot use at thier discretion) sodium chloride 0.9 % (flush) (BD PosiFlush Normal Saline 0.9) flush 5 mL 5 mL, Intravenous, 2 TIMES DAILY, First dose on Wed12/18/22 at 0915, Until Discontinued, Routine 0932 (Given - Provider: Kayley Osman RN)2100 (Not Given - Provider: Adithya De Jesus RN - Reason: See comment - Comment: only 1 iv) 0908 (Given - Provider: Melissa Pollard RN) sodium chloride 0.9 % (flush) (BD PosiFlush Normal Saline 0.9) flush 5 mL 5 mL, Intravenous, 2 TIMES DAILY, First dose on Wed12/18/22 at 2100, Until Discontinued, Routine 2117 (Given - Provider: Adithya De Jesus RN) 0908 (Given - Provider: Melissa Pollard RN) PRN Medication Order 12/17/2022 12/18/2022 12/19/2022 acetaminophen (Tylenol) tablet 975 mg 975 mg, Oral, EVERY 6 HOURS PRN, Starting on Wed12/18/22 at 1453, Until 12/19/22 at 1406, Pain, Maximum dose of acetaminophen is 4,000 mg from all sources in 24 hours. When ordered for pain, acetaminophen should be given even when other ordered pain medications are indicated. , Routine 1810 (Not Given - Provider: Maren Perez RN - Reason: Patient/family refused - Comment: Pulled to give to pt, pt refused)1932 (Not Given - Provider: Adithya De Jesus RN - Reason: Patient/family refused)2255 (Given - Provider: Adithya De Jesus RN) 1125 (Given - Provider: Melissa A Pollard, RN) fentaNYL (pf) (50 mcg/mL) multi-dose injection 25-50 mcg (CANCELED) 25-50 mcg, Intravenous, EVERY 3 MIN PRN, Starting on Wed12/18/22 at 1100, Until Wed12/18/22 at 1532, Pain, per unit protocol, For use in Interventional Radiology (IR) only for procedural sedation with direct provider supervision and verbal order. - Start dose: 50 mcg (reduce dose to 25 mcg if history of sedation sensitivity). - Titration dose: 25-50 mcg IV, (based on patient response) every 3 minutes PRN to maintain procedural pain less than 2 per Pain Scale. Maximum dose: 50 mcg/dose, 250 mcg/hour, Angio/IR (Intra-Procedure), Routine 1142 (Given - Provider: Roque Clemente RN)1158 (Given - Provider: Roque Clemente RN)1206 (Given - Provider: Roque Clemente, RN)1230 (Given - Provider: Roque Clemente, RN)1246 (Given - Provider: Roque Clemente RN)1306 (Given - Provider: Roque Clemente RN - Comment: resident holding pressure on groin) iohexoL (Omnipaque) (350 mg/mL) solution 150 mL (COMPLETED) 150 mL, Intra-arterial, ONCE PRN, 1 dose, Starting on Wed12/18/22 at 1301, Until Wed12/18/22 at 1301, Per Protocol, Warning Vesicant/Irritant Medication , Angio/IR (Intra-Procedure), Routine 1301 (Given - Provider: Margaret Trejo) ipratropium-albuteroL (Duoneb) 0.5 mg-3 mg(2.5 mg base)/3 mL nebulizer solution 3 mL 3 mL, Nebulization, EVERY 4 HOURS PRN, Starting on Wed12/18/22 at 2015, Until 12/19/22 at 1406, Wheezing, Routine lidocaine (Xylocaine) 1% (10 mg/mL) injection 3 mg 3 mg (0.3 mL), Subcutaneous, ONCE PRN, 1 dose, Starting on Wed12/18/22 at 0913, Until 12/19/22 at 1406, for discomfort with PIV insertion, Routine lidocaine (Xylocaine) 1% (10 mg/mL) injection 3 mg 3 mg (0.3 mL), Subcutaneous, ONCE PRN, 1 dose, Starting on Wed12/18/22 at 1539, Until 12/19/22 at 1406, for discomfort with PIV insertion, Routine midazolam (pf) (Versed) (1 mg/mL) multi-dose injection 0.5-1 mg (CANCELED) 0.5-1 mg, Intravenous, EVERY 3 MIN PRN, Starting on Wed12/18/22 at 1100, Until Wed12/18/22 at 1532, Sedation, For use in Interventional Radiology (IR) only for procedural sedation with direct provider supervision and verbal order. - Start dose: 1 mg (Reduce dose to 0.5 mg if history of sedation sensitivity). - Titration dose: 0.5 mg - 1 mg (based on patient response) every 3 minutes PRN to obtain RASS score of -3. Maximum dose: 1 mg/dose, 5 mg/hour., Angio/IR (Intra-Procedure), Routine 1142 (Given - Provider: Roque Clemente RN)1158 (Given - Provider: Roque Clemente RN)1207 (Given - Provider: Roque Clemente, GREG)1247 (Given - Provider: Roque Clemente, GREG) ondansetron (pf) (Zofran) (2 mg/mL) injection 4 mg(Linked Group 1) 4 mg, Intravenous, EVERY 8 HOURS PRN, Starting on Wed12/18/22 at 1851, Until 12/19/22 at 1406, Nausea, Vomiting, If she can't tolerate PO 1901 (Given - Provider: Maren Perez, GREG) ondansetron ODT (Zofran-ODT) disintegrating tablet 4 mg(Linked Group 1) 4 mg, Oral, EVERY 8 HOURS PRN, Starting on Wed12/18/22 at 1851, Until 12/19/22 at 1406, Nausea, Routine 190 (See Alternative - Provider: Maren Perez, GREG) oxyCODONE (Roxicodone) tablet 2.5 mg 2.5 mg, Oral, EVERY 6 HOURS PRN, Starting on Wed12/18/22 at 1453, Until 12/19/22 at 1406, Pain, for pain uncontrolledc by tylenol, Routine 181 (Not Given - Provider: Maren Perez RN - Reason: Patient/family refused - Comment: Pulled to give to pt, pt refused)1932 (Given - Provider: Adithya De Jesus RN) sodium chloride 0.9 % (flush) (BD PosiFlush Normal Saline 0.9) flush 5-20 mL 5-20 mL, Intravenous, EVERY 1 MIN PRN, Starting on Wed12/18/22 at 0913, Until 12/19/22 at 1406, flush, Flush pertains to all indwelling lines. Flush per protocol found in the job aid using the link provided on this medication record., Routine sodium chloride 0.9 % (flush) (BD PosiFlush Normal Saline 0.9) flush 5-20 mL 5-20 mL, Intravenous, EVERY 1 MIN PRN, Starting on Wed12/18/22 at 1539, Until 12/19/22 at 1406, flush, Flush pertains to all indwelling lines. Flush per protocol found in the job aid using the link provided on this medication record., Routine Linked Groups Order Group 1: ondansetron ODT (Zofran-ODT) disintegrating tablet 4 mgJump to med 4 mg, Oral, EVERY 8 HOURS PRN, Starting on Wed12/18/22 at 1851, Until 12/19/22 at 1406, Nausea, Routine Or ondansetron (pf) (Zofran) (2 mg/mL) injection 4 mgJump to med 4 mg, Intravenous, EVERY 8 HOURS PRN, Starting on Wed12/18/22 at 1851, Until 12/19/22 at 1406, Nausea, Vomiting, If she can't tolerate PO documented in this encounter Care Teams Marble Cleaner Relationship Specialty Start Date End Date Rylee Olmos, BREAKER TABLE WORKER [facility] [place] [address] PCP - General Family Medicine 05/18/22 documented as of this encounter
--- OUTSIDE RECORDS SUMMARY | 2024-04-20 14:26 | XMS_ITS | Encounter Summary ---
Author Organization [facility] Address [facility] [place] [address] Care Team Providers Care Roll Up Helper Name Role Phone Rylee Olmos APRN Primary Care Provider Encounter Details Date Type Department Care Team (Late st Contact Info) Description 12/15/2023 Interpretation Only Radiology Library at [facility] [place] [address] Rylee Olmos APRN [address], [place] [id number] Social History Tobacco Use Types Packs/Day Years [...] AM EDT Office Visit Radiation Oncology at [address] [phone] Johnny Rollins MD [facility] [place] [address] documented as of this encounter Procedures Procedure Name Priority Date/Time Associated Diagnosis Comments FILM LIBRARY STORAGE ONLY CT CHEST Routine 12/15/2023 10:20 AM EDT documented in this encounter Results * Film Library- Storage Only CT Chest (12/15/2023 10:20 AM EDT) 12/16/2023 3:08 PM EDT Narrative RAD - 12/16/2023 3:08 PM EDT This exam is auto-finalizing. It's purpose is for storage only. Rylee Olmos APRN IMG FILM LIBRARY ORD ERABLES [place], [place] documented in this encounter Visit Diagnoses Not on filedocumented in this encounter Care Teams Roll Up Helper Relationship Specialty Start Date End Date Rylee Olmos, [place] [address] PCP - General Family Medicine 05/18/22 documented as of this encounter
--- OUTSIDE RECORDS SUMMARY | 2024-04-20 14:26 | XMS_ITS | Encounter Summary ---
Author Organization [facility] [place] [address] Care Team Providers Care Lawn Mower Operator Name Role Phone Rylee Olmos Krystyna FLAHERTY Primary Care Provider [phone] Encounter Details Date Type Department Care Team (Latest Contact Info) Description 12/18/2022 Travel Social History Tobacco Use Types Packs/Day [...] AM EDT Office Visit Radiation Oncology at [address] [phone] Johnny Rollins MD [facility] [place] [address] documented as of this encounter Visit Diagnoses Not on filedocumented in this encounter Care Teams Lawn Mower Operator Relationship Specialty Start Date End Date Rylee Olmos [place] [address] PCP - General Family Medicine 05/18/22 documented as of this encounter
--- OUTSIDE RECORDS SUMMARY | 2024-04-20 14:26 | XMS_ITS | Encounter Summary ---
Author Organization [facility] [place] [address] Care Team Providers Care Snaker Tractor Driver Name Role Phone Rylee Olmos Krystyna FLAHERTY Primary Care Provider Encounter Details Date Type Department Care Team (Late st Contact Info) Description 07/20/2023 Orders Only [place] [address] Johnny Rollins MD [facility] [place] [address] Primary malignant neoplasm of right lower lobe [...] place to sleep or slept in a group home (including now)? No 08/12/2022 DH IPV [...] EDT Office Visit Radiation Oncology at [address] [phone] Johnny Rollins MD [facility] [place] [address] documented as of this encounter Visit Diagnoses Diagnosis Primary malignant neoplasm of right lower lobe of lung Malignant neoplasm of lower lobe, bronchus, or lung documented in this encounter Care Teams Snaker Tractor Driver Relationship Specialty Start Date End Date Rylee Olmos, PLATEN PRESS OPERATOR [place] [address] PCP - General Family Medicine 05/18/22 documented as of this encounter
--- OUTSIDE RECORDS SUMMARY | 2024-04-20 14:26 | XMS_ITS | Encounter Summary ---
Author Organization [facility] Address [facility] [place] [address] Care Team Providers Care Piano Assembler Name Role Phone NickolasRylee Krystyna FLAHERTY Primary Care Provider Encounter Details Date Type Department Care Team (Late st Contact Info) Description 12/31/2022 Telephone [place] [phone] Cameron Muñoz MD [facility] [place] [address] Social History Tobacco Use Types Packs/Day Years [...] in a fpc (including now)? No 08/12/2022 DH IPV Inpatient [...] encounter Miscellaneous Notes * Telephone Encounter - Cameron Muñoz MD - 12/31/2022 10:23 AM EDT Interventional Pulmonology Telephone Encounter: I called Ms. Teresa Guzman on 12/31/2022 at 10:23 AM. 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 She tells me she coughedup about a teaspoon of bright red blood once yesterday evening and once this morning. The last time she saw blood in her sputum was around 5AM today. She tells me yesterday she had worsening dyspnea which she attributed to air quality from smoke and this dyspnea has persisted into today. She is still expectorating sputum currently which is non-bloody and described as clear (and perhaps intermittent streaks of blood). At this point in time the bleeding is small/stable and she does not need to return for urgent bronchial artery embolization. I told Mr. Guzman that there's a relatively high likelihood she may need repeat MELANIE and it's a matter of timing. She knows to present to our ED immediately if breathing worsensand bleeding increases in frequency/volume. She will call us immediately if she otherwise feels stable but she notices recurrent hemoptysis through today. Assuming hemoptysis does not recur today, I will have our nurse call her tomorrow to check in. Cameron Muñoz MD, 12/31/2022, 10:23 AM Interventional Pulmonology Section of Pulmonary & Critical Care Pager: [phone] documented in this encounter Plan of Treatment Upcoming Encounters Date Type Department Care Team (Late st Contact Info) Description 08/16/2024 11:30 AM EDT Office Visit Radiation Oncology at [address] [phone] Johnny Rollins MD [facility] [place] [address] documented as of this encounter Visit Diagnoses Not on filedocumented in this encounter Care Teams Piano Assembler Relationship Specialty Start Date End Date Rylee Olmos, KRYSTINA [address] [place] [address] PCP - General Family Medicine 05/18/22 documented as of this encounter
--- OUTSIDE RECORDS SUMMARY | 2024-04-20 14:26 | XMS_ITS | Encounter Summary ---
Author Organization [facility] Address [facility] [address] Care Team Providers Care Environmental Journalist Name Role Phone Rylee Olmos Krystyna FLAHERTY Primary Care Provider Reason for Referral * Diagnostic Test (Routine) - Authorized Specialty Diagnoses / Procedures Referred By Noa bullock Referred To Contact Radiology Diagnoses Primary malignant neoplasm of right lower lobe of lung Procedures CT Chest w Contrast Johnny Rollins MD [facility] [place] [address] Referral ID Status Reason Start Date Expiration Date Visits Requested Visits Authorized [id number] Authorized Specialty Service Requested 08/18/2023 02/17/2025 1 1 Encounter Details Date Type Department Care Team (Late st Contact Info) Description 08/18/2023 1:00 PM EDT Office Visit Radiation Oncology at [address] [phone] Johnny Rollins MD [facility] [place] [address] Primary malignant neoplasm of right lower lobe [...] Sign Reading Time Taken Comments Blood Pressure 143/90 08/18/2023 1:18 PM EDT Pulse 111 08/18/2023 1:18 PM EDT Temperature 36.4 ??C (97.5 ??F) 08/18/2023 1 :18 PM EDT Respiratory Rate 18 08/18/2023 1:18 PM EDT Oxygen Saturation 100% 08/18/2023 1:1 8 PM EDT Inhaled Oxygen Concentration - - Weight 55.1 kg (121 lb 6.4 oz) 08/18/19 24 1:18 PM EDT with shoes Height - - Body Mass Index 23.71 04/14/2023 1:01 PM EST documented in this encounter Progress Notes * Johnny Rollins MD - 08/18/2023 1:00 PM EDT Images from the original note were not included. 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 female who underwent lung cancer screening at [facility] on 05/08/22. Imaging was compared to CT [...] completion: ~11 months Post Tx Presented to [facility] ED on 12/03/22 with complaints of hemoptysis [...] No new pulmonary nodules. CT Chest 08/06/23: Other Concerns: Currently, she has the following symptoms: Symptom Description Intervention Pain No chest pain. Lower back is painful, stable. 650mg tylenol 2-3x per day; Dyspnea Recent [...] 1/ 2 ppd or less. Distance from [facility] ~ 45 minutes Other I have personally reviewed the imaging studies referenced above. Review of Systems: I reviewed and agree with the nursing review of systems accompanying this encounter. The remainder of the comprehensive review of systems was negative with the exception of the pertinent positives and negatives noted above. Medications and Allergies: Current Outpatient Medications: nf-[id number]-qum-iron fm-FA-vitK (One-A-Day Women's Complete) 18 mg-400 mcg- 25 mcg Tablet, Take 1 tablet by mouth daily., Disp: , Rfl: cyanocobalamin, vitamin B-12, (VITAMIN B12 ORAL), Take [...] into the muscle once., Disp: , Rfl: oxyCODONE (Roxicodone) 5 mg tablet, Take 1 tablet by mouth as needed for Pain (Use a 1/2 hour priorto radiation therapy and as needed). (Patient not taking: Reported on 08/18/2023), Disp: 30 tablet, Rfl: 0 Allergies Allergen Reactions Amoxicillin Trihydrate CIS - [...] 24 hrs: Temp Pulse Resp BP SpO2 08/18/23 1318 36.4 ??C (97.5 ??F) (!) 111 18 143/90 100 % Physical Exam Constitutional: Appearance: She is [...] demonstrates continued response and no new nodules/masses. Follow-up: [address] without contrast. She prefers [place]. Thank you for allowing me to participate in the care of Teresa Guzman. -Johnny Rollins MD, PhD No orders of the defined types were placed in this encounter. The following information is automatically imported from [facility]. It has been reviewed, and pertinent [...] Hx Macular Degeneration Neg Hx National [facility] [place] (NCI) [facility] [employer] on Cancer ([employer]) Accredited Cancer Program [employer] ([employer]) Accredited Radiation Oncology Program documented in this encounter Plan of Treatment Upcoming Encounters Date Type Department Care Team (Late st Contact Info) Description 08/16/2024 11:30 AM EDT Office Visit Radiation Oncology at [address] [phone] Johnny Rollins MD [facility] [place] [address] Scheduled Orders Name Type Priority Associated Diagnoses Orde r Schedule Creatinine Lab Routine Primary malignant 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
--- OUTSIDE RECORDS SUMMARY | 2024-04-20 14:27 | XMS_ITS | Encounter Summary ---
Author Organization [facility] Address [place] [address] Care Team Providers Care Advocacy Director Name Role Phone Rylee Olmos Krystyna FLAHERTY Primary Care Provider [phone] Reason for Visit * Consultation (Routine) - Closed Specialty Diagnoses / Procedures Referred By Noa bullock Referred To Contact Radiation Oncology Diagnoses Primary malignant neoplasm of right lower lobe of lung Procedures Simulation for Radiation Therapy Planning Johnny Rollins MD [facility] [place] [address] Stj Rad Onc Office [address] [place] [phone] Referral ID Status Reason Start Date Expiration Date V isits Requested Visits Authorized [id number] Closed Consult, Test & Treat 08/12/2022 08/12/2023 1 1 Encounter Details Date Type Department Care Team (Late st Contact Info) Description 08/19/2022 4:00 PM EDT Ancillary Appointment Radiation Oncology at [address] [phone] Johnny Rollins MD [facility] [place] [address] Social History Tobacco Use Types Packs/Day Years [...] place to sleep or slept in a long term (including now)? No 08/12/2022 Sex and Gender Information Value Date Recorded Sex Assigned at Not on file Gender Identity Not on file Sexual Orientation Not on file documented as of this encounter Last Filed Vital Signs Vital Sign Reading Time Taken Comments Blood Pressure 147/71 08/19/2022 4:43 PM EDT Pulse 91 08/19/2022 4:43 PM EDT Temperature 37.1 ??C (98.8 ??F) 08/19/2022 3:33 PM ED T Respiratory Rate 18 08/19/2022 3:33 PM EDT Oxygen Saturation 96% 08/19/2022 3:33 PM EDT Inhaled Oxygen Concentration - - Weight - - Height - - Body Mass Index - - documented in this encounter Patient Instructions * Patient Instructions* Chana Arndt RN - 08/19/2022 4:00 PM EDT General instructions for Radiation therapy Radiation Oncology Team Radiation Oncologist -The doctor who will direct all aspects of your radiation treatments Nurse Practitioner - They assist your doctor in treating your side effects and with follow up appointments. Registered Nurse - They keegan you in learining about you radaiton treatments, , and things you can do to help manage the side effects. Rail Splitter - They take the doctors radiation prescription and customize it into doses (or days of treatments) specific for you. Physicist - They make sure all the machines are operating correctly and double check calculations for your treatment. Radiation Technologists - They operate the machines which deliver your radiation. You see them daily and they schedule your treatments. Simulation CT/ Planning Session- Your first step after deciding to start radiation treatments is done on a special CT scanner in radiation oncolcgy. The images obtained are used to plan your treatments. This may be scheduled the same day you meet your doctor or in a separate visit. This usually takes between 30 minutes to one hour. You may need an IV for contrast. If so our nurse will let you know that day along with any other special instructions. During this visit we may anjali Your skin with a tiny ???tattoos?? , take pictures or make special molds or masks to help us place you in the exact treatment position every day. After this session it takes up to two weeks for your plan to be developed and checked by your doctor, the dosimetrists and the physicist. Skin Care - You will be seen prior to each treatment by nursing and then a doctor to check in to see how you are doing. Your nurse/physician will provide you with the necessary creams and supplies as you need them during your treatments. Please make sure to keep the treatment area clean and dry. Be sure to notice if your clothing rubs or digs into the treatment area and try to wear clothes which are less abrasive, like cotton or loose fitting. Do not use harsh soaps, ointments, deodorants or tapes in the treatment area unless directed by your nurse or doctor. Keep the treatment area out of the sun during treatments. General precautions- DO NOT USE heating pads, hot water bottles, hot poultices, heat lamps, heat in any form, or ice packs to the area of your body being treated. It is common to start feeling fatigue after a few weeks of being treated. You can help minimize this by getting regular exercise or walking and getting plenty of rest. In general a well balanced diet is recommended. The venture capital analyst and nurse will inform you of any special diet requirements. Avoid shaving the treatment area with a razor. If you must shave use an electric razor. Our Contact numbers Section of Radiation Oncology Our normal business hours are: Wednesday - Wednesday: 8:00 AM to 5:00 PM [facility]: [facility]: If you have questions about your radiation appointments please ask to speak to one of our secretarystaff. If you have questions for a nurse/doctor about radiation treatments, radiation side effects or you are not feeling well it is best to call early in the day. This allows a nurse to return your call by5 PM the same day. If you call after 4 PM, a nurse will return your call by 5 PM the following day unless it is emergent. If you experience any of the following you need to seek emergency care immediately by calling 911 1. Sudden and unexpected breathing difficulty without any exertion 2. Sudden onset of chest pain 3. Sudden onset of severe pain or uncontrolled pain 4. Sudden onset of severe weakness and/or unable to ambulate 5. Sudden new onset of a seizure 6. Fall resulting in injury A Radiation Oncology doctor is suppression crew leader after our normal hours and on weekends. To call for urgent medical issues from radiation treatments that can not wait until normal businesshours: Call for either location and have the broach operator page the Radiation Oncologist suppression crew leader. documented in this encounter Plan of Treatment Upcoming Encounters Date Type Department Care Team (Late st Contact Info) Description 08/16/2024 11:30 AM EDT Office Visit Radiation Oncology at [address] [phone] Johnny Rollins MD [facility] [place] [address] documented as of this encounter Visit Diagnoses Not on filedocumented in this encounter Care Teams Advocacy Director Relationship Specialty Start Date End Date Rylee Olmos APRN [address] [place] [address] PCP - General Family Medicine 05/18/22 documented as of this encounter
--- OUTSIDE RECORDS SUMMARY | 2024-04-20 14:27 | XMS_ITS | Encounter Summary ---
Author Organization [facility] [address] Care Team Providers Care Equipment Records Supervisor Name Role Phone Rylee Olmos APRN Primary Care Provider Encounter Details Date Type Department Care Team (Late st Contact Info) Description 07/13/2022 Telephone [place] [phone] Cameron Muñoz MD [facility] [place] [address] Social History Tobacco Use Types Packs/Day Years Used Date Smoking Tobacco: Every Day Cigarettes 0.5 45 Smokeless Tobacco: Never Alcohol Use Standard Drinks/Week Comments Not Currently 0 (1 standard drink = 0.6 oz pur e alcohol) Sex and Gender Information Value Date Recorded Sex Assigned at Not on file Gender Identity Not on file Sexual Orientation Not on file documented as of this encounter Miscellaneous Notes * Telephone Encounter - Cameron Muñoz MD - 07/13/2022 10:38 AM EST Interventional Pulmonology Telephone Encounter: I called Allan Guzman (son of Ms. Teresa Guzman) on 07/13/2022 at 10:38 AM after receiving a [employer] message on behalf of Teresa with questions regarding what testing can be done at [facility], what testing is necessary, and what her treatment options are. Multiple prior appointments and telephone encounters thus far from our office and the office of Dr. Mcelroy with Ms. Guzman regarding the intended work-up. We discussed the reasoning for MR and PET/CT. Her MR is scheduled for [facility] on and her PET/CT has not yet been scheduled due to patient preference. The PET can only be done here at currently. We discussed how her final treatment plans will be determined at tumor board tomorrow and upon completion of radiographic staging. He is going to speak with his mom pierre: the PET and he was provided the direct phone # to our patient scheduler who he will call once he speaks to Teresa (he requested that he call us as opposed to our patient scheduler calling him). All questions were answered and he was appreciative of t he call. Allan Guzman [id number] [phone] Cameron Muñoz MD, 07/13/2022, 10:38 AM Interventional Pulmonology Section of Pulmonary & Critical Care Pager: [phone] documented in this encounter Plan of Treatment Upcoming Encounters Date Type Department Care Team (Late st Contact Info) Description 08/16/2024 11:30 AM EDT Office Visit Radiation Oncology at [address] [phone] Johnny Rollins MD [facility] [place] [address] documented as of this encounter Visit Diagnoses Not on filedocumented in this encounter Care Teams Equipment Records Supervisor Relationship Specialty Start Date End Date Rylee Olmos APRN [place] [place] [address] PCP - General Family Medicine 05/18/22 documented as of this encounter
--- OUTSIDE RECORDS SUMMARY | 2024-04-20 14:27 | XMS_ITS | Encounter Summary ---
Author Organization [facility] [place] [address] Care Team Providers Care Direct Sales Professional Name Role Phone Rylee Olmos Krystyna FLAHERTY Primary Care Provider [phone] Encounter Details Date Type Department Care Team (Latest Contact Info) Description 08/12/2022 Travel Social History Tobacco Use Types Packs/Day [...] a care home (including now)? No 08/12/2022 Sex and Gender Information Value Date Recorded Sex Assigned at Not on file Gender Identity Not on file Sexual Orientation Not on file documented as of this encounter Plan of Treatment Upcoming Encounters Date Type Department Care Team (Late st Contact Info) Description 08/16/2024 11:30 AM EDT Office Visit Radiation Oncology at [address] [phone] Johnny Rollins MD [facility] [place] [address] documented as of this encounter Visit Diagnoses Not on filedocumented in this encounter Care Teams Direct Sales Professional Relationship Specialty Start Date End Date Rylee Olmos [place] [address] [place] [address] PCP - General Family Medicine 05/18/22 documented as of this encounter
--- OUTSIDE RECORDS SUMMARY | 2024-04-20 14:27 | XMS_ITS | Encounter Summary ---
Author Organization [facility] [place] [address] Care Team Providers Care Natural Sciences Department Chair Name Role Phone NickolasRylee Krystyna FLAHERTY Primary Care Provider Encounter Details Date Type Department Care Team (Late st Contact Info) Description 07/10/2022 Telephone [place] [address] Cameron Muñoz MD [facility] [place] [address] Social History Tobacco Use Types Packs/Day Years [...] Telephone Encounter - Cameron Muñoz MD - 07/10/2022 11:06 AM EST Interventional Pulmonology Telephone Encounter: I called Ms. Teresa Guzman on 07/10/2022 at 11:06 AM. 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 The plan is for discussion at [facility] next week. She tells me her MR is now scheduled for up in [facility] and her PET/CT is not yet scheduled - I will have my plant reliability engineer see if we can get this expeditedfor scheduling. She did voice concern/anxiety about being able to travel down here to have it done but we again discussed the importance of the PET and how completion of radiographic staging would benecessary before her treatment plan could be truly finalized. She was provided ample time to ask que stions which were answered to her liking. Cameron Muñoz MD, 07/10/2022, 11:06 AM Interventional Pulmonology Section of Pulmonary & Critical Care Pager: [phone] documented in this encounter Plan of Treatment Upcoming Encounters Date Type Department Care Team (Late st Contact Info) Description 08/16/2024 11:30 AM EDT Office Visit Radiation Oncology at [address] [phone] Johnny Rollins MD [facility] [place] [address] documented as of this encounter Visit Diagnoses Not on filedocumented in this encounter Care Teams Natural Sciences Department Chair Relationship Specialty Start Date End Date Rylee Olmos APRN [address] [facility] [place] [address] PCP - General Family Medicine 05/18/22 documented as of this encounter
--- OUTSIDE RECORDS SUMMARY | 2024-04-20 14:27 | XMS_ITS | Encounter Summary ---
Author Organization [facility] [place] [address] Care Team Providers Care Manager Customer Service Name Role Phone Nickolas Rylee Krystyna FLAHERTY Primary Care Provider [phone] Reason for Referral * Consultation (Routine) - Closed Specialty Diagnoses / Procedures Referred By Noa bullock Referred To Contact Radiation Oncology Diagnoses NSCLC of right lung Cameron Muñoz MD [facility] [place] [address] Stj Rad Onc Treatment [address] [place] [phone] Referral ID Status Reason Start Date Expiration Date V isits Requested Visits Authorized [id number] Closed Consult, Test & Treat 07/20/2022 07/20/2023 1 1 Encounter Details Date Type Department Care Team (Late st Contact Info) Description 07/20/2022 Orders [place] [address] Cameron Muñoz MD [facility] [place] [address] Lung mass; NSCLC of right lung Social History Tobacco Use Types Packs/Day [...] AM EDT Office Visit Radiation Oncology at [address] [phone] Johnny Rollins MD [facility] [place] [address] Scheduled Referrals Name Type Priority Associated Diagnoses Orde r Schedule Referral to Radiation Oncology Outpatient Referral Routine NSCLC of right lung Ordered: 07/20/2022 documented as of this encounter Visit Diagnoses Diagnosis Lung mass Swelling, mass, or lump in chest NSCLC of right lung documented in this encounter Care Teams Manager Customer Service Relationship Specialty Start Date End Date Rylee Olmos, KRYST[place] [address] [place] [address] PCP - General Family Medicine 05/18/22 documented as of this encounter
--- OUTSIDE RECORDS SUMMARY | 2024-04-20 14:27 | XMS_ITS | Encounter Summary ---
Author Organization [facility] [place] [address] Care Team Providers Care Tool Lathe Operator Name Role Phone Rylee Olmos APRN Primary Care Provider [phone] Encounter Details Date Type Department Care Team (Latest Contact Info) Description 07/07/2022 Travel Social History Tobacco Use Types Packs/Day [...] AM EDT Office Visit Radiation Oncology at [address] [phone] Johnny Rollins MD [facility] [place] [address] documented as of this encounter Visit Diagnoses Not on filedocumented in this encounter Care Teams Tool Lathe Operator Relationship Specialty Start Date End Date Rylee Olmos APRN [address] [place] [address] PCP - General Family Medicine 05/18/22 documented as of this encounter
--- OUTSIDE RECORDS SUMMARY | 2024-04-20 14:27 | XMS_ITS | Encounter Summary ---
Author Organization [facility] [place] [address] Care Team Providers Care Cell Tender Name Role Phone Rylee Olmos Krystyna FLAHERTY Primary Care Provider [phone] Encounter Details Date Type Department Care Team (Latest Contact Info) Description 09/11/2022 Travel Social History Tobacco Use Types Packs/Day [...] a group home (including now)? No 08/12/2022 Sex and Gender Information Value Date Recorded Sex Assigned at Not on file Gender Identity Not on file Sexual Orientation Not on file documented as of this encounter Plan of Treatment Upcoming Encounters Date Type Department Care Team (Late st Contact Info) Description 08/16/2024 11:30 AM EDT Office Visit Radiation Oncology at [address] [phone] Johnny Rollins MD [facility] [place] [address] documented as of this encounter Visit Diagnoses Not on filedocumented in this encounter Care Teams Cell Tender Relationship Specialty Start Date End Date Rylee [place] [address] [place] [address] PCP - General Family Medicine 05/18/22 documented as of this encounter
--- OUTSIDE RECORDS SUMMARY | 2024-04-20 14:27 | XMS_ITS | Encounter Summary ---
Author Organization [facility] [place] [address] Care Team Providers Care Fertilizer Applicator Name Role Phone Rylee Olmos Krystyna FLAHERTY Primary Care Provider [phone] Encounter Details Date Type Department Care Team (Latest Contact Info) Description 09/04/2022 Travel Social History Tobacco Use Types Packs/Day [...] EDT Office Visit Radiation Oncology at [address] [address] Johnny Rollins MD [facility] [place] [address] documented as of this encounter Visit Diagnoses Not on filedocumented in this encounter Care Teams Fertilizer Applicator Relationship Specialty Start Date End Date Rylee [place] [address] [place] [address] PCP - General Family Medicine 05/18/22 documented as of this encounter
--- OUTSIDE RECORDS SUMMARY | 2024-04-20 14:27 | XMS_ITS | Encounter Summary ---
[place] [address] Care Team Providers Care Food Mixer Repairer Name Role Phone Rylee Olmos Krystyna FLAHERTY Primary Care Provider Reason for Visit * Reason Onset Date Comments Prior Authorization 07/24/2022 Molecular ca ncer testing CPT 87500 is a covered benefit. Encounter Details Date Type Department Care Team (Late st Contact Info) Description 07/24/2022 Telephone [place] [phone] Triny Xavier Prior Authorization (Molecular cancer testing CPT 85124 is a covered benefit. ) Social History Tobacco Use Types Packs/Day Years [...] encounter Miscellaneous Notes * Telephone Encounter - Triny Xavier - 07/24/2022 1:33 PM ESTSummary: AUTH NOT REQUIRED Molecular cancer testing: CPT 70782 is a covered benefit: I received an e-mail from Renetta in [employer] ([employer] 07/14/2022) requesting coverage review for CPT 21093 which is to be done on the patient???s sample tissue obtained on07/07/2022, and [phone].Ordering provider is Cameron Mñuoz MD. I will e-mail Renetta to let her know of approved coverage. documented in this encounter Plan of Treatment Upcoming Encounters Date Type Department Care Team (Late st Contact Info) Description 08/16/2024 11:30 AM EDT Office Visit Radiation Oncology at [address] [phone] Johnny Rollins MD [facility] [place] [address] documented as of this encounter Visit Diagnoses Not on filedocumented in this encounter Care Teams Food Mixer Repairer Relationship Specialty Start Date End Date Rylee Olmos APRN [address] [place] [address] PCP - General Family Medicine 05/18/22 documented as of this encounter
--- OUTSIDE RECORDS SUMMARY | 2024-04-20 14:27 | XMS_ITS | Encounter Summary ---
Author Organization [facility] [place] [address] Care Team Providers Care Intranet Support Name Role Phone Nickolas Rylee Krystyna FLAHERTY Primary Care Provider Reason for Referral * Diagnostic Test (Routine) - Closed Specialty Diagnoses / Procedures Referred By Noa t Referred To Contact Radiology Diagnoses Lung mass Procedures CT Chest wo Contrast (Generic) Cameron Muñoz MD [facility] [place] [address] [facility] [place] [address] Referral ID Status Reason Start Date Expiration Date V isits Requested Visits Authorized [id number] Closed Specialty Service Requested 06/25/2022 12/24/2023 1 1 Reason for Visit * Diagnostic Test (Routine) - Closed Specialty Diagnoses / Procedures Referred By Noa bullock Referred To Contact Radiology Diagnoses Lung mass Procedures CT Chest wo Contrast (Generic) Cameron Muñoz MD [facility] [place] [address] [facility] [place] [address] Referral ID Status Reason Start Date Expiration Date V isits Requested Visits Authorized [id number] Closed Specialty Service Requested 06/25/2022 12/24/2023 1 1 Encounter Details Date Type Department Care Team (Latest Contact Info) Description 07/07/2022 8:00 AM EST - 07/07/2022 8:29 AM [facility] Hospital [place] [address] BackerCameron MD [facility] [place] [address] Lung mass Discharge Disposition: Home Social History Tobacco Use [...] Sig Dispensed Refills Start Date End Date mb-dxxlzzq-vxe-iron fm-FA-vitK (One-A-Day Women's Complete) 18 mg-400 mcg- 25 mcg Tablet Take 1 tablet by mouth daily. 02/24/2022 cyanocobalamin, vitamin B-12, (VITAMIN B12 ORAL) Take [...] Inject 0.3 mg into the muscle once. albuteroL (Ventolin HFA) 90 mcg/actuation HFA Aerosol Inhaler Ventolin HFA 90 mcg/inh inhalation aerosol Start Date: 02/24/22 Status: Ordered 02/24/2022 09/10/2022 multivitamin (THERAGRAN) Tablet Take 1 tablet by mouth daily. 12/11/2022 documented as of this encounter Plan of Treatment Upcoming Encounters Date Type Department Care Team (Late st Contact Info) Description 08/16/2024 11:30 AM EDT Office Visit Radiation Oncology at [address] [phone] Johnny Rollins MD [facility] [place] [address] documented as of this encounter Procedures Procedure Name Priority Date/Time Associated Diagnosis Comments CT CHEST WO CONTRAST (GENERIC) Routine 07/07/2022 8:23 AM EST Lung mass documented in this encounter Results * CT Chest wo Contrast (Generic) (07/07/2022 8:23 AM EST) Anatomical Region Laterality Modality Chest Computed Tomogra phy Impressions 07/07/2022 9:35 AM EST 1. ??Unchanged 3.4 cm spiculated mass in the superior aspect of the right lower lobe, which remains highly suggestive of primary lung malignancy. 2. ??Mixed opacities within the right upper and lower lobes and 7 mm lobulated pulmonary nodule in the left upper lobe are unchanged, but remain indeterminate. Continued attention imaging follow-up. 3. ??Diffuse lung cysts are nonspecific but can be seen with lymphangiomyoliomatosis. I have personally reviewed the image(s) and the resident's interpretation and agree with the findings, Booker Hernandes MD at 07/07/2022 9:35 AM Thank you for letting us participate in the care of this patient. ??If you are a health care provider and have any questions regarding this report, please contact the number below. ??For patients who have questions please contact the health workforce investment act career manager that requested your imaging first. ? Electronically signed by: Booker Hernandes MD, [facility] ([phone]), at 07/07/2022 9:35 AM Narrative 07/07/2022 9:35 AM EST EXAMINATION: CT CHEST WO CONTRAST (GENERIC) CLINICAL HISTORY: Lung nodule, > 8mm Tarzan robotic bronchoscopy protocl CT chest TECHNIQUE: Helical CT of the chest without intravenous contrast administration. Thin-section reconstructions as well as coronal and sagittal reformatted images were generated. COMPARISON: Chest CT 05/08/2022 FINDINGS: Pulmonary parenchyma: Redemonstrated 3.4 cm spiculated mass in the superior aspect of the right lower lobe (series 4, image 62). There are bronchi adjacent to this mass. Mixed cystic, solid and groundglass opacity in the posterior cranial aspect of the right lower lobe (series 4, image 43) is unchanged dating back to early is available imaging of 07/19/2020. Unchanged hazy mixed cystic, solid and groundglass opacity within the superior aspect of the right upper lobe (series 4, image 29). 7 mm lobulated pulmonary nodule in the superior aspect of the left upper lobe (series 4, image 47) is unchanged dating back to CT of 2021, but not present on prior CT . Again seen are multiple thin-walled cysts scattered throughout the lungs bilaterally, some of which have internal septations. There is no particular apical or basilar predominance. Some are located subpleural. Airways: Patent and normal in caliber. Pleura: No effusion or pneumothorax. Lymph nodes: No pathologically enlarged nodes. Heart and vasculature: Normal pleural effusion. Scant calcifications. Other mediastinal structures: No mass or pneumomediastinum. There is a moderately sized gastric containing hiatal hernia. Lower neck: Normal thyroid gland. Body wall soft tissues: No mass or abnormal fat stranding. Upper abdomen: Small fat-containing right-sided Bochdalek hernia. 2 cm fluid attenuating lesion in the inferior aspect of the right hepatic lobe consistent with a cyst. Left lower pole renal cyst. A moderate sized hiatal hernia is present. Skeletal structures: No suspicious osseous lesions. Procedure Note Booker Hernandes MD - 07/07/2022 EXAMINATION: CT CHEST WO CONTRAST (GENERIC) CLINICAL HISTORY: Lung nodule, > 8mm Tarzan robotic bronchoscopy protocl CT chest TECHNIQUE: Helical CT of the chest without intravenous contrastadministration. Thin-section reconstructions as well as coronal and sagittal reformattedimages were generated. COMPARISON: Chest CT 05/08/2022 FINDINGS: Pulmonary parenchyma: Redemonstrated 3.4 cm spiculated mass in thesuperior aspect of the right lower lobe (series 4, image 62). There are bronchiadjacent to this mass. Mixed cystic, solid and groundglass opacity in the posterior cranialaspect of the right lower lobe (series 4, image 43) is unchanged dating back toearly is available imaging of 07/19/2020. Unchanged hazy mixed cystic, solid and groundglass opacity within thesuperior aspect of the right upper lobe (series 4, image 29). 7 mm lobulated pulmonary nodule in the superior aspect of the left upperlobe (series 4, image 47) is unchanged dating back to CT of 2021, but notpresent on prior CT . Again seen are multiple thin-walled cysts scattered throughout the lungs bilaterally, some of which have internal septations. There is noparticular apical or basilar predominance. Some are located subpleural. Airways: Patent and normal in caliber. Pleura: No effusion or pneumothorax. Lymph nodes: No pathologically enlarged nodes. Heart and vasculature: Normal pleural effusion. Scant calcifications. Other mediastinal structures: No mass or pneumomediastinum. There is a moderately sized gastric containing hiatal hernia. Lower neck: Normal thyroid gland. Body wall soft tissues: No mass or abnormal fat stranding. Upper abdomen: Small fat-containing right-sided Bochdalek hernia. 2 cmfluid attenuating lesion in the inferior aspect of the right hepatic lobeconsistent with a cyst. Left lower pole renal cyst. A moderate sized hiatal herniais present. Skeletal structures: No suspicious osseous lesions. IMPRESSION 1. Unchanged 3.4 cm spiculated mass in the superior aspect of the rightlower lobe, which remains highly suggestive of primary lung malignancy. 2. Mixed opacities within the right upper and lower lobes and 7 mmlobulated pulmonary nodule in the left upper lobe are unchanged, but remainindeterminate. Continued attention imaging follow-up. 3. Diffuse lung cysts are nonspecific but can be seen with lymphangiomyoliomatosis. I have personally reviewed the image(s) and the resident's interpretationand agree with the findings, Booker Hernandes MD at 07/07/2022 9:35 AM Thank you for letting us participate in the care of this patient. If youare a health care provider and have any questions regarding this report,please contact the number below. For patients who have questions please contactthe health workforce investment act career manager that requested your imaging first. Cameron Muñoz MD IMG CT ORDERABLES documented in this encounter Visit Diagnoses Diagnosis Lung mass Swelling, mass, or lump in chest documented in this encounter Care Teams Intranet Support Relationship Specialty Start Date End Date Rylee [place] [address] [place] [address] PCP - General Family Medicine 05/18/22 documented as of this encounter
--- OUTSIDE RECORDS SUMMARY | 2024-04-20 14:27 | XMS_ITS | Encounter Summary ---
Author Organization [facility] [address] Care Team Providers Care Telephone Solicitor Name Role Phone NickolasRylee Krystyna FLAHERTY Primary Care Provider [phone] Reason for Visit * Reason Comments Flashes Of Light Spots and/or Floaters Encounter Details Date Type Department Care Team (Late st Contact Info) Description 09/10/2022 8:00 AM EDT Office [place] [address] Dorothy Soto MD [facility] [place] [address] Posterior vitreous detachment of right eye; Age-related nuclear cataract of both eyes Social History Tobacco Use Types Packs/Day Years [...] as of this encounter Progress Notes * Primo Hull MD - 09/10/2022 8:00 AM EDT Visual Acuity Visual Acuity (Snellen - Linear) Right Left Dist sc 20/20 20/40 Dist ph sc 20/20 -1 Near cc 20/20 20/20 Near with +2.50 otc Tonometry Tonometry (Applanation, 8:37 AM) Right Left Pressure 13 12 Encounter Diagnoses Name Primary? Posterior vitreous detachment of right eye ??? Age-related nuclear cataract of both eyes ??? Meibomian gland disease, unspecified laterality Teresa Guzman is a 62 y.o. with the following ophthalmic problems: PVD OD: -History and exam c/w PVD -No high risk characteristics, no Kelsie's. 360 indirect DFE did not demonstrate any retinal detachments, tears, VH. -Discussed the s/s of retinal detachment and informed the patient that she is in the high-risk period. Adivsed the patient to call us directly should her symptoms change. -Recommend the pt establish care with local foreign language professor for annual care (she lives 2 hours away anddoes not want to make the trip. Age-related cataract OU: -Not visually significant at this time, CTM RTC: - Follow up with a local foreign language professor yearly or as needed - Findings and concerns discussed with Teresa and she expressed understanding. Primo Hull MD PGY-2 Ophthalmology Pager #[phone] I saw the patient with the following level of supervision from the attending: Direct from Dr. Soto * Dorothy Soto MD - 09/10/2022 8:00 AM EDT Encounter Diagnoses Name Primary? Posterior vitreous detachment of right eye ??? Age-related nuclear cataract of both eyes Teresa Guzman, a 62 y.o. female with the following problem(s): 1. Posterior vitreous detachment, right eye: no retinal tears, detachment, or hemorrhage noted. - I discussed the pathophysiology of PVD and the possibility of progression to retinal tears or retinal detachment. - Teresa understands that she is to return to the eye clinic for evaluation promptly if she has increasing flashes or floaters, decreased vision or a dark shadow moving from the periphery to the center of her visual field. - Findings and concerns discussed with Teresa and she expressed understanding. FOLLOW UP - routine eye care I have seen the patient in person and reviewed the resident's above history and I agree with the details as written. The assessment and plan were formulated in discussion with me and I have edited the history, exam, and assessment/plan where appropriate and agree with them as documented. documented in this encounter Plan of Treatment Upcoming Encounters Date Type Department Care Team (Late st Contact Info) Description 08/16/2024 11:30 AM EDT Office Visit Radiation Oncology at [address] [phone] Johnny Rollins MD [facility] [place] [address] documented as of this encounter Visit Diagnoses Diagnosis Posterior vitreous detachment of right eye Vitreous degeneration Age-related nuclear cataract of both eyes Senile nuclear sclerosis documented in this encounter Care Teams Telephone Solicitor Relationship Specialty Start Date End Date Rylee Olmos, LEGAL DEPARTMENT MANAGER [address] [place] [address] PCP - General Family Medicine 05/18/22 documented as of this encounter
--- OUTSIDE RECORDS SUMMARY | 2024-04-20 14:27 | XMS_ITS | Encounter Summary ---
Author Organization [facility] [place] [address] Care Team Providers Care Fish Fryer Name Role Phone Rylee Olmos Krystyna FLAHERTY Primary Care Provider [phone] Encounter Details Date Type Department Care Team (Latest Contact Info) Description 09/02/2022 Travel Social History Tobacco Use Types Packs/Day [...] place to sleep or slept in a detention (including now)? No 08/12/2022 Sex and Gender Information Value Date Recorded Sex Assigned at Not on file Gender Identity Not on file Sexual Orientation Not on file documented as of this encounter Plan of Treatment Upcoming Encounters Date Type Department Care Team (Late st Contact Info) Description 08/16/2024 11:30 AM EDT Office Visit Radiation Oncology at [address] [phone] Johnny Rollins MD [facility] [place] [address] documented as of this encounter Visit Diagnoses Not on filedocumented in this encounter Care Teams Fish Fryer Relationship Specialty Start Date End Date Rylee Olmos [place] [address] PCP - General Family Medicine 05/18/22 documented as of this encounter
--- OUTSIDE RECORDS SUMMARY | 2024-04-20 14:27 | XMS_ITS | Encounter Summary ---
Author Organization [facility] Address [facility] [place] [address] Care Team Providers Care Machinist Outside Name Role Phone Rylee Olmos Krystyna FLAHERTY Primary Care Provider [phone] Encounter Details Date Type Department Care Team (Latest Contact Info) Description 09/02/2022 1:30 PM EDT Procedure visit Radiation Oncology at [address] [phone] Johnny Rollins MD [facility] [place] [address] Primary malignant neoplasm of right lower lobe [...] in a chcf (including now)? No 08/12/2022 Sex and Gender Information Value Date Recorded Sex Assigned at Not on file Gender Identity Not on file Sexual Orientation Not on file documented as of this encounter Last Filed Vital Signs Vital Sign Reading Time Taken Comments Blood Pressure 141/118 09/02/2022 1:46 PM EDT Pulse 104 09/02/2022 1:46 PM EDT Temperature 36.9 ??C (98.4 ??F) 09/02/2022 1 :46 PM EDT Respiratory Rate 18 09/02/2022 1:46 PM EDT Oxygen Saturation 95% 09/02/2022 1:4 6 PM EDT Inhaled Oxygen Concentration - - Weight 54.5 kg (120 lb 3.2 oz) 09/03/19 1:46 PM EDT with shoes Height - - Body Mass Index 23.28 07/07/2022 9:13 AM EST documented in this encounter Progress Notes * Johnny Rollins MD - 09/02/2022 1:30 PM EDT Images from the original note were not included. [facility] Medicine Radiation Oncology Radiation Oncology SBRT Procedure Note Patient Identity: Patient name: Teresa Guzman Date of : 1960 Chief complaint: Lung cancer Oncologic History: Teresa Guzman is a 62 y.o. 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 Treatment: Intent: Curative/definitive Site: Right lung Prescription: 50Gy in 5 fractions (BED(10)=100Gy(10)) Technique: VMAT/IMRT Procedure Detail: Ms. Guzman was in the radiation oncology clinic today for stereotactic body radiation therapy to treat the above diagnosis. she was evaluated pre- treatment in the clinic, and has no contraindications for proceeding with treatment. she was brought to the treatment area and name and were verified as was the site of treatment. she was secured to the treatment table in the stereotactic body frame per usual routine. IGRT was accomplished with CBCT pre- and intra- fraction as needed. she was monitored continuously with the Vision RT system for excessive respiratory motion. Teresa Guzman's 1st of 5 SBRT treatments was successfully delivered. I was personally present/supervising for the critical portions of the procedure. Plan Image: Impression/Plan: Impression: Teresa Guzman tolerated treatment without incident. Plan: ?? Continue radiation therapy as planned. No orders of the defined types were placed in this encounter. ??? [facility] ([facility]) [facility] ??? [employer] Commission on Cancer ([employer]) Accredited Cancer Program ??? [employer] ([employer]) Accredited Radiation Oncology Program documented in this encounter Plan of Treatment Upcoming Encounters Date Type Department Care Team (Late st Contact Info) Description 08/16/2024 11:30 AM EDT Office Visit Radiation Oncology at [address] [phone] Johnny Rollins MD [facility] [place] [address] documented as of this encounter Visit Diagnoses Diagnosis Primary malignant neoplasm of right lower lobe of lung Malignant neoplasm of lower lobe, bronchus, or lung documented in this encounter Care Teams Machinist Outside Relationship Specialty Start Date End Date Rylee Olmos, SCHOOL PSYCHOMETRIST [place] [address] PCP - General Family Medicine 05/18/22 documented as of this encounter
--- OUTSIDE RECORDS SUMMARY | 2024-04-20 14:27 | XMS_ITS | Encounter Summary ---
[place] [address] Care Team Providers Care Teletypesetter Operator Name Role Phone Rylee Olmos APRN Primary Care Provider Encounter Details Date Type Department Care Team (Late st Contact Info) Description 07/31/2022 Tele[place] [address] Misty Caballero APRN [facility] [place] [address] Social History Tobacco Use Types Packs/Day Years [...] encounter Miscellaneous Notes * Telephone Encounter - Misty Caballero APRN - 07/31/2022 3:56 PM EST Interventional Pulmonology Telephone Encounter: I received a call from Ms. Teresa Parks Megan's son on 07/31/2022 at 3:58 PM. We discussed the results from her recent brain MRI and PET scan pertinent for FDG avid right lung and mildly avid left lung nodule, no brain mets. The plan is for Ms. Guzman is scheduled in radiation oncology on 08/12/22. He was provided ample time to ask questions which were answered to his liking. Misty Caballero APRN, 07/31/2022, 3:58 PM Interventional Pulmonology Section of Pulmonary & Critical Care Pager: [phone] * Telephone Encounter - Misty Caballero APRN - 07/31/2022 1:12 PM EST Interventional Pulmonology Telephone Encounter: I called Ms. Teresa Guzman's daughter in law, [place], back on 07/31/2022 at 1:13 PM. No answer and avoice mail was left to call back to discuss PET scan and brain MRI results. Misty Caballero APRN, 07/31/2022, 1:13 PM Interventional Pulmonology Section of Pulmonary & Critical Care Pager: [phone] documented in this encounter Plan of Treatment Upcoming Encounters Date Type Department Care Team (Late st Contact Info) Description 08/16/2024 11:30 AM EDT Office Visit Radiation Oncology at [address] [phone] Johnny Rollins MD [facility] [place] [address] documented as of this encounter Visit Diagnoses Not on filedocumented in this encounter Care Teams Teletypesetter Operator Relationship Specialty Start Date End Date Rylee Olmos [place] [address] PCP - General Family Medicine 05/18/22 documented as of this encounter
--- OUTSIDE RECORDS SUMMARY | 2024-04-20 14:27 | XMS_ITS | Encounter Summary ---
Author Organization [facility] Address [facility] [place] [address] Care Team Providers Care Senior Director Marketing Name Role Phone Rylee Olmos Krystyna FLAHERTY Primary Care Provider Encounter Details Date Type Department Care Team (Late st Contact Info) Description 09/11/2022 Notes Only [place] [address] Johnny Rollins MD [facility] DR [place] [address] Social History Tobacco Use Types Packs/Day Years [...] Progress Notes * Johnny Rollins MD - 09/11/2022 11:59 PM EDT Images from the original note were not included. Radiation Oncology Treatment Summary PATIENT NAME: Teresa Guzman DATE OF : 1960 DIAGNOSIS / TREATMENT OVERVIEW Teresa Guzman is a 62 y.o. 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 TREATMENT DETAILS Treatment Intent Curative Site Treated Primary malignancy Technique VMAT, SBRT Adaptive Plan Required No Concurrent Chemo No Clinical Trial No TECHNICAL DETAILS Total Dose: 50 Gy in 5 fractions @ 10 Gy per fraction PLAN IMAGES CLINICAL COURSE Teresa Guzman had the following toxicities at the end of treatment (CTCAE v4.03): none noted. She did develop an unrelated retinal detachment and was treated by ophthalmology. FOLLOW UP Per [facility] protocol documented in this encounter Plan of Treatment Upcoming Encounters Date Type Department Care Team (Late st Contact Info) Description 08/16/2024 11:30 AM EDT Office Visit Radiation Oncology at [address] [phone] Johnny Rollins MD [facility] DR [place] [address] documented as of this encounter Visit Diagnoses Not on filedocumented in this encounter Care Teams Senior Director Marketing Relationship Specialty Start Date End Date Rylee Olmos, PHARMACY BUYER [facility] [place] [address] PCP - General Family Medicine 05/18/22 documented as of this encounter
--- OUTSIDE RECORDS SUMMARY | 2024-04-20 14:27 | XMS_ITS | Encounter Summary ---
Author Organization [facility] Address [facility] [place] [address] Care Team Providers Care Talent Acquisition Assistant Name Role Phone Rylee Omlos Krystyna FLAHERTY Primary Care Provider [phone] Encounter Details Date Type Department Care Team (Latest Contact Info) Description 09/09/2022 12:30 PM EDT Procedure visit Radiation Oncology at [address] [phone] Johnny Rollins MD [facility] [place] [address] Primary malignant neoplasm of right lower lobe [...] place to sleep or slept in a [facility] (including now)? No 08/12/2022 Sex and Gender Information Value Date Recorded Sex Assigned at Not on file Gender Identity Not on file Sexual Orientation Not on file documented as of this encounter Last Filed Vital Signs Vital Sign Reading Time Taken Comments Blood Pressure 133/82 09/09/2022 12:56 PM EDT Pulse 91 09/09/2022 12:56 PM EDT Temperature 37.2 ??C (99 ??F) 09/09/2022 12: 56 PM EDT Respiratory Rate 18 09/09/2022 12:5 6 PM EDT Oxygen Saturation 100% 09/09/2022 12: 56 PM EDT Inhaled Oxygen Concentration - - Weight 55.2 kg (121 lb 12.8 oz) 023 12:56 PM EDT Height - - Body Mass Index 23.59 07/07/2022 9:13 AM EST documented in this encounter Progress Notes * Johnny Rollins MD - 09/09/2022 12:30 PM EDT Images from the original note were not included. [facility] Medicine Radiation Oncology Radiation Oncology SBRT [...] has no contraindications for proceeding with treatment. She has noted flashing, described as electrical rains associated with her right eye. She also notes a bennett shaped area of darkness present on the right side of her visual field. On exam EOMI and visual sutton appear to be intact. These symptoms are not felt to be related to treatment, and less likely her malignancy. She has an MRI pending, but we discussed concern that may have a retinal detachment and she should seek medical attention at the ED urgently. She was in agreement. As she was fit for SBRT, she was brought to the treatment area and name and were verified as was the site of treatment. she was secured to the treatment table in the stereotactic body frame per usual routine. IGRT was accomplished with CBCT pre- and intra- fraction as needed. she was monitored continuously with the English TV RT system for excessive respiratory motion. Teresa Guzman's 4th of 5 SBRT treatments was successfully delivered. I was personally present/supervising for the critical portions of the procedure. Plan Image: Impression/Plan: Impression: Teresa Guzman tolerated treatment without incident. Plan: ?? Continue radiation therapy as planned. ?? Proceed to ED for evaluation of right eye. No orders of the defined types were placed in this encounter. ??? [facility] ??? [employer] [place] [employer] ([employer]) Accredited Cancer Program ??? Citizen [place] [employer] ([employer]) Accredited Radiation Oncology Program documented in this encounter Plan of Treatment Upcoming Encounters Date Type Department Care Team (Late st Contact Info) Description 08/16/2024 11:30 AM EDT Office Visit Radiation Oncology at [address] [phone] Johnny Rollins MD [facility] [place] [address] documented as of this encounter Visit Diagnoses Diagnosis Primary malignant neoplasm of right lower lobe of lung Malignant neoplasm of lower lobe, bronchus, or lung documented in this encounter Care Teams Talent Acquisition Assistant Relationship Specialty Start Date End Date Rylee Olmos, [employer] [facility] [place] [address] PCP - General Family Medicine 05/18/22 documented as of this encounter
--- OUTSIDE RECORDS SUMMARY | 2024-04-20 14:27 | XMS_ITS | Encounter Summary ---
Author Organization [facility] [place] [address] Care Team Providers Care Business Insurance Agent Name Role Phone Rylee Olmos Krystyna FLAHERTY Primary Care Provider [phone] Encounter Details Date Type Department Care Team (Latest Contact Info) Description 09/07/2022 Travel Social History Tobacco Use Types Packs/Day [...] in a longterm (including now)? No 08/12/2022 Sex and Gender Information Value Date Recorded Sex Assigned at Not on file Gender Identity Not on file Sexual Orientation Not on file documented as of this encounter Plan of Treatment Upcoming Encounters Date Type Department Care Team (Late st Contact Info) Description 08/16/2024 11:30 AM EDT Office Visit Radiation Oncology at [address] [phone] Johnny Rollins MD [facility] [place] [address] documented as of this encounter Visit Diagnoses Not on filedocumented in this encounter Care Teams Business Insurance Agent Relationship Specialty Start Date End Date Rylee Olmos [place] [address] PCP - General Family Medicine 05/18/22 documented as of this encounter
--- OUTSIDE RECORDS SUMMARY | 2024-04-20 14:27 | XMS_ITS | Encounter Summary ---
[place] [address] Care Team Providers Care Wellness Program Administrator Name Role Phone Rylee Olmos Krystyna FLAHERTY Primary Care Provider [phone] Encounter Details Date Type Department Care Team (Latest Contact Info) Description 07/07/2022 8:30 AM EST - 07/07/2022 12:19 PM [facility] Hospital Encounter Same Day [place] [address] Cameron Muñoz MD [facility] [place] [address] Lung mass Discharge Disposition: Home Social History [...] Sign Reading Time Taken Comments Blood Pressure 139/100 07/07/2022 11:45 AM EST Pulse 102 07/07/2022 9:13 AM EST Temperature 36.4 ??C (97.5 ??F) 07/07/2022 11:[address] Respiratory Rate 16 07/07/2022 11:45 AM EST Oxygen Saturation 96% 07/07/2022 11:55 AM EST Inhaled Oxygen Concentration - - Weight 55.8 kg (123 lb) 07/07/2022 9:13 AM EST Height 153 cm (5' 0.25) 07/07/2022 9:13 AM EST Body Mass Index 23.82 07/07/2022 9:13 AM EST documented in this encounter Discharge Instructions * Discharge Instructions* Adam Mccullough RN - 07/07/2022 11:28 AM EST POST ANESTHESIA INSTRUCTIONS Go home, rest, use caution on stairs. Change positions slowly. Do not smoke if you are alone. Diet light to regular as tolerated today. If nausea occurs start with clear liquids and progress slowly. No driving, operating machinery, alcoholic beverages and no important decisions for 24 hours. Monitor IV site for signs and symptoms of infection: increasing redness, swelling, foul drainage, if occurs contact M.D. Patients who have had endotrachial tubes (this tube, used by anesthesia department, is passed down your throat after you are asleep, to ensure safe air passage during your operation). A sore throat is normal due to the tube. Cold liquids or soothing lozenges will help ease the discomfort. The generalized muscle aches are due to the medication given to you just before the tube is inserted. As the medication wears off, you may develop muscle soreness, which usually goes away in 12-24 hours. * Patient Instructions* Cameron Muñoz MD - 07/07/2022 10:55 AM EST Post-bronchoscopy patient instruction: Your procedure (Bronchoscopy with lymph node and lung biopsies) was completed successfully today (07/07/2022) by Dr. Cameron Muñoz. You will be contacted to discuss your results as they return over the coming 3-5 business days. You may experience low grade fevers over the next 48 hours. You may cough up a small amount of blood. This is normal. You may have a sore throat, chest discomfort, hoarse voice, or have a tickle in your throat or a dry cough for a day or two. This is normal and usually gets better quickly. Using cough drops or gargling with warm salt water may help. Call our office immediately or present to the nearest emergency room if you develop shortness of breath, pain in your chest, coughing up larger amounts of blood (over 1-2 tablespoons), or fever/chills last longer than [address], operate machinery, or sign legal documents until medications wear off. If you have any questions, please call our office at . There is someone on-call to speak with 28/12. Cameron Muñoz MD, 07/07/2022, 10:55 AM Interventional Pulmonology Section of Pulmonary & Critical Care documented in this encounter Medications at Time of Discharge Medication Sig Dispensed Refills Start Date End Date ef-nxbbled-omh-iron fm-FA-[id number] (One-A-Day Women's Complete) 18 mg-400 mcg- [...] daily. 12/11/2022 documented as of this encounter Progress Notes * Adam Mccullough RN - 07/07/2022 12:19 PM EST Patient alert and oriented, vital signs stable. Reviewed discharge instructions; patient and her son Allan verbalized understanding. Copy of instruction sheet with contact numbers for questions/concerns provided. Pain assessment documented. Patient escorted out of department via wheelchair with LeeLNA. documented in this encounter H&P Notes * Cameron Muñoz MD - 07/06/2022 12:17 PM EST Interventional Pulmonology Pre-Procedure History & Physical SECTION OF PULMONARY/CRITICAL CARE MEDICIE Procedure: Robotic-assisted bronchoscopy, transbronchial lung biopsies, endobronchial ultrasound (EBUS) Reason for procedure: Lung mass See last note from Dr. Muñoz PHYSICAL EXAM: Mental Status: Alert and oriented x3 Airway examination: Feasible Pulmonary: Clear to ausculation bilaterally CV: RRR, no murmurs or gallops ASA Grade: ASA III (Patient has severe systemic disease that is not incapacitating) Assessment & Plan: ?? Consent to be signed ?? Proceed with procedure as stated Cameron Muñoz MD, 07/06/2022, 12:17 PM Interventional Pulmonology Section of Pulmonary & Critical Care Pager: [phone] documented in this encounter Miscellaneous Notes * Op Note - Cameron Muñoz MD - 07/07/2022 10:15 AM EST Images from the original note were not included. INTERVENTIONAL PULMONOLOGY PROCEDURE NOTE SECTION OF PULMONARY & CRITICAL CARE MEDICINE Patient Name: Teresa Guzman Patient Patient : 1960 Procedure Date: 07/07/2022 Procedure(s): A flexible bronchoscopy Airway examination EBUS-TBNA (2 sites(s)) Robotic-Assisted Bronchoscopy ([place]) (1 lobe(s)) Transbronchial forcep biopsies (1 lobe(s)) Transbronchial fine needle aspiration (1 lobe(s)) Radial EBUS navigation Fluoroscopic guidance Therapeutic suctioning Procedure Location: Operating room Indication: Lung mass Attending(s) of Record: Cameron Muñoz MD Others [...] in particular the potential minor and major complications including fever, cough, hoarseness, chest discomfort, hemoptysis, infection, minor or life-threatening bleeding, respiratory failure, hemodynamic instability, pneumothorax, or . Sedation risks were also discussed. All questions were answered to the best of my ability. Informed consent was obtained. The proposed procedure and the patient's identification were verified prior to the procedure by the physician and the nurse. After clinical evaluation and reviewing the indication, risks, alternatives, and benefits of the procedure the patient was deemed to be in satisfactory condition to undergo the procedure. Procedure Descriptions: Airway Examination: An Olympus P190 flexible bronchoscope was used for the procedure. The bronchoscope was inserted through the endotracheal tube and inspection undertaken. A complete airway examination was performed from the distal trachea to the subsegmental level in each lobe of both lungs. Pertinent findings include normal bronchial anatomy and no endobronchial lesions. Robotic-Assisted Bronchoscopy ([place]) (number of lobes: 1): Navigation planning utilizing the [place] system was first performed. The CT scan was used for planning purposes only. A virtual bronchoscopic image was generated using the planning software. The target was marked and a pathway created. The robotic system was docked appropriately. The bronchoscope was advanced and appropriate registration and verification of equipment performed. Navigation was next performed to the lesion in the right lower lobe and proper alignment ensured. The Olympus 1.8mm 20MHz radial probe was used. The lesionwas concentric by ultrasound. Fluoroscopy was used. Augmented Fluoroscopy was not used. Tissue sampling was obtained using the [employer] 22 gauge cytology needle and [employer] biopsy forceps. Abundant material was collected for cell block in 10% neutral buffered formalin and sent for cytology review and pathology. Samples obtained with LIANNE present. Lesional cells identified. Bleeding was minimaland the patient tolerated the procedure well. Of note, the combination of various biopsy tools in amultimodal fashion may have been implemented for this procedure as per the standard of care to increase diagnostic yield, obtain adequate tissue for mutation analysis, and/or if evaluation by LIANNE was inadequate intra-procedure with a single tool approach (Nanette et al. JOBIP 28.3 (2020): 174). EBUS-TBNA (2 sites): The [employer] EBUS ([id number]) scope was inserted, lymph node inspection undertaken and transbronchial needle aspiration obtained from the following sites using the [employer] 22 gauge TBNA needle: 1) Station 7 with 3 passes obtained with LIANNE absent. 2) Station 11Ri(inferior) with 3 passes obtained with LIANNE absent. Abundant material was collected in 10% neutral buffered formalin and sent for cytology review. Note, all mediastinal, hilar, lobar and segmental stations are evaluated during the procedure and those not listed were not biopsied due to small lymph node diameter, positive LIANNE on higher sohan staging, alternative diagnosis or inability to continuewith the procedure. Specifically, Station 11L was not identified, Station 4L was <5 mm, Station 4R was not identified and Station 11Rs(superior) was <5 mm. Therapeutic Suctioning (99338): A significant portion of operative time was spent clearing out the airway of debris, blood and/or secretions prior to or during the intervention. Any disposable equipment was visually inspected and deemed to be intact immediately post procedure. Estimated Blood Loss: <5 mL Complications: None Relevant Pictures Concentric image of RLL mass on radial EBUS Robotic assisted bronchoscopy RLL mass Fluoroscopy, RLL transbronchial biopsies Recommendations: ??? Successful robotic-assisted bronchoscopy, transbronchial biopsies (1 lobe(s)) and EBUS-TBNA (2 site(s)) ??? A post-procedural chest radiograph has been ordered ??? Await pending results in the next 3-5 business days ??? Case to be discussed at tumor board next Wednesday ??? Follow-up with referring provider as previously arranged Cameron Muñoz MD, 07/07/2022, 10:55 AM Interventional Pulmonology Section of Pulmonary & Critical Care Pager: [phone] documented in this encounter Plan of Treatment Upcoming Encounters Date Type Department Care Team (Late st Contact Info) Description 08/16/2024 11:30 AM EDT Office Visit Radiation Oncology at [address] [phone] Johnny Rollins MD [facility] [place] [address] documented as of this encounter Procedures Procedure Name Priority Date/Time Associated Diagnosis Comments XR FLUORO NO RAD <1HR - OR USE Routine 07/07/2022 4:51 PM EST XR CHEST ONE VIEW STAT 07/07/2022 11: 34 AM EST NON-MOLD MAKING PLASTICS SHEETS SUPERVISOR FINAL REPORT Routine 07/07/2022 10:47 AM EST CYTOPATHOLOGY NON-GYNECOLOGICAL Routine 07/07/2022 10:47 AM EST NON-MOLD MAKING PLASTICS SHEETS SUPERVISOR FINAL REPORT Routine 07/07/2022 10:44 AM EST CYTOPATHOLOGY NON-GYNECOLOGICAL Routine 07/07/2022 10:44 AM EST SOLID TUMOR NGS PANEL Routine 07/07/2022 10:31 AM EST SURGICAL PATHOLOGY REPORT Routine 07/07/2022 10:31 AM EST SPECIMEN TO PATHOLOGY Routine 07/07/2022 10:31 AM EST SOLID TUMOR NGS PANEL Routine 07/07/2022 10:21 AM EST NON-MOLD MAKING PLASTICS SHEETS SUPERVISOR FINAL REPORT Routine 07/07/2022 10:21 AM EST CYTOPATHOLOGY NON-GYNECOLOGICAL Routine 07/07/2022 10:21 AM EST [facility] Guided Sampl 3/> Node Station/Strux (29702) 07/07/2022 9:50 AM EST Lung mass Bronchoscopy Rigid Flex W Computer Assist Img Navigation (69934) 07/07/2022 9:50 AM EST Lung mass CREATININE Routine 07/07/2022 8:49 AM EST Lung mass documented in this encounter Results * XR Fluoro No Rad <1Hr - OR Use (07/07/2022 4:51 PM EST) Narrative Dicom, Auditing User - 07/07/2022 4:51 PM EST This exam is auto-finalizing. No interpretation was done. Cameron Muñoz MD IMG FLUORO ORDERABLE S * XR Chest One View (07/07/2022 11:34 AM EST) Anatomical Region Laterality Modality Chest N/A Digital Radiogra phy Impressions 07/07/2022 11:40 AM EST No pneumothorax status post right lung biopsy. Haziness around the target lesion likely reflects perilesional edema and/or perilesional hemorrhage. Thank you for letting us participate in the care of this patient. ??If you are a health care provider and have any questions regarding this report, please contact the number below. ??For patients who have questions please contact the health health care marketing manager that requested your imaging first. ? Electronically signed by: Booker Hernandes MD, [facility] ([phone]), at 07/07/2022 11:40 AM Narrative 07/07/2022 11:40 AM EST EXAMINATION: XR CHEST ONE VIEW CLINICAL HISTORY: s/p RLL transbronchial biopsies; rule out pneumothorax TECHNIQUE: 1 view of the chest COMPARISON: Chest CT from earlier today FINDINGS: Hazy opacity in the right lower lung zone. The left hemithorax is clear. The cardiomediastinal silhouette is within normal limits. No pleural effusion. No pneumothorax. Procedure Note Booker Hernandes MD - 07/07/2022 EXAMINATION: XR CHEST ONE VIEW CLINICAL HISTORY: s/p RLL transbronchial biopsies; rule out pneumothorax TECHNIQUE: 1 view of the chest COMPARISON: Chest CT from earlier today FINDINGS: Hazy opacity in the right lower lung zone. The left hemithorax is clear.The cardiomediastinal silhouette is within normal limits. No pleural effusion.No pneumothorax. IMPRESSION No pneumothorax status post right lung biopsy. Haziness around the targetlesion likely reflects perilesional edema and/or perilesional hemorrhage. Thank you for letting us participate in the care of this patient. If youare a health care provider and have any questions regarding this report,please contact the number below. For patients who have questions please contactthe health health care marketing manager that requested your imaging first. Electronically signed by: Booker Hernandes MD, [facility]([phone]), at 07/07/2022 11:40 AM Cameron Muñoz MD IMG DX ORDERABLES * Non-Digital Recruiter Final Report (07/07/2022 10:47 AM EST) Diagnosis Discussion [id number] ? Location: [facility]; [facility]; A The signing pathologist has (i) examined the relevant preparation(s) for the specimen(s) and (ii) rendered or confirmed the diagnosis(es). . ? Non-Digital Recruiter Final DIAGNOSIS Negative for Malignancy Electronically signed by: ?Demian Lindsey MD Verified: ??07/08/2022 12:08 ??Cytopathologis t Performed at: ??-[facility] Dept. of [place]ology, [place] [address] Practice Managers: Malu Angeles MD, AP, ??CLIA Certificate: [id number] DISCUSSION Lymph node: station 11Ri (EBUS-guided FNA) - Lymphoid tissue present; compatible with lymph node sampling. Negative for metastatic carcinoma. (Cell block was examined.) CLINICAL INFORMATION Specimen Source : Lymph node: station 11Ri (EBUS-guided FNA) Pertinent Clinical Data and Significant Therapy: Right lower lobe mass Clinical Impression : Possible cancer Pertinent Radiologic Findings ??: (not provided) Gross Description: Received ??in Formalin approximately 50 mL total volume of ?? cloudy, bloody fluid, with clots. Total Preparation: Cell Block 1. 07/08/2022 12:08 PM EST [facility] LYMPH NODE SPECIMEN / Unknown 07/07/2022 10:47 AM EST 07/07/2022 10:47 AM EST Cameron Muñoz MD PATHOLOGY/CYTOLOGY O [facility] [address] [place] [address] * Cytopathology Non-Gynecological (07/07/2022 10:47 AM EST) AP Specimen 07/07/2022 10:4 7 AM EST 07/07/2022 10:47 AM EST Narrative [facility] - 07/07/2022 10:47 AM EST Specimen requisition ordered. ??Separate Pathology report to follow Cameron Muñoz MD PATHOLOGY/CYTOLOGY O [facility] [place] [address] * Non-Digital Recruiter Final Report (07/07/2022 10:44 AM EST) Diagnosis Discussion [id number] ? Location: [place]; [facility]; A The signing pathologist has (i) examined the relevant preparation(s) for the specimen(s) and (ii) rendered or confirmed the diagnosis(es). . ? Non-Digital Recruiter Final DIAGNOSIS Negative for Malignancy Electronically signed by: ?Rosalia CARO, Demian Morin Verified: ??07/08/2022 12:10 ??Cytopathologis t Performed at: ??-[facility] Dept. of [place]ology, [place] [address] Practice Managers: Malu Angeles MD, FCAP, ??CLIA Certificate: [id number] DISCUSSION Lymph node: station 7 (EBUS-guided FNA) - Lymphoid tissue present; compatible with lymph node sampling. Negative for metastatic carcinoma. (Cell block was examined.) CLINICAL INFORMATION Specimen Source : Lymph node: station 7 (EBUS-guided FNA) Pertinent Clinical Data and Significant Therapy: Right lower lobe mass Clinical Impression : Possible cancer Pertinent Radiologic Findings ??: (not provided) Gross Description: Received ??in Formalin approximately 40 mL total volume of ?? cloudy, bloody fluid, with clots. Total Preparation: Cell Block 1. 07/08/2022 12:10 PM EST [facility] LYMPH NODE SPECIMEN / Unknown 07/07/2022 10:44 AM EST 07/07/2022 10:44 AM EST Cameron Muñoz MD PATHOLOGY/CYTOLOGY O [facility] [address] [place] [address] * Cytopathology Non-Gynecological (07/07/2022 10:44 AM EST) AP Specimen 07/07/2022 10:4 4 AM EST 07/07/2022 10:[address] [facility] - 07/07/2022 10:44 AM EST Specimen requisition ordered. ??Separate Pathology report to follow Cameron Muñoz MD PATHOLOGY/CYTOLOGY O [facility] [place] [address] * Surgical Pathology Report (07/07/2022 10:31 AM EST) Final Diagnosis [id number] ? Location: [facility]; [facility]; The signing pathologist has (i) examined the relevant preparation(s) for the specimen(s) and (ii) rendered or confirmed the diagnosis(es). . ? Addendum ADDENDUM DISCUSSION Tissue: ??Lung, right lower lobe, biopsy - Positive for high grade carcinoma with neuroendocrine IHC, favor Large Cell neuroendocrine carcinoma, (LCNEC) Tumor Proportion Score (TPS): ?% Expression: 60% Interpretation Table: PD-L1 assay (22C3 pharmDX) for [employer] Tumor Proportion Score (TPS): ? <1% ?PD-L1 Negative ? >=1% ? PD-L1 Expression Immunohistochemical assay was performed on paraffin-embedded tissue sections fixed in 10% neutral buffered formalin for 6-72 hours using the polymer system technique with appropriate controls. The assay was performed according to the airborne mission systems superintendent's instructions using Anti-PD-L1 (22C3, pharmDX) antibody. Electronically signed by: ?Gretchen Brower MD Verified: ??07/10/2022 10:51 ??Pathologist Performed at: ??-[facility] Dept. of [place]ology, [place] [address] Practice Managers: Malu Angeles MD, FCAP, ??CLIA Certificate: [id number] ?Surgical Pathology DIAGNOSIS Lung, right lower lobe, biopsy - - Positive for high grade carcinoma with neuroendocrine IHC, favor Large Cell neuroendocrine carcinoma, (LCNEC), ??(see Discussion.) Electronically signed by: ?Christen Aceves DO Verified: ??07/10/2022 9:44 ?? Pathologist Performed at: ??-[facility] Dept. of Pathology, [place] [address] Practice Managers: Malu Angeles MD, FCAP, ??CLIA Certificate: [id number] DISCUSSION The tumor cells show positive synaptophysin and INMS1 IHC. ??On H&E, the cells show scattered cells with distinct nucleoli and a few glandular structures. Rare cells show more smudgy chromatin. Brisk mitoses and karyorrhectic debris are not seen. 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 ??The Concurrent cytology biopsy [id number] is also reviewed and shows similar features. Note - this biopsy is a small sample of a larger tumor and a small cell component, or other non-neuroendocrine component can not be excluded in the larger tumor. PDL1 and Molecular studies have been ordered. ADDITIONAL STUDIES Immunohistochemistry Studies: . ADDITIONAL STUDIES Formalin-fixed, paraffin-embedded tissue sections are studied using the polymer technique with appropriate positive and negative controls. ?These IHC studies provide the pathologist with adjunctive diagnostic information. Antibody specificity has been verified by testing antibodies on a series of in-house tissues with known immunohistochemical performance characteristics. The clinical interpretation of any antibody positive staining or its absence is evaluated within the context of clinical presentation, morphology, histopathological criteria and other diagnostic tests. Block ? Antibody ?Result (Positive/Negative) A1 ? [id number] ? Positive in lesional cells. A1 ? Synaptophysin ?Positive in lesional cells. A1 ? P40 ?Negative in lesional cells. A1 ? RB1 ?Positive in lesional cells. A1 ? INSM1 ?Positive in lesional cells. SPECIMEN(S) SUBMITTED A - FORCEPS BIOPSY RIGHT LOWER LOBE LUNG, biopsy (Multiple) CLINICAL INFORMATION Right lower lobe mass. Possible cancer SPECIMEN PROCESSING A - Labeled/Fixative: Forceps biopsy right lower lobe lung, formalin. Quantity/Size: Multiple, averaging 0.2 cm. Tissue Description: Soft, red-brown tissues. Sections/Processing: Submitted en toto ??in 1 cassette labeled A1. ??shb 07/10/2022 10:51 AM EST [facility] LUNG STRUCTURE / Unknown 07/07/2022 10:31 AM EST 07/07/2022 10:31 AM EST Cameron Muñoz MD PATHOLOGY/CYTOLOGY O [facility] [address] [place] [address] * Solid Tumor NGS Panel (07/07/2022 10:31 AM EST) Tissue 07/07/2022 10:3 1 AM EST 07/10/2022 8:01 AM EST Narrative Resulting Agency Comment Spec In Lab Cameron Muñoz MD PATHOLOGY/CYTOLOGY O [facility] [place] [address] * Specimen to Pathology (07/07/2022 10:31 AM EST) AP Specimen 07/07/2022 10:3 1 AM EST 07/07/2022 10:[address] [facility] - 07/07/2022 10:31 AM EST Specimen requisition ordered. ??Separate Pathology report to follow Cameron Muñoz MD PATHOLOGY/CYTOLOGY O [facility] [place] [phone] * (ABNORMAL) Non-Digital Recruiter Final Report (07/07/2022 10:21 AM EST) Diagnosis Discussion [id number] ? Location: [facility]; [facility]; A The signing pathologist has (i) examined the relevant preparation(s) for the specimen(s) and (ii) rendered or confirmed the diagnosis(es). . ? 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 Tumor Proportion Score (TPS): ?% Expression: 50-60% Interpretation Table: PD-L1 assay (22C3 pharmDX) for [employer] Tumor Proportion Score (TPS): ? <1% ?PD-L1 Negative ? >=1% ? PD-L1 Expression Immunohistochemical assay was performed on paraffin-embedded tissue sections fixed in 10% neutral buffered formalin for 6-72 hours using the polymer system technique with appropriate controls. The assay was performed according to the airborne mission systems superintendent's instructions using Anti-PD-L1 (22C3, pharmDX) antibody. Electronically signed by: ?Sarina CARO, PhD, [facility] Verified: ??07/14/2022 12:22 ??Pathologist Performed at: ??-[facility] Dept. of Pathology, [place] [address] Practice Managers: Malu Angeles MD, FCAP, ??CLIA Certificate: [id number] ? Addendum ADDENDUM DISCUSSION Prompted by the finding of positive immunohistochemical staining for neuroendocrine markers on the concurrent lung surgical biopsy ([id number]), a synaptophysin stain was performed on this FNA. Positive staining for synaptophysin is seen, indicating neuroendocrine differentiation. --- Immunohistochemistry Studies --- Interpretation: ? Immunohistochemical assays were performed (on paraffin-embedded cell block sections fixed in 10% neutral buffered formalin for 6-72 hours) using the polymer technique with appropriate controls. The sections are studied for synaptophysin. The lesional cells are immunoreactive for synaptophysin. These immunohistochemical studies provide ancillary information and are used only in conjunction with standard diagnostic procedures. Electronically signed by: ?Demian Lindsey MD Verified: ??07/10/2022 16:10 ??Cytopathologist Performed at: ??-[facility] Dept. of [place]ology, [place] [address] Practice Managers: Malu Angeles MD, HUMBLE, ??CLIA Certificate: [id number] . ? Non-Digital Recruiter Final DIAGNOSIS Positive for Malignancy Electronically signed by: ?Demian Lindsey MD Verified: ??07/09/2022 10:25 ??Cytopathologist Performed at: ??-[facility] Dept. of [place]ology, [place] [address] Practice Managers: Malu Angeles MD, HUMBLE, ??CLIA Certificate: [id number] DISCUSSION Lung: right lower lobe (navigation-guided FNA) - Non-small cell carcinoma, compatible with an adenocarcinoma of lung origin. An immunostain for PDL1 is being ordered; results will be issued when available. Molecular studies are being ordered; results will be issued in a molecular pathology report. --- Immunohistochemistry Studies --- Interpretation: ? Immunohistochemical assays were performed (on paraffin-embedded cell block sections fixed in 10% neutral buffered formalin for 6-72 hours) using the polymer technique with appropriate controls. The sections are studied for TTF-1 and p40. The lesional cells are immunoreactive for TTF-1 and negative for p40. These immunohistochemical studies provide ancillary information and are used only in conjunction with standard diagnostic procedures. THIS RESULT REQUIRES PHYSICIAN/A.P.P. FOLLOW UP CLINICAL INFORMATION Specimen Source : Lung: right lower lobe (navigation-guided FNA - assisted) Pertinent Clinical Data and Significant Therapy: Right lower lobe mass Clinical Impression : Possible cancer Pertinent Radiologic Findings ??: (not provided) Gross Description: Received in Formalin approximately 45 mL total volume of cloudy, bloody fluid, with clots. Total Preparation: Diff-Quik 1; Pap Stain 1; Cell Block 1. Fine Needle Aspiration Immediate Assessment: Evaluation Episode #1 (1 slide): Adequate for final diagnosis. Clusters of highly atypical epithelial cells present. Immediate Assessment by: Daphnie Lindsey MD. Note: The above attending cytopathologist personally examined the Immediate Assessment slides and rendered the Immediate Assessment. Such assessments are preliminary; see Diagnosis and Discussion for final interpretation.(A) 07/14/2022 12:22 PM EST [facility] RIGHT LUNG STRUCTURE / Unknown 07/07/2022 10:21 AM EST 07/07/2022 10:21 AM EST Cameron Muñoz MD PATHOLOGY/CYTOLOGY O CORRY Performing Organization Address City/[facility] Co de Phone Number [facility] [address] [place] [address] * Solid Tumor NGS Panel (07/07/2022 10:21 AM EST) Tissue 07/07/2022 10:2 1 AM EST 07/13/2022 3:51 PM EST Narrative Resulting Agency Comment Spec In Lab Cameron Muñoz MD PATHOLOGY/CYTOLOGY O CORRY Performing Organization Address City/[facility]/ZIP Co de Phone Number [facility] [place] [address] * Cytopathology Non-Gynecological (07/07/2022 10:21 AM EST) AP Specimen 07/07/2022 10:2 1 AM EST 07/07/2022 10:[address] [facility] - 07/07/2022 10:21 AM EST Specimen requisition ordered. ??Separate Pathology report to follow Cameron Muñoz MD PATHOLOGY/CYTOLOGY O RDERABLES Performing Organization Address City/[facility]/[place] [address] * Creatinine (07/07/2022 8:49 AM EST) Creatinine 0.71 0.70 - 1.20 mg/dL [facility] Est Glomerular Filtration Rate 95 >=60 mL/min/1. 73 m?? [facility] Comment: This patient's estimated GFR was [...] and symptoms in addition to eGFR. Blood 07/07/2022 8:49 AM EST 07/07/2022 8:57 AM EST Narrative Resulting Agency Comment Spec In Lab Misty Caballero APRN CHEMISTRY ORDERABL ES Performing Organization Address [facility] Co de Phone Number [facility] [place] [address] documented in this encounter Visit Diagnoses Diagnosis Lung mass Swelling, mass, or lump in chest documented in this encounter Administered Medications Inactive Administered Medications - up to 3 most recent administrations Medication Order MAR Action Action Date Dose Rate Site acetaminophen (Tylenol) tablet 1,000 mg 1,000 mg, Oral, ONCE, 1 dose, On Wed07/07/22 at 0930, Administer with SIP of H2O only. Maximum dose of acetaminophen is 4,000 mg from all sources in 24 hours., Day of Surgery (Day of Procedure), Routine Given 07/07/2022 9:44 AM EST 1,000 mg documented in this encounter Active and Recently Administered Medications Times are shown in EST. Scheduled Medication Order 07/05/2022 07/06/2022 07/07/2022 acetaminophen (Tylenol) tablet 1,000 mg (COMPLETED) 1,000 mg, Oral, ONCE, 1 dose, On Wed07/07/22 at 0930, Administer with SIP of H2O only. Maximum dose of acetaminophen is 4,000 mg from all sources in 24 hours., Day of Surgery (Day of Procedure), Routine 0944 (Given - Provid er: Bertha Mayberry RN) documented in this encounter Care Teams Wellness Program Administrator Relationship Specialty Start Date End Date Rylee Olmos APRN [address] [facility] [place] [address] PCP - General Family Medicine 05/18/22 documented as of this encounter
--- OUTSIDE RECORDS SUMMARY | 2024-04-20 14:27 | XMS_ITS | Encounter Summary ---
Author Organization [facility] [place] [address] Care Team Providers Care Boxcar Weigher Name Role Phone Rylee Olmos Krystyna FLAHERTY Primary Care Provider Encounter Details Date Type Department Care Team (Late Contact Info) Description 07/30/2022 Telephone [place] [address] [place] Social History Tobacco Use Types [...] Encounters Date Type Department Care Team (Late Contact Info) Description 08/16/2024 11:30 AM EDT Office Visit Radiation Oncology at [address] [phone] Johnny Rollins MD [facility] [place] [address] documented as of this encounter Visit Diagnoses Not on filedocumented in this encounter Care Teams Boxcar Weigher Relationship Specialty Start Date End Date Rylee Olmos, CAD OPERATOR [facility] [place] [address] PCP - General Family Medicine 05/18/22 documented as of this encounter
--- OUTSIDE RECORDS SUMMARY | 2024-04-20 14:27 | XMS_ITS | Encounter Summary ---
Author Organization [facility] Address [facility] [place] [address] Care Team Providers Care Cold Header Operator Name Role Phone Rylee Olmos APRN Primary Care Provider [phone] Reason for Visit * Reason Comments IV Access IV for SIM Encounter Details Date Type Department Care Team (Late st Contact Info) Description 08/19/2022 3:00 PM EDT Infusion Hematology Oncology at [address] [phone] Primary malignant neoplasm of right lower lobe [...] as of this encounter Progress Notes * Arlene Kenney RN - 08/19/2022 3:00 PM EDT Patient ready for IV start in office room. #20g PIV placed without difficulty in right arm. Positive blood return noted. Stat-Lock appliance applied. Alcohol impregnated cap applied. Report given to Radiaiton Oncology. documented in this encounter Plan of Treatment Upcoming Encounters Date Type Department Care Team (Late st Contact Info) Description 08/16/2024 11:30 AM EDT Office Visit Radiation Oncology at [address] [phone] Johnny Rollins MD [facility] [place] [address] documented as of this encounter Visit Diagnoses Diagnosis Primary malignant neoplasm of right lower lobe of lung Malignant neoplasm of lower lobe, bronchus, or lung documented in this encounter Care Teams Cold Header Operator Relationship Specialty Start Date End Date Rylee Olmos [place] [address] PCP - General Family Medicine 05/18/22 documented as of this encounter
--- OUTSIDE RECORDS SUMMARY | 2024-04-20 14:27 | XMS_ITS | Encounter Summary ---
Author Organization [facility] [place] [address] Care Team Providers Care Route Returner Name Role Phone Rylee Olmos KRYSTINA Primary Care Provider Encounter Details Date Type Department Care Team (Late st Contact Info) Description 07/27/2022 Ancillary Procedure Radiology Library at [facility] [place] [place] [address] Johnny Rollins MD [facility] [address] Social History Tobacco Use Types Packs/Day Years [...] EDT Office Visit Radiation Oncology at [address] [phone] Johnny Rollins MD [facility] [address] documented as of this encounter Procedures Procedure Name Priority Date/Time Associated Diagnosis Comments FILM LIBRARY STORAGE ONLY MR HEAD Routine 07/27/2022 12:00 AM EST documented in this encounter Results * Film Library- Storage Only MR Head (07/27/2022 12:00 AM EST) Narrative [facility] - 07/30/2022 8:25 PM EST This exam is auto-finalizing. It's purpose is for storage only. Johnny Rollins MD G FILM LIBRARY ORD ERABLES Performing Organization Address City/State/[facility] Co de Phone Number [place], [place] documented in this encounter Visit Diagnoses Not on filedocumented in this encounter Care Teams Route Returner Relationship Specialty Start Date End Date Rylee Olmos, RECHECK[place] [place] [address] PCP - General Family Medicine 05/18/22 documented as of this encounter
--- OUTSIDE RECORDS SUMMARY | 2024-04-20 14:27 | XMS_ITS | Encounter Summary ---
[place] [address] Care Team Providers Care Tray Drier Operator Name Role Phone Rylee Olmos Krystyna FLAHERTY Primary Care Provider [phone] Encounter Details Date Type Department Care Team (Late st Contact Info) Description 07/20/2022 [place] [phone] Sherie Gardiner RN Social History Tobacco Use Types Packs/Day [...] Telephone Encounter - Sherie Gardiner RN - 07/20/2022 4:27 PM EST I have called pt's son, Allan at the request of Armen Long - can you call Allan and ask if they've made a decision regarding next steps for his mom Teresa? We recommended referral to thoracic surgery and he said he'd get back to us after he spoke toher but never did. If they ask, the PET scan didn't show any evidence of cancer outside of the lungs (which is good) so the recommendation is still to refer to thoracic if she's ready to meet with the mPedro Barnes I spoke with Allan, pt's son, Allan, he tells me that because pt is still smoking and is unable to quit, surgery won't be an option, as you have discussed from your previous conversation. However, they are leaning towards pt having a radiation tx if possible, and hopefully pt can have it done at the Cancer center in [facility]. Pt is scheduled for her MRI at [facility] on 07/27/2022. Allan asked if we can determine the stage at this time. I have told him that per Misty's tumor board note, PET scan and brain MRI pending for completed staging. Will await and follow up results of the MRI and will message sent to Dr. Muñoz for next steps. SHERIF Rodriguez, RN Department of Pulmonary 5C, [facility] Pager: [phone] documented in this encounter Plan of Treatment Upcoming Encounters Date Type Department Care Team (Late st Contact Info) Description 08/16/2024 11:30 AM EDT Office Visit Radiation Oncology at [address] [phone] Johnny Rollins MD [facility] [address] documented as of this encounter Visit Diagnoses Not on filedocumented in this encounter Care Teams Tray Drier Operator Relationship Specialty Start Date End Date Rylee Olmos, KRYSTINA [address] [facility] [place] [address] PCP - General Family Medicine 05/18/22 documented as of this encounter
--- OUTSIDE RECORDS SUMMARY | 2024-04-20 14:27 | XMS_ITS | Encounter Summary ---
Author Organization [facility] Address [facility] [address] [place] [address] Care Team Providers Care Wildlife Policy Professional Name Role Phone Rylee Olmos Krystyna FLAHERTY Primary Care Provider Encounter Details Date Type Department Care Team (Late st Contact Info) Description 12/03/2022 6:15 PM EDT Ancillary Procedure Radiology Library at [facility] [place] [phone] Tay Ramos MD [facility] [place] [address] Social History Tobacco Use Types Packs/Day Years [...] EDT Office Visit Radiation Oncology at [address] [phone] Johnny Rollins MD [facility] [place] [address] documented as of this encounter Procedures Procedure Name Priority Date/Time Associated Diagnosis Comments FILM LIBRARY STORAGE ONLY CT CHEST Routine 12/03/2022 6:13 PM EDT documented in this encounter Results * Film Library- Storage Only CT Chest (12/03/2022 6:13 PM EDT) Narrative [facility] - 12/03/2022 6:13 PM EDT This exam is auto-finalizing. It's purpose is for storage only. Tay Ramos MD G FILM LIBRARY ORD ERABLES [place], [place] documented in this encounter Visit Diagnoses Not on filedocumented in this encounter Care Teams Wildlife Policy Professional Relationship Specialty Start Date End Date Rylee Olmos, KRYSTINA [address] [place] [address] PCP - General Family Medicine 05/18/22 documented as of this encounter
--- OUTSIDE RECORDS SUMMARY | 2024-04-20 14:27 | XMS_ITS | Encounter Summary ---
Author Organization [facility] Address [facility] [place] [id number] Care Team Providers Care Experimental Mechanic [employer] Name Role Phone Rylee Olmos Krystyna FLAHERTY Primary Care Provider Reason for Referral * Consultation (Routine) - Closed Specialty Diagnoses / Procedures Referred By Noa bullock Referred To Contact Radiation Oncology Diagnoses Primary malignant neoplasm of right lower lobe of lung Procedures Simulation for Radiation Therapy Planning Johnny Rollins MD [facility] [place] [address] [facility] Rad Onc Office [address] [place] [phone] Referral ID Status Reason Start Date Expiration Date V isits Requested Visits Authorized [id number] Closed Consult, Test & Treat 08/12/2022 08/12/2023 1 1 Reason for Visit * Consultation (Routine) - Closed Specialty Diagnoses / Procedures Referred By Noa bullock Referred To Contact Radiation Oncology Diagnoses NSCLC of right lung Cameron Muñoz MD [facility] [address] [facility] Rad Onc Treatment [address] [place] [phone] Referral ID Status Reason Start Date Expiration Date V isits Requested Visits Authorized [id number] Closed Consult, Test & Treat 07/20/2022 07/20/2023 1 1 Encounter Details Date Type Department Care Team (Late st Contact Info) Description 08/12/2022 10:00 AM EST Office Visit Radiation Oncology at [address] [phone] Johnny Rollins MD [facility] [place] [address] Primary malignant neoplasm of right lower lobe [...] in a snf (including now)? No 08/12/2022 Sex and Gender Information Value Date Recorded Sex Assigned at Not on file Gender Identity Not on file Sexual Orientation Not on file documented as of this encounter Last Filed Vital Signs Vital Sign Reading Time Taken Comments Blood Pressure 166/86 08/12/2022 10:14 AM EST Pulse 61 08/12/2022 10:14 AM EST Temperature 37 ??C (98.6 ??F) 08/12/2022 10: 14 AM EST Respiratory Rate 20 08/12/2022 10:1 4 AM EST Oxygen Saturation - - Inhaled Oxygen Concentration - - Weight 54.8 kg (120 lb 12.8 oz) 023 10:14 AM EST Height - - Body Mass Index 23.4 07/07/2022 9:13 AM EST documented in this encounter Progress Notes * Johnny Rollins MD - 08/12/2022 10:00 AM EST Images from the original note were not included. 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 female who underwent lung cancer screening at [facility] on 05/08/22. Imaging was compared to [...] Station 11Rs(superior) was <5 mm. -Pathology: 1) ??Lung: right lower lobe (navigation-guided FNA). Non-small cell carcinoma, compatible with an adenocarcinoma of lung origin. Tumor Proportion Score (TPS): % Expression: 50-60% 2) Lymph node: station 7 (EBUS-guided FNA) - Lymphoid tissue present; compatible with lymph node sampling. Negative for metastatic carcinoma. 3) Lymph node: station 11Ri (EBUS-guided FNA) - Lymphoid tissue present; compatible with lymph nodesampling. Negative for metastatic carcinoma. 4) Tissue: ??Lung, right lower lobe, biopsy: Positive for high grade carcinoma with neuroendocrine IHC, favor Large Cell neuroendocrine carcinoma, (LCNEC). Tumor Proportion Score (TPS): % Expression:60% PET-CT 07/17/22: MRI Brain +/- contrast 07/27/22: ZEUS Post Tx Other Concerns: Currently, she has the following symptoms: Symptom Description Intervention Pain Denies Dyspnea No dyspnea with mild exertion, no dyspnea at rest excepting associated with a throat issue. Cough Coughing in the morning, at times throughout the day. Productive of phlegm. Dysphagia No Issues Voice Changes No recent voice changes Nutrition / Weight Loss No significant changes. Actively Smoking Smoking ~ 1/2 ppd Pack Years Started at age 14, ~ 1/ 2 ppd or less. Distance from [facility] ~ 45 minutes Other No issues I have personally reviewed the imaging studies referenced above. Review of Systems: I reviewed and agree with the nursing review of systems accompanying this encounter. The remainder of the comprehensive review of systems was negative with the exception of the pertinent positives and negatives noted above. Medications and Allergies: Current Outpatient Medications: ??? cyanocobalamin, vitamin B-12, (VITAMIN B12 ORAL), Take 5,000 mcg by mouth twice a week. WEDNESDAY/WEDNESDAY, Disp: , Rfl: ??? acetaminophen (TYLENOL) 650 mg Tablet Sustained Release, Take 650 mg by mouth every 8 hours as needed for Pain. Do not exceed 6 tabs in 24 hours, Disp: , Rfl: ??? cyanocobalamin 1,000 mcg Tablet, Take 1,000 mcg by mouth daily. 6,000 units two times a week, Disp: , Rfl: ??? CHOLECALCIFEROL, VITAMIN D3, ORAL, Take 1,000 Units by mouth., Disp: , Rfl: ??? multivitamin (THERAGRAN) Tablet, Take 1 tablet by mouth daily., Disp: , Rfl: ??? albuterol 90 mcg/actuation HFA Aerosol Inhaler, Inhale 2 puffs into the lungs every 4 hours as needed for Wheezing. Use with spacer, Disp: , Rfl: ??? EPINEPHrine 0.3 mg/0.3 mL Auto-Injector, Inject 0.3 mg into the muscle once., Disp: , Rfl: ??? cyclobenzaprine (FLEXERIL) 10 mg Tablet, Take 10 mg by mouth 3 times daily as needed., Disp: , Rfl: Allergies Allergen Reactions ??? Amoxicillin Trihydrate CIS - Rash ??? Other [Unclassified Drug] Anaphylaxis Chemicals, insect stings, honey bees, insect repellent cream, detergent (Tide), orange soda, orangecitrus ??? Potassium Clavulanate CIS - Rash ??? Shellfish Containing Products Anaphylaxis CLAMS CRABS ??? Atorvastatin ??? Celebrex [Celecoxib] ??? House Dust ??? Naproxen ??? Niacin CIS - Rash ??? Nsaids (Non-Steroidal Anti-Inflammatory Drug) ??? Penicillins ??? Seasonale (91) [Levonorgestrel-Ethinyl Estrad] ??? Simvastatin CIS - Nausea/Vomiting ??? Augmentin [Amoxicillin-Pot Clavulanate] ??? Azithromycin ??? Cis Free Text Allergy Hymenoptera (Bee) Stings. ??? Doxycycline ??? Gabapentin ??? Meloxicam ??? Mometasone ??? Nabumetone ??? Sulfa (Sulfonamide Antibiotics) Blisters on Feet Exam: Patient Vitals for the past 24 hrs: Temp Pulse Resp BP 08/12/22 1014 37 ??C (98.6 ??F) 61 20 166/86 Physical Exam Constitutional: Appearance: She is well-developed. HENT: Mouth/Throat: Comments: Visual inspection of OC and OP revealed no evidence of suspicious masses or lesions. Palpation revealed no suspicious masses and no induration along the posterior tongue. Moisture good. Pt edentulous. Eyes: Pupils: Pupils are equal, round, and reactive to light. Neck: Comments: Palpation reveals no adenopathy in cervical, SCLV, ICLV sohan basins. Cardiovascular: Rate and Rhythm: Normal rate. Pulmonary: Effort: Pulmonary effort is normal. No [...] about more than 50% of waking hours Contraindications to Radiotherapy NO YES: Date, site, dose (women only) X Prior Radiotherapy X Collagen-Vascular dz X Summary/Recommendations: Cancer Staging: CT Chest PET-CT Pathologic Evaluation: Bronchoscopy / Biopsy Primary PFTs MRI Brain Further Staging None Required Cancer Staging Primary malignant neoplasm of right lower lobe of lung Staging form: Lung, AJCC 8th Edition - Clinical: Stage IB (cT2a, cN0, cM0) - Signed by Johnny Rollins MD on 08/12/2022 Impression: Teresa Guzman has been referred to discuss radiotherapy in her care. she has an early stage large cell neuroendocrine cancer. She is not interested in surgical therapy, and continues to smoke. We discussed the relative benefit of SBRT relative to conventional therapy, ie PMID: [id number]. These recommendations are in line with NCCN recommendations. We discussed the rationale and logistics (including simulation, planning, and treatment) of definitive radiotherapy. We discussed the risks of therapy, including but not limited to short term sequelae (fatigue, esophagitis, skin erythema, cough) and marine oil terminal superintendent sequelae (radiation pneumonitis, the potential for increased dyspnea resulting in oxygen dependence, esophageal stricture, and the possibility of significant damage to soft tissue, bone or skin requiring surgical or medical intervention). Ms. Guzman expressed an understanding of these risks. The patient had a number of questions regardingoptimal therapy and potential side effects. These questions were answered to her satisfaction. Plan: 1. Proceed with SBRT 2. Supportive Care: Referrals Holiday Detector Operator 3. Smoking: we discussed the need to quit smoking and that regardless of treatment decisions both the efficacy of therapy would be decreased and the toxicity increased if she were to continue smoking through treatment. she expressed an understanding of these recommendations. Greater than five minutes were spent discussing smoking cessation. Thank you for allowing me to participate in the care of Teresa Guzman. Johnny Rollins MD, PhD [facility] Radiation oncology [phone] No orders of the defined types were placed in this encounter. The following information is automatically imported from [facility]. It has been reviewed, and pertinent information is noted above in HPI: PAST HISTORY Patient Active Problem List Diagnosis Date Noted ??? Primary malignant neoplasm of right lower lobe of lung 08/12/2022 Social History Socioeconomic History ??? Marital status: Single Spouse name: None ??? Number of children: None ??? Years of education: None ??? Highest education level: None Occupational History ??? None Tobacco Use ??? Smoking status: Every Day Packs/day: 0.50 Years: 45.00 Pack years: 22.50 Types: Cigarettes ??? Smokeless tobacco: Never Vaping Use ??? Vaping Use: Never used Substance and Sexual Activity ??? Alcohol use: Not Currently ??? Drug use: Not Currently ??? Sexual activity: None Other Topics Concern ??? None Social History Narrative ??? None Social Determinants of Health Financial Resource Strain: Low Risk ??? Difficulty of Paying Living Expenses: Not hard at all Food Insecurity: No Food Insecurity ??? Worried About Running Out of Food in the Last Year: Never true ??? Ran Out of Food in the Last Year: Never true Transportation Needs: No Transportation Needs ??? Lack of Transportation (Medical): No ??? Lack of Transportation (Non-Medical): No Physical Activity: Not on file Housing Stability: Low Risk ??? Unable to Pay for Housing in the Last Year: No ??? Number of Places Lived in the Last Year: 1 ??? Unstable Housing in the Last Year: No Family History Problem Relation Age of Onset ??? Coronary Artery Disease Early Onset Father ??? National [facility] [place] (NCI) [facility] ??? [employer] Commission on Cancer (ACS Mohit) Accredited Cancer Program ??? [employer] (ACR) Accredited Radiation Oncology Program ??? * Chana Arndt RN - 08/12/2022 10:00 AM EST RADIATION ONCOLOGY NURSING INITIAL NURSING ASSESSMENT IDENTIFICATION: Teresa Guzman is a 62 y.o. year-old female with lung cancer PRESENTING SYMPTOMS/CHIEF COMPLAINT: Here today for NPW REVIEW OF SYSTEMS: Review of Systems - Oncology Please see ROS filed by patient IN THE PAST 12 MONTHS HAVE YOU: Fallen more than one time? No Injured yourself as result of the fall? Experienced difficulty with walking/problems with balance? Yes. Endurance. Do you use any assistive devices? Yes. Cane Any history of collagen vascular diseases: No Any Implanted Devices/Hardware: If yes please put alert in ARIA patient summary Prior Radiotherapy: No Prior Chemotherapy: No Prior Hormone Therapy: No LEARNING ASSESSMENT REVIEWED: Yes ADVANCED DIRECTIVE: PAIN ASSESSMENT: 6 out of 10 *eD-H Adult PCS Flow Sheet if 4 or above SOCIAL ASSESSMENT: See ED social assessment information entered. Support Systems: Lives alone. Much support from 3 sons who live nearby. Barriers to treatment: None identified Referrals/Interventions: COUNTERINTELLIGENCE ANALYST per routine RADIATION SPECIFIC TEACHING: NCI Radiation Therapy and You Site specific teaching : To be done by nursing on day of simulation. Other: PLAN: Per Dr. Rollins Answers for HPI/ROS submitted by the patient on 08/12/2022 Distress: 5 Not interested in COUNTERINTELLIGENCE ANALYST today Plan for RD during xrt documented in this encounter Plan of Treatment Upcoming Encounters Date Type Department Care Team (Radha Contact Info) Description 08/16/2024 11:30 AM EDT Office Visit Radiation Oncology at [address] [phone] Johnny Rollins MD [facility] [place] [address] Scheduled Orders Name Type Priority Associated Diagnoses Orde r Schedule Simulation for Radiation Therapy Planning Procedures Routine Primary malignant neoplasm of right lower lobe of lung Ordered: 08/12/2022 documented as of this encounter Visit Diagnoses Diagnosis Primary malignant neoplasm of right lower lobe of lung Malignant neoplasm of lower lobe, bronchus, or lung documented in this encounter Care Teams Experimental Mechanic [employer] Relationship Specialty Start Date End Date Rylee Olmos, [place] [address] [place] [address] PCP - General Family Medicine 05/18/22 documented as of this encounter
--- OUTSIDE RECORDS SUMMARY | 2024-04-20 14:27 | XMS_ITS | Encounter Summary ---
Author Organization [facility] Address [facility] [place] [address] Care Team Providers Care Practice Director Name Role Phone NickolasRylee Krystyna FLAHERTY Primary Care Provider [phone] Reason for Visit * Reason Comments Follow-up Encounter Details Date Type Department Care Team (Late st Contact Info) Description 09/07/2022 1:00 PM EDT Procedure visit Radiation Oncology at [address] [phone] Nereida Boyd MD [facility] DR [place] [address] Change in vision Social History Tobacco Use Types Packs/Day Years [...] in a fdc (including now)? No 08/12/2022 Sex and Gender Information Value Date Recorded Sex Assigned at Not on file Gender Identity Not on file Sexual Orientation Not on file documented as of this encounter Last Filed Vital Signs Vital Sign Reading Time Taken Comments Blood Pressure 147/61 09/07/2022 1:06 PM EDT Pulse 65 09/07/2022 1:06 PM EDT Temperature 36.7 ??C (98.1 ??F) 09/07/2022 1:06 PM ED T Respiratory Rate 18 09/07/2022 1:06 PM EDT Oxygen Saturation 97% 09/07/2022 1:06 PM EDT Inhaled Oxygen Concentration - - Weight 54.4 kg (120 lb) 09/07/2022 1:06 PM EDT w ith shoes Height - - Body Mass Index 23.24 07/07/2022 9:13 AM EST documented in this encounter Progress Notes * Nereida Boyd MD - 09/07/2022 1:00 PM EDT Images from the original note were not included. [facility] Medicine Radiation Oncology Radiation Oncology SBRT Procedure Note Patient Identity: Patient name: Teresa Guzman Date of : 1960 Chief complaint: Lung cancer Oncologic History: Teresa Guzman is a 62 y.o. 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 Interval History: New squiggly lines R visual field when eye closed. No diplopia. Exam shows conjunctiva clear, EOMI, peripheral visual sutton intact, no neuro deficit. Imagin07/27/22 MRI brain: No met dz. Treatment: Intent: Curative/definitive Site: Right lung Prescription: 50Gy in 5 fractions (BED(10)=100Gy(10)) Technique: VMAT/IMRT Current Dose: 20Gy in 2 fraction Procedure Detail: Ms. Guzman was in the [...] needed. she was monitored continuously with the [employer] RT system for excessive respiratory motion. Teresa Guzman's 3rd of 5 SBRT treatments was successfully delivered. I was personally present/supervising for the critical portions of the procedure. Plan Image: Impression/Plan: Impression: Teresa Guzman tolerated treatment without incident. Plan: ?? Continue radiation therapy as planned. Repeat MRI brain due to symptoms related to R eye. She will make appt w/charcoal unloader, Dr. Stewart Cantrell. Update PCP, Manpreet Olmos APRN. No orders of the defined types were placed in this encounter. ??? National [facility] [place] (NCI) Comprehensive Cancer [facility] ??? [employer] Commission on Cancer (ACS Mohit) Accredited Cancer Program ??? [employer] (ACR) Accredited Radiation Oncology Program documented in this encounter Plan of Treatment Upcoming Encounters Date Type Department Care Team (Late st Contact Info) Description 08/16/2024 11:30 AM EDT Office Visit Radiation Oncology at [address] [phone] Johnny Rollins MD [facility] [place] [address] documented as of this encounter Visit Diagnoses Diagnosis Change in vision Unspecified visual disturbance documented in this encounter Care Teams Practice Director Relationship Specialty Start Date End Date Rylee [place] [address] PCP - General Family Medicine 05/18/22 documented as of this encounter
--- OUTSIDE RECORDS SUMMARY | 2024-04-20 14:27 | XMS_ITS | Encounter Summary ---
[place] [address] Care Team Providers Care User Interface Developer Name Role Phone Rylee Olmos APRN Primary Care Provider Reason for Referral * Consultation (Routine) - Closed Specialty Diagnoses / Procedures Referred By Noa bullock Referred To Contact [facility] Diagnoses Scoliosis, unspecified scoliosis type, unspecified spinal region Spinal stenosis of lumbosacral region with radiculopathy Spine- scoli/ radicular sx/ ? updated Imaging ( XR 2018 in eDH) Rylee Olmos APRN [facility] [place] [place] [address] [facility] [place] [address] Referral ID Status Reason Start Date Expiration Date V isits Requested Visits Authorized [id number] Closed Consult, Test & Treat PCP Updated and/or Approved 08/12/2022 08/12/2023 1 1 Encounter Details Date Type Department Care Team (Latest Contact Info) Description 08/12/2022 Transcribe Orders eDH Incoming Referrals [phone] Rylee Olmos, COAT JOINER LOCKSTITCH [address] [place] [address] Scoliosis, unspecified scoliosis type, unspecified spinal region; Spinal stenosis of lumbosacral region with radiculopathy Social History Tobacco Use Types Packs/Day Years [...] EDT Office Visit Radiation Oncology at [address] [phone] Johnny Rollins MD [facility] [place] [place] [address] Scheduled Referrals Name Type Priority Associated Diagnoses Orde r Schedule Referral to Spine Center Outpatient Referral Routine Scoliosis, unspecified scoliosis type, unspecified spinal region Spinal stenosis of lumbosacral region with radiculopathy Ordered: 08/12/2022 documented as of this encounter Visit Diagnoses Diagnosis Scoliosis, unspecified scoliosis type, unspecified spinal region Spinal stenosis of lumbosacral region with radiculopathy documented in this encounter Care Teams User Interface Developer Relationship Specialty Start Date End Date Rylee Olmos, COAT JOINER [place]OCK[place] [address] [place] [address] PCP - General Family Medicine 05/18/22 documented as of this encounter
--- OUTSIDE RECORDS SUMMARY | 2024-04-20 14:27 | XMS_ITS | Encounter Summary ---
Author Organization [facility] [place] [address] Care Team Providers Care Claims Clerk Name Role Phone NickolasRylee Krystyna FLAHERTY Primary Care Provider [phone] Encounter Details Date Type Department Care Team (Late st Contact Info) Description 08/19/2022 Telephone Radiation Oncology at [address] [phone] Cayla Salcido, [facility] Social History Tobacco Use Types Packs/Day Years Used Date Smoking Tobacco: Every Day Cigarettes 0.5 45 Smokeless Tobacco: Never Alcohol Use Standard Drinks/Week Comments Not Currently 0 (1 standard drink = 0.6 oz pur e alcohol) Overall Financial Resource Strain (CARDIA) Willeme r Date Recorded How hard is it [...] encounter Miscellaneous Notes * Telephone Encounter - MannyandersCayla, CONSUMER SAFETY OFFICER - 08/19/2022 10:06 AM EDT Reason for Referral: Brief assessment of social and emotional needs. TC with Teresa prior to her simthis afternoon to introduce myself and role of social science manager to assess/address barriers to getting to and through treatments; address support needs and connect with community services and resources as needed. Family/Social Supports: Teresa identified her 3 sons and their partners as her primary supports. They all live around her. Living Situation/Daily Activities/Transportation: Teresa manages her daily chores and activities as best she can. She indicated she has some orthopedic issues that limits the number of things she can do without causing more pain and discomfort. Her son will be transporting her to her RT treatments. She is expecting 5 treatments total. Work/Finances/Insurance: Teresa does not work. She has income from [employer]. She is able to manageher financial obligations. She has Medicare and Medicaid for insurance. Utilization of Community Resources: Food assistance; fuel assistance Adjustment to Illness/Mental Health Concerns: Teresa expressed a number of concerns about her comfort during her sim given her transfer and mobility issues. Explained the sim staff will work with her on the best set up for her sim. Encouraged her to let them know what her needs are. Identified Needs: Teresa did not identify any specific needs at this time. Referrals: None at this time. Social Work Interventions: Brief assessment Supportive Counseling Plan: Informed pt of CONSUMER SAFETY OFFICER availability and contact information. Will follow to assess/address psychosocial needs. SANDRA Cardona, DIRECT RESPONSE CONSULTANT, OSW-C Filter Changer [facility] documented in this encounter Plan of Treatment Upcoming Encounters Date Type Department Care Team (Late st Contact Info) Description 08/16/2024 11:30 AM EDT Office Visit Radiation Oncology at [address] [phone] Johnny Rollins MD [facility] [place] [address] documented as of this encounter Visit Diagnoses Not on filedocumented in this encounter Care Teams Claims Clerk Relationship Specialty Start Date End Date Rylee Olmos APRN [address] [place] [address] PCP - General Family Medicine 05/18/22 documented as of this encounter
--- OUTSIDE RECORDS SUMMARY | 2024-04-20 14:27 | XMS_ITS | Encounter Summary ---
Author Organization [facility] [place] [address] Care Team Providers Care Asset Protection Lead Name Role Phone Rylee Olmos APRN Primary Care Provider Encounter Details Date Type Department Care Team (Late st Contact Info) Description 07/14/2022 Telephone [place] [address] Cameron Muñoz MD [facility] [place] [address] Social History Tobacco Use Types Packs/Day Years [...] Telephone Encounter - Cameron Muñoz MD - 07/14/2022 10:25 AM EST Interventional Pulmonology Telephone Encounter: I called Allan (son of Ms. Teresa Guzman) on 07/14/2022 at 10:27 AM. We discussed the results from herrecent tumor board discussion with plan for referral to thoracic surgery. He understands surgery would only be offered assuming her pending MR brain ([facility]) and PET/CT ([facility]) do not show extrathoracic sites of disease. Furthermore, she may still be smoking and he understands surgery will not be offered if she can not quit (he tells me she didn't smoke at least in the several days following her biopsies but isn't sure about now). If she can't quit smoking or does not want surgery, then the next step would be referral to radiation oncology (again assuming no evidence of stage IV disease). I offered to place a referral to thoracic surgery now but Allan requested that I hold off on placing any referrals until he's had a chance to speak to Teresa about all this so as not to overwhelm her. He will message us back this week with their decision. Allan Guzman Son/[id number] [phone] Cameron Muñoz MD, 07/14/2022, 10:27 AM Interventional Pulmonology Section of Pulmonary & Critical Care Pager: [phone] documented in this encounter Plan of Treatment Upcoming Encounters Date Type Department Care Team (Late st Contact Info) Description 08/16/2024 11:30 AM EDT Office Visit Radiation Oncology at [address] [phone] Johnny Rollins MD [facility] [place] [address] documented as of this encounter Visit Diagnoses Not on filedocumented in this encounter Care Teams Asset Protection Lead Relationship Specialty Start Date End Date Rylee Olmos APRN [address] [place] [address] PCP - General Family Medicine 05/18/22 documented as of this encounter
--- OUTSIDE RECORDS SUMMARY | 2024-04-20 14:27 | XMS_ITS | Encounter Summary ---
Author Organization [facility] Address [facility] [place] [address] Care Team Providers Care Day Care Assistant Name Role Phone Rylee Olmos KRYSTINA Primary Care Provider Encounter Details Date Type Department Care Team (Late st Contact Info) Description 07/17/2022 Ancillary Procedure Radiology Library at [facility] [place] [address] BackerCameron MD [facility] [place] [address] Social History Tobacco Use Types Packs/Day Years [...] EDT Office Visit Radiation Oncology at [address] [phone] Johnny Rollins MD [facility] [place] [address] documented as of this encounter Procedures Procedure Name Priority Date/Time Associated Diagnosis Comments FILM LIBRARY STORAGE ONLY NM PET/CT Routine 07/17/2022 12:00 AM EST documented in this encounter Results * Film Library- Storage Only NM Pet / CT (07/17/2022 12:00 AM EST) Narrative [facility] - 07/21/2022 9:25 AM EST This exam is auto-finalizing. It's purpose is for storage only. Cameron Muñoz MD IMG FILM LIBRARY ORD ERABLES [place], [place] documented in this encounter Visit Diagnoses Not on filedocumented in this encounter Care Teams Day Care Assistant Relationship Specialty Start Date End Date Rylee Olmos, BRUSH OR BROOM [place] [address] [place] [address] PCP - General Family Medicine 05/18/22 documented as of this encounter
--- OUTSIDE RECORDS SUMMARY | 2024-04-20 14:27 | XMS_ITS | Encounter Summary ---
Author Organization [facility] [address] Care Team Providers Care Vacuum Tank Tender Name Role Phone Rylee Olmos Krystyna FLAHERTY Primary Care Provider [phone] Encounter Details Date Type Department Care Team (Latest Contact Info) Description 08/19/2022 Travel Social History Tobacco Use Types Packs/Day [...] place to sleep or slept in a prison (including now)? No 08/12/2022 Sex and Gender Information Value Date Recorded Sex Assigned at Not on file Gender Identity Not on file Sexual Orientation Not on file documented as of this encounter Plan of Treatment Upcoming Encounters Date Type Department Care Team (Late st Contact Info) Description 08/16/2024 11:30 AM EDT Office Visit Radiation Oncology at [address] [phone] Johnny Rollins MD [facility] [place] [address] documented as of this encounter Visit Diagnoses Not on filedocumented in this encounter Care Teams Vacuum Tank Tender Relationship Specialty Start Date End Date Rylee Olmos [place] [address] [place] [address] PCP - General Family Medicine 05/18/22 documented as of this encounter
--- OUTSIDE RECORDS SUMMARY | 2024-04-20 14:27 | XMS_ITS | Encounter Summary ---
Author Organization [facility] Address [facility] [place] [address] Care Team Providers Care Electronic Coils Supervisor Name Role Phone Rylee Olmos Krystyna FLAHERTY Primary Care Provider [phone] Encounter Details Date Type Department Care Team (Latest Contact Info) Description 09/11/2022 12:30 PM EDT Procedure visit Radiation Oncology at [address] [phone] Delvis Dior MD [facility] [place] [address] Primary malignant neoplasm of right lower lobe [...] Sign Reading Time Taken Comments Blood Pressure 147/72 09/11/2022 12:41 PM EDT Pulse 94 09/11/2022 12:41 PM EDT Temperature 37.1 ??C (98.8 ??F) 09/11/2022 12:41 PM E DT Respiratory Rate 18 09/11/2022 12:41 PM EDT Oxygen Saturation 100% 09/11/2022 12:41 PM EDT Inhaled Oxygen Concentration - - Weight 54.5 kg (120 lb 3.2 oz) 09/11/2022 12:41 PM EDT Height - - Body Mass Index 23.28 07/07/2022 9:13 AM EST documented in this encounter Progress Notes * Delvis Dior MD - 09/11/2022 12:30 PM EDT Images from the original note were not included. [facility] Medicine Radiation Oncology Radiation Oncology SBRT Procedure [...] has no contraindications for proceeding with treatment. As she was fit for SBRT, she was brought to the treatment area and name and were verified as was the site of treatment. she was secured to the treatment table in thestereotactic body frame per usual routine. IGRT was accomplished with CBCT pre- and intra- fractionas needed. she was monitored continuously with the Vision RT system for excessive respiratory motion. Teresa Guzman's 5th of 5 SBRT treatments was successfully delivered. I was personally present/supervising for the critical portions of the procedure. Plan Image: Impression/Plan: Impression: Teresa Guzman tolerated treatment without incident. Plan: ?? Stop radiation therapy as planned. ?? Follow up in 6-8 weeks No orders of the defined types were placed in this encounter. ??? [facility] [place] ([facility] ??? [employer] Commission on Cancer ([employer]) Accredited Cancer Program ??? [employer] (A[employer]) Accredited Radiation Oncology Program documented in this encounter Plan of Treatment Upcoming Encounters Date Type Department Care Team (Late st Contact Info) Description 08/16/2024 11:30 AM EDT Office Visit Radiation Oncology at [address] [phone] Johnny Rollins MD [facility] [place] [address] documented as of this encounter Visit Diagnoses Diagnosis Primary malignant neoplasm of right lower lobe of lung Malignant neoplasm of lower lobe, bronchus, or lung documented in this encounter Care Teams Electronic Coils Supervisor Relationship Specialty Start Date End Date Rylee Olmos, PATCH WASHER [address] [place] [address] PCP - General Family Medicine 05/18/22 documented as of this encounter
--- OUTSIDE RECORDS SUMMARY | 2024-04-20 14:27 | XMS_ITS | Encounter Summary ---
Author Organization [facility] Address [facility] [place] [address] Care Team Providers Care Carpenter General Name Role Phone Rylee Olmos Krystyna FLAHERTY Primary Care Provider Encounter Details Date Type Department Care Team (Late st Contact Info) Description 08/19/2022 3:30 PM EDT Office Visit Radiation Oncology at [address] [phone] Johnny Rollins MD [facility] [place] [address] Primary malignant neoplasm of right lower lobe [...] Progress Notes * Johnny Rollins MD - 08/19/2022 3:30 PM EDT Images from the original note were not included. 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 CT simulation was performed withthe following parameters: Simulation for radiation therapy planning was performed in the radiation oncology department. The technical details of the simulation are available in the radiation oncology EMR ([employer]) upon request. IV Contrast Yes Adaptive No Notes: Start date TBD I was personally present/supervising for the critical portions of the procedure. JOHNNY ROLLINS MD ??? National Cancer [place] ([facility]) [facility] ??? [employer] Commission on Cancer ([employer]) Accredited Cancer Program ??? [employer] (ACR) Accredited Radiation Oncology Program documented in this encounter Plan of Treatment Upcoming Encounters Date Type Department Care Team (Late st Contact Info) Description 08/16/2024 11:30 AM EDT Office Visit Radiation Oncology at [address] [address] Johnny Rollins MD [facility] [place] [address] documented as of this encounter Visit Diagnoses Diagnosis Primary malignant neoplasm of right lower lobe of lung Malignant neoplasm of lower lobe, bronchus, or lung documented in this encounter Care Teams Carpenter General Relationship Specialty Start Date End Date Rylee Olmos, ACCOUNTING PROFESSOR [address] [place] [address] PCP - General Family Medicine 05/18/22 documented as of this encounter
--- OUTSIDE RECORDS SUMMARY | 2024-04-20 14:27 | XMS_ITS | Encounter Summary ---
Author Organization [facility] [place] [address] Care Team Providers Care Electric Shipyard Operator Name Role Phone Rylee Olmos Krystyna FLAHERTY Primary Care Provider Encounter Details Date Type Department Care Team (Late st Contact Info) Description 09/29/2022 Telephone [place] [address] Johnny Rollins MD [facility] [place] [address] Social History Tobacco Use Types Packs/Day Years [...] place to sleep or slept in a senior living (including now)? No 08/12/2022 Sex and Gender Information Value Date Recorded Sex Assigned at Not on file Gender Identity Not on file Sexual Orientation Not on file documented as of this encounter Miscellaneous Notes * Telephone Encounter - Johnny Rollins MD - 09/29/2022 11:08 AM EDT I called Ms. Guzman regarding her post-SBRT recovery. She notes that she has developed a mild URI, without significant changes in breathing. She notes continued back pain, that is is improving. We willsee her in routine follow up. documented in this encounter Plan of Treatment Upcoming Encounters Date Type Department Care Team (Late st Contact Info) Description 08/16/2024 11:30 AM EDT Office Visit Radiation Oncology at [address] [phone] Johnny Rollins MD [facility] [place] [address] documented as of this encounter Visit Diagnoses Diagnosis Primary malignant neoplasm of right lower lobe of lung Malignant neoplasm of lower lobe, bronchus, or lung documented in this encounter Care Teams Electric Shipyard Operator Relationship Specialty Start Date End Date Rylee Olmos, KRYSTINA Arel[place] [address] PCP - General Family Medicine 05/18/22 documented as of this encounter
--- OUTSIDE RECORDS SUMMARY | 2024-04-20 14:27 | XMS_ITS | Encounter Summary ---
[place] [address] Care Team Providers Care Finished Cigar Maker Name Role Phone Rylee Olmos Krystyna FLAHERTY Primary Care Provider Encounter Details Date Type Department Care Team (Late st Contact Info) Description 07/07/2022 10:01 AM EST - 07/07/2022 12:32 PM EST Surgery [place] [address] Cameron Muñoz MD [facility] [place] [address] BRONCHOSCOPY,RIGID OR FLEX,WITH IMAGE GUIDANCE ( ROBOT / MONARCH ) (WRVU 2) Social History Tobacco Use Types Packs/Day Years [...] Sig Dispensed Refills Start Date End Date rc-[id number]-has-iron fm-FA-vitK (One-A-Day Women's Complete) 18 mg-400 mcg- [...] Section of Pulmonary & Critical Care Pager: [phone] documented in this encounter Miscellaneous Notes * Op Note - Cameron Muñoz MD - 07/07/2022 10:15 AM EST Images from the original note were not included. INTERVENTIONAL PULMONOLOGY PROCEDURE NOTE SECTION OF PULMONARY & CRITICAL CARE MEDICINE Patient Name: Teresa Guzman Patient Patient : [id number] Procedure Date: 07/07/2022 Procedure(s): A flexible bronchoscopy Airway examination EBUS-TBNA (2 sites(s)) Robotic-Assisted Bronchoscopy ([place]) (1 lobe(s)) Transbronchial forcep biopsies (1 lobe(s)) [...] anatomy and no endobronchial lesions. Robotic-Assisted Bronchoscopy ([place]) (number of lobes: 1): Navigation planning utilizing the [place] system was first performed. The CT scan [...] used. Tissue sampling was obtained using the CloudPassage 22 gauge cytology needle and [employer] biopsy forceps. Abundant material was collected for [...] 28.3 (2020): 174). EBUS-TBNA (2 sites): The Olympus EBUS ([id number]) scope was inserted, lymph node inspection undertaken and transbronchial needle aspiration obtained from the following sites using the Preventsys 22 gauge TBNA needle: 1) Station 7 [...] Station 11Rs(superior) was <5 mm. Therapeutic Suctioning (39936): A significant portion of operative time was [...] Section of Pulmonary & Critical Care Pager: [phone] documented in this encounter Plan of Treatment Upcoming Encounters Date Type Department Care Team (Late st Contact Info) Description 08/16/2024 11:30 AM EDT Office Visit Radiation Oncology at [address] [phone] Johnny Rollins MD [facility] [place] [address] documented as of this encounter Procedures Procedure Name Priority Date/Time Associated Diagnosis Comments XR FLUORO NO RAD <1HR - OR USE Routine 07/07/2022 4:51 PM EST XR CHEST ONE VIEW STAT 07/07/2022 11: 34 AM EST NON-ENTREPRENEURIAL FINANCE PROFESSOR FINAL REPORT Routine 07/07/2022 10:47 AM EST CYTOPATHOLOGY NON-GYNECOLOGICAL Routine 07/07/2022 10:47 AM EST NON-ENTREPRENEURIAL FINANCE PROFESSOR FINAL REPORT Routine 07/07/2022 10:44 AM EST CYTOPATHOLOGY NON-GYNECOLOGICAL Routine 07/07/2022 10:44 AM EST SOLID TUMOR NGS PANEL Routine 07/07/2022 10:31 AM EST SURGICAL PATHOLOGY REPORT Routine 07/07/2022 10:31 AM EST SPECIMEN TO PATHOLOGY Routine 07/07/2022 10:31 AM EST SOLID TUMOR NGS PANEL Routine 07/07/2022 10:21 AM EST NON-ENTREPRENEURIAL FINANCE PROFESSOR FINAL REPORT Routine 07/07/2022 10:21 AM EST CYTOPATHOLOGY NON-GYNECOLOGICAL Routine 07/07/2022 10:21 AM EST [facility] Ebus Guided Sampl 3/> Node Station/Strux (09658) 07/07/2022 9:50 AM EST Lung mass Bronchoscopy Rigid Flex W Computer Assist Img Navigation (84501) 07/07/2022 9:50 AM EST Lung mass CREATININE [...] who have questions please contact the health career services coordinator that requested your imaging first. ? Electronically signed by: Booker Hernandes MD, [facility] ([phone]), at 07/07/2022 11:40 AM Narrative 07/07/2022 11:40 [...] patients who have questions please contactthe health career services coordinator that requested your imaging first. Electronically signed by: Booker Hernandes MD, [facility]([phone]), at 07/07/2022 11:40 AM Cameron Muñoz MD IMG DX ORDERABLES * Non-Lance Crewmember Final Report (07/07/2022 10:47 AM EST) Diagnosis Discussion [id number] ? Location: [facility]; [facility]; A The signing pathologist has (i) examined the relevant preparation(s) for the specimen(s) and (ii) rendered or confirmed the diagnosis(es). . ? Non-Lance Crewmember Final DIAGNOSIS Negative for Malignancy Electronically signed by: ?Demian Lindsey MD Verified: ??07/08/2022 12:08 ??Cytopathologis t Performed at: ??-[facility] Dept. of Pathology, [place] [address] Passenger Service Representative: Malu Angeles MD, FCAP, ??CLIA Certificate: [id number] DISCUSSION Lymph node: station 11Ri (EBUS-guided FNA) [...] Cell Block 1. 07/08/2022 12:08 PM EST [facility] LYMPH NODE SPECIMEN / Unknown 07/07/2022 10:47 AM EST 07/07/2022 10:47 AM EST Cameron Muñoz MD PATHOLOGY/CYTOLOGY O CORRY [facility] [address] [place] [address] * Cytopathology Non-Gynecological (07/07/2022 10:47 AM EST) AP Specimen 07/07/2022 10:4 7 AM EST 07/07/2022 10:47 AM EST Narrative [facility] - 07/07/2022 10:47 AM EST Specimen requisition ordered. ??Separate Pathology report to follow Cameron Muñoz MD PATHOLOGY/CYTOLOGY O CORRY [facility] [place] [address] * Non-Lance Crewmember Final Report (07/07/2022 10:44 AM EST) Diagnosis Discussion [id number] ? Location: [facility]; [facility]; A The signing pathologist has (i) examined the relevant preparation(s) for the specimen(s) and (ii) rendered or confirmed the diagnosis(es). . ? Non-Lance Crewmember Final DIAGNOSIS Negative for Malignancy Electronically signed by: ?Rosalia CARO, Demian Morin Verified: ??07/08/2022 12:10 ??Cytopathologis t Performed at: ??-[facility] Dept. of Pathology, [place] [address] Passenger Service Representative: Malu Angeles MD, FCAP, ??CLIA Certificate: [id number] DISCUSSION Lymph node: station 7 (EBUS-guided FNA) [...] Cell Block 1. 07/08/2022 12:10 PM EST [facility] LYMPH NODE SPECIMEN / Unknown 07/07/2022 10:44 AM EST 07/07/2022 10:44 AM EST Cameron Muñoz MD PATHOLOGY/CYTOLOGY O RDERABLES [facility] [address] [place] [address] * Cytopathology Non-Gynecological (07/07/2022 10:44 AM EST) AP Specimen 07/07/2022 10:4 4 AM EST 07/07/2022 10:44 AM EST Narrative [facility] - 07/07/2022 10:44 AM EST Specimen requisition ordered. ??Separate Pathology report to follow Cameron Muñoz MD PATHOLOGY/CYTOLOGY O RDERABLES [facility] [place] [address] * Surgical Pathology Report (07/07/2022 10:31 AM EST) Final Diagnosis [id number] ? Location: [facility]; The signing pathologist has (i) examined the [...] The assay was performed according to the marketing sales supervisor's instructions using Anti-PD-L1 (22C3, pharmDX) antibody. Electronically signed by: ?Gretchen Brower MD Verified: ??07/10/2022 10:51 ??Pathologist Performed at: ??-[facility] Dept. of Pathology, [place] [id number] Passenger Service Representative: Malu Angeles MD, FCAP, ??CLIA Certificate: [id number] ?Surgical Pathology DIAGNOSIS Lung, right lower lobe, biopsy - - Positive for high grade carcinoma with neuroendocrine IHC, favor Large Cell neuroendocrine carcinoma, (LCNEC), ??(see Discussion.) Electronically signed by: ?Christen Aceves DO Verified: ??07/10/2022 9:44 ?? Pathologist Performed at: ??-[facility] Dept. of Pathology, [place] [address] Passenger Service Representative: Malu Angeles MD, FCAP, ??CLIA Certificate: [id number] DISCUSSION The tumor cells show positive synaptophysin [...] Block ? Antibody ?Result (Positive/Negative) A1 ? [id number] ? Positive in lesional cells. A1 ? [...] labeled A1. ??shb 07/10/2022 10:51 AM EST [facility] LUNG STRUCTURE / Unknown 07/07/2022 10:31 AM EST 07/07/2022 10:31 AM EST Cameron Muñoz MD PATHOLOGY/CYTOLOGY O CORRY Performing Organization Address City/[facility] Co de Phone Number [facility] [address] [place] [address] * Solid Tumor NGS Panel (07/07/2022 10:31 AM EST) Tissue 07/07/2022 10:3 1 AM EST 07/10/2022 8:01 AM EST Narrative Resulting Agency Comment Spec In Lab Cameron Muñoz MD PATHOLOGY/CYTOLOGY O RDERAILDA Performing Organization Address City/[facility]/ZIP Co de Phone Number [facility] [place] [address] * Specimen to Pathology (07/07/2022 10:31 AM EST) AP Specimen 07/07/2022 10:3 1 AM EST 07/07/2022 10:31 AM EST Narrative [facility] - 07/07/2022 10:31 AM EST Specimen requisition ordered. ??Separate Pathology report to follow Cameron Muñoz MD PATHOLOGY/CYTOLOGY Teena WHEATLEY [facility] [place] [address] * (ABNORMAL) Non-Lance Crewmember Final Report (07/07/2022 10:21 AM EST) Diagnosis Discussion [id number] ? Location: [facility]; A The signing pathologist has (i) examined [...] The assay was performed according to the marketing sales supervisor's instructions using Anti-PD-L1 (22C3, pharmDX) antibody. Electronically signed by: ?Sarina CARO, PhD, [facility] Verified: ??07/14/2022 12:22 ??Pathologist Performed at: ??-[facility] Dept. of Pathology, [place] [address] Passenger Service Representative: Malu Angeles MD, FCAP, ??CLIA Certificate: [id number] ? Addendum ADDENDUM DISCUSSION Prompted by the finding of positive immunohistochemical staining for neuroendocrine markers on the concurrent lung surgical biopsy ([id number]), a synaptophysin stain was performed on this [...] MD Verified: ??07/10/2022 16:10 ??Cytopathologist Performed at: ??-[facility] Dept. of Pathology, [place] [address] Passenger Service Representative: Malu Angeles MD, HUMBLE, ??CLIA Certificate: [id number] . ? Non-Lance Crewmember Final DIAGNOSIS Positive for Malignancy Electronically signed by: ?Demian Lindsey MD Verified: ??07/09/2022 10:25 ??Cytopathologist Performed at: ??-[facility] Dept. of Pathology, [place] [address] Passenger Service Representative: Malu Angeles MD, HUM[place], ??CLIA Certificate: [id number] DISCUSSION Lung: right lower lobe (navigation-guided FNA) [...] for final interpretation.(A) 07/14/2022 12:22 PM EST [facility] RIGHT LUNG STRUCTURE / Unknown 07/07/2022 10:21 AM EST 07/07/2022 10:21 AM EST Cameron Muñoz MD PATHOLOGY/CYTOLOGY O CORRY Performing Organization Address City/[facility] Co de Phone Number [facility] [address] [place] [address] * Solid Tumor NGS Panel (07/07/2022 10:21 AM EST) Tissue 07/07/2022 10:2 1 AM EST 07/13/2022 3:51 PM EST Narrative Resulting Agency Comment Spec In Lab Cameron Muñoz MD PATHOLOGY/CYTOLOGY O CORRY [facility] [place] [address] * Cytopathology Non-Gynecological (07/07/2022 10:21 AM EST) AP Specimen 07/07/2022 10:2 1 AM EST 07/07/2022 10:21 AM EST Narrative [facility] - 07/07/2022 10:21 AM EST Specimen requisition ordered. ??Separate Pathology report to follow Cameron Muñoz MD PATHOLOGY/CYTOLOGY O RDERABLES Performing Organization Address [facility] Co de Phone Number [facility] [place] [address] * Creatinine (07/07/2022 8:49 AM EST) Creatinine 0.71 0.70 - 1.20 mg/dL [facility] Est Glomerular Filtration Rate 95 >=60 mL/min/1. 73 m?? [facility] Comment: This patient's estimated GFR was [...] APRN CHEMISTRY ORDERABL ES Performing Organization Address [facility] Co de Phone Number [facility] [place] [address] documented in this encounter Visit Diagnoses Diagnosis Lung mass Swelling, mass, or lump in chest Lung mass Swelling, mass, or lump in [...] RN) documented in this encounter Care Teams Finished Cigar Maker Relationship Specialty Start Date End Date Rylee Olmos, KRYSTINA [address] [place] [address] PCP - General Family Medicine 05/18/22 documented as of this encounter
--- OUTSIDE RECORDS SUMMARY | 2024-04-20 14:27 | XMS_ITS | Encounter Summary ---
[place] [address] Care Team Providers Care Plate Glass Polisher Name Role Phone Rylee Olmos KRYSTINA Primary Care Provider Encounter Details Date Type Department Care Team (Latest Contact Info) Description 07/14/2022 Multidisciplinary Ca re [place] [address] Misty Caballero APRN [facility] [place] [address] Social History Tobacco Use Types Packs/Day Years [...] as of this encounter Progress Notes * Misty Caballero APRN - 07/14/2022 9:55 AM EST Thoracic - Tumor Board Note Date Presented: 07/14/2022 Presenting Physician: Misty Caballero APRN Diagnosis/Tumor Site:RLL lung mass Is this Metastatic Disease: No Synopsis of History/HPI: Ms. Guzman presented with a RLL lung mass. She has a history of smoking and is currently smoking 1/2 pack/day. Bronchoscopy on with findings of lymphs from stations 11Ri and 7 and RLL lung mass with high grade carcinoma w/ neuroendocrine IHC, favor Large Cell neuroendocrine carcinoma. PFTs from Jun 2022 with FEV1 104% pred and DLCO 80% pred. PET scan and brain MRI pending Imaging: CT chest 07/07/2022 Pathology/Histology: RLL lung mass with high grade carcinoma w/ neuroendocrine IHC, favor Large Cell neuroendocrine carcinoma Stage: [id number] (IIA), PET scan and brain MRI pending for completed staging Clinical Data (Exams, Labs, etc.): PFTs 06/2022 DLCO 80% pred and FEV1 104% pred Molecular Pathology Results: pending Clinical Trial Availability: not discussed Options Discussed: Plan for a RLL lobectomy and if she is unable to quit smoking then SBRT (radiation therapy) could be considered. Recommendations: Referral to Thoracic Surgery DISCLAIMER: The patient was discussed and the tumor board made recommendations but it is ultimatelyup to the treatment provider(s) and the patient to determine the patient???s care. documented in this encounter Plan of Treatment Upcoming Encounters Date Type Department Care Team (Late st Contact Info) Description 08/16/2024 11:30 AM EDT Office Visit Radiation Oncology at [address] [phone] Johnny Rollins MD [facility] [place] [address] documented as of this encounter Visit Diagnoses Not on filedocumented in this encounter Care Teams Plate Glass Polisher Relationship Specialty Start Date End Date Rylee [place] [address] [place] [address] PCP - General Family Medicine 05/18/22 documented as of this encounter
--- OUTSIDE RECORDS SUMMARY | 2024-04-20 14:27 | XMS_ITS | Encounter Summary ---
[place] [address] Care Team Providers Care Antichecking Iron Worker Name Role Phone Rylee Olmos KRYSTINA Primary Care Provider Encounter Details Date Type Department Care Team (Late st Contact Info) Description 07/07/2022 9:51 AM EST Anesthesia Event [place] [address] Beckie Cavanaugh MD [facility] DR [place] [address] Abdulkadir Villarreal MD [facility] DR [place] [address] Anesthesia Record Procedure Summary Procedure Name Responsible Anesthesiologist Anesthesia Start Time Anesthesia Stop Time BRONCHOSCOPY,RIGID OR FLEX,WITH IMAGE GUIDANCE ( ROBOT / MONARCH ) (WRVU 2) (Bronchus) Beckie Cavanaugh MD 07/07/22 0951 07/07/22 1111 Events Date Time Event Comment 07/07/2022 0923 0951 AN Verify 0951 Start 0951 An Start Data 0957 An Induction 1003 An Intubation 1005 Anesthesia Ready 1010 An Data Art External pressu re on BP cuff while positioning/tucking arms 1102 Extubation/LMA Out 1111 an stop data 1111 Recovery or ICU Handoff [place] ent care was transferred to the destination unit staff after review of the patient's medical history, current anesthetic/surgical status and plan, according to the Provider Handoff Checklist. 1111 Stop Meds Name Total Midazolam 2 mg fentaNYL 100 mcg IV Lidocaine 30 mg Propofol 100 mg Propofol INF 320.29 mg Rocuronium 50 mg Ondansetron 8 mg Dexamethasone 8 mg REMIfentanil INF 0.79 mg PHENYLephrine INF 2,890 mcg Sugammadex 200 mg Lactated Ringers 400 mL * Agents Name O2 Air N2O * Blood No blood administrations on file. Lines, Drains, and Airways Type Details Placement Removal (RETIRED) Peripheral IV Line - Single Lumen 07/07/22; 0941; 22 gauge; distraction, appears comfortable, tolerated well; D/C by Ambrocio FLORES; no longer indicated, removed per policy/procedure, catheter/device intact; 07/07/22; 1210 07/07/22 0941 by Bertha Mayberry RN 07/07/22 1210 by Adam Mccullough, RN ETT Mask Ventilation: Ea sy (1); ETT Type: Cuffed; ETT Size: 8.5 mm; Mac Blade: 3; Attempts: 1; Laryngoscopy Grade: 1; ETT Placement Verified By: Visual, Other (comments); Secured at Teeth: 19 cm; Inserted by: Abdulkadir Villarreal MD; Removal Date: 07/07/22; Removal Time: 1103 07/07/22 1003 by Beckie Cavanaugh MD 07/07/22 1103 by Abdulkadir Villarreal MD documented in this encounter Social History Tobacco Use Types Packs/Day Years [...] on file documented as of this encounter OR Notes * Anesthesia Postprocedure Evaluation - Abdulkadir Villarreal MD - 07/07/2022 11:11 AM EST Department of Anesthesiology Post-procedure Note Patient: Teresa Guzman Procedure Summary Date: 07/07/22 Room / Location: [address] MAIN OR Anesthesia Start: 950 Anesthesia Stop: 1111 Procedures: BRONCHOSCOPY,RIGID OR FLEX,WITH IMAGE GUIDANCE ( ROBOT / MONARCH ) (Bronchus) BRONCH, W ENDOBRONCHIAL ULTRASOUND (EBUS) GUIDED SAMPLING, 3+ NODES (WRVU 5.21) (Bronchus) Diagnosis: Lung mass (Lung mass/ Robotic bronch with EBUS/ GA/ Aloker) Surgeons: Cameron Muñoz MD Responsible Provider: Beckie Cavanaugh MD Anesthesia Type: general ASA Status: 3 All Anesthesia Providers: Anesthesiologist: Beckie Cavanaugh MD Steel Chipper: Abdulkadir Villarreal MD Vitals Value Taken Time BP 135/67 07/07/22 1107 Temp Pulse Resp SpO2 100 % 07/07/22 1110 Pain Level Vitals shown include unvalidated device data. Patient Location: PACU/[facility] Level of Consciousness: Awake and Alert Pain Management: Satisfactory Analgesia PONV: None Cardiovascular Status: At Baseline and Hemodynamically Stable Respiratory Status: At Baseline and Supplemental O2 (NC or FM) Postoperative Fluid Status: Possible Anesthetic Complications: NONE apparent at time of evaluation Final Primary Anesthesia Type: General (The anesthetic type performed was the same as planned.) Comments: Abdulkadir Villarreal MD * Anesthesia Preprocedure Evaluation - Beckie Cavanaugh MD - 07/06/2022 5:36 PM EST Images from the original note were not included. Pre-Anesthesia Evaluation for: Teresa Guzman a 62 y.o. female. Procedure(s): BRONCHOSCOPY,RIGID OR FLEX,WITH IMAGE GUIDANCE ( ROBOT / MONARCH ) BRONCH, W ENDOBRONCHIAL ULTRASOUND (EBUS) GUIDED SAMPLING, 3+ NODES (WRVU 5.21) There are no problems to display for this patient. Past Medical History: Diagnosis Date ??? Bilateral knee pain ??? COPD (chronic obstructive pulmonary disease) ??? Left hip pain Hip slides ??? Neck pain ??? Osteoarthritis ??? Scoliosis Past Surgical History: Procedure Laterality Date ??? TUBAL LIGATION Also had a DNC Social History Tobacco Use ??? Smoking status: Every Day Packs/day: 0.50 Years: 45.00 Pack years: 22.50 Types: Cigarettes ??? Smokeless tobacco: Never Substance Use Topics ??? Alcohol use: Not Currently Social History Substance and Sexual Activity Drug Use Not Currently Allergies Allergen Reactions ??? Amoxicillin Trihydrate CIS [...] ??? Sulfa (Sulfonamide Antibiotics) Blisters on Feet Medications: MAR and/or home medications have been reviewed. Physical Exam: Preprocedure Vitals Current as of 07/06/22 1736 No BP, pulse, respiration, SpO2, or temperature recorded. Height: Weight: BMI: IBW: Airway Assessment: Mallampati: I TM distance: <3 FB Neck ROM: limited Cardiovascular Assessment: Rhythm: regular Rate: abnormal Pulmonary Assessment: breath sounds clear to auscultation (-) wheezes Dental Assessment: Misc Assessment: Last Filed Perioperative Cognitive Screening None Anesthesia Plan: ASA 3 general, with a(n) intravenous induction 62 y.o. female every day smoker with a history of lung mass who presents for [place] EBUS. PMH: - COPD, neck pain, Scoliosis, chronic exertional dyspnea Past Anesthesia History: - Airway history: none Medications: albuterol Allergies Allergen Reactions ??? Amoxicillin Trihydrate CIS - Rash ??? Other (Unclassified Drug) Anaphylaxis Chemicals, insect stings, honey bees, insect repellent cream, detergent (Tide), orange soda, orangecitrus ??? Potassium Clavulanate CIS - Rash ??? Shellfish Containing Products Anaphylaxis CLAMS CRABS ??? Atorvastatin ??? Celebrex (Celecoxib) ??? House Dust ??? Naproxen ??? Niacin CIS - Rash ??? Nsaids (Non-Steroidal Anti-Inflammatory Drug) ??? Penicillins ??? Seasonale (91) (Levonorgestrel-Ethinyl Estrad) ??? Simvastatin CIS - Nausea/Vomiting ??? Augmentin (Amoxicillin-Pot Clavulanate) ??? Azithromycin ??? Cis Free Text Allergy Hymenoptera (Bee) Stings. ??? Doxycycline ??? Gabapentin ??? Meloxicam ??? Mometasone ??? Nabumetone ??? Sulfa (Sulfonamide Antibiotics) Blisters on Feet PLAN GA with ETT, standard ASA monitors, PIVx1-2 Region - Intrathoracic Non-Cardiac Informed Consent: Anesthetic plan and risks discussed with patient and daughter/son. Plan discussed with resident and attending. Anesthesia Screening documented in this encounter Plan of Treatment Upcoming Encounters Date Type Department Care Team (Late st Contact Info) Description 08/16/2024 11:30 AM EDT Office Visit Radiation Oncology at [address] [phone] Johnny Rollins MD [facility] [place] [address] documented as of this encounter Visit Diagnoses Not on filedocumented in this encounter Administered Medications Inactive Administered Medications - up to 3 most recent administrations Medication Order MAR Action Action Date Dose Rate Site dexAMETHasone (Decadron) injection Intravenous, PRN, Starting on Wed07/07/22 at 1010, Until Wed07/07/22 at 1111, Anesthesia Intra-op, Routine Given 07/07/2022 10:10 AM EST 8 mg fentaNYL (pf) (50 mcg/mL) multi-dose injection Intravenous, PRN, Starting on Wed07/07/22 at 1002, Until Wed07/07/22 at 1111, Anesthesia Intra-op, Routine Given 07/07/2022 9:57 AM EST 100 mcg lactated ringers infusion Intravenous, CONTINUOUS PRN, Starting on Wed07/07/22 at 0951, Until Wed07/07/22 at 1111, Anesthesia Intra-op New Bag 07/07/2022 9:51 AM EST lidocaine (pf) (Xylocaine) (20 mg/mL) 2% injection syringe Intravenous, PRN, Starting on Wed07/07/22 at 1002, Until Wed07/07/22 at 1111, Anesthesia Intra-op, Routine Given 07/07/2022 10:00 AM EST 30 mg midazolam (pf) (Versed) (1 mg/mL) multi-dose injection Intravenous, PRN, Starting on Wed07/07/22 at 0949, Until Wed07/07/22 at 1111, Anesthesia Intra-op, Routine Given 07/07/2022 9:49 AM EST 2 mg ondansetron (pf) (Zofran) (2 mg/mL) injection Intravenous, PRN, Starting on Wed07/07/22 at 1048, Until Wed07/07/22 at 1111, Anesthesia Intra-op, Routine Given 07/07/2022 10:48 AM EST 8 mg PHENYLephrine (Casa-Synephrine) (80 mcg/mL) in sodium chloride 0.9% 250 mL infusion Intravenous, CONTINUOUS PRN, Starting on Wed07/07/22 at 0957, Until Wed07/07/22 at 1111, Anesthesia Intra-op, Routine Rate/Dose Change 07/07/2022 10:41 AM EST 30 mcg/min 22.5 mL/hr Rate/Dose Change 07/07/2022 10:18 AM EST 50 mcg/min 37.5 m L/hr New Bag 07/07/2022 9:57 AM EST 40 mcg/min 30 mL/hr propofoL (Diprivan) (10 mg/mL) infusion Intravenous, CONTINUOUS PRN, Starting on Wed07/07/22 at 0952, Until Wed07/07/22 at 1111, Anesthesia Intra-op, Routine Rate/Dose Change 07/07/2022 10:30 AM EST 90 mcg/kg/min 30.132 mL/hr Rate/Dose Change 07/07/2022 10:16 AM EST 100 mcg/kg/min 33 .48 mL/hr Rate/Dose Change 07/07/2022 10:06 AM EST 90 mcg/kg/min 30. 132 mL/hr propofoL (Diprivan) 10 mg/mL bolus injection (Anesthesia) Intravenous, PRN, Starting on Wed07/07/22 at 1000, Until Wed07/07/22 at 1111, Anesthesia Intra-op Given 07/07/2022 10:00 AM EST 100 mg remifentaniL (Ultiva) (0.02 mg/mL) infusion (Anesthesia) Intravenous, CONTINUOUS PRN, Starting on Wed07/07/22 at 1000, Until Wed07/07/22 at 1111, Anesthesia Intra-op New Bag 07/07/2022 10:00 AM EST 0.2 mcg/kg/min 33.48 mL/hr rocuronium (Zemuron) (10 mg/mL) multi-dose injection Intravenous, PRN, Starting on Wed07/07/22 at 1001, Until Wed07/07/22 at 1111, Anesthesia Intra-op, Routine Given 07/07/2022 10:01 AM EST 50 mg sugammadex (Bridion) 100 mg/mL injection Intravenous, PRN, Starting on Wed07/07/22 at 1048, Until Wed07/07/22 at 1111, Anesthesia Intra-op, Routine Given 07/07/2022 10:48 AM EST 200 mg documented in this encounter Care Teams Antichecking Iron Worker Relationship Specialty Start Date End Date Rylee Olmos, LABEL SEWER [facility] [place] [address] PCP - General Family Medicine 05/18/22 documented as of this encounter
--- OUTSIDE RECORDS SUMMARY | 2024-04-20 14:27 | XMS_ITS | Encounter Summary ---
Author Organization [facility] [place] [address] Care Team Providers Care Catheterization Laboratory Technician Name Role Phone Rylee Olmos Krystyna FLAHERTY Primary Care Provider [phone] Encounter Details Date Type Department Care Team (Latest Contact Info) Description 09/09/2022 Travel Social History Tobacco Use Types Packs/Day [...] EDT Office Visit Radiation Oncology at [address] [phone] Johnny Rollins MD [facility] [place] [address] documented as of this encounter Visit Diagnoses Not on filedocumented in this encounter Care Teams Catheterization Laboratory Technician Relationship Specialty Start Date End Date Rylee Olmos [place] [address] PCP - General Family Medicine 05/18/22 documented as of this encounter
--- OUTSIDE RECORDS SUMMARY | 2024-04-20 14:27 | XMS_ITS | Encounter Summary ---
Author Organization [facility] [place] [address] Care Team Providers Care Spa Associate Name Role Phone Rylee Olmos APRN Primary Care Provider Encounter Details Date Type Department Care Team (Latest Contact Info) Description 07/17/2022 6:09 AM EST - 07/17/2022 11:59 PM [facility] Hospital Encounter [place] [address] Discharge Disposition: Home Social History Tobacco Use [...] Sig Dispensed Refills Start Date End Date ia-ashfclq-zqf-iron fm-FA-vitK (One-A-Day Women's Complete) 18 mg-400 mcg- [...] AM EDT Office Visit Radiation Oncology at [address] [phone] Johnny Rollins MD [facility] DR [place] [address] documented as of this encounter Visit Diagnoses Not on filedocumented in this encounter Care Teams Spa Associate Relationship Specialty Start Date End Date Rylee Olmos [place] [address] PCP - General Family Medicine 05/18/22 documented as of this encounter
--- OUTSIDE RECORDS SUMMARY | 2024-04-20 14:27 | XMS_ITS | Encounter Summary ---
Author Organization [facility] [place] [address] Care Team Providers Care Professional System Administrator Name Role Phone NickolasRylee Krystyna FLAHERTY Primary Care Provider [phone] Encounter Details Date Type Department Care Team (Late st Contact Info) Description 09/07/2022 Telephone Radiation Oncology at [address] [phone] Chana Arndt, RN Social History Tobacco Use Types Packs/Day [...] encounter Miscellaneous Notes * Telephone Encounter - Chana Arndt RN - 09/07/2022 3:29 PM EDT Telephone call to patient PCP office with update from Dr. Boyd that patient reports squiggly lines when closes right eye. Teresa is contacting her [facility] home health and Dr. Boyd is ordering brain MRI. Ajayjimchanning left our clinic contact information and request for call back if PCP has any questions. * Telephone Encounter - Chana Arndt RN - 09/07/2022 3:27 PM EDT ----- Message from Nereida Boyd MD sent at 09/07/2022 2:33 PM EDT ----- Chana, will you please call PCP, Manpreet Olmos APRN & report squiggly lines seen when closes R eye & that she is making appt w/[facility] home health & I'm ordering MRI brain? [facility], will you please fax my note to Manpreet Olmos APRN? Nereida documented in this encounter Plan of Treatment Upcoming Encounters Date Type Department Care Team (Late st Contact Info) Description 08/16/2024 11:30 AM EDT Office Visit Radiation Oncology at [address] [phone] Johnny Rollins MD [facility] [place] [address] documented as of this encounter Visit Diagnoses Not on filedocumented in this encounter Care Teams Professional System Administrator Relationship Specialty Start Date End Date Rylee Olmos APRN [address] [place] [address] PCP - General Family Medicine 05/18/22 documented as of this encounter
--- OUTSIDE RECORDS SUMMARY | 2024-04-20 14:27 | XMS_ITS | Encounter Summary ---
[place] [address] Care Team Providers Care Deboning Team Leader Name Role Phone NickolasRylee Krystyna FLAHERTY Primary Care Provider Encounter Details Date Type Department Care Team (Late st Contact Info) Description 09/04/2022 1:30 PM EDT Procedure visit Radiation Oncology at [address] [phone] Sumeet Finn MD [address] [place] [address] [place] [address] Primary malignant neoplasm of right lower lobe [...] Reading Time Taken Comments Blood Pressure 143/90 09/04/2022 1:39 PM EDT Pulse 91 09/04/2022 1:39 PM EDT Temperature 36.2 ??C (97.2 ??F) 09/04/2022 1 :39 PM EDT Respiratory Rate 20 09/04/2022 1:39 PM EDT Oxygen Saturation 100% 09/04/2022 1:3 9 PM EDT Inhaled Oxygen Concentration - - Weight 54.3 kg (119 lb 12.8 oz) 023 1:39 PM EDT with boots Height - - Body Mass Index 23.2 07/07/2022 9:13 AM EST documented in this encounter Progress Notes * Sumeet Finn MD - 09/04/2022 1:30 PM EDT Images from the original note were not included. [facility] Medicine Radiation Oncology Radiation Oncology SBRT Procedure Note Patient Identity: Patient name: Teresa Guzman Date of : 1960 Chief complaint: Lung cancer Oncologic History: Teresa Guzman is a 62 y.o. 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 Interval History: Very tired after treatment Weds. No new respiratory sx. Ongoing back pain - chronic. Treatment: Intent: Curative/definitive Site: Right lung Prescription: 50Gy in 5 fractions (BED(10)=100Gy(10)) Technique: VMAT/IMRT Current Dose: 10Gy in 1 fraction Procedure Detail: Ms. Guzman was in [...] system for excessive respiratory motion. Teresa Guzman's 2nd of 5 SBRT treatments was successfully delivered. I was personally present/supervising for the critical portions of the procedure. Plan Image: Impression/Plan: Impression: Teresa Guzman tolerated treatment without incident. Plan: ?? Continue radiation therapy as planned. No orders of the defined types were placed in this encounter. ??? [facility] [place] (NCI) [facility] Cancer [facility] ??? [employer] Commission on Cancer (ACS [place]) Accredited Cancer Program ??? [employer] (ACR) Accredited Radiation Oncology Program documented in this encounter Plan of Treatment Upcoming Encounters Date Type Department Care Team (Late st Contact Info) Description 08/16/2024 11:30 AM EDT Office Visit Radiation Oncology at [address] [phone] Johnny Rollins MD [facility] [place] [address] documented as of this encounter Visit Diagnoses Diagnosis Primary malignant neoplasm of right lower lobe of lung Malignant neoplasm of lower lobe, bronchus, or lung documented in this encounter Care Teams Deboning Team Leader Relationship Specialty Start Date End Date Rylee Olmos, COLLECTION AGENT [address] [place] [address] PCP - General Family Medicine 05/18/22 documented as of this encounter
--- OUTSIDE RECORDS SUMMARY | 2024-04-20 14:28 | XMS_ITS | Encounter Summary ---
Author Organization [facility] [place] [address] Care Team Providers Care Supervisor Esters And Emulsifiers Name Role Phone Rylee Olmos KRYSTINA Primary Care Provider Encounter Details Date Type Department Care Team (Late st Contact Info) Description 06/25/2022 Notes [place] [address] Cameron Muñoz MD [facility] [place] [address] Social History Tobacco Use Types Packs/Day Years Used Date Smoking Tobacco: Every Day Cigarettes Smokeless Tobacco: Never Sex and Gender Information Value Date Recorded Sex Assigned at Not on file Gender Identity Not on file Sexual Orientation Not on file documented as of this encounter Progress Notes * Cameron Muñoz MD - 06/25/2022 2:45 PM EST Interventional Pulmonology Update: Received message from patient's outside instructor tap dancing Dr. Mckoy that this patient is now agreeable to moving forward with biopsy of her lung nodule(s). Previously cancelled her scheduled robotic assisted bronchoscopy after meeting with me in clinic on 06/03/22. Her PET/CT and MR brain are being arranged by Dr. Mcelroy closer to home. We will work on re-scheduling her bronchoscopy with biopsy. Addendum: Our medical appointment scheduler called Ms. Guzman who refuses scheduling her bronchoscopy. We will contact Dr. Mcelroy's office to make them aware. Cameron Muñoz MD, 06/25/2022, 2:45 PM Interventional Pulmonology Section of Pulmonary & Critical Care Pager: [phone] documented in this encounter Plan of Treatment Upcoming Encounters Date Type Department Care Team (Late st Contact Info) Description 08/16/2024 11:30 AM EDT Office Visit Radiation Oncology at [address] [phone] Johnny Rollins MD [facility] [place] [address] documented as of this encounter Visit Diagnoses Not on filedocumented in this encounter Care Teams Supervisor Esters And Emulsifiers Relationship Specialty Start Date End Date Rylee [place] [address] [place] [address] PCP - General Family Medicine 05/18/22 documented as of this encounter
--- OUTSIDE RECORDS SUMMARY | 2024-04-20 14:28 | XMS_ITS | Encounter Summary ---
Author Organization [facility] Address [address] [place] [address] Care Team Providers Care Hog Man Name Role Phone Unknown, Provider Primary Care Provider Unava ilable Encounter Details Date Type Department Care Team (Late st Contact Info) Description 03/25/2012 Results Only [facility] Laboratory Services - [facility] ([facility] [address] [place], [place] [id number] Brooke Gonzalez MD [address] [place] [address] [place] [address] Social History Tobacco Use Types Packs/Day Years Used Date Smoking Tobacco: Never Assessed Comments Unknown Sex and Gender Information Value Date Recorded Sex Assigned at Not on file Legal Sex Female 17:38 EST Gender Identity Not on file Sexual Orientation Not on file documented as of this encounter Plan of Treatment Not on file documented as of this encounter Procedures Procedure Name Priority Date/Time Associated Diagnosis Comments PAP TEST- RESULT ONLY Routine 03/25/2012 0:00 EDT documented in this encounter Results * PAP TEST- RESULT ONLY (03/25/2012 0:00 EDT) Pathology Report: CYTOPATHOLOGY REPORT Reports generated via electronic interface contain original data; however they are lacking the format of the original report. Caution should be taken when reading/interpreti ng unformatted reports. Name: ? TERESA DOMÍNGUEZ ? Accession #: ? [id number] ? : ? 1960 (Age: 51) ??F ?Collect Date: ? 03/25/2012 ? Location: ? [facility] ? Receive Date: ? 03/29/2012 ? Provider: BROOKE GONZALEZ MD Copy to: ? Final Report SPECIMEN ADEQUACY ? Unsatisfactory for Evaluation, - insufficient numbers of squamous epithelial cells (less than 10% of expected cellularity) - sample preparation compromised by excessive inflammation GENERAL CATEGORIZATION ? Specimen processed and examined, but unsatisfactory for evaluation of epithelial abnormality. Recommend repeat Pap test or further follow up, as clinically indicated. ?? Last Menstural Period: 05/16 Previous Gynecologic Pathology: LSIL: 2009 Specimen/Source: ??Pap Test, Cervix/Endocervix, ThinPrep Imaging System with manual evaluation Document reviewed and electronically signed by: ? MEGAN Garcia(ASCP) ? Report ??Date: 04/04/2012 11:25 HPV with Pap Test ? Date Ordered: ? 04/01/2012 ? Status: ?? Signed Out ?Date Complete: ? 04/06/2012 ? By: ??System Interface ? Date Reported: ? 04/06/2012 ? Interpretation RESULT: Negative for HPV. No E6 or E7 mRNA is detected from HPV types 16,18,31,33,35, 39,45,51,52,56,58, 59,66, and 68 by maintenance department manager mediated amplification. This specimen had inadequate cells for cytologic interpretation. Negative results of HPV testing should be interpreted with caution. If clinically indicated, please consider submission of an additional specimen. Comments Document reviewed and electronically signed by: ? System Interface ? Report date: 04/06/2012 By the signature above, the attending physician certifies that he/she has personally conducted a gross and/or microscopic examination of the described specimens and rendered or confirmed the above diagnosis. End of Report AYANNA STOCK 03/25/2012 03/29/2012 us Brooke Gonzalez MD PATHOLOGY ORDERABLES Final Re sult [facility] [address] [place] [address] documented in this encounter Visit Diagnoses Not on filedocumented in this encounter Care Teams Hog Man Relationship Specialty Start Date End Date Unknown, Provider, PCP - General 04/04/09 documented as of this encounter
--- OUTSIDE RECORDS SUMMARY | 2024-04-20 14:28 | XMS_ITS | Encounter Summary ---
Author Organization [facility], Located Within [facility] [place] [address] Care Team Providers Care Dishwashing Machine Operator Name Role Phone Brooke Wiley MD Primary Care Provider [phone] Encounter Details Date Type Department Care Team (Latest Contact Info) Description 03/04/2016 - 03/04/2016 11:59 PM EDT Hospital Encounter Radiology Library at [facility] [place] [address] Morgan Garcia MD [facility] [place] [address] Pain Discharge Disposition: Home Social History Tobacco Use Types Packs/Day Years Used Date Smoking Tobacco: Never Assessed Sex and Gender Information Value Date Recorded Sex Assigned at Not on file Gender Identity Not on file Sexual Orientation Not on file documented as of this encounter Medications at Time of Discharge Medication Sig Dispensed Refills Start Date End Date rosuvastatin (CRESTOR) 5 mg tablet 05/07/2006 08/06/2017 venlafaxine (EFFEXOR XR) 75 mg 24 hr capsule 05/02/2006 08/06/2017 epiNEPHrine (EPIPEN) 0.3 mg/0.3 mL injection 1 IM, IM, PRN 05/02/2006 018 Mometasone (NASONEX) 50 mcg/Actuation [place] 05/02/2006 8 ibuprofen (ADVIL;MOTRIN) 800 mg tablet 800MG, PO, PRN 05/02/2006 08/06/2017 triamcinolone (KENALOG) 0.1 % ointment 05/02/2006 08/06/2017 Cyanocobalamin (VITAMIN B-12) 1,500 mcg TbSR 05/02/2006 08/06/2017 documented as of this encounter Plan of Treatment Upcoming Encounters Date Type Department Care Team (Late st Contact Info) Description 08/16/2024 11:30 AM EDT Office Visit Radiation Oncology at [address] [phone] Johnny Rollins MD [facility] [place] [address] documented as of this encounter Procedures Procedure Name Priority Date/Time Associated Diagnosis Comments FILM LIBRARY STORAGE ONLY DX SPINE Routine 03/04/2016 12:00 AM EDT Pain documented in this encounter Results * Film Library- Storage Only DX Spine (03/04/2016 12:00 AM EDT) Narrative [facility] - 08/05/2017 7:56 AM EST This exam is for storage only and is auto-finalizing. Morgan Garcia MD IM FILM LIBRARY ORD ERABLES [place], [place] documented in this encounter Visit Diagnoses Diagnosis Pain Generalized pain documented in this encounter Care Teams Dishwashing Machine Operator Relationship Specialty Start Date End Date Brooke Wiley MD [address] [place], [place] [address] PCP - General 04/29/10 05/17/17 documented as of this encounter
--- OUTSIDE RECORDS SUMMARY | 2024-04-20 14:28 | XMS_ITS | Encounter Summary ---
Author Organization [facility] [place] [address] Care Team Providers Care Sound Technician Supervisor Name Role Phone Brooke Wiley MD Primary Care Provider [phone] Encounter Details Date Type Department Care Team (Latest Contact Info) Description 04/16/2017 - 04/16/2017 11:59 PM EST Hospital Encounter Radiology Library at [facility] [place] [address] Morgan Garcia MD [facility] [place] [address] Pain Discharge Disposition: Home Social History Tobacco [...] PRN 05/02/2006 018 Mometasone (NASONEX) 50 mcg/Actuation [place] 05/02/2006 8 ibuprofen (ADVIL;MOTRIN) 800 mg tablet 800MG, PO, PRN 05/02/2006 08/06/2017 triamcinolone (KENALOG) 0.1 % ointment 05/02/2006 08/06/2017 Cyanocobalamin (VITAMIN B-12) 1,500 mcg TbSR 05/02/2006 08/06/2017 documented as of this encounter Plan of Treatment Upcoming Encounters Date Type Department Care Team (Late st Contact Info) Description 08/16/2024 11:30 AM EDT Office Visit Radiation Oncology at [address] [address] Johnny Rollins MD [facility] [place] [address] documented as of this encounter Procedures Procedure Name Priority Date/Time Associated Diagnosis Comments FILM LIBRARY STORAGE ONLY MR SPINE Routine 04/16/2017 12:00 AM EST Pain documented in this encounter Results * Film Library- Storage Only MR Spine (04/16/2017 12:00 AM EST) Narrative [facility] - 08/05/2017 7:54 AM EST This exam is for storage only and is auto-finalizing. Morgan Garcia MD [facility] FILM LIBRARY ORD ERABLES [place], [place] documented in this encounter Visit Diagnoses Diagnosis Pain Generalized pain documented in this encounter Care Teams Sound Technician Supervisor Relationship Specialty Start Date End Date Brooke Wiley MD [address] [place], [place] [address] PCP - General 04/29/10 05/17/17 documented as of this encounter
--- OUTSIDE RECORDS SUMMARY | 2024-04-20 14:28 | XMS_ITS | Encounter Summary ---
Author Organization [facility] Address [address] [place] [address] Care Team Providers Care Sas Programmer Remote Name Role Phone Unknown, Provider Primary Care Provider Unava ilable Encounter Details Date Type Department Care Team (Late st Contact Info) Description 01/18/2020 Lab Requisition [facility] Pathology & Laboratory Medicine - [facility] [address] [place] [address] Outr Resulting Lab, Provider Social History Tobacco Use Types Packs/Day [...] Procedure Name Priority Date/Time Associated Diagnosis Comments DO NOT ORDER STANDALONE - BROAD COVID TEST Today 01/18/2020 14:11 EDT COVID-19 TESTING Routine 01/18/2020 14:1 1 EDT documented in this encounter Results * DO NOT ORDER STANDALONE - BROAD COVID TEST (01/18/2020 14:11 EDT) COVID-19 rt-PCR Result NEGATIVE Negative 01/20/2020 1:27 EDT [facility] Comment: 2019-novel Coronavirus (2019-nCoV) not detected by the qRT-PCR assay. Consider testing for other respiratory viruses or re-collecting for 2019-nCoV testing. Note: Optimum timing for peak viral levels during infections caused by 2019-nCoV have not been determined. Collection of multiple specimens from the same patient may be necessary to detect the virus. Limitations Positive results are indicative of active infection with SARS-CoV-2 but do not rule out bacterial infection or co-infection with other viruses. The agent detected may not be the definite cause of disease. In addition, detection of viral RNA may not indicate the presence of infectious virus or that SARS-CoV-2 is the causative agent for clinical symptoms. Negative results do not preclude SARS-CoV-2 infection and should not be used as the sole basis for patient management decisions. Negative results must be combined with clinical observations, patient history, and epidemiological information. False negative results may also occur if amplification inhibitors are present in the specimen or if inadequate numbers of organisms are present in the specimen. Optimum specimen types and timing for peak viral levels during infections caused by SARS-CoV-2 have not been fully determined. Collection of multiple specimens (types and time points) from the same patient may be necessary to detect the virus. The test was validated for use with upper respiratory specimens obtained via nasopharyngeal or oropharyngeal swabs in VTM, UTM, M4, M5, M6, saline, and MTM media. The performance of this test has not been established for other specimens. Specimens collected using other FDA recommended Specimen Collection Materials listed in the FDA COVID-19 Diagnostic Technologies communication (August 31, 2019) are processed with the caveat that they were not all validated for use with this test and the result must be interpreted in this context. Furthermore, a false negative results may occur if a specimen is improperly collected, transported or handled. If the virus mutates in the RT-PCR target region, SARS-CoV-2 may not be detected or may be detected less predictably. Inhibitors or other types of interference may produce a false negative result. An interference study evaluating the effect of common cold medications was not performed. This test is not FDA-cleared but its performance characteristics were established by our CLIA-certified, CAP-accredited, high complexity laboratory in accordance with CLIA regulations, [employer] [place] [employer] (CAP) guidelines (Aug 24, 2019), and FDA guidance (Aug 05, 2019). This test is only for use under the Food and Drug Administration's Emergency Use Authorization. Swab ENTIRE NASOPHARYNX / Unknown 01/18/2020 14:11 EDT 01/18/2020 21:58 EDT us Provider Outr Resulting Lab MICROBIOLOGY - GENER AL ORDERABLES Final Result [facility] [place], [place] * COVID-19 TESTING (01/18/2020 14:11 EDT) COVID-19 rt-PCR Result NEGATIVE Negative 01/20/2020 2:35 EDT [facility] Comment: 2019-novel Coronavirus (2019-nCoV) not detected by the qRT-PCR assay. Consider testing for other respiratory viruses or re-collecting for 2019-nCoV testing. Note: Optimum timing for peak viral levels during infections caused by 2019-nCoV have not been determined. Collection of multiple specimens from the same patient may be necessary to detect the virus. Limitations Positive results are indicative of active infection with SARS-CoV-2 but do not rule out bacterial infection or co-infection with other viruses. The agent detected may not be the definite cause of disease. In addition, detection of viral RNA may not indicate the presence of infectious virus or that SARS-CoV-2 is the causative agent for clinical symptoms. Negative results do not preclude SARS-CoV-2 infection and should not be used as the sole basis for patient management decisions. Negative results must be combined with clinical observations, patient history, and epidemiological information. False negative results may also occur if amplification inhibitors are present in the specimen or if inadequate numbers of organisms are present in the specimen. Optimum specimen types and timing for peak viral levels during infections caused by SARS-CoV-2 have not been fully determined. Collection of multiple specimens (types and time points) from the same patient may be necessary to detect the virus. The test was validated for use with upper respiratory specimens obtained via nasopharyngeal or oropharyngeal swabs in VTM, UTM, M4, M5, M6, saline, and MTM media. The performance of this test has not been established for other specimens. Specimens collected using other FDA recommended Specimen Collection Materials listed in the FDA COVID-19 [employer] communication (August 31, 2019) are processed with the caveat that they were not all validated for use with this test and the result must be interpreted in this context. Furthermore, a false negative results may occur if a specimen is improperly collected, transported or handled. If the virus mutates in the RT-PCR target region, SARS-CoV-2 may not be detected or may be detected less predictably. Inhibitors or other types of interference may produce a false negative result. An interference study evaluating the effect of common cold medications was not performed. This test is not FDA-cleared but its performance characteristics were established by our CLIA-certified, CAP-accredited, high complexity laboratory in accordance with CLIA regulations, [employer] [place] [employer] (CAP) guidelines (Aug 24, 2019), and FDA guidance (Aug 05, 2019). This test is only for use under the Food and Drug Administration's Emergency Use Authorization. Performing Lab [facility] 01/20/2020 2:35 EDT [facility] Swab 01/18/2020 14:1 1 EDT 01/18/2020 21:58 EDT us Provider Outr Resulting Lab MICROBIOLOGY - GENER AL ORDERABLES Final Result [facility] [address] [place] [address] [facility] [place], [place] documented in this encounter Visit Diagnoses Not on filedocumented in this encounter Care Teams Sas Programmer Remote Relationship Specialty Start Date End Date Unknown, Provider, PCP - General 04/04/09 documented as of this encounter
--- OUTSIDE RECORDS SUMMARY | 2024-04-20 14:28 | XMS_ITS | Encounter Summary ---
Author Organization [facility] Address [address] [place] [address] Care Team Providers Care Superintendent Sales Name Role Phone Unknown, Provider Primary Care Provider Unava ilable Encounter Details Date Type Department Care Team (Late st Contact Info) Description 03/14/2010 Results Only [facility] Laboratory Services - [facility] [address] [place], [place] [id number] Brooke Wiley MD [address] [place] [address] [place] [address] Social History Tobacco Use Types [...] Procedure Name Priority Date/Time Associated Diagnosis Comments CYTOPATHOLOGY Routine 03/14/2010 0:00 EDT documented in this encounter Results * CYTOPATHOLOGY (03/14/2010 0:00 EDT) Pathology Report: CYTOPATHOLOGY REPORT ? Reports generated via electronic interface contain original data; ? however they are lacking the format of the original report. ? Caution should be taken when reading/interpreti ng unformatted reports. ? Name: ? REIL, TERESA L ? Accession #: ? [id number] ? : ? 1960 (Age: 49) ??F ?Collect Date: ? 03/14/2010 ? Location: ? [facility] ? Receive Date: ? 03/18/2010 ? Provider: BROOKE ERISMAN MD ? Copy to: ? Final Report ? SPECIMEN ADEQUACY ? Satisfactory for Evaluation ? - transformation zone component present ? GENERAL CATEGORIZATION ? Negative for Intraepithelial Lesion or Malignancy ? Last Menstural Period: 05/10 ? Previous Gynecologic Pathology: LSIL ? Other: HPVDX - HPV testing requested regardless of diagnosis on current ThinPrep Pap test. ? Specimen/Source: ??Pap Test, Cervix/Endocervix, ThinPrep Imaging System with ? manual evaluation ? Document reviewed and electronically signed by: ? Alyse Conrad, [place](ASCP) ? Report ??Date: 03/21/2010 15:36 ? HPV with Pap Test ? Date Ordered: ? 03/20/2010 ? Status: ?? Signed Out ?Date Complete: ? 03/26/2010 ? By: ??System Interface ? Date Reported: ? 03/26/2010 ? Interpretation ? RESULT: Negative for HPV types 16, 18, 31, 33, 35, 39, 45, 51, 52, ? 56, 58, 59, and 68. ? Comments ? Document reviewed and electronically signed by: ? System Interface ? Report date: 03/26/2010 ? By the signature above, the attending physician certifies that he/she has ? personally conducted a gross and/or microscopic examination of the described ? specimens and rendered or confirmed the above diagnosis. ? End of Report ? [facility] 03/14/2010 03/18/2010 us Brooke Wiley MD PATHOLOGY ORDERABLES Final Re sult [facility] [address] [place] [address] documented in this encounter Visit Diagnoses Not on filedocumented in this encounter Care Teams Superintendent Sales Relationship Specialty Start Date End Date Unknown, Provider, PCP - General 04/04/09 documented as of this encounter
--- OUTSIDE RECORDS SUMMARY | 2024-04-20 14:28 | XMS_ITS | Encounter Summary ---
Author Organization [facility] [place] [address] Care Team Providers Care Nutrient Management Specialist Name Role Phone Rylee Olmos APRN Primary Care Provider [phone] Encounter Details Date Type Department Care Team (Latest Contact Info) Description 06/03/2022 Travel Social History Tobacco Use Types Packs/Day [...] AM EDT Office Visit Radiation Oncology at [address] [phone] Johnny Rollins MD [facility] [place] [address] documented as of this encounter Visit Diagnoses Not on filedocumented in this encounter Care Teams Nutrient Management Specialist Relationship Specialty Start Date End Date Rylee Olmos APRN [facility] [address] [place], [place] [id number] PCP - General Family Medicine 05/18/22 documented as of this encounter
--- OUTSIDE RECORDS SUMMARY | 2024-04-20 14:28 | XMS_ITS | Encounter Summary ---
Author Organization [facility] Address [address] [place] [address] Care Team Providers Care Director Of Sports Medicine Name Role Phone Unknown, Provider Primary Care Provider Unava ilable Encounter Details Date Type Department Care Team (Late st Contact Info) Description 10/07/2012 Results Only [facility] Laboratory Services - [facility] ([facility] [address] [place], [place] [phone] Brooke Gonzalez MD [address] [place] [address] [place] [address] Social History Tobacco Use Types [...] Diagnosis Comments PAP TEST- RESULT ONLY Routine 10/07/2012 0:00 EDT documented in this encounter Results * PAP TEST- RESULT ONLY (10/07/2012 0:00 EDT) Pathology Report: CYTOPATHOLOGY REPORT Reports generated via electronic interface contain original data; however they are lacking the format of the original report. Caution should be taken when reading/interpreti ng unformatted reports. Name: ? TERESA DOMÍNGUEZ ? Accession #: ? [id number] ? : ? 1960 (Age: 52) ??F ?Collect Date: ? 10/07/2012 ? Location: ? [facility] ? Receive Date: ? 10/10/2012 ? Provider: BROOKE GONZALEZ MD Copy to: ? Final Report SPECIMEN ADEQUACY ? Satisfactory for Evaluation - transformation zone component present - scant squamous epithelial component secondary to excessive inflammation GENERAL CATEGORIZATION ? Negative for Intraepithelial Lesion or Malignancy ?? Last Menstrual Period: 2009 Previous Gynecologic Pathology: LSIL: 2009 Other: Additional clinical information: Repeat pap from March 2012. Pap specimen not adequate for evaluation. No Charge pap. Specimen/Source: ??Pap Test, Cervix/Endocervix, ThinPrep Imaging System with manual evaluation Document reviewed and electronically signed by: ? MEGAN Agrawal(ASCP) ? Report ??Date: 10/14/2012 10:46 HPV with Pap Test ? Date Ordered: ? 10/14/2012 ? Status: ?? Signed Out ?Date Complete: ? 10/18/2012 ? By: ??System Interface ? Date Reported: ? 10/18/2012 ? Interpretation RESULT: Negative for HPV. No E6 or E7 mRNA is detected from HPV types 16,18,31,33,35, 39,45,51,52,56,58, 59,66, and 68 by cook pie mediated amplification. Comments Document reviewed and electronically signed by: ? System Interface ? Report date: 10/18/2012 By the signature above, the attending physician certifies that he/she has personally conducted a gross and/or microscopic examination of the described specimens and rendered or confirmed the above diagnosis. End of Report [facility] 10/07/2012 10/10/2012 us Brooke Gonzalez MD PATHOLOGY ORDERABLES Final Re sult Performing Organization Address City/State/[facility] Co de Phone Number [facility] [address] [place] [address] documented in this encounter Visit Diagnoses Not on filedocumented in this encounter Care Teams Director Of Sports Medicine Relationship Specialty Start Date End Date Unknown, Provider, PCP - General 04/04/09 documented as of this encounter
--- OUTSIDE RECORDS SUMMARY | 2024-04-20 14:28 | XMS_ITS | Clinical Summary ---
Author Organization [facility] Address [address] [place] [address] Care Team Providers Care Boxcar Weigher Name Role Phone Unknown, Provider Primary Care Provider Unava ilable Social History Tobacco Use Types Packs/Day Years Used Date Smoking Tobacco: Never Assessed Comments Unknown Sex and Gender Information Value Date Recorded Sex Assigned at Not on file Legal Sex Female 17:38 EST Gender Identity Not on file Sexual Orientation Not on file Plan of Treatment Health Maintenance Due Date Last Done Comments Hepatitis C Screen 1960 Fall Risk Screening 2023 COVID-19 Vaccine ( season) 2024 RSV Immunization ( o r 60+ Years) (1 - 1-dose 75+ series) 2033 Care Teams Boxcar Weigher Relationship Specialty Start Date End Date Unknown, Provider, PCP - General 04/04/09
--- OUTSIDE RECORDS SUMMARY | 2024-04-20 14:28 | XMS_ITS | Encounter Summary ---
Author [facility] [place] [address] Care Team Providers Care General Assistant Name Role Phone Rylee Olmos APRN Primary Care Provider Encounter Details Date Type Department Care Team (Late st Contact Info) Description 06/15/2022 [place] [address] [place] Social History Tobacco Use Types [...] EDT Office Visit Radiation Oncology at [address] [phone] Johnny Rollins MD [facility] [place] [address] documented as of this encounter Visit Diagnoses Not on filedocumented in this encounter Care Teams General Assistant Relationship Specialty Start Date End Date Rylee Olmos, VIDEO NETWORK ENGINEER Arlene HUERT[place] [address] PCP - General Family Medicine 05/18/22 documented as of this encounter
--- OUTSIDE RECORDS SUMMARY | 2024-04-20 14:28 | XMS_ITS | Encounter Summary ---
Author Organization [facility] Address [facility] [place] [address] Care Team Providers Care Geological E Logger Name Role Phone Stewart Tracey MD Primary Care Provider [phone] Encounter Details Date Type Department Care Team (Latest Contact Info) Description 08/06/2017 1:01 PM EST - 08/06/2017 11:59 PM EST Hospital Encounter XRay at [address] [place] [address] Morgan Garcia MD [facility] [place] [address] Scoliosis, unspecified scoliosis type, unspecified spinal region Discharge Disposition: Home Social History Tobacco Use Types Packs/Day Years Used Date Smoking Tobacco: Every Day Cigarettes Smokeless Tobacco: Never Sex and Gender Information Value Date Recorded Sex Assigned at Not on file Gender Identity Not on file Sexual Orientation Not on file documented as of this encounter Medications at Time of Discharge Medication Sig Dispensed Refills Start Date End Date cyanocobalamin 1,000 mcg Tablet Take 1,000 mcg [...] Inject 0.3 mg into the muscle once. traMADol (ULTRAM) 50 mg Tablet Take 50 mg by mouth every 6 hours as needed for Pain. 07/06/2022 multivitamin (THERAGRAN) Tablet Take 1 tablet by mouth daily. 12/11/2022 fluticasone (FLONASE) 50 mcg/actuation [place], Suspension 1 spray by Each Nare route 2 times daily as needed. 07/06/2022 documented as of this encounter Plan of Treatment Upcoming Encounters Date Type Department Care Team (Late st Contact Info) Description 08/16/2024 11:30 AM EDT Office Visit Radiation Oncology at [address] [address] Johnny Rollins MD [facility] [place] [address] documented as of this encounter Procedures Procedure Name Priority Date/Time Associated Diagnosis Comments XR SCOLIOSIS OR TOTAL SPINE 2 VIEW Routine 08/06/2017 1:20 PM EST Scoliosis, unspecified scoliosis type, unspecified spinal region documented in this encounter Results * XR Scoliosis or Total Spine 2 view (08/06/2017 1:20 PM EST) Anatomical Region Laterality Modality C-spine, T-spine, L-spine N/A Digita l Radiography Impressions 08/06/2017 2:29 PM EST Marked dextroscoliosis of the lower thoracic and lumbar spine, with its apex at the thoracolumbar junction, measured at approximately 46 degrees. Narrative 08/06/2017 2:29 PM EST EXAMINATION: XR SCOLIOSIS OR TOTAL SPINE 2 VIEW CLINICAL HISTORY: Scoliosis TECHNIQUE: Frontal and lateral radiographs of the total spine were obtained COMPARISON: Lumbar spine radiographs dated 03/04/2016 and 08/06/2016. Attention is also directed to the lumbar spine MRI dated 04/16/2017. FINDINGS: There is a marked dextroscoliosis of the lower thoracic and lumbar spine, with its apex at the thoracolumbar junction, which, when measured between the T10 superior endplate and the L3 inferior endplate, is measured at 46 degrees. There are 12 pairs of ribs and 5 lumbar-type vertebral bodies. No vertebral anomaly is visualized. No significant pelvic tilt is appreciated. Subjectively, there is diffuse demineralization of the bones. Dense atherosclerotic calcification of the abdominal aorta is seen. Procedure Note Richard Monroe MD - 08/06/2017 EXAMINATION: XR SCOLIOSIS OR TOTAL SPINE 2 VIEW CLINICAL HISTORY: Scoliosis TECHNIQUE: Frontal and lateral radiographs of the total spine were obtained COMPARISON: Lumbar spine radiographs dated 03/04/2016 and 08/06/2016. Attention is also directed to the lumbar spine MRI dated 04/16/2017. FINDINGS: There is a marked dextroscoliosis of the lower thoracic and lumbar spine,with its apex at the thoracolumbar junction, which, when measured between theT10 superior endplate and the L3 inferior endplate, is measured at 46degrees. There are 12 pairs of ribs and 5 lumbar-type vertebral bodies. 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 No significant pelvic tilt is appreciated. Subjectively, there is diffuse demineralization of the bones. Dense atherosclerotic calcification of the abdominal aorta is seen. IMPRESSION Marked dextroscoliosis of the lower thoracic and lumbar spine, with itsapex at the thoracolumbar junction, measured at approximately 46 degrees. Morgan Garcia MD IMG DX ORDERABLES documented in this encounter Visit Diagnoses Diagnosis Scoliosis, unspecified scoliosis type, unspecified spinal region documented in this encounter Care Teams Geological E Logger Relationship Specialty Start Date End Date Stewart Tracey MD [address] [place] [phone] PCP - General Family Medicine 08/06/17 05/17/22 documented as of this encounter
--- OUTSIDE RECORDS SUMMARY | 2024-04-20 14:28 | XMS_ITS | Encounter Summary ---
Author Organization [facility] Address [address] [place] [address] Care Team Providers Care Cable Testers Helper Name Role Phone Unknown, Provider Primary Care Provider Unava ilable Encounter Details Date Type Department Care Team (Late st Contact Info) Description 11/17/2006 Results Only [facility] - [facility] [address] [place] [address] Brooke Gonzalez MD [address] [place] [address] [place] [address] Social History Tobacco Use Types [...] Priority Date/Time Associated Diagnosis Comments CYTOPATHOLOGY Routine 11/17/2006 0:00 EDT documented in this encounter Results * CYTOPATHOLOGY (11/17/2006 0:00 EDT) Pathology Report: CYTOPATHOLOGY REPORT Reports generated via electronic interface contain original data; however they are lacking the format of the original report. Caution should be taken when reading/interpreti ng unformatted reports. Name: ? TERESA DOMÍNGUEZ ? Accession #: ? [id number] : ? 1960 (Age: 46) ??F ?Collect Date: ? 11/17/2006 Location: ? [facility] ? Receive Date: ? 11/19/2006 Provider: ?BROOKE GONZALEZ MD Copy to: ? Specimen/Source: ?ThinPrep Pap Test, Cervix/Endocervix, processed on Finale Desserts ThinPrep Imaging System, with manual evaluation Last Menstrual Period: ? 11/05/06 Other: ? HPVA - HPV testing requested if ASC-US on the current ThinPrep Pap test. ? SPECIMEN ADEQUACY ? Satisfactory for Evaluation - transformation zone component absent GENERAL CATEGORIZATION ? Negative for Intraepithelial Lesion or Malignancy ? Document reviewed and electronically signed by: ? WESLEY Grande(ASCP) ? Report Date: ??11/25/2006 10:23 End of Report [facility] 11/17/2006 11/19/2006 us Brooke Gonzalez MD PATHOLOGY ORDERABLES Final Re sult [facility] [address] [place] [address] documented in this encounter Visit Diagnoses Not on filedocumented in this encounter Care Teams Cable Testers Helper Relationship Specialty Start Date End Date Unknown, Provider, PCP - General 04/04/09 documented as of this encounter
--- OUTSIDE RECORDS SUMMARY | 2024-04-20 14:28 | XMS_ITS | Encounter Summary ---
[place] [address] Care Team Providers Care Project Engineering Manager Name Role Phone Rylee Olmos Krystyna FLAHERTY Primary Care Provider Reason for Visit * Reason Onset Date Comments Other 06/04/2022 PFT order faxed Encounter Details Date Type Department Care Team (Late st Contact Info) Description 06/04/2022 [place] [address] Sherie Gardiner RN Other (PFT order faxed) Social History Tobacco Use Types Packs/Day Years Used Date Smoking Tobacco: Every Day Cigarettes Smokeless Tobacco: Never Sex and Gender Information Value Date Recorded Sex Assigned at Not on file Gender Identity Not on file Sexual Orientation Not on file documented as of this encounter Miscellaneous Notes * Telephone Encounter - Sherie Gardiner RN - 06/04/2022 10:48 AM EST Called pt and confirmed she would like this test done at [facility] in [place], [place]. Order faxed. SHERIF Rodriguez, RN Department of Pulmonary 5C, [facility] Pager: [phone] documented in this encounter Plan of Treatment Upcoming Encounters Date Type Department Care Team (Late st Contact Info) Description 08/16/2024 11:30 AM EDT Office Visit Radiation Oncology at [address] [phone] Johnny Rollins MD [facility] [place] [address] documented as of this encounter Visit Diagnoses Not on filedocumented in this encounter Care Teams Project Engineering Manager Relationship Specialty Start Date End Date Rylee [place] [address] [place] [address] PCP - General Family Medicine 05/18/22 documented as of this encounter
--- OUTSIDE RECORDS SUMMARY | 2024-04-20 14:28 | XMS_ITS | Encounter Summary ---
Author Organization [facility] Address [address] [place] [address] Care Team Providers Care Employment Assistant Name Role Phone Unknown, Provider Primary Care Provider Unava ilable Encounter Details Date Type Department Care Team (Late st Contact Info) Description 07/12/2020 Lab Requisition [facility] Pathology & Laboratory Medicine - [facility] [address] [place] [address] Mary Kay Russell, DIESEL TRUCK CRANE OPERATOR [address] [place], [place] [phone] Encounter for other general examination Social History Tobacco Use Types Packs/Day Years [...] Name Priority Date/Time Associated Diagnosis Comments PAP TEST Today 07/12/2020 16:29 EST HPV DNA DETECTION WITH GENOTYPING, PCR Today 07/12/2020 16:29 EST documented in this encounter Results * HUMAN PAPILLOMAVIRUS (HPV) DETECTION-HIGH RISK TYPES (07/12/2020 16:29 EST) HPV other High Risk types, PCR Negative Negative 07/22/2020 15:[address] [facility] Comment:No E6 or E7 mRNA is detected from HPV types 16,18,31,33,35,39,45,51,52,56,58,59,66, and 68 by business improvement manager mediated amplification. Papanicolaou smear specimen (specimen) CERVIX UTERI STRUCTURE / Unknown 07/12/2020 16:29 EST 07/19/2020 11:39 EST us Mary Kay Russell DIESEL TRUCK CRANE OPERATOR MICROBIOLOGY - GENERAL O RDERABLES Final Result [facility] [address] [place] [address] * PAP TEST (07/12/2020 16:29 EST) Specimens A. Cervix and/or Endocervix , ThinPrep Imaging System with Manual Evaluation 07/22/2020 15:33 [facility] Specimen Adequacy Satisfactory for Evaluation - assessment of transformation zone component not applicable ( e.g. atrophy, vaginal sample, hysterectomy) 07/22/2020 15:33 [facility] General Categorization Negative for intraepithelial lesion or malignancy 07/22/2020 15:33 [facility] Attestation . 07/22/2020 15:33 [facility] at 1533 Clinical History Clinical History, Signs, Symptoms, Chief Complaint, Pertaining to This Order: See below Prior Gynecologic Pathology?: Yes 07/22/2020 15:33 [facility] HPV The result for the Human Papillomavirus (HPV) Detection-High Risk Types is Negative. No E6 or E7 mRNA is detected from HPV types 16,18,31,33,35,39 ,45,51,52,56,58,5 9,66, and 68 by business improvement manager mediated amplification.Rebekah ting was performed on specimen [id number] and was resulted on 07/22/2020 1526 EST by DENISE, LAB INSTRUMENT RESULTS IN 07/22/2020 15:33 [facility] Performing Lab [facility] 07/22/2020 15:33 [facility] Scanned Images 07/22/2020 15:33 [facility] Papanicolaou smear specimen (specimen) CERVIX UTERI STRUCTURE / Unknown 07/12/2020 16:29 EST 07/16/2020 11:21 EST us Mary Kay Russell DIESEL TRUCK CRANE OPERATOR PATHOLOGY ORDERABLES Evert ledbetter Result [facility] [address] [place] [address] documented in this encounter Visit Diagnoses Diagnosis Encounter for other general examination documented in this encounter Care Teams Employment Assistant Relationship Specialty Start Date End Date Unknown, Provider, PCP - General 04/04/09 documented as of this encounter
--- OUTSIDE RECORDS SUMMARY | 2024-04-20 14:28 | XMS_ITS | Encounter Summary ---
Author Organization [facility] [place] [address] Care Team Providers Care Compliance Intern Name Role Phone Rylee Olmos Krystyna FLAHERTY Primary Care Provider Reason for Referral * Diagnostic Test (Routine) - Closed Specialty Diagnoses / Procedures Referred By Noa bullock Referred To Contact Radiology Diagnoses Lung mass Procedures CT Chest wo Contrast (Generic) Cameron Muñoz MD [facility] [place] [address] [facility] [place] [address] Referral ID Status Reason Start Date Expiration Date V isits Requested Visits Authorized [id number] Closed Specialty Service Requested 06/25/2022 12/24/2023 1 1 Encounter Details Date Type Department Care Team (Late st Contact Info) Description 06/25/2022 Orders [place] [address] Cameron Muñoz MD [facility] [place] [address] Lung mass Social History Tobacco Use Types Packs/Day Years [...] AM EDT Office Visit Radiation Oncology at [address] [phone] Johnny Rollins MD [facility] [place] [address] documented as of this encounter Results * CT Chest wo [...] who have questions please contact the health care coordination manager that requested your imaging first. ? Electronically signed by: Booker Hernandes MD, [facility] ([phone]), at 07/07/2022 9:35 AM Narrative 07/07/2022 9:35 AM EST EXAMINATION: CT CHEST WO CONTRAST (GENERIC) CLINICAL HISTORY: Lung nodule, > 8mm [place] robotic bronchoscopy protocl CT chest TECHNIQUE: Helical [...] (GENERIC) CLINICAL HISTORY: Lung nodule, > 8mm [place] robotic bronchoscopy protocl CT chest TECHNIQUE: Helical [...] patients who have questions please contactthe health care coordination manager that requested your imaging first. Electronically signed by: Booker Hernandes MD, [facility]([phone]), at 07/07/2022 9:35 AM Cameron Muñoz MD IMG CT ORDERABLES documented in this encounter Visit Diagnoses Diagnosis Lung mass Swelling, mass, or lump in chest Lung mass Swelling, mass, or lump in chest documented in this encounter Care Teams Compliance Intern Relationship Specialty Start Date End Date Rylee Olmos, [place] [address] [place] [address] PCP - General Family Medicine 05/18/22 documented as of this encounter
--- OUTSIDE RECORDS SUMMARY | 2024-04-20 14:28 | XMS_ITS | Encounter Summary ---
Author Organization [facility] Address [facility] [place] [address] Care Team Providers Care Oven Builder Name Role Phone Stewart Tracey MD Primary Care Provider [phone] Encounter Details Date Type Department Care Team (Latest Contact Info) Description 08/06/2017 1:00 PM EST Hospital Encounter XRay at [address] [place] [address] Morgan Garcia MD [facility] [place] [address] Scoliosis, unspecified scoliosis type, unspecified spinal region [...] EDT Office Visit Radiation Oncology at [address] [address] Johnny Rollins MD [facility] [place] [address] documented as of this encounter Procedures Procedure Name Priority Date/Time Associated Diagnosis Comments XR LUMBAR SPINE 2 OR 3 VIEWS Routine 08/06/2017 1:24 PM EST Scoliosis, unspecified scoliosis type, unspecified spinal region documented in this encounter Results * XR Lumbar Spine 2 Or 3 Views (Generic) (08/06/2017 1:24 PM EST) Anatomical Region Laterality Modality L-spine N/A Digital Radiogra phy Impressions 08/06/2017 1:53 PM EST 1. ??Slight scoliosis 2. ??No dynamic instability. Narrative 08/06/2017 1:53 PM EST EXAMINATION: XR LUMBAR SPINE 2 OR 3 VIEWS (GENERIC) CLINICAL HISTORY: Lateral flex/ ext 2 views to eval scoliosis; looking for instability/motion TECHNIQUE: 2 views COMPARISON: February 2016 FINDINGS: Number of non-rib bearing lumbar-type vertebrae: 5 Vertebral bodies: Normal vertebral height. No vertebral fracture. Evaluation of bone detail is limited by decreased mineralization and scoliosis. There is facet arthropathy. Disk spaces: Disc space narrowing at all levels. Soft tissues: ??heavy atherosclerotic aortic wall calcifications. there is focal increased diameter the aorta at L2 measuring 40 mm. Alignment: Scoliosis seen on the previous examination. No subluxation on the lateral view. Unchanged alignment upon flexion and extension. Procedure Note Delmy Parsons MD - 08/06/2017 EXAMINATION: XR LUMBAR SPINE 2 OR 3 VIEWS (GENERIC) CLINICAL HISTORY: Lateral flex/ ext 2 views to eval scoliosis; lookingfor instability/motion TECHNIQUE: 2 views COMPARISON: February 2016 FINDINGS: Number of non-rib bearing lumbar-type vertebrae: 5 Vertebral bodies: Normal vertebral height. No vertebral fracture.Evaluation of bone detail is limited by decreased mineralization and scoliosis. There isfacet arthropathy. Disk spaces: Disc space narrowing at all levels. Soft tissues: heavy atherosclerotic aortic wall calcifications. there isfocal increased diameter the aorta at L2 measuring 40 mm. Alignment: Scoliosis seen on the previous examination. No subluxation onthe lateral view. Unchanged alignment upon flexion and extension. IMPRESSION 1. Slight scoliosis 2. No dynamic instability. Morgan Garcia MD IMG DX ORDERABLES documented in this encounter Visit Diagnoses Diagnosis Scoliosis, unspecified scoliosis type, unspecified spinal region documented in this encounter Care Teams Oven Builder Relationship Specialty Start Date End Date Stewart Tracey MD [address] [place] [phone] PCP - General Family Medicine 08/06/17 05/17/22 documented as of this encounter
--- OUTSIDE RECORDS SUMMARY | 2024-04-20 14:28 | XMS_ITS | Encounter Summary ---
Author Organization [facility] [place] [address] Care Team Providers Care Gravity Prospector Name Role Phone Stewart Tracey MD Primary Care Provider Encounter Details Date Type Department Care Team (Late st Contact Info) Description 05/08/2022 Ancillary Procedure Radiology Library at [facility] [place] [address] Rylee Olmos, KRYSTINA [facility] [address], [place] [phone] Social History Tobacco Use Types Packs/Day Years [...] EDT Office Visit Radiation Oncology at [address] [phone] Johnny Rollins MD [facility] [place] [address] documented as of this encounter Procedures Procedure Name Priority Date/Time Associated Diagnosis Comments FILM LIBRARY STORAGE ONLY CT CHEST Routine 05/08/2022 12:00 AM EST documented in this encounter Results * Film Library- Storage Only CT Chest (05/08/2022 12:00 AM EST) Narrative SADIE - 05/20/2022 4:37 PM EST This exam is auto-finalizing. It's purpose is for storage only. Rylee Olmos APRN IMG FILM LIBRARY ORD ERABLES Performing Organization Address City/State/[facility] Co de Phone Number [place], [place] documented in this encounter Visit Diagnoses Not on filedocumented in this encounter Care Teams Gravity Prospector Relationship Specialty Start Date End Date Stewart Tracey MD [address] [place] [phone] PCP - General Family Medicine 08/06/17 05/17/22 documented as of this encounter
--- OUTSIDE RECORDS SUMMARY | 2024-04-20 14:28 | XMS_ITS | Encounter Summary ---
Author Organization Health system Address [address] [place] [address] Care Team Providers Care Diagnostic Radiologist Name Role Phone Unknown, Provider Primary Care Provider Unava ilable Encounter Details Date Type Department Care Team (Late st Contact Info) Description 07/31/2009 Results Only [facility] [phone] Devora Jones MD [address] [place] [address] Social History Tobacco Use Types Packs/Day Years [...] Procedure Name Priority Date/Time Associated Diagnosis Comments SURGICAL PATHOLOGY Routine 07/31/2009 0:00 EST documented in this encounter Results * SURGICAL PATHOLOGY (07/31/2009 0:00 EST) Pathology Report: SURGICAL PATHOLOGY REPORT ? Reports generated via electronic interface contain original data; ? however they are lacking the format of the original report. ? Caution should be taken when reading/interpreting unformatted reports. ? Name: ? REIL, TERESA L ? Accession #: ? [id number] ? : ? 1960 (Age: 49) ??F ? Collect Date: ? 07/31/2009 ? Location: ? [facility] ? Receive Date: ? 07/31/2009 ? Provider: DEVORA S MARTY MD ? Copy to: IDANIA GONZALEZ MD ? Final Pathologic Diagnosis: ? Endometrium, curettage: ? 1. ?Fragments of hyperplastic endometrial polyp. ? 2. ? Inactive endometrium with cystic change and pseudodecidualized stroma, ?? consistent with exogenous hormonal effect. ??See comment. ? 3. ?Fragments of benign endocervix with focal microglandular ? hyperplasia. ? Comment: ? The histologic features of the endometrial fragments are suggestive of ? treated disordered proliferative endometrium. Selected slides were reviewed at ?? the intradepartmental consultation conference. ? Document reviewed and electronically signed by: ? WILMER BATEMAN MD ? Report ??Date: 08/02/2009 15:07 ? By the signature above, the attending physician certifies that he/she has ? personally conducted a gross and/or microscopic examination of the described ? specimens and rendered or confirmed the above diagnosis. ? Specimen(s) Received: ? Endometrial curettings + EM polyp ? Clinical History: ? EM polyp ? Gross Description: ? Received in formalin labelled Reil, Teresa and endometrial curettings is a 4.0 x 4.0 x 1.5 cm aggregate of pink-cueto tissue fragments admixed with clotted blood and a small amount of mucus. ??The specimen is filtered and entirely ? submitted in (A1) ??(A5). ??(Curly Burris)/kmkorey ? End of Report ? [facility] 07/31/2009 07/31/2009 20: 14 EST us Devora Jones MD PATHOLOGY ORDERABLES Final Resu lt Performing Organization Address City/State/[facility] Co de Phone Number [facility] [address] [place] [address] documented in this encounter Visit Diagnoses Not on filedocumented in this encounter Care Teams Diagnostic Radiologist Relationship Specialty Start Date End Date Unknown, Provider, PCP - General 04/04/09 documented as of this encounter
--- OUTSIDE RECORDS SUMMARY | 2024-04-20 14:28 | XMS_ITS | Encounter Summary ---
[place] [address] Care Team Providers Care Service Advisor Name Role Phone Rylee Olmos Krystyna FLAHERTY Primary Care Provider Encounter Details Date Type Department Care Team (Late st Contact Info) Description 05/26/2022 Orders [place] [phone] Macho Caballero APRN [facility] [place] [address] Lung mass Social History Tobacco Use Types Packs/Day Years Used Date Smoking Tobacco: Every Day Cigarettes Smokeless Tobacco: Never Sex and Gender Information Value Date Recorded Sex Assigned at Not on file Gender Identity Not on file Sexual Orientation Not on file documented as of this encounter Miscellaneous Notes * Addendum Note - Macho Caballero APRN - 05/26/2022 11:43 AM ESTAddended by: MACHO CABALLERO on: 05/26/2022 11:53 AM Modules accepted: Orders * Addendum Note - Macho Caballero APRN - 05/26/2022 11:43 AM ESTAddended by: MACHO CABALLERO on: 06/09/2022 03:47 PM Modules accepted: Orders documented in this encounter Plan of Treatment Upcoming Encounters Date Type Department Care Team (Late st Contact Info) Description 08/16/2024 11:30 AM EDT Office Visit Radiation Oncology at [address] [phone] Johnny Rollins MD [facility] [place] [address] documented as of this encounter Results * Creatinine (07/07/2022 8:49 AM EST) Creatinine 0.71 0.70 - 1.20 mg/dL [facility] Est Glomerular Filtration Rate 95 >=60 mL/min/1. 73 m?? [facility] Comment: This patient's estimated GFR was [...] Narrative Resulting Agency Comment Spec In Lab Macho Caballero APRN CHEMISTRY ORDERABL ES [facility] [place] [address] documented in this encounter Visit Diagnoses Diagnosis Lung mass Swelling, mass, or lump in chest documented in this encounter Care Teams Service Advisor Relationship Specialty Start Date End Date Rylee Olmos APRN [address] [facility] [place] [address] PCP - General Family Medicine 05/18/22 documented as of this encounter
--- OUTSIDE RECORDS SUMMARY | 2024-04-20 14:28 | XMS_ITS | Encounter Summary ---
Author Organization [facility], Located [facility] [place] [address] Care Team Providers Care Vision Therapist Name Role Phone Stewart Tracey MD Primary Care Provider Encounter Details Date Type Department Care Team (Late st Contact Info) Description 07/19/2020 Ancillary Procedure Radiology Library at [facility] [place] [address] Rylee Olmos, KRYSTINA [facility] [address] [place], [place] [id number] Social History Tobacco Use Types Packs/Day Years [...] EDT Office Visit Radiation Oncology at [address] [phone] Johnny Rollins MD [facility] [place] [address] documented as of this encounter Procedures Procedure Name Priority Date/Time Associated Diagnosis Comments FILM LIBRARY STORAGE ONLY CT CHEST Routine 07/19/2020 12:00 AM EST documented in this encounter Results * Film Library- Storage Only CT Chest (07/19/2020 12:00 AM EST) Narrative SADIE - 05/20/2022 2:30 PM EST This exam is auto-finalizing. It's purpose is for storage only. Rylee Olmos APRN IMG FILM LIBRARY ORD ERABLES Performing Organization Address City/State/[facility] Co de Phone Number [place], [place] documented in this encounter Visit Diagnoses Not on filedocumented in this encounter Care Teams Vision Therapist Relationship Specialty Start Date End Date Stewart Tracey MD [address] [place] [phone] PCP - General Family Medicine 08/06/17 05/17/22 documented as of this encounter
--- OUTSIDE RECORDS SUMMARY | 2024-04-20 14:28 | XMS_ITS | Encounter Summary ---
[place] [address] Care Team Providers Care Content Production Specialist Name Role Phone Rylee Olmos APRN Primary Care Provider Encounter Details Date Type Department Care Team (Late st Contact Info) Description 06/02/2022 [place] [address] Abbey Fitzgerald RMA Social History Tobacco Use Types Packs/Day Years Used Date Smoking Tobacco: Every Day Cigarettes Smokeless Tobacco: Never Sex and Gender Information Value Date Recorded Sex Assigned at Not on file Gender Identity Not on file Sexual Orientation Not on file documented as of this encounter Miscellaneous Notes * Telephone Encounter - Abbey Fitzgerald RMA - 06/02/2022 3:32 PM EST Phone call attempt made to pt unsuccessful. Allergies, meds, & tobacco NOT reviewed. documented in this encounter Plan of Treatment Upcoming Encounters Date Type Department Care Team (Late st Contact Info) Description 08/16/2024 11:30 AM EDT Office Visit Radiation Oncology at [address] [phone] Johnny Rollins MD [facility] [place] [address] documented as of this encounter Visit Diagnoses Not on filedocumented in this encounter Care Teams Content Production Specialist Relationship Specialty Start Date End Date Rylee Olmos, URBAN FORESTER [facility] [place] [address] PCP - General Family Medicine 05/18/22 documented as of this encounter
--- OUTSIDE RECORDS SUMMARY | 2024-04-20 14:28 | XMS_ITS | Encounter Summary ---
[facility] [place] [address] Care Team Providers Care Embroidery Machine Operator Name Role Phone Rylee Olmos APRN Primary Care Provider Encounter Details Date Type Department Care Team (Late st Contact Info) Description 06/25/2022 Telephone [place] [address] Betsy Wing Social History Tobacco Use Types [...] AM EDT Office Visit Radiation Oncology at [address] [phone] Johnny Rollins MD [facility] [place] [address] documented as of this encounter Visit Diagnoses Not on filedocumented in this encounter Care Teams Embroidery Machine Operator Relationship Specialty Start Date End Date Rylee Olmos, WORKFORCE DEVELOPMENT ASSISTANT Arlene [place] [address] PCP - General Family Medicine 05/18/22 documented as of this encounter
--- OUTSIDE RECORDS SUMMARY | 2024-04-20 14:28 | XMS_ITS | Encounter Summary ---
[place] [address] Care Team Providers Care Commercial Lines Underwriter Name Role Phone Rylee Olmos Krystyna FLAHERTY Primary Care Provider Reason for Visit * Reason Onset Date Comments Other 06/30/2022 Chart review bef ore bronch Encounter Details Date Type Department Care Team (Late st Contact Info) Description 06/30/2022 Notes [place] [address] Sherie Gardiner RN Other (Chart review before bronch) Social History Tobacco Use Types Packs/Day Years Used Date Smoking Tobacco: Every Day Cigarettes Smokeless Tobacco: Never Sex and Gender Information Value Date Recorded Sex Assigned at Not on file Gender Identity Not on file Sexual Orientation Not on file documented as of this encounter Progress Notes * Sherie Gardiner RN - 06/30/2022 12:35 PM EST I have reviewed pt's chart. Pt not on any blood thinner at this time. Pt currently NOT on home oxygen. Same Day Program Nurse to contact pt on 07/06/2022 for a more detailed instructions on her Bronchoscopy. SHERIF Rodriguez, RN Department of Pulmonary 5C, [facility] Pager: [phone] documented in this encounter Plan of Treatment Upcoming Encounters Date Type Department Care Team (Late st Contact Info) Description 08/16/2024 11:30 AM EDT Office Visit Radiation Oncology at [address] [phone] Johnny Rollins MD [facility] [place] [address] documented as of this encounter Visit Diagnoses Not on filedocumented in this encounter Care Teams Commercial Lines Underwriter Relationship Specialty Start Date End Date Rylee Olmos, [place]RYST[place] [address] [place] [address] PCP - General Family Medicine 05/18/22 documented as of this encounter
--- OUTSIDE RECORDS SUMMARY | 2024-04-20 14:28 | XMS_ITS | Encounter Summary ---
Author Organization [facility] Address [address] [place] [address] Care Team Providers Care Automobile Inspector Name Role Phone Unknown, Provider Primary Care Provider Unava ilable Encounter Details Date Type Department Care Team (Late st Contact Info) Description 07/27/2022 Lab Requisition [facility] Pathology & Laboratory Medicine - [facility] [address] [place], [place] [id number] Outr Resulting Lab, Provider Social History Tobacco [...] Procedure Name Priority Date/Time Associated Diagnosis Comments SPEP, INCLUDES QUANTITATION OF MONOCLONAL SPIKE PERFORMABLE Today 07/27/2022 13:45 EST SS-B (LA) ANTIBODY, IGG Routine 07/27/2022 13:45 EST ZZHN SSA ANTIBODIES BY DAVID Routine 07/27/2022 13:45 EST CCP ANTIBODIES Routine 07/27/2022 13:45 EST RHEUMATOID FACTOR Routine 07/27/2022 13: 45 EST ANTI NUCLEAR AB (MAGEN), IFA Routine 07/27/2022 13:45 EST SPEP, INCLUDES QUANTITATION OF MONOCLONAL SPIKE Routine 07/27/2022 13:45 EST PROTEIN, TOTAL Today 07/27/2022 13:45 EST documented in this encounter Results * (ABNORMAL) SPEP, INCLUDES QUANTITATION OF MONOCLONAL SPIKE PERFORMABLE (07/27/2022 13:45 EST) Albumin % 63.3 55.8 - 66.1 % 07/29/2022 12:39 [facility] Albumin g/dL 4.2 3.6 - 5.2 g/dL 07/29/2022 12:39 [facility] Alpha-1 % 4.7 2.9 - 4.9 % 07/29/2022 12:39 [facility] Alpha-1 g/dL 0.30 0.15 - 0.40 g/dL 07/29/2022 12:39 [facility] Alpha-2 % 11.5 7.1 - 11.8 % 07/29/2022 12:39 [facility] Alpha-2 g/dL 0.80 0.50 - 1.00 g/dL 07/29/2022 12:39 [facility] Beta % 11.9 8.4 - 13.1 % 07/29/2022 12:39 [facility] Beta g/dL 0.80 0.60 - 1.20 g/dL 07/29/2022 12:39 [facility] Gamma % 8.6(L) 11.1 - 18.8 % 07/29/2022 12:39 [facility] Gamma g/dL 0.60 0.60 - 1.60 g/dL 07/29/2022 12:39 [facility] SPEP Comment No apparent monoclonal protein seen on serum electrophoresis 07/29/2022 12:39 [facility] Comment:See scanned/suppleme ntary report. Total Protein 6.6 6.3 - 8.2 g/dL 07/29/2022 12:39 [facility] Blood VENOUS BLOOD / Unknown 07/27/2022 13:45 EST 07/28/2022 17:14 EST us Provider Outr Resulting Lab CHEMISTRY & BLOOD GA S ORDERABLES Final Result Performing Organization Address [facility] de Phone Number [facility] [address] [place] [address] * PROTEIN, TOTAL (07/27/2022 13:45 EST) Blood VENOUS BLOOD / Unknown 07/27/2022 13:45 EST 07/28/2022 17:14 EST us Provider Outr Resulting Lab CHEMISTRY & BLOOD GA S ORDERABLES Final Result Performing Organization Address [facility] de Phone Number [facility] [address] [place] [address] * RHEUMATOID FACTOR (07/27/2022 13:45 EST) Rheumatoid Factor <8.6 <12.0 IU/mL 07/28/2022 17:[address] [facility] Blood VENOUS BLOOD / Unknown 07/27/2022 13:45 EST 07/28/2022 17:14 EST us Provider Outr Resulting Lab CHEMISTRY & BLOOD GA S ORDERABLES Final Result Performing Organization Address [facility] Phone Number [facility] [address] [place] [address] * SSB ANTIBODIES BY DAVID (07/27/2022 13:45 EST) SSB Antibody 2.5 <20.0 Units 07/31/2022 14:[address] [facility] Comment: ? Negative: <20.0 Units ? Weak Positive: 20.0 - 39.9 Units ? Moderate Positive: 40.0 - 80.0 Units ? Strong Positive: >80.0 Units Results were obtained with the [employer] Lite SS-B DAVID. ??SS-B values obtained with different manufacturers' assay methods may not be used interchangeably. ??The magnitude of the reported IgG levels cannot be correlated to an endpoint titer. Blood VENOUS BLOOD / Unknown 07/27/2022 13:45 EST 07/28/2022 17:14 EST Provider Outr Resulting Lab IMMUNOLOGY AND SEROL OGY ORDERABLES Final Result Performing Organization Address [facility] Co de Phone Number [facility] [address] [place] [address] * SSA ANTIBODIES BY DAVID (07/27/2022 13:45 EST) [facility] SSA Antibody 0.8 <20.0 Units 07/31/2022 14:[address] [facility] Comment: ? Negative: <20.0 Units ? Weak Positive: 20.0 - 39.9 Units ? Moderate Positive: 40.0 - 80.0 Units ? Strong Positive: >80.0 Units Results were obtained with the [employer] QUANTA Lite SS-A DAVID. ??SS-A values obtained with different manufacturers' assay methods may not be used interchangeably. ??The magnitude of the reported IgG levels cannot be correlated to an endpoint titer. Blood VENOUS BLOOD / Unknown 07/27/2022 13:45 EST 07/28/2022 17:14 EST us Provider Outr Resulting Lab IMMUNOLOGY AND SEROL OGY ORDERABLES Final Result Performing Organization Address [facility] Co de Phone Number [facility] [address] [place] [address] * ANTI NUCLEAR AB (MAGEN), IFA (07/27/2022 13:45 EST) [facility] MAGEN Interpretation Negative Negative 2022 12:[address] [facility] Comment:No titer performed, MAGEN Screen is negative. Blood VENOUS BLOOD / Unknown 07/27/2022 13:45 EST 07/28/2022 17:[address] [facility] - 07/29/2022 12:36 EST Results were obtained with the [employer] NOVA Lite HEp-2 MAGEN Kit by indirect immunofluorescence. us Provider Outr Resulting Lab IMMUNOLOGY AND SEROL OGY ORDERABLES Final Result Performing Organization Address [facility] Co de Phone Number [facility] [address] [place] [address] * CCP ANTIBODIES (07/27/2022 13:45 EST) CCP Antibodies <2.5 <5.0 U/mL 07/29/2022 9:[address] [facility] Blood VENOUS BLOOD / Unknown 07/27/2022 13:45 EST 07/28/2022 17:14 EST us Provider Outr Resulting Lab IMMUNOLOGY AND SEROL OGY ORDERABLES Final Result Performing Organization Address [facility] Co de Phone Number [facility] [address] [place] [address] documented in this encounter Visit Diagnoses Not on filedocumented in this encounter Care Teams Automobile Inspector Relationship Specialty Start Date End Date Unknown, Provider, PCP - General 04/04/09 documented as of this encounter
--- OUTSIDE RECORDS SUMMARY | 2024-04-20 14:28 | XMS_ITS | Encounter Summary ---
Author [facility] [place] [address] Care Team Providers Care Fast Food Shift Supervisor Name Role Phone Rylee Olmos APRN Primary Care Provider Encounter Details Date Type Department Care Team (Late st Contact Info) Description 05/27/2022 Telephone [place] [phone] Betsy Wing Social History Tobacco Use Types [...] AM EDT Office Visit Radiation Oncology at [address] [phone] Johnny Rollins MD [facility] [place] [address] documented as of this encounter Visit Diagnoses Not on filedocumented in this encounter Care Teams Fast Food Shift Supervisor Relationship Specialty Start Date End Date Rylee Olmos, WAXER Arlene HUERTA [place] [address] PCP - General Family Medicine 05/18/22 documented as of this encounter
--- OUTSIDE RECORDS SUMMARY | 2024-04-20 14:28 | XMS_ITS | Encounter Summary ---
[place] [address] Care Team Providers Care Appraiser Auditor Name Role Phone Rylee Olmos APRN Primary Care Provider Reason for Referral * Consultation (Urgent) - Closed Specialty Diagnoses / Procedures Referred By Noa bullock Referred To Contact Pulmonology Diagnoses Pulmonary nodules Pulmonary emphysema, unspecified emphysema type Tobacco use disorder Rylee Olmos APRN [address] [place] [address] [facility] [address] [place] [phone] Referral ID Status Reason Start Date Expiration Date V isits Requested Visits Authorized [id number] Closed Consult, Test & Treat PCP Updated and/or Approved 05/18/2022 05/18/2023 12 12 Encounter Details Date Type Department Care Team (Latest Contact Info) Description 05/18/2022 Transcribe Orders eDH Incoming Referrals [phone] Rylee Olmos APRN [address] [place] [address] Pulmonary nodules; Pulmonary emphysema, unspecified emphysema type; Tobacco use disorder Social History Tobacco Use Types Packs/Day Years [...] EDT Office Visit Radiation Oncology at [address] [phone] Johnny Rollins MD [facility] [place] [address] Scheduled Referrals Name Type Priority Associated Diagnoses Orde r Schedule Referral to Pulmonology Outpatient Referral Routine Pulmonary nodules Pulmonary emphysema, unspecified emphysema type Tobacco use disorder Ordered: 05/18/2022 documented as of this encounter Visit Diagnoses Diagnosis Pulmonary nodules Other nonspecific abnormal finding of lung field Pulmonary emphysema, unspecified emphysema type Tobacco use disorder documented in this encounter Care Teams Appraiser Auditor Relationship Specialty Start Date End Date Rylee [place] [address] [place] [address] PCP - General Family Medicine 05/18/22 documented as of this encounter
--- OUTSIDE RECORDS SUMMARY | 2024-04-20 14:28 | XMS_ITS | Encounter Summary ---
Author Organization [facility] Address [address] [place] [address] Care Team Providers Care Squeak Rattle And Leak Repairer Name Role Phone Unknown, Provider Primary Care Provider Unava ilable Encounter Details Date Type Department Care Team (Late st Contact Info) Description 05/14/2009 Orders Only [facility] [phone] Devora Jones MD [address] [place] [address] Social History Tobacco Use Types Packs/Day Years [...] Date/Time Associated Diagnosis Comments SURGICAL PATHOLOGY Routine 05/14/2009 0:00 EST documented in this encounter Results * SURGICAL PATHOLOGY (05/14/2009 0:00 EST) Pathology Report: SURGICAL PATHOLOGY REPORT ? Reports generated via electronic interface contain original data; ? however they are lacking the format of the original report. ? Caution should be taken when reading/interpreti ng unformatted reports. ? Name: ? REIL, TERESA L ? Accession #: ? [id number] ? : ? 1960 (Age: 49) ??F ? Collect Date: ? 05/14/2009 ? Location: ? [facility] ? Receive Date: ? 05/15/2009 ? Provider: DEVORA JONES MD ? Copy to: IDANIA GONZALEZ MD ? Final Pathologic Diagnosis: ? A. ?Cervix, 5 o'clock, biopsy: ? 1. ?No specific pathologic features. ??See comment. ? 2. ? No transformation zone identified. ? B. ?Endocervix, curettings: ? 1. ?Fragments of unremarkable endocervical epithelium. ? Comment: ? Deeper levels have been examined on specimens (A) and (B). ??The previous ?? 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 ??The dysplastic cells seen on the ?? Pap test are not identified in the current case. (Dr. Wei)/mpl ? Document reviewed and electronically signed by: ? Hank Wei MD ? Report ??Date: 05/16/2009 16:20 ? By the signature above, the attending physician certifies that he/she has ? personally conducted a gross and/or microscopic examination of the described ? specimens and rendered or confirmed the above diagnosis. ? Specimen(s) Received: ? A. ?5 o'clock ectocervical bx ? B. ? ECC ? Clinical History: ? Colposcopy; 03/22/09 Pap LSIL, (-) HPV; LMP: 05/07/09 ? Gross Description: ? Received in formalin labelled Reil, Teresa and ectocervical bx 5 o'clock is a cueto-pink biopsy measuring 0.4 x 0.2 x 0.2 cm. ??The specimen is submitted ?? intact as (A). ? Received in formalin labelled Reil, Teresa and endocervical curettage are ? approximately 3 cc of blood tinged mucus admixed with fragments of cueto-pink ? tissue. ??The specimen is submitted entirely as (B). ??(BASSEM Fonseca)/tmg ? End of Report ? [facility] 05/14/2009 05/15/2009 9:1 0 EST us Devora Jones MD PATHOLOGY ORDERABLES Final Resu lt [facility] [address] [place] [address] documented in this encounter Visit Diagnoses Not on filedocumented in this encounter Care Teams Squeak Rattle And Leak Repairer Relationship Specialty Start Date End Date Unknown, Provider, PCP - General 04/04/09 documented as of this encounter
--- OUTSIDE RECORDS SUMMARY | 2024-04-20 14:28 | XMS_ITS | Encounter Summary ---
Author Organization [facility] Address [address] [place] [address] Care Team Providers Care Glassworker Name Role Phone Unknown, Provider Primary Care Provider Unava ilable Encounter Details Date Type Department Care Team (Late st Contact Info) Description 02/29/2020 Lab Requisition [facility] Pathology & Laboratory Medicine - [address] [phone] Outr Resulting Lab, Provider Social History Tobacco [...] Procedure Name Priority Date/Time Associated Diagnosis Comments ALPHA 1 ANTITRYPSIN Routine 02/29/2020 1 5:03 EDT documented in this encounter Results * ALPHA 1 ANTITRYPSIN (02/29/2020 15:03 EDT) Alpha 1 Antitrypsin 157 90 - 200 mg/dL 03/01/2020 10:58 EDT [facility] Blood VENOUS BLOOD / Unknown 02/29/2020 15:03 EDT 02/29/2020 22:25 EDT us Provider Outr Resulting Lab CHEMISTRY & BLOOD GA S ORDERABLES Final Result [facility] [address] [place] [address] documented in this encounter Visit Diagnoses Not on filedocumented in this encounter Care Teams Glassworker Relationship Specialty Start Date End Date Unknown, Provider, PCP - General 04/04/09 documented as of this encounter
--- OUTSIDE RECORDS SUMMARY | 2024-04-20 14:28 | XMS_ITS | Encounter Summary ---
Author Organization [facility] Address [address] [place] [address] Care Team Providers Care Night Assistant Name Role Phone Unknown, Provider Primary Care Provider Unava ilable Encounter Details Date Type Department Care Team (Late st Contact Info) Description 07/27/2022 Lab Requisition [facility] Pathology & Laboratory Medicine - [facility] [address], [place] [id number] Outr Resulting Lab, Provider Social History Tobacco [...] Procedure Name Priority Date/Time Associated Diagnosis Comments URINE MONOCLONAL PROTEIN STUDY (UPEP WITH IMMUNOTYPING) PERFORMABLE Today 07/27/2022 13:45 EST PROTEIN, TOTAL, RANDOM, URINE Today 07/27/2022 13:45 EST URINE MONOCLONAL PROTEIN STUDY (UPEP WITH IMMUNOTYPING) Routine 07/27/2022 13:45 EST documented in this encounter Results * URINE MONOCLONAL PROTEIN STUDY (UPEP WITH IMMUNOTYPING) PERFORMABLE (07/27/2022 13:45 EST) Albumin, Urine % 36.9 N/A % 07/28/19 14:48 EST [facility] Albumin, Urine mg/dL 4 mg/dL 07/28/2022 14:48 EST [facility] Globulins, Urine % 63.1 N/A % 07/28/2022 14:48 EST [facility] Globulins, Urine mg/dL 7 mg/dL 07/28/2022 14:48 EST [facility] UPEP Comment See Comment 07/28/2022 14:48 EST [facility] Comment:Electrophoresis scre ening performed; Immunotyping to follow. See scanned/supplementary report. Immunotyping, Urine Current Interpretatio n: Negative for free monoclonal light chains. Reviewed by: Arben Chaves MD 07/28/2022 1407 07/28/2022 14:48 EST [facility] Total Protein, Urine 11 See Note mg/dL 07/28/2022 14:48 EST [facility] Comment: NOTE: Reference range has not been established for total protein concentration in random urine specimens. Urine URINE / Unknown 07/27/2022 1 3:45 EST 07/27/2022 21:17 EST Provider Outr Resulting Lab URINALYSIS ORDERABLE S Final Result Performing Organization Address [facility] de Phone Number [facility] [address] [place] [address] * PROTEIN, TOTAL, RANDOM, URINE (07/27/2022 13:45 EST) Urine URINE / Unknown 07/27/2022 1 3:45 EST 07/27/2022 21:17 EST Provider Outr Resulting Lab URINALYSIS ORDERABLE S Final Result Performing Organization Address [facility] Co de Phone Number [facility] [address] [place] [address] documented in this encounter Visit Diagnoses Not on filedocumented in this encounter Care Teams Night Assistant Relationship Specialty Start Date End Date Unknown, Provider, PCP - General 04/04/09 documented as of this encounter
--- OUTSIDE RECORDS SUMMARY | 2024-04-20 14:28 | XMS_ITS | Encounter Summary ---
Author Organization [facility] [address] Care Team Providers Care Toll Transmission Worker Name Role Phone Rylee Olmos APRN Primary Care Provider Reason for Visit * Consultation (Urgent) - Closed Specialty Diagnoses / Procedures Referred By Noa bullock Referred To Contact Pulmonology Diagnoses Pulmonary nodules Pulmonary emphysema, unspecified emphysema type Tobacco use disorder Rylee Olmos APRN [address] [place] [address] [facility] [address] [place] [phone] Referral ID Status Reason Start Date Expiration Date V isits Requested Visits Authorized [id number] Closed Consult, Test & Treat PCP Updated and/or Approved 05/18/2022 05/18/2023 12 12 Encounter Details Date Type Department Care Team (Late st Contact Info) Description 06/03/2022 4:20 PM EST Office [place] [address] Cameron Muñoz MD [facility] [address] Lung mass Social History Tobacco Use Types Packs/Day Years Used Date Smoking Tobacco: Every Day Cigarettes Smokeless Tobacco: Never Tobacco Cessation:Ready to Q uit: Not Asked; Counseling Given: Not Answered Sex and Gender Information Value Date Recorded Sex Assigned at Not on file Gender Identity Not on file Sexual Orientation Not on file documented as of this encounter Last Filed Vital Signs Vital Sign Reading Time Taken Comments Blood Pressure 145/71 06/03/2022 4:02 PM EST Pulse 107 06/03/2022 4:02 PM EST Temperature 36.8 ??C (98.3 ??F) 06/03/2022 4:02 PM ES T Respiratory Rate 20 06/03/2022 4:02 PM EST Oxygen Saturation 98% 06/03/2022 4:02 PM EST Inhaled Oxygen Concentration - - Weight 55.6 kg (122 lb 9.6 oz) 06/03/2022 4:02 P M EST Height 152.4 cm (5') 06/03/2022 4:02 PM EST Body Mass Index 23.94 06/03/2022 4:02 PM EST documented in this encounter Progress Notes * Cameron Muñoz MD - 06/03/2022 4:20 PM EST Images from the original note were not included. INTERVENTIONAL PULMONOLOGY OUTPATIENT CONSULT NOTE SECTION OF PULMONARY & CRITICAL CARE MEDICINE PATIENT NAME: Teresa Guzman : 1960 MEDICAL RECORD: [id number] DATE OF SERVICE: 06/03/2022 REFERRING PHYSICIAN: RYLEE OLMOS PRIMARY CARE PHYSICIAN: Rylee Olmos APRN Reason for Consultation: Urgent referral for, multiple nodules of [id number] 05/08/2022 Chief Complaint: Why do I need a PET? I was told it wasn't necessary History of Present Illness: Ms. Teresa Guzman is a 62 y.o. woman who has been sent to Interventional Pulmonology for consultation regarding pulmonary nodules. This patient underwent a lung cancer screening CT at [facility] 05/08/2022. This was compared to CT chest imaging from 07/19/2020 and 04/12/2020. The study was read as a LungRADS 4X with reports of significant interval increase in size of a previously noted spiculated lesion in the right lower lobe now measuring 3 cm. In addition there is a new 6 mm left lower lobe nodule. The patient was referred to our program on 05/18/2022 for continued evaluation. No additional testing has yet been performed. Of note, this patient's 07/19/20 CT chest was reviewed and demonstrates a ~2.5 spiculated nodule in the right lower lobe. In anticipation of this consultation we attempted to schedule PFT's, a PET/CT and MR brain but the patient declined. In speaking with Ms. Teresa Guzman, she has chronic exertional dyspnea. No hemoptysis. She is not loosing weight. No personal history of malignancy. Review of Systems: A 12 point ROS was negative aside from as listed in the HPI. Medications: Prior to Admission medications Medication Sig Start Date End Date Taking? Authorizing Provider traMADol (ULTRAM) 50 mg Tablet Take 50 mg by mouth every 6 hours as needed for Pain. PROVIDER, HISTORICAL cyanocobalamin 1,000 mcg Tablet Take 1,000 mcg by mouth daily. PROVIDER, HISTORICAL cholecalciferol, Vitamin D3, (CHOLECALCIFEROL, VITAMIN D3,) 2,000 unit Capsule Take by mouth. PROVIDER, HISTORICAL multivitamin (THERAGRAN) Tablet Take 1 tablet by mouth daily. PROVIDER, HISTORICAL cyclobenzaprine (FLEXERIL) 10 mg Tablet Take 10 mg by mouth nightly. PROVIDER, HISTORICAL albuterol 90 mcg/actuation HFA Aerosol Inhaler Inhale 2 puffs into the lungs every 4 hours as needed for Wheezing. Use with spacer PROVIDER, HISTORICAL EPINEPHrine 0.3 mg/0.3 mL Auto-Injector Inject 0.3 mg into the muscle once. PROVIDER, HISTORICAL fluticasone (FLONASE) 50 mcg/actuation [place], Suspension 1 spray daily. PROVIDER, HISTORICAL Objective: Patient Vitals for the past 24 hrs: Temp Pulse Resp BP SpO2 06/03/22 1602 36.8 ??C (98.3 ??F) (!) 107 20 145/71 98 % General: This is a 62 y.o. female HEENT: Moist mucous membranes, sclera are white Neck: Supple, trachea is midline, no gross deformity Lymphatics: No obvious lymphadenopathy Cardiovascular: Nl s1/s2, rrr Respiratory: Clear to auscultation bilaterally GI: soft, nt, nd Extremities: no LE edema noted, no clubbing Family History: No known FH of malignancy Social History: Smoking status: Active - 1/2 ppd Smoking history: 40 PY EtOH: None Other drugs: None The patient lives in: [facility] Employment: On disability - various occupations (mainly farming) Occupational exposures: Dusts/fumes PFTS: None on file Pertinent Imaging: (Images personally reviewed) 05/08/22 CT Chest: Cystic lung disease, RLL mass 07/19/20 CT Chest: Spiculated nodule in the RLL Assessment: Ms. Teresa Guzman is a pleasant 62 y.o. 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 No appreciable lymphadenopathy. This patient also had a 07/19/20 CT chest performed which demonstrated a ~ 2.5 cm spiculated RLL nodule at that time but no additional work-up was taken at the time/unclear why. She has an active 40 PY smoking history and is interested in quitting. She has not been previously worked-up for his underlying cystic lung disease. No history of known pleural pathology or FH of lung disease. We reviewed her imaging together, we discussed the importance of completing radiographic staging with PET/CT and MR brain, and we discussed my recommendation for proceeding with robotic assisted bronchoscopy with transbronchial biopsies and invasive mediastinal stage with EBUS-TBNA. She has numerous concerns about this plan and numerous questions which were answered. She was vocal with me that she did not want any of this done but was interested in pursuing a tissue diagnosis and determining what her treatment options are. She was not agreeable to most of my suggestions as listed above, but did agree to CT scans only (refused MR and PET) and ultimately agreed to biopsy. Despite my best efforts to convince her to move forward with a PET/CT, she still refused. The patient's performance status using the ECOG assessment tool is 1 (restricted in physically strenuous activity but ambulatory/able to carry out work of a light nature). Ms. Teresa Guzman was provided ample time to ask questions which were answered to her liking. Recommendations: ?? The patient refused a MR brain wwo ?? The patient refused a PET/CT ?? The patient was agreeable to a CT head/abdomen/pelvis w/ (will obtain at time of her viola protocol CT chest) ?? The patient was agreeable to robotic assisted bronchoscopy with EBUS-TBNA which we will arrange ?? Pulmonary function testing has been ordered ?? Note to be sent to Rylee Olmos APRN ?? Follow-up with me at time of upcoming procedure I personally performed a total of 60 minutes or greater of aggregate time involved in patient evaluation, reviewing medical records, interpreting diagnostic studies (imaging and/or labs), formulatingmy plan, and documentation of this consultation note. Cameron Muñoz MD Interventional Pulmonology Section of Pulmonary & Critical Care Pager: [phone] documented in this encounter Plan of Treatment Upcoming Encounters Date Type Department Care Team (Late st Contact Info) Description 08/16/2024 11:30 AM EDT Office Visit Radiation Oncology at [address] [phone] Johnny Rollins MD [facility] [place] [address] documented as of this encounter Visit Diagnoses Diagnosis Lung mass Swelling, mass, or lump in chest documented in this encounter Care Teams Toll Transmission Worker Relationship Specialty Start Date End Date Rylee Olmos [place] [address] [place] [address] PCP - General Family Medicine 05/18/22 documented as of this encounter
--- OUTSIDE RECORDS SUMMARY | 2024-04-20 14:28 | XMS_ITS | Encounter Summary ---
Author [facility] [place] [address] Care Team Providers Care Dextrine Mixer Name Role Phone Rylee Olmos APRN Primary Care Provider Encounter Details Date Type Department Care Team (Late st Contact Info) Description 06/29/2022 [place] [address] [place] Social History Tobacco Use Types [...] AM EDT Office Visit Radiation Oncology at [address] [phone] Johnny Rollins MD [facility] [place] [address] documented as of this encounter Visit Diagnoses Not on filedocumented in this encounter Care Teams Dextrine Mixer Relationship Specialty Start Date End Date Rylee Olmos, INFO SPECIALIST Arlene HUERTA [facility] [place] [address] PCP - General Family Medicine 05/18/22 documented as of this encounter
--- OUTSIDE RECORDS SUMMARY | 2024-04-20 14:28 | XMS_ITS | Encounter Summary ---
Author Organization [facility] Address [address] [place] [id number] Care Team Providers Care Woods Superintendent Name Role Phone Unknown, Provider Primary Care Provider Unava ilable Encounter Details Date Type Department Care Team (Late st Contact Info) Description 03/24/2011 Results Only [facility] - [facility] ([facility]) [address] [place], [place] [id number] Brooke Gonzalez MD [address] [place] [address] [place] [address] Social History Tobacco Use Types [...] Diagnosis Comments PAP TEST- RESULT ONLY Routine 03/24/2011 0:00 EDT documented in this encounter Results * PAP TEST- RESULT ONLY (03/24/2011 0:00 EDT) Pathology Report: CYTOPATHOLOGY REPORT Reports generated via electronic interface contain original data; however they are lacking the format of the original report. Caution should be taken when reading/interpreti ng unformatted reports. Name: ? TERESA DOMÍNGUEZ ? Accession #: ? [id number] : ? 1960 (Age: 50) ??F ?Collect Date: ? 03/24/2011 Location: ? [facility] ? Receive Date: ? 03/25/2011 Provider: ?BROOKE GONZALEZ MD Copy to: ? Specimen/Source: ?Pap Test, Cervix/Endocervix, ThinPrep Imaging System with manual evaluation Last Menstrual Period: ? 05/16 Previous Gynecologic Pathology: ? LSIL: 2009 ? SPECIMEN ADEQUACY ? Satisfactory for Evaluation - transformation zone component present GENERAL CATEGORIZATION ? Negative for Intraepithelial Lesion or Malignancy ? Document reviewed and electronically signed by: ? Charlotte Molina CT(ASCP) ? Report Date: ??04/02/2011 10:51 End of Report AYANNA STOCK 03/24/2011 03/25/2011 us Brooke Gonzalez MD PATHOLOGY ORDERABLES Final Re sult AYANNA STOCK [address] [place] [address] documented in this encounter Visit Diagnoses Not on filedocumented in this encounter Care Teams Woods Superintendent Relationship Specialty Start Date End Date Unknown, Provider, PCP - General 04/04/09 documented as of this encounter
--- OUTSIDE RECORDS SUMMARY | 2024-04-20 14:28 | XMS_ITS | Encounter Summary ---
Author Organization [facility] [place] [address] Care Team Providers Care Rehabilitation Case Coordinator Name Role Phone Stewart Tracey MD Primary Care Provider [phone] Reason for Visit * Reason Comments Low Back Pain left side pain Left Hip Pain Left Leg Pain * Consultation (Routine) - Closed Specialty Diagnoses / Procedures Referred By Noa bullock Referred To Contact Orthopaedics Diagnoses pt declined pain clinic for trial of injections. 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-archachnoid space, C2-3 thinning of thecal sac Marcela Burrows PA [address] [place] [address] Aakash Loco MD [facility] [place] [address] Referral ID Status Reason Start Date Expiration Date V isits Requested Visits Authorized [id number] Closed Consult, Test & Treat Connection Center 05/19/2017 05/19/2018 1 1 Encounter Details Date Type Department Care Team (Late st Contact Info) Description 08/06/2017 1:40 PM EST Office [place] [address] Morgan Garcia MD [facility] [place] [address] Scoliosis, unspecified scoliosis type, unspecified spinal region Social History Tobacco Use Types Packs/Day Years [...] documented in this encounter Progress Notes * RusselAlexys Alejandrina - 08/06/2017 1:40 PM EST HPI: Patient is a pleasant 57-year-old female with complex medical history including history of scoliosis as well as long-standing back pain. Patient was referred here by her primary care provider Marcela LEACH. Patient reports that she has had pain in her back and neck for several decades. She believes that this began when she had a accident on a horse when she was a child. She did not find out about her scoliosis until her adult life, she believes at some point in the mid 90s. She did not undergo any treatment specifically for her scoliosis in the form of bracing and/or surgery. With regardsto her back pain she has pursued several [...] in her neck. Moreover she reports pain and numbness in the neck with elevation of the bilateral upper extremities left worse than right. Furthermore she reports intermittent numbness/tingling in her feet as well as in her bilateral hands. She reports that her symptoms are worse with activity (including walking and lifting heavy objects). She reports that they do resolve somewhat with rest. She reports her symptoms do awaken her s ometimes at night. She does feel that the pain has affected her gait and balance. She denies any other recent changes in her health or constitutional symptoms. She denies any unexplained weight loss.She denies any bowel or bladder symptoms. She has had no prior spine surgery. She has had no injections for her back pain. She reports that the pain is currently keeping her from activities that she would like to engage in work around her house. She is not currently employed, she is on disability and a widows pension. Medications: Tramadol Medical history: pernicious anemia, hyperlipidemia, venous stasis, allergic rhinitis, skin lesions,arthralgia, hip pain, chronic SI joint pain, fibromyalgia Medications: Tramadol,Vitamin B12, cyclobenzaprine, fluticasone, ProAir air Allergies: Gabapentin, doxycycline, meloxicam, pain thinner, shellfish, amoxicillin, Augmentin, simvastatin, niacin, detergent, sulfamethoxazole, mometasone Physical exam: Patient walks with an antalgic gait. She is able to perform normal toe walk and heelwalk. She is able to perform straight leg raise with some difficulty (she does not develop balance). She stands with notable pelvic tilt and tilt of her shoulders. Her spine has noted curvature on exam and a palpable prominence of the right side posterior ribs. She is able to flex to 60?? and extendto 15?? and lumbar spine she is a reformed cervical flexion 30??, cervical extension 50??, cervicalrotation 35?? bilaterally, cervical side bend 15?? bilaterally, (she has diffuse pain with movementof her neck and lumbar spine). Motor examination reveals 4 out of 5 strength diffusely in the left lower extremity 4 out of 5 strength with manager diversity flexion and extension of the elbow with the left upper extremity. 5 out of 5 strengthdiffusely in the right lower extremity and right upper extremity. Reflexes are 2+ and symmetric in the upper extremities and lower extremities bilaterally. Straight leg raise is negative in bilaterallower extremities. Spurling's test is negative. Musa's test is negative. Clonus is negative. Babinski is negative. Bilateral DP pulses are 2+. Bilateral radial pulses are 2+. Patient has positiveTinel's bilateral wrist with median nerve distribution numbness, [...] be a large surgery with a long recovery period. We discussed with her management of back and neck pain it is very often an ongoing issue, they can be addressed with multiple modalities. We recommended that she engage in pool/aquatic therapy for strengthening and conditioning. She should continue to follow-up with her primary care provider. With regard to numbness and tingling in her hands, it is felt this was likely related to possible carpal and/or cubital tunnel. The patient reports she has been told in the past that she does have carpal tunnel syndrome, and has undergone injections in her carpal tunnels. We would recommend referral to an upper extremity surgeon for evaluation and treatment of this. It was noted on her current imaging that her curve does appear to possibly have [...] expressed understanding all questions were answered satisfactorily. * Morgan Garcia MD - 08/06/2017 1:40 PM EST Images from the original note were not included. Spine Center @ [facility] Morgan Garcia MD, MS. Director HANY Yusuf [address] [place] [address] Stewart Tracey MD [address] [facility] [address] Dear Colleagues, I had the pleasure of seeing this patient at the [facility] for surgical evaluation. Chief [...] one pack per day. Nondiabetic. Multiple allergies ontramadol. Imaging:X-rays March 04, 2016 right lumbar curve 26?? approximately. Scoliosis films done 08/06/2017 show 46?? curve from the top of the L4 to the top of T11. Physical examination: Neurologically intact. Obvious scoliosis with a right lumbar thoracolumbar rib hump. Asymmetry of the shoulders. Otherwise coronal and sagittal alignment appears to be within normal limits. Summary and plan: Is a patient with possible progressive scoliosis. For that I like to see her backin 6 months with full length scoliosis films. [...] would be the best thing for her. Wediscussed finding her place to do this. They will look into it. Patient was seen in conjunction with chief resident on the service. Please see his clinical notes for details. More than 50% of more than 60 minutes were utilized in counseling around diagnosis, review of films, generator of the pain which is unclear, indications for surgical intervention and importance of follow-up. Films are reviewed together and discussed. Sincerely, Morgan Garcia MD MS Rn [facility] - Orthopedic Spine Surgery / Spine Center Pattern Scratcher - Department of Orthopedic Surgery / [employer] Wire Products Inspector - [facility] 08/10/2017 Spine Center Response Trends [...] EDT Office Visit Radiation Oncology at [address] [phone] Johnny oRllins MD [facility] [place] [address] documented as of this encounter Visit Diagnoses Diagnosis Scoliosis, unspecified scoliosis type, unspecified spinal region documented in this encounter Care Teams Rehabilitation Case Coordinator Relationship Specialty Start Date End Date Stewart Tracey MD [address] [place] [phone] PCP - General Family Medicine 08/06/17 05/17/22 documented as of this encounter
--- OUTSIDE RECORDS SUMMARY | 2024-04-20 14:28 | XMS_ITS | Encounter Summary ---
Author Organization [facility] Address [address] [place] [address] Care Team Providers Care Boring Machine Operator Horizontal Name Role Phone Unknown, Provider Primary Care Provider Unava ilable Encounter Details Date Type Department Care Team (Late st Contact Info) Description 09/15/2005 Results Only [facility] [place] conversion [address] [place] [address] Erika Macias MD [address] [place] [address] [place] [address] Social History Tobacco Use Types Packs/Day Years [...] Date/Time Associated Diagnosis Comments SURGICAL PATHOLOGY Routine 09/15/2005 0:00 EDT documented in this encounter Results * SURGICAL PATHOLOGY (09/15/2005 0:00 EDT) Pathology Report: SURGICAL PATHOLOGY REPORT Reports generated via electronic interface contain original data; however they are lacking the format of the original report. Caution should be taken when reading/interpreti ng unformatted reports. Name: ? TERESA DOMÍNGUEZ ? Accession #: ? [id number] ? : ? 1960 (Age: 45) ??F ? Collect Date: ? 09/15/2005 ? Location: ? [facility] ? Receive Date: ? 09/16/2005 ? Provider: ERIKA MACIAS MD Copy to: IDANIA GONZALEZ MD ? Final Pathologic Diagnosis: ? Endometrium, biopsy: - Disordered weakly proliferative endometrium with tubal metaplasia and focal breakdown. Document reviewed [...] specimen is entirely submitted in one cassette after filtration. (Dr. Naylor-)/mpl End of Report [facility] 09/15/2005 09/16/2005 10: 19 EDT us Erika Macias MD PATHOLOGY ORDERABLES Final Resu lt [facility] [address] [place] [address] documented in this encounter Visit Diagnoses Not on filedocumented in this encounter Care Teams Boring Machine Operator Horizontal Relationship Specialty Start Date End Date Unknown, Provider, PCP - General 04/04/09 documented as of this encounter
--- OUTSIDE RECORDS SUMMARY | 2024-04-20 14:28 | XMS_ITS | Encounter Summary ---
Author Organization [facility] Address [facility] [place] [address] Care Team Providers Care Hand Bookbinder Name Role Phone Brooke Wiley MD Primary Care Provider [phone] Encounter Details Date Type Department Care Team (Latest Contact Info) Description 05/17/2017 - 05/17/2017 11:59 PM EST Hospital Encounter Radiology Library at [facility] [place] [address] Aakash Loco MD [facility] [place] [address] Discharge Disposition: Home Social History Tobacco Use [...] PRN 05/02/2006 018 Mometasone (NASONEX) 50 mcg/Actuation [place] 05/02/2006 8 ibuprofen (ADVIL;MOTRIN) 800 mg tablet 800MG, PO, PRN 05/02/2006 08/06/2017 triamcinolone (KENALOG) 0.1 % ointment 05/02/2006 08/06/2017 Cyanocobalamin (VITAMIN B-12) 1,500 mcg TbSR 05/02/2006 08/06/2017 documented as of this encounter Plan of Treatment Upcoming Encounters Date Type Department Care Team (Late st Contact Info) Description 08/16/2024 11:30 AM EDT Office Visit Radiation Oncology at [address] [phone] Johnny Rollins MD [facility] [place] [address] documented as of this encounter Procedures Procedure Name Priority Date/Time Associated Diagnosis Comments FILM LIBRARY STORAGE ONLY MR SPINE Routine 05/17/2017 12:00 AM EST documented in this encounter Results * Film Library- Storage Only MR Spine (05/17/2017 12:00 AM EST) Narrative [facility] - 05/26/2017 2:46 PM EST This exam is for storage only and is auto-finalizing. Aakash Loco MD IM FILM LIBRARY ORD ERABLES [place], [place] documented in this encounter Visit Diagnoses Not on filedocumented in this encounter Care Teams Hand Bookbinder Relationship Specialty Start Date End Date Brooke Wiley MD [address] [place] [address] PCP - General 04/29/10 05/17/17 documented as of this encounter
--- OUTSIDE RECORDS SUMMARY | 2024-04-20 14:28 | XMS_ITS | Encounter Summary ---
[facility] [place] [address] Care Team Providers Care Shaper And Presser Name Role Phone Rylee Olmos APRN Primary Care Provider Encounter Details Date Type Department Care Team (Late st Contact Info) Description 05/27/2022 [place] [phone] [place] Social History Tobacco Use Types [...] EDT Office Visit Radiation Oncology at [address] [phone] Johnny Rollins MD [facility] [place] [address] documented as of this encounter Visit Diagnoses Not on filedocumented in this encounter Care Teams Shaper And Presser Relationship Specialty Start Date End Date Rylee Olmos, DENTAL LABORATORY WORKER Arlene [place] [address] PCP - General Family Medicine 05/18/22 documented as of this encounter
--- OUTSIDE RECORDS SUMMARY | 2024-04-20 14:28 | XMS_ITS | Encounter Summary ---
Author Organization [facility] Address [address] [place] [address] Care Team Providers Care Shuttle Operator Name Role Phone Unknown, Provider Primary Care Provider Unava ilable Encounter Details Date Type Department Care Team (Late st Contact Info) Description 11/24/2007 Results Only [facility] [place] conversion [address] [place] [address] Brooke Gonzalez MD [address] [place] [address] [place] [address] Social History Tobacco Use Types [...] Priority Date/Time Associated Diagnosis Comments CYTOPATHOLOGY Routine 11/24/2007 0:00 EDT documented in this encounter Results * CYTOPATHOLOGY (11/24/2007 0:00 EDT) Pathology Report: CYTOPATHOLOGY REPORT Reports generated via electronic interface contain original data; however they are lacking the format of the original report. Caution should be taken when reading/interpreti ng unformatted reports. Name: ? TERESA DOMÍNGUEZ ? Accession #: ? [id number] : ? 1960 (Age: 47) ??F ?Collect Date: ? 11/24/2007 Location: ? [facility] ? Receive Date: ? 11/25/2007 Provider: ?BROOKE GONZALEZ MD Copy to: ? Specimen/Source: ?ThinPrep Pap Test, Cervix/Endocervix, processed on [employer] ThinPrep Imaging System, with manual evaluation Last [...] Report Date: ??11/29/2007 13:20 End of Report [facility] 11/24/2007 11/25/2007 us Brooke Gonzalez MD PATHOLOGY ORDERABLES Final Re sult [facility] [address] [place] [address] documented in this encounter Visit Diagnoses Not on filedocumented in this encounter Care Teams Shuttle Operator Relationship Specialty Start Date End Date Unknown, Provider, PCP - General 04/04/09 documented as of this encounter
--- OUTSIDE RECORDS SUMMARY | 2024-04-20 14:28 | XMS_ITS | Encounter Summary ---
Author Organization [facility] Address [address] [place] [address] Care Team Providers Care Videographer Name Role Phone Unknown, Provider Primary Care Provider Unava ilable Encounter Details Date Type Department Care Team (Late st Contact Info) Description 05/03/2009 Orders Only [facility] Laboratory Services - [facility] ([facility]) [address] [place] [address] Erika Macias MD [address] [place] [address] [place] [address] Social History Tobacco Use Types Packs/Day Years [...] Date/Time Associated Diagnosis Comments SURGICAL PATHOLOGY Routine 05/03/2009 0:00 EST documented in this encounter Results * SURGICAL PATHOLOGY (05/03/2009 0:00 EST) Pathology Report: SURGICAL PATHOLOGY REPORT ? Reports generated via electronic interface contain original data; ? however they are lacking the format of the original report. ? Caution should be taken when reading/interpreti ng unformatted reports. ? Name: ? REIL, TERESA L ? Accession #: ? [id number] ? : ? 1960 (Age: 49) ??F ? Collect Date: ? 05/03/2009 ? Location: ? [facility] ? Receive Date: ? 05/06/2009 ? Provider: ERIKA MACIAS MD ? Copy to: IDANIA GONZALEZ MD ? Final Pathologic Diagnosis: ? Endometrium, biopsy: ? - Disordered proliferative endometrium. ??See comment. ? Comment: ? Hardboard Factory Worker sections of this case have been reviewed at ? intradepartmental consultation conference. ??(Dr. Woodson)/kmm ? Document reviewed and electronically signed by: ? ERMIAS COBIAN MD ? Report ??Date: 05/09/2009 17:23 ? By the signature above, the attending physician certifies that he/she has ? personally conducted a gross and/or microscopic examination of the described ? specimens and rendered or confirmed the above diagnosis. ? Specimen(s) Received: ? Endometrial bx ? Clinical History: ? C/O heavy irregular periods; LMP: 11//09 ? Gross Description: ? Received in formalin labelled Reil, Teresa and endometrial bx are ? approximately 4 cc of red-brown and light cueto tissue fragments admixed with ? clotted blood and blood tinged mucus. ??The specimen is submitted entirely as ? (A1) and (A2). ??(BASSEM Tessitore)/ljn ? End of Report ? [facility] 05/03/2009 05/06/2009 18: 01 EST us Erika Macias MD PATHOLOGY ORDERABLES Final Resu lt [facility] [address] [place] [address] documented in this encounter Visit Diagnoses Not on filedocumented in this encounter Care Teams Videographer Relationship Specialty Start Date End Date Unknown, Provider, PCP - General 04/04/09 documented as of this encounter
--- OUTSIDE RECORDS SUMMARY | 2024-04-20 14:28 | XMS_ITS | Encounter Summary ---
Author Organization [facility] Address [address] [place] [address] Care Team Providers Care Professor Of Kinesiology Name Role Phone Unavailable Primary Care Provider Unavailabl e Encounter Details Date Type Department Care Team (Late st Contact Info) Description 03/22/2009 Orders Only [facility] Laboratory Services - [facility] ([facility]) [address] [place], [place] [id number] Brooke Wiley MD [address] [place] [address] [place] [address] Social History Tobacco Use Types [...] Procedure Name Priority Date/Time Associated Diagnosis Comments HPV DETECTION, HIGH RISK TYPES Routine 03/22/2009 11:10 EDT CYTOPATHOLOGY Routine 03/22/2009 0:00 EDT documented in this encounter Results * HUMAN PAPILLOMA VIRUS DNA TEST (03/22/2009 11:10 EDT) Specimen Description Cervix, ThinPrep vial [facility] Result Negative for HPV types 16, 18, 31, 33, 35, 39, 45, 51, 52, 56, 58, 59, and 68. [facility] Report Status Final 04/05/2009 [facility] 03/22/2009 11:1 0 EDT 04/04/2009 11:10 EDT us Brooke Wiley MD MICROBIOLOGY - GENERAL KYLEA BLES Final Result [facility] [address] [place] [address] * CYTOPATHOLOGY (03/22/2009 0:00 EDT) Pathology Report: CYTOPATHOLOGY REPORT ? Reports generated via electronic interface contain original data; ? however they are lacking the format of the original report. ? Caution should be taken when reading/interpreti ng unformatted reports. ? Name: ? REIL, TERESA L ? Accession #: ? [id number] ? : ? 1960 (Age: 48) ??F ?Collect Date: ? 03/22/2009 ? Location: ? [facility] ? Receive Date: ? 03/25/2009 ? Provider: ?BROOKE ERISMAN MD ? Copy to: ? Specimen/Source: ?Pap Test, Endocervix, ThinPrep Imaging System with ? manual evaluation ? Last Menstrual Period: ? 8/13/09 ? Other: ? HPVDX - HPV testing requested regardless of diagnosis on current ThinPrep Pap ?? test. ? SPECIMEN ADEQUACY ? Satisfactory for Evaluation ? - transformation zone component present ? GENERAL CATEGORIZATION ? Epithelial Cell Abnormality ? INTERPRETATION ? Squamous Cell Abnormality - Low grade squamous intraepithelial lesion ? (LSIL). ? Shift in nir present suggestive of bacterial vaginosis. ? EDUCATIONAL NOTES/RECOMMENDATI ONS ? [facility] recommends following the 2006 Consensus Guidelines for the Management of Women with Abnormal Cervical Cancer Screening Tests (JLGTD, ? 2007;11(4):201-222 ). ??Consensus guidelines are available online at ? www.ASCCP.org. ? Document reviewed and electronically signed by: ? ABDELMONEM ELHOSSEINY MD ? Report Date: ??04/03/2009 13:23 ? End of Report ? [facility] 03/22/2009 03/25/2009 us Brooke Wiley MD PATHOLOGY ORDERABLES Final Re sult [facility] [address] [place] [address] documented in this encounter Visit Diagnoses Not on filedocumented in this encounter
--- OUTSIDE RECORDS SUMMARY | 2024-04-20 14:28 | XMS_ITS | Encounter Summary ---
[facility] [place] [address] Care Team Providers Care Veneer Drier Feeder Name Role Phone Rylee Olmos APRN Primary Care Provider Encounter Details Date Type Department Care Team (Late st Contact Info) Description 05/19/2022 [place] [phone] [place] Social History Tobacco Use Types [...] EDT Office Visit Radiation Oncology at [address] [phone] Johnny Rollins MD [facility] [place] [address] documented as of this encounter Visit Diagnoses Not on filedocumented in this encounter Care Teams Veneer Drier Feeder Relationship Specialty Start Date End Date Rylee Olmos, HEAD BUTLER Arlene HUERTA [facility] [place] [address] PCP - General Family Medicine 05/18/22 documented as of this encounter
--- OUTSIDE RECORDS SUMMARY | 2024-04-20 14:28 | XMS_ITS | Encounter Summary ---
Author Organization [facility] [place] [address] Care Team Providers Care Reptile Keeper Name Role Phone Rylee Olmos KRYSTINA Primary Care Provider Encounter Details Date Type Department Care Team (Late st Contact Info) Description 06/15/2022 Notes [place] [address] Cameron uMñoz MD [facility] [place] [address] Social History Tobacco Use Types Packs/Day Years Used Date Smoking Tobacco: Every Day Cigarettes Smokeless Tobacco: Never Sex and Gender Information Value Date Recorded Sex Assigned at Not on file Gender Identity Not on file Sexual Orientation Not on file documented as of this encounter Progress Notes * Cameron Muñoz MD - 06/15/2022 1:11 PM EST Interventional Pulmonology Update: Patient seen by me for consult 06/03/22 with plans to proceed with biopsy. She called in today to cancel all further work-up of her lung mass. We will contact her PCP's office to inform them of this/ensure follow-up with Rylee Olmos is set-up. Cameron Muñoz MD, 06/15/2022, 1:11 PM Interventional Pulmonology Section of Pulmonary & Critical Care Pager: [phone] documented in this encounter Plan of Treatment Upcoming Encounters Date Type Department Care Team (Late st Contact Info) Description 08/16/2024 11:30 AM EDT Office Visit Radiation Oncology at [address] [phone] Johnny Rollins MD [facility] [place] [address] documented as of this encounter Visit Diagnoses Not on filedocumented in this encounter Care Teams Reptile Keeper Relationship Specialty Start Date End Date Rylee Olmos APRN [facility] [place] [address] PCP - General Family Medicine 05/18/22 documented as of this encounter
--- OUTSIDE RECORDS SUMMARY | 2024-04-20 14:28 | XMS_ITS | Referral Summary ---
Author Organization [facility] Address [address] [place] [address] Care Team Providers Care Electrical Technician Instructor Name Role Phone Unknown, Provider Primary Care Provider Unava ilable Social History Tobacco Use Types Packs/Day Years Used Date Smoking Tobacco: Never Assessed Comments Unknown Sex and Gender Information Value Date Recorded Sex Assigned at Not on file Legal Sex Female 17:38 EST Gender Identity Not on file Sexual Orientation Not on file Plan of Treatment Not on file Care Teams Electrical Technician Instructor Relationship Specialty Start Date End Date Unknown, Provider, PCP - General 04/04/09
--- OUTSIDE RECORDS SUMMARY | 2024-04-20 14:28 | XMS_ITS | Encounter Summary ---
Author Organization [facility] [place] [address] Care Team Providers Care Massage Operator Name Role Phone Rylee Olmos APRN Primary Care Provider Encounter Details Date Type Department Care Team (Late st Contact Info) Description 06/09/2022 [place] [phone] [place] Social History Tobacco Use Types [...] AM EDT Office Visit Radiation Oncology at [address] [phone] Johnny Rollins MD [facility] [place] [address] documented as of this encounter Visit Diagnoses Not on filedocumented in this encounter Care Teams Massage Operator Relationship Specialty Start Date End Date Rylee Olmos, DIVERSIFIED CROPS FARMER Arlene HUERT[place] [address] PCP - General Family Medicine 05/18/22 documented as of this encounter
--- OUTSIDE RECORDS SUMMARY | 2024-04-20 14:28 | XMS_ITS | Encounter Summary ---
Author Organization [facility] Address [address] [place] [address] Care Team Providers Care Cash Applications Specialist Name Role Phone Unknown, Provider Primary Care Provider Unava ilable Encounter Details Date Type Department Care Team (Late st Contact Info) Description 11/10/2013 Results Only [facility] Laboratory Services - [facility] ([facility]) [address] [place], [place] [id number] Brooke Gonzalez MD [address] [place] [address] [place] [address] Social History Tobacco Use Types [...] Diagnosis Comments PAP TEST- RESULT ONLY Routine 11/10/2013 0:00 EDT documented in this encounter Results * PAP TEST- RESULT ONLY (11/10/2013 0:00 EDT) Pathology Report: CYTOPATHOLOGY REPORT Reports generated via electronic interface contain original data; however they are lacking the format of the original report. Caution should be taken when reading/interpreti ng unformatted reports. Name: ? TERESA DOMÍNGUEZ ? Accession #: ? [id number] ? : ? 1960 (Age: 53) ??F ?Collect Date: ? 11/10/2013 ? Location: ? [facility] ? Receive Date: ? 11/13/2013 ? Provider: BROOKE GONZALEZ MD Copy to: ? Final Report SPECIMEN ADEQUACY ? Satisfactory for Evaluation - transformation zone component present GENERAL CATEGORIZATION ? Negative for Intraepithelial Lesion or Malignancy INTERPRETATION ? Reactive cellular changes associated with inflammation present (includes repair). Last Menstrual Period: 2009 Previous Gynecologic Pathology: SONJA: H/O Specimen/Source: ??Pap Test, Cervix/Endocervix, ThinPrep Imaging System with manual evaluation Document reviewed and electronically signed by: ? JENNIFER WYNN MD ? Report ??Date: 11/21/2013 10:41 HPV with Pap Test ? Date Ordered: ? 11/21/2013 ? Status: ?? Signed Out ?Date Complete: ? 11/23/2013 ? By: ??System Interface ? Date Reported: ? 11/23/2013 ? Interpretation RESULT: Negative for HPV. No E6 or E7 mRNA is detected from HPV types 16,18,31,33,35, 39,45,51,52,56,58, 59,66, and 68 by director retail brand development mediated amplification. Comments Document reviewed and electronically signed by: ? System Interface ? Report date: 11/23/2013 By the signature above, the attending physician certifies that he/she has personally conducted a gross and/or microscopic examination of the described specimens and rendered or confirmed the above diagnosis. End of Report [facility] 11/10/2013 11/13/2013 us Brooke Gonzalez MD PATHOLOGY ORDERABLES Final Re sult Performing Organization Address City/State/[facility] Co de Phone Number [facility] [address] [place] [address] documented in this encounter Visit Diagnoses Not on filedocumented in this encounter Care Teams Cash Applications Specialist Relationship Specialty Start Date End Date Unknown, Provider, PCP - General 04/04/09 documented as of this encounter
--- OUTSIDE RECORDS SUMMARY | 2024-04-20 14:28 | XMS_ITS | Encounter Summary ---
Author Organization [facility] [place] [address] Care Team Providers Care Cruise Agent Name Role Phone Brooke Wiley MD Primary Care Provider [phone] Encounter Details Date Type Department Care Team (Late Contact Info) Description 11/10/2013 Ancillary Procedure Radiology Library at [facility] [place] [address] Rylee Olmos, KRYSTINA [facility] [address]LY [place], [place] [phone] Social History Tobacco Use Types Packs/Day Years [...] EDT Office Visit Radiation Oncology at [address] [phone] Johnny Rollins MD [facility] [place] [address] documented as of this encounter Procedures Procedure Name Priority Date/Time Associated Diagnosis Comments FILM LIBRARY STORAGE ONLY DX CHEST Routine 11/10/2013 12:00 AM EDT documented in this encounter Results * Film Library- Storage Only DX Chest (11/10/2013 12:00 AM EDT) Narrative [facility] - 05/20/2022 4:34 PM EST This exam is auto-finalizing. It's purpose is for storage only. Rylee Olmos APRN IMG FILM LIBRARY ORD ERABLES [place], [place] documented in this encounter Visit Diagnoses Not on filedocumented in this encounter Care Teams Cruise Agent Relationship Specialty Start Date End Date Brooke Wiley MD [address] [place] [address] PCP - General 04/29/10 05/17/17 documented as of this encounter
--- NOTE | 2024-04-20 14:33 | W.ED.GENAD ---
Discharge Plan Disposition Patient Disposition: Home Condition: Stable Discharge Details Clinical Impression: Dizziness, Acute bronchitis, GERD (gastroesophageal reflux disease), Joint pain, Fibromyalgia, Scoliosis deformity of spine, Hyperlipidemia Primary Care Provider: Sina Cabrera ED Provider: Rachel Navarrete Home Meds and New Rx's Prescriptions: No Action (DME) Aerochamber MV Spacer See Rx Instructions .Route Rx Instructions: As directed epinephrine [EpiPen 2-Shay] 0.3 MG/0.3 ML auto-injector 1 syringe IM PRN Qty: 2 cyclobenzaprine 10 mg tablet 10 mg PO TID albuterol sulfate [Ventolin HFA] 90 mcg/actuation HFA aerosol inhaler 2 puff inhalation Q6H PRN acetaminophen 500 mg tablet 1,000 mg PO BID PRN cyanocobalamin (vitamin B-12) [Vitamin B-12] 1,000 mcg tablet 1,000 mcg PO DAILY Rx Instructions: and 5000mcg twice per week on and Wed cholecalciferol (vitamin D3) 25 mcg (1,000 unit) capsule 25 mcg PO DAILY Theragran-M Premier 50 Plus 400-250-375 mcg tablet 1 tab PO DAILY oxycodone 5 mg Capsule 5 mg PO Q6H PRN Discharge Instructions Instructions: Dizziness, Adult ED Additional Instructions: You were seen in the emergency department today for evaluation of dizziness, numbness, stuffy nose, and weakness. In our department you had a full physical examination performed that was reassuring, had laboratory studies that did not show any abnormalities which might explain your symptoms. You had a CT scan of your brain that did not show any changes, and your CT of your chest does not show any changes from your most recent CT, specifically does not show signs of fluid in your lungs. Unfortunately, we are sometimes unable to determine the exact cause of symptoms in the emergency department setting. It is safe for you to go home and continue all of your medications as prescribed, and you can use rjqs-jio-gbpauiq medications to treat symptoms such as cough, pain, and fever. Please maintain good hydration and nutrition, and follow-up with your primary care provider in the next few days to discuss this visit and any symptoms that change, worsen, or persist. Thank you for allowing us to be part of your care. HPI General Mode of arrival: ambulatory. Date/Time Provider Initiated Documentation: 04/20/24 13:32. Limitations to Documentation: no limitations. Information obtained by: patient, family and old records reviewed. HPI Narrative: HPI: This is a 63-year-old female patient with a past medical history most notable for lung cancer, currently not on treatment, GERD, fibromyalgia and COPD. She is presenting for evaluation of numerous medical symptoms that have been going on for the last week or so. The patient reports that she has been sick with a head cold, having nasal congestion, fullness of the ears, and a cough of 1 week. Sputum, endorses been going on since Wednesday. She did have a low-grade fever. She states that she is also noted that she feels quite dizzy when she stands for a long period of time, and describes her dizziness as feeling that she is going to fall. She does not endorse true vertigo, feels like her balance is bad, states that she has not lost consciousness or had syncope. She is also noted intermittent changes in vision, including photophobia, and any dark blurriness, parts of her vision that resolves with blinking. She has noted intermittent numbness, and states that at the time that she called her family member she felt like her body was numb. She notes that her eyes feel swollen, which is a typical symptom associated with her fibromyalgia. Patient states that she has been evaluated in [place] and is currently on monitoring stage for her lung cancer. She states that she has never had a stroke or thromboembolic disease, has a history of PVCs and palpitations. Exam: Gen: Awake and alert, in no apparent distress HEENT: Non-icteric sclera, PERRL, EOMs full without entrapment or nystagmus. Visual acuity currently reported to be at baseline. TMs clear bilaterally Neck: Supple Lungs: No apparent respiratory distress, normal respiratory effort. Lung sounds clear and equal bilaterally CV: Appears well perfused, heart with regular rate and rhythm Abdomen: Non-distended, soft, nontender MSK: Moves 4 extremities without apparent limitation in ROM Skin: Visualized skin without rashes, cyanosis. Neuro: Cranial nerves II through XII intact and symmetrical bilaterally, 5 out of 5 strength x 4 extremities with no sensory changes at this time. The patient does have poor balance with walking requiring 1 person assist, uses cane or walker at baseline. Psych: Appropriate for situation. MDM: This is a 63-year-old female patient presenting for evaluation of numerous medical symptoms. My differential includes but is not limited to viral URI, pneumonia, bronchitis. The patient has no shortness of breath or hypoxia to significantly increase my concern for reactive airway disease exacerbation, pulmonary edema, pneumothorax. Balance issues, intermittent sensory changes, and dizziness raise concern for posterior circulation stroke, though they may also represent orthostasis, presyncope, metabolic, electrolyte derangement, anemia, kidney injury, dehydration. Considered arrhythmia, ACS. Will obtain laboratory studies to include CBC, CMP, magnesium, troponin, and Fluvid. I will proceed with CTA of the head and neck, as well as CT of the chest to better characterize any abnormalities. Will obtain a urinalysis. ED Course: I independently interpreted the laboratory studies, which show no significant leukocytosis, anemia, or thrombocytopenia. The chemistry panel is without evidence of electrolyte abnormality, kidney dysfunction, or liver injury. TSH within normal limits, COVID-19 and influenza swab negative, urine analysis noninfectious. Initial troponin was negative. The patient states that she has an intolerance to IV contrast, states that whenever she gets that she feels burning in her IV and white stuff comes out of me and states that she was told by her oncologist not to take it anymore. We did have a shared decision-making conversation regarding the limitations of a noncontrast study for the workup of posterior stroke. However, given the patient has had stuttering symptoms over the last week or 2, and would not be a candidate for intervention even if you were exposed lesion was identified, and given the fact that her constellation of symptoms seems less consistent with a specific localizable brain lesion, I feel it is reasonable to start with a CT Noncon head and chest and reevaluate after this imaging study. CT head and chest were without evidence of acute abnormality to explain her symptoms, and specifically without evidence of intracranial hemorrhage, mass effect, pneumonia. I do suspect a viral illness or bronchitis due to the patient's nasal congestion, subjective fever, and general malaise. On reassessment the patient remains hemodynamically appropriate with no new oxygen requirement, and her tachycardia has resolved. She does not have any focal neurodeficits or changes from her initial examination. At this time, the patient has had a full medical evaluation and is safe for discharge to home. They are hemodynamically stable, ambulatory, and tolerating PO. They are understanding of the follow-up plan and return precautions. They left our facility without incident. Rachel Navarrete MD Related Data Home Medications ?Medication ?Instructions ?Recorded ?Confirmed epinephrine 0.3 mg/0.3 mL 1 syringe IM PRN #2 SYRGS 10/15/14 09/09/22 injection, auto-injector (EpiPen 2-Shay) albuterol sulfate 90 mcg/actuation 2 puff inhalation Q6H PRN 04/16/22 09/09/22 aerosol inhaler (Ventolin HFA) cyclobenzaprine 10 mg tablet 10 mg PO TID 04/16/22 09/09/22 acetaminophen 500 mg tablet 1,000 mg PO BID PRN 06/15/22 09/09/22 inhalational spacing device 06/24/22 09/09/22 (Aerochamber MV spacer) cholecalciferol (vitamin D3) 25 25 mcg PO DAILY 08/26/22 09/09/22 mcg (1,000 unit) capsule cyanocobalamin (vitamin B-12) 1,000 mcg PO DAILY 08/26/22 09/09/22 1,000 mcg tablet (Vitamin B-12) fpnyvvig-xeb-zjolc acid 400 1 tab PO DAILY 08/26/22 09/09/22 mcg-coQ10 250 mcg-lycop 375 mcg-lut tablet (Theragran-M Premier 50 Plus) oxycodone 5 mg capsule 5 mg PO Q6H PRN 09/09/22 09/09/22 Allergies Allergy/AdvReac Type Severity Reaction Status Date / Time amoxicillin Allergy Severe RASH Unverified 09/09/22 14:48 naproxen Allergy Severe RASH; Unverified 09/09/22 14:48 STOMACH PAIN venom-honey bee (bee venom Allergy Severe Anaphylaxsi Unverified 09/09/22 14:48 (honey bee)) s doxycycline Allergy Intermediate RASH Unverified 09/09/22 14:48 meloxicam Allergy Intermediate Verified 09/09/22 14:48 atorvastatin calcium (From Allergy Mild ?rash Unverified 09/09/22 14:48 Lipitor) gabapentin Allergy Mild Unverified 09/09/22 14:48 nabumetone Allergy Mild HIVES Unverified 09/09/22 14:48 niacin Allergy Mild SKIN RASH Unverified 09/09/22 14:48 barley Allergy Unknown EXTREME Unverified 09/09/22 14:48 WEAKNESS azithromycin Allergy Unverified 09/09/22 14:48 cefdinir Allergy Verified 09/09/22 14:48 celecoxib (From Celebrex) Allergy Verified 09/09/22 14:48 clavulanic acid (From Allergy Verified 09/09/22 14:48 Augmentin) ethinyl estradiol (From Allergy Verified 09/09/22 14:48 Seasonale (91)) levonorgestrel (From Allergy Verified 09/09/22 14:48 Seasonale (91)) mometasone furoate Allergy Unverified 09/09/22 14:48 NSAIDS (Non-Steroidal Allergy Verified 09/09/22 14:48 Anti-Inflamma Penicillins Allergy Verified 09/09/22 14:48 Sulfa (Sulfonamide Allergy Unverified 09/09/22 14:48 Antibiotics) pravastatin AdvReac Severe H/, Unverified 09/09/22 14:48 MUSCLE PAIN simvastatin AdvReac Intermediate NAUSEA; Unverified 09/09/22 14:48 VOMITING DUST Allergy Mild ITCHY Uncoded 09/09/22 14:48 EYES; SNEEZING seafood Allergy Uncoded 09/09/22 14:48 General Stated Complaint: Dizzy/Sync ARLET: 3 Course Vital Signs Vital signs: Vital Signs Temperature 37.0 C 04/20/24 13:26 Pulse 112 H 04/20/24 13:26 Respiratory Rate 20 04/20/24 13:26 Blood Pressure 163/75 H 04/20/24 13:26 Pulse Oximetry 98 04/20/24 13:26 Temperature 37.0 C 04/20/24 13:26 Pulse 112 H 04/20/24 13:26 Respiratory Rate 20 04/20/24 13:26 Respiratory Effort Normal 04/20/24 13:30 Blood Pressure 163/75 H 04/20/24 13:26 Blood Pressure Position Sitting 04/20/24 13:26 Pulse Oximetry 98 04/20/24 13:26 Oxygen Delivery Method Room Air 04/20/24 13:26 Oxygen Flow Rate 0 04/20/24 13:26 Medical Decision Making Quality:SDOH Health Related Social Needs: No Data to Display PFSH All Active Problems (Updated 04/20/24 @ 17:02 by Rachel Navarrete MD) Dizziness (Acute) Large cell carcinoma of right lung (Acute) Nicotine dependence, cigarettes, uncomplicated (Acute) Lymphangioleiomyomatosis (Acute) Lung mass (Acute) Multiple nodules of lung (Acute) Cyst of nasopharynx (Acute) Chest pain (Acute) Acquired chest and rib deformity (Acute) Scoliosis deformity of spine (Acute) Fibromyalgia (Acute) Pain in the coccyx (Acute) Lumbosacral radiculopathy (Acute) Lower back pain (Acute) Cervical radiculopathy (Acute) Joint pain (Acute) Idiopathic osteoarthritis (Acute) GERD (gastroesophageal reflux disease) (Chronic) Allergic rhinitis (Acute) Acute bronchitis (Acute) Phlebosclerosis (Acute) Carpal tunnel syndrome (Acute) Nicotine dependence (Acute) Anxiety (Chronic) Megaloblastic anemia due to B12 deficiency (Acute) Hyperlipidemia (Acute) Medical History (Updated 04/20/24 @ 17:02 by Rachel Navarrete MD) Dermatitis Emphysema of lung COPD (chronic obstructive pulmonary disease) Tachycardia Dizziness Palpitations Endometriosis Surgical History (Updated 03/23/18 @ 14:36 by [employer]) Ligation of fallopian tube (03/22/91) Dilation and curettage (~2009) [facility] Family History (Updated 06/16/22 @ 08:33 by Margaret Grimaldo) Father Diabetes Heart disease Hyperlipidemia Myocardial infarction Sister Hyperlipidemia Brother Heart disease Brother Hyperlipidemia Brother Diabetes Grandfather Personal history of malignant neoplasm COLON Pulmonary emphysema Colon cancer Grandfather Heart disease Hyperlipidemia Myocardial infarction Social History (Updated 06/16/22 @ 08:32 by Margaret Grimaldo) Smoking/Tobacco Use Status: Current every day Tobacco Type: cigarettes Smoking packs per day: 0.5 Smoking cigarettes per day: 10.0 Smoking risk assessment performed?: Yes Alcohol Intake: never Substance use type: does not use Do you feel safe at home: Yes Do you feel safe in your relationship?: Yes
[2024-04-20 14:36] LABS: Abs Immature Grans 0.03 10^3/uL (0.0-0.06); Absolute Basophil Count 0.02 10^3/uL (0.0-0.2); Absolute Eosinophil Count 0.08 10^3/uL (0.0-0.7); Absolute Neutrophil Count 5.24 10^3/uL (1.2-6.7); Basophils % 0.2 %; HCT 42.2 % (36.0-46.0); HGB 14.2 g/dL (11.2-15.7); Immature Grans % 0.4 %; Lymphocytes % 27.8 %; MCH 31.2 pg (27.0-33.0); MCHC 33.6 % (32.0-36.0); MCV 93 fL (80-95); MPV 9.8 fL (8.0-11.0); Monocytes % 7.3 %; Neutrophils % 63.3 %; Platelet Count 267 10^3/uL (130-400); RBC 4.55 10^6/uL (3.93-5.22); RDW 13.1 % (11.7-14.6); RDW-SD 44.6 fL; WBC 8.27 10^3/uL (4.4-10.8)
[2024-04-20 14:44] LABS: Bilirubin Negative (Negative); Blood Negative (Negative); Clarity Clear (Clear); Glucose Negative (Negative); Ketones Negative (Negative); Leukocyte Esterase Negative (Negative); Nitrite Negative (Negative); Urobilinogen 0.2 mg/dL (Up to 0.2)
[2024-04-20 15:19] LABS: COVID-19 PCR Negative (Negative); Influenza A PCR Negative (Negative); Influenza B PCR Negative (Negative); RSV PCR Negative (Negative)
[2024-04-20 15:20] LABS: Source Nasopharynx
[2024-04-20 15:36] LABS: ALT 15 U/L (14-59); AST 15 U/L (15-37); Albumin 3.4 g/dL (3.4-5.0); Alkaline Phosphatase 86 U/L (46-116); Anion Gap 9.5 mmol/L (3-11); BUN 10 mg/dL (7-18); Bilirubin, Total 0.35 mg/dL (0.2-1.0); CO2 27.5 mmol/L (21.0-32.0); CREATININE 0.9 mg/dL (0.55-1.02); Calcium 8.9 mg/dL (8.5-10.1); Chloride 106 mmol/L (98-107); Estimated GFR 70.95 (mL/min/1.73m2); Glucose 103 mg/dL (74-106); Magnesium 2.1 mg/dL (1.8-2.4); Potassium 3.5 mmol/L (3.5-5.1); Sodium 143 mmol/L (136-145); TSH 0.68 uIU/mL (0.36-3.74); Total Protein 6.6 g/dL (6.4-8.2); Troponin I 8 ng/L (<or=51)
[2024-04-20 15:38] VITALS: BP 153/80; PULSE 93; RESP 18; TEMP 36.6; O2SAT 97
[2024-04-20 15:55] VITALS: O2SAT 97
--- NOTE | 2024-04-20 16:18 | DI.CT_ITS ---
Exam(s) CT CHEST WO EXAM: CT CHEST WO CLINICAL HISTORY: Hx cancer, eval PNA, tumor recurrence. TECHNIQUE: Imaging protocol: Axial computed tomography images were obtained and coronal and sagittal reformatted images were created and reviewed. Lung Computer Aided Detection (CAD) was utilized. COMPARISON: CT CT CHEST W from 04/14/2023 FINDINGS: Tracheobronchial tree: Patent where visualized. Pulmonary parenchyma: The masslike opacity in the right lower lobe is unchanged. There is associated traction bronchiectasis present. No new infiltrates are seen. Moderate centrilobular emphysematous changes are present. No new pulmonary nodules are present. Mediastinum and Sandra: No dominant adenopathy or fluid collection. The esophagus is unremarkable.There is a large hiatal hernia. Thyroid gland: Unremarkable. Pleura: No effusion or pneumothorax. Heart: The heart is not dilated. Two vessel coronary artery calcification is present. No pericardial effusion. Aorta: Thoracic aorta non-dilated. Atherosclerotic calcification is present. Upper abdomen: There is a stable left renal cyst. No follow-up is recommended. Lymph nodes: Within normal limits. Soft tissues: Unremarkable. Bones:Within normal limits for the patient's age. IMPRESSION: 1. No change in appearance of the chest since 08/06/2023. 2. No evidence of a pneumonia. RADIATION DOSE DELIVERED: 198.62mGy.cm Total DLP 198.62mGy.cm Total DLP DATA REPOSITORY: All CT scans at this facility are submitted to the National Radiology Data Registry (NRDR) Dose Index Registry (DIR) with the [employer] ([employer]). RADIATION OPTIMIZATION: All CT scans at this facility use at least one of these dose optimization te chniques: automated exposure control; mA and/or kV adjustment per patient size (includes targeted exa ms where dose is matched to clinical indication); or iterative reconstruction.
--- NOTE | 2024-04-20 16:18 | DI.CT_ITS ---
Exam(s) CT HEAD WO EXAM: CT HEAD WO CLINICAL HISTORY: SOTO, intermittent numbness. TECHNIQUE: Imaging Protocol: Axial computed tomography images with coronal and sagittal reformatted images were created and reviewed COMPARISON: MR MR BRAIN WO/W from 07/27/2022 FINDINGS: Ventricles and Extra axial spaces: Normal in size and morphology for the patient's age. Hemorrhage: None. Cerebral parenchyma: There are areas of decreased attenuation in the white matter likely reflecting e carlos small vessel ischemic disease. No acute territorial infarct or mass effect is identified. Midline shift: None. Brainstem/Cerebellum: Normal. Calvarium: Normal. Visualized Paranasal sinuses/Mastoids: There is opacification of an ethmoid air cell on the left. Th e remaining visualized paranasal sinuses are clear as are the mastoid air cells. Soft Tissues: Unremarkable. IMPRESSION: No acute intracranial process. RADIATION DOSE DELIVERED: 761.56mGy.cm Total DLP DATA REPOSITORY: All CT scans at this facility are submitted to the National Radiology Data Registry (NRDR) Dose Index Registry (DIR) with the [employer] ([employer]). RADIATION OPTIMIZATION: All CT scans at this facility use at least one of these dose optimization te chniques: automated exposure control; mA and/or kV adjustment per patient size (includes targeted exa ms where dose is matched to clinical indication); or iterative reconstruction.
[2024-04-20 16:27] LABS: Troponin I 9 ng/L (<or=51)
[2024-04-20 17:02] VITALS: BP 157/69; PULSE 92; RESP 14; TEMP 36.3; O2SAT 97
== END 2024-04-20 17:21 | disposition home or self-care (01) ==
PROVIDERS: Emergency Provider Emergency Medicine; PCP Student in an Organized Health Care Education/Training Program
DX: J20.9 Acute bronchitis, unspecified (principal); R00.1 Bradycardia, unspecified; J44.9 Chronic obstructive pulmonary disease, unspecified; M79.7 Fibromyalgia; E78.5 Hyperlipidemia, unspecified; F17.210 Nicotine dependence, cigarettes, uncomplicated; Z85.118 Personal history of other malignant neoplasm of bronchus and lung
CPT/HCPCS: 71250; 80053; 87637; 93005; 99284; 70450; 81003; 83735; 84443; 84484; 85025; 93010

== ENCOUNTER 2024-12-01 00:30 | Outpatient (CLI) | payer MEDICARE, MEDICAID, SELFPAY ==
--- NOTE | 2024-12-01 | DI.US_ITS ---
Exam(s) US CAROTID EXAM: US CAROTID CLINICAL HISTORY: TRANSIENT VISUAL LOSS RT EYE, H53.121, DIMMING VISION AFTER DENTAL. TECHNIQUE: Ultrasound carotids performed using grayscale, color-flow, and spectral Doppler imaging. COMPARISON: Noncontrast chest CT 20 April 2024 FINDINGS: RIGHT CAROTID ARTERY: Plaque: Heavy calcified plaque at the common carotid bulb and proximal right internal carotid artery causing severe stenosis, greater than 70 percent. Velocity elevation: Severe velocity elevations at the level of the bulb as well as external carotid artery. LEFT CAROTID ARTERY: Plaque: Mild scattered foci of calcific plaque along the common carotid. Moderate plaque at the bulb with elevated velocities in at the proximal ICA consistent with 50-69 percent stenosis. Velocity elevation: None. VERTEBRAL ARTERIES: Antegrade flow. IMPRESSION: Severe stenosis at the left common carotid bulb due to large calcified plaque. Moderate stenosis of 50-69 percent at the proximal right internal carotid artery. Criteria for Carotid Stenosis: Normal: ICA PSV <125 cm/s no plaque or intimal thickening is visible. <50% stenosis: ICA PSV <125 cm/s and plaque or intimal thickening is visible. 50-69% stenosis: ICA PSV is 125-250 cm/s and plaque is visible. >70% stenosis to near occlusion: ICA PSV >250 cm/s with visible plaque and luminal narrowing. DATA REPOSITORY:
== END 2024-12-01 00:50 ==
PROVIDERS: PCP Student in an Organized Health Care Education/Training Program; Visit Provider Student in an Organized Health Care Education/Training Program
DX: H53.121 Transient visual loss, right eye (principal)
CPT/HCPCS: 93880